=== PATIENT | female | born 1995 | race Caucasian/White ===

== ENCOUNTER 2020-02-15 21:03 | Emergency (ER) | payer SELFPAY ==
[~2020-02-15] VITALS: Ht 152.4 cm; Wt 74.8 kg
--- OUTSIDE RECORDS SUMMARY | ~2020-02-15 | XMS | Clinical Summary ---
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 again. Neck pain, R shoulder pain and | | | numbness into R fingers. Upper back | | | fatigue and muscle pain and tension daily, | | | worse dirving and working | | + + + | Denies malaise | | + + + | Denies chest pain or discomfort | | + + + | Denies shortness of breath | | + + + | Complains of muscle cramps, back pain, | | | muscle aches; Denies muscle weakness, loss | | | of strength | | + + + | Complains of numbness; Denies disturbances | | | in coordination, weakness | | + + + | Complains of muscle cramps, back pain, | | | muscle aches; Others: seeing PT reg | | + + + | Complains of headaches; Denies | | | disturbances in coordination, numbness, | | | falling down, weakness | | + + + | Complains of pelvic pain; Denies inability | | | to empty bladder, trouble starting | | | urinary stream, painful urination; Others: | | | No recent unprotected Sex (last 6 mos at | | | least). NO vaginal discomfort, denies | | | abnormal discharge. 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 | | + + + | Denies difficulty breathing at night, near | | | fainting, chest pain or discomfort, | | | racing/skipping heart beats, fatigue, | | | lightheadedness, shortness of breath with | | | exertion, palpitations, swelling of hands | | | or feet, difficulty breathing while lying | | | down, fainting, leg cramps with exertion, | | | bluish discoloration of lips or nails, | | | weight gain | | + + + | Denies sleep disturbances due to | | | breathing, cough, shortness of breath, | | | coughing up blood, chest discomfort, | | | wheezing, excessive sputum, excessive | | | snoring; Others: Asthma - Mild exercise | | | induced | | + + + | Complains of back pain, stiffness; Denies | | | muscle cramps, joint pain, joint swelling, | | | presence of joint fluid, muscle weakness, | | | arthritis, gout, loss of strength, muscle | | | aches; Others: RIght neck and shoulder | | | radiating down to land acress ower back. | | + + +"
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
== END 2020-02-15 22:14 | disposition left against medical advice (07) ==
LOC: ED 21:03
DX: Z53.21 Procedure and treatment not carried out due to patient leaving prior to being seen by health care provider (principal)

== ENCOUNTER 2020-03-10 07:48 | Emergency (ER) | payer SELFPAY ==
[~2020-03-10] VITALS: Ht 152.4 cm; Wt 74.4 kg
--- OUTSIDE RECORDS SUMMARY | ~2020-03-10 | XMS | Encounter Summary ---
Demographics + + + | Address | [address] | | | [place] [address] | + + + | Home Phone | | + + + | Preferred Language | Unknown | + + + | Marital Status | Single | + + + | Adventist Affiliation | 1013 | + + + | Race | White | + + + | Ethnic Group | Not or | + + + Author + + + | Author | [facility] | | | and [place] | + + + | Organization | [facility] | | | and [place] | + + + | Address | Unknown | + + + | Phone | Unavailable | + + + Support + + +---------+ + | Name | Relationship | Address | Phone | + + +---------+ + | Joyce Smith | ECON | Unknown | | + + +---------+ + Care Team Providers + +------+ + | Care Microbiology Lab Analyst Name | Role | Phone | + +------+ + | Jennifer Rowley | PCP | | + +------+ + Reason for Referral Evaluate & Treat (Routine) +--------+ + + + + + | Status | Reason | Specialty | Diagnoses / | Referred By | Referred To | | | | | Procedures | Contact | Contact | +--------+ + + + + + | Closed | Specialty | Obstetrics | Diagnoses | Sandie, | Federico, | | | Services | and | Abdominal | Antony | Rustam | | | Required | Gynecology | pain, | MD Dane | Patric | | | | | unspecified | [address] | MD Toni | | | | | abdominal | [address] [place] | [address] | | | | | location | [place], [place] | [place] | | | | | | [address] | [place] | | | | | | Phone: | [phone] | | | | | | [phone] | Phone: | | | | | | Fax: | [phone] | | | | | | [phone] | | +--------+ + + + + + Reason for Visit + + + | Reason | Comments | + + + | Abdominal Pain | | + + + Encounter Details +--------+ + + + + | Date | Type | Department | Care Team | Description | +--------+ + + + + | 03/21/ | Emergency | [facility] | Antony Hooper | Abdominal pain, | | 2018 | | [facility] | MD Dane [address] | unspecified | | | | CENTER [address] | [address] [place] | abdominal location | | | | [place], [place] | [place] [address] | (Primary Dx) | | | | [address] | [phone] | | | | | [phone] | | | +--------+ + + + + Social History + +-------+ +--------+------+ | Tobacco Use | Types | Packs/Day | Years | Date | | | | | Used | | + +-------+ +--------+------+ | Never Smoker | | | | | + +-------+ +--------+------+ + +---+---+---+ | Smokeless Tobacco: | | | | | Never Used | | | | + +---+---+---+ + + +---------+ + | Alcohol Use | Drinks/Week | oz/Week | Comments | + + +---------+ + | Yes | | | Rare | + + +---------+ + + + + | Sex Assigned at | Date Recorded | | | | + + + | Not on file | | + + + documented as of this encounter Last Filed Vital Signs + + + + + | Vital Sign | Reading | Time Taken | Comments | + + + + + | Blood Pressure | 109/68 | 03/21/2018 3:35 PM | | | | | PDT | | + + + + + | Pulse | 82 | 03/21/2018 3:35 PM | | | | | PDT | | + + + + + | Temperature | 37.2 C (98.9 F) | 03/21/2018 11:08 AM | | | | | PDT | | + + + + + | Respiratory Rate | 18 | 03/21/2018 11:08 AM | | | | | PDT | | + + + + + | Oxygen Saturation | 100% | 03/21/2018 3:35 PM | | | | | PDT | | + + + + + | Inhaled Oxygen | - | - | | | Concentration | | | | + + + + + | Weight | 92.5 kg (204 lb) | 03/21/2018 11:08 AM | | | | | PDT | | + + + + + | Height | - | - | | + + + + + | Body Mass Index | 39.84 | 02/19/2018 6:13 PM | | | | | PDT | | + + + + + documented in this encounter Discharge Instructions AttachmentsThe following attachments cannot be sent through Care Everywhere.Abdominal Pain, Adult (Icelandic)documented in this encounter Medications at Time of Discharge + + + +---------+ + + | Medication | Sig | Dispensed | Refills | Start | End Date | | | | | | Date | | + + + +---------+ + + | cetirizine | Take 5 mg by mouth | | 0 | | | | (ZYRTEC) 5 mg tablet | Daily. | | | | 9 | + + + +---------+ + + | methocarbamol | Take 500 mg by mouth | | 0 | | | | (ROBAXIN) 500 mg | every 8 hours as | | | | 9 | | tablet | needed. | | | | | + + + +---------+ + + | ondansetron | Take 1 tablet by | 15 | 0 | 03/21/20 | | | (ZOFRAN ODT) 4 mg | mouth every 8 hours | tablet | | 18 | 8 | | disintegrating | as needed for up to | | | | | | tablet | 5 days. | | | | | + + + +---------+ + + | oxyCODONE | Take 1 tablet by | 15 | 0 | 03/21/20 | | | (ROXICODONE) 5 mg | mouth every 8 hours | tablet | | 18 | 8 | | tablet | as needed for Pain | | | | | | | for up to 5 days. | | | | | + + + +---------+ + + documented as of this encounter ED Notes Antony Hooper MD - 03/21/2018 11:13 AM PDTFormatting of this note might be diff erent from the original. [facility] Kimmie Hawkins Emergency Department Encounter Note [address] [place] [id number] PCP:SIGRID Zavala [phone] CHIEF COMPLAINT: Chief Complaint Patient presents with Abdominal Pain ED Room: ED10 HPI Kimmie Hawkins is a 22 y.o. female who presents to the Emergency Department Reports LLQ pain localized sharp stabbing up to 5/10 intermittent starting this am after sh e twisted while getting out of bed and noted the onset of this pain. No dysuria or change in BM. No associated nausea of vomiting. Language line clerical assistant made available and used to collect historical details as needed. PAST MEDICAL & SURGICAL HISTORY Patient Active Problem List Diagnosis Date Noted Chronic tonsillitis and adenoiditis(474.02) 06/21/2013 Note Last Updated: 03/28/2015 ICD-10 Record update DYSURIA 09/14/2011 Past Surgical History: Procedure Laterality Date CHOLECYSTECTOMY, LAPAROSCOPIC 2009 TONSILLECTOMY 2013 CURRENT MEDICATIONS Discharge Medication List as of 03/21/2018 15:28 CONTINUE these medications which have NOT CHANGED Details cetirizine (ZYRTEC) 5 mg tablet Take 5 mg by mouth Daily.Historical Med methocarbamol (ROBAXIN) 500 mg tablet Take 500 mg by mouth every 8 hours as needed.Historic al Med ALLERGIES Allergies Allergen Reactions Acetaminophen Other (See Comments) Headache and upset stomach Codeine Other (See Comments) Reaction not specified in outside medical records Ibuprofen Other (See Comments) Headache and upset stomach Red Dye Rash FAMILY AND SOCIAL HISTORY Family History Problem Relation Age of Onset Cancer Mother Diabetes Mother Alcohol abuse Mother Hypertension Mother Arthritis Mother Hypertension Other Anxiety disorder Other Asthma Other Depression Other Alcohol abuse Other Stroke Other Grandma Heart disease Father Mental illness Father Diabetes Maternal Grandmother Stroke Maternal Grandmother Diabetes Maternal Grandfather Hypertension Maternal Grandfather COPD Paternal Grandmother Rheum arthritis Paternal Grandmother Mental illness Paternal Uncle Diabetes Maternal Aunt Social History Social History Marital status: Single Spouse name: N/A Number of children: 12 Years of education: N/A Social History Main Topics Smoking status: Never Smoker Smokeless tobacco: Never Used Alcohol use Yes Comment: Rare Drug use: No Sexual activity: Yes Other Topics Concern None Social History Narrative None REVIEW OF SYSTEMS As in history of present illness. A 10 system review was otherwise negative. PHYSICAL EXAM VITAL SIGNS: (first vital signs):Temp: 37.2 C (98.9 F) Pulse: 99 Resp: 18 SpO2: 99 % BP : 124/76 Body mass index is 39.84 kg/m. Constitutional: Moderately uncomfortable female patient. HEENT: Atraumatic, PERRL, Oropharynx benign. Neck: Supple with full range of motion. No JVD, no lymphadenopathy, no meningismus and no cervical spine tenderness to palpation or step-off noted. Chest: Good air movement bilaterally. No wheezes, No, rales. Cardiovascular: Normal S1 S2 Abdomen: Soft, nontender., no rebound, guarding, or masses., bowel tones normal. and no pu lsatile masses. Back: Within normal limits, no CVA tenderness and no midline thoracic or lumbar spinal tend erness Extremities: Nontender. No lower extremity edema, no calf asymmetry. Present distal pulse s. Skin: Warm, Dry, No rashes Neurologic: Alert & oriented. No focal deficits, Speech normal, gait not tested Psychiatric: Normal mood, affect and judgement. EKG 12-lead EKG shows LABS Results for orders placed or performed during the hospital encounter of 03/21/18 CBC with Differential Result Value Ref Range WBC 7.4 4.0 - 11.0 K/uL RBC 4.72 3.70 - 5.20 M/uL Hgb 13.6 11.5 - 16.0 g/dL Hct 40.1 34.0 - 47.0 % MCV 85.0 83.0 - 101.0 fL MCH 28.8 28.0 - 35.0 pg MCHC 33.9 32.0 - 36.0 g/dL RDW-CV 11.9 <15.0 % RDW-SD 36.5 35.1 - 46.3 fL Platelet Count 262 140 - 440 K/uL MPV 10.0 6.5 - 12.4 fL % Neutrophils 58.8 45.0 - 82.0 % % Lymphocytes 33.2 20.0 - 45.0 % % Monocytes 5.5 4.0 - 12.0 % % Eosinophils 2.3 0.0 - 5.0 % % Basophils 0.1 0.0 - 1.0 % % Immature granulocytes 0.1 0.0 - 0.4 % Absolute Neutrophils 4.37 1.80 - 8.50 K/uL Absolute Lymphocytes 2.47 0.60 - 3.20 K/uL Absolute Monocytes 0.41 0.00 - 1.00 K/uL Absolute Eosinophils 0.17 0.00 - 0.40 K/uL Absolute Basophils 0.01 0.00 - 0.10 K/uL Absolute Imm. Granulocytes 0.01 0.00 - 0.03 K/uL nRBC 0 0 - 2 per 100 WBC's NRBC ABS 0.00 0.00 - 0.01 K/uL Comprehensive Metabolic Panel Result Value Ref Range NA 137 136 - 149 mmol/L K 3.8 3.5 - 5.1 mmol/L CL 105 98 - 109 mmol/L CO2 25 24 - 31 mmol/L ANION GAP 7 3 - 16 mmol/L GLUCOSE 120 (H) 70 - 109 mg/dL BUN 6 (L) 7 - 18 mg/dL Creatinine, Serum/Plasma 0.69 0.60 - 1.30 mg/dL eGFR if not >60 >=60 mL/min/1.73m2 CALCIUM 9.6 8.3 - 10.5 mg/dL ALBUMIN 4.2 3.2 - 5.0 g/dL Bilirubin Total 0.4 0.1 - 1.5 mg/dL Total protein 7.4 6.0 - 7.8 g/dL AST 47 (H) 10 - 42 U/L ALT 105 (H) 6 - 45 U/L ALK PHOS 56 40 - 110 U/L GLOBULIN 3.2 2.1 - 3.8 g/dL Albumin/Globulin ratio 1.3 0.8 - 2.0 BUN/CREA 8.7 Lipase Result Value Ref Range LIPASE 20 0 - 60 U/L Urinalysis with Microscopic with Culture if Indicated Result Value Ref Range COLOR Yellow Light Yellow, Yellow, Straw CLARITY Hazy (A) Clear PH UA 5.0 5.0 - 8.0 Specific [place] 1.023 1.001 - 1.030 PROTEIN UA Negative Negative BLOOD UA Negative Negative GLUCOSE UA Negative Negative KETONES UA Negative Negative BILIRUBIN UA Negative Negative NITRITE UA Negative Negative LEUKOCYTES ESTERASE UA Trace (A) Negative UROBILINOGEN UA Negative 0.2 mg/dL, 1.0 mg/dL, Negative WBC UA 5-10 (A) 0 - 2 /HPF RBC UA 0-2 0 - 2 /HPF SQUAMOUS EPITHELIAL UA >100 (A) 0 - 2 /LPF BACTERIA UA 1+ (A) Negative /HPF MUCUS UA Present (A) Negative /LPF BUDDING YEAST UA Few (A) Negative , Serum, Qual Result Value Ref Range hCG Screen, Serum Negative Negative IMAGING STUDIES (X-Rays interpreted by ED Physician) US pelvis shows ovarian cyst CT AP does not reveal acute pathology ED COURSE & MEDICAL DECISION MAKING Pertinent Labs & Imaging studies were reviewed along with EMS notes and [facility] record s if applicable. (See chart for details) Medications and Allergy list reviewed. Nurses note and old records were reviewed The patient was seen and examined, The patient was placed on the monitor and monitored. An iv was placed. The patient was given a normal saline bolus. The patient was given iv narcotic pain medication morphine to which the patients pain responded. The patient was given zofran for their symptoms. Screening labs are ordered and are unremarkable. Pain likely secondary to ovarian cyst without other acute intra-abdominal or intrapelvic pa thology identified. The patient remained hemodynamically stable within normal limits during their ED course, and sat comfortably in their bed in no apparent distress. The patient was counseled about their results and workup including all incidental findings and the need for out patient follow up to which they verbalized their understanding and were provided. The patient was counseled about the importance of medical recommendations today and the dangers including harm, , permanen t injury, injury, morbidity, and mortality of non adherence to the plan. They verbalize thei r understanding of today's plan and agree with it. They were counseled that emergency servic es are available to them 16/01 and to return to the ED immediately if symptoms return, persis t, change or worsen. The patient was given follow up. They were given further strict, thorou gh, actionable return precautions to which they verbalized their understanding. The patient's questions were answered and the patient agreed with the plan. The patient was discharged in good stable condition. Last Set of Vital Signs: Temp: 37.2 C (98.9 F) Pulse: 82 Resp: 18 SpO2: 100 % BP: 109/6 8 FINAL IMPRESSION ICD-10-CM ICD-9-CM 1. Abdominal pain, unspecified abdominal location R10.9 789.00 Follow-up Information SIGRID Zavala. Specialty: Family Nurse Practitioner Contact information: [address] [place] [address] Rustam Caballero MD. Call today. Specialty: Obstetrics and Gynecology Contact information: [address] [place] [address] Discharge Medication List as of 03/21/2018 15:28 START taking these medications Details ondansetron (ZOFRAN ODT) 4 mg disintegrating tablet Take 1 tablet by mouth every 8 hours as needed for up to 5 days.Disp-15 tablet, R-0, Print oxyCODONE (ROXICODONE) 5 mg tablet Take 1 tablet by mouth every 8 hours as needed for Pain for up to 5 days.Disp-15 tablet, R-0, Print Administrations This Visit fentaNYL (PF) injection 50 mcg Admin Date 03/21/2018 Action Given Dose 50 mcg Route Intravenous Administered By Sharlene Cárdenas RN Admin Date 03/21/2018 Action Given Dose 50 mcg Route Intravenous Administered By Sharlene Cárdenas RN iohexol (OMNIPAQUE 350) 350 mg/mL injection 90 mL Admin Date 03/21/2018 Action Given Dose 90 mL Route Intravenous Administered By Xavi Rucker ondansetron (ZOFRAN) injection 4 mg Admin Date 03/21/2018 Action Given Dose 4 mg Route Intravenous Administered By Sharlene Cárdenas RN oxyCODONE (ROXICODONE) tablet 5 mg Admin Date 03/21/2018 Action Given Dose 5 mg Route Oral Administered By Sharlene Cárdenas RN sodium chloride 0.9% (NS) infusion Admin Date 03/21/2018 Action New Bag Dose Rate 100 mL/hr Route Intravenous Administered By Sharlene Cárdenas RN Portions of this chart were created with [employer] voice recognition software. Inadvertent so und alike substitutions may be present and are unintentional Antony Hooper MD 03/21/18 1749 AEinLiborio ugalde RN - 03/21/2018 11:07 AM PDTLower abd pain since yesterday. Has hx of ovarian cyst. C/o nausea. Denies pain with urination or diarrhea. Electronically signed by CHAYITO Donato t 03/21/2018 11:11 AM PDTdocumented in this encounter Plan of Treatment + +------+--------+ + + | Name | Type | Priori | Associated Diagnoses | Date/Time | | | | ty | | | + +------+--------+ + + | ED INFORMATION | GLENN | Routin | | 03/21/2018 11:03 AM | | EXCHANGE | | e | | PDT | + +------+--------+ + + + + +--------+ + + | Name | Type | Priori | Associated Diagnoses | Order Schedule | | | | ty | | | + + +--------+ + + | Obstetrics / | Outpatient | Routin | Abdominal pain, | Ordered: 03/21/2018 | | Gynecology, External | Referral | e | unspecified | | | - AMB Referral | | | abdominal location | | + + +--------+ + + documented as of this encounter Procedures + +--------+ + + + | Procedure Name | Priori | Date/Time | Associated Diagnosis | Comments | | | ty | | | | + +--------+ + + + | CT ABDOMEN PELVIS W | STAT | 03/21/2018 | | Results for this | | CONTRAST | | 2:16 PM | | procedure are in the | | | | PDT | | results section. | + +--------+ + + + | US PELVIS W | STAT | 03/21/2018 | | Results for this | | TRANSVAGINAL | | 12:38 PM | | procedure are in the | | | | PDT | | results section. | + +--------+ + + + | URINALYSIS WITH | STAT | 03/21/2018 | | Results for this | | MICROSCOPIC WITH | | 11:38 AM | | procedure are in the | | CULTURE IF INDICATED | | PDT | | results section. | + +--------+ + + + | CBC WITH | STAT | 03/21/2018 | | Results for this | | DIFFERENTIAL | | 11:38 AM | | procedure are in the | | | | PDT | | results section. | + +--------+ + + + | , SERUM, | STAT | 03/21/2018 | | Results for this | | QUAL | | 11:38 AM | | procedure are in the | | | | PDT | | results section. | + +--------+ + + + | LIPASE | STAT | 03/21/2018 | | Results for this | | | | 11:38 AM | | procedure are in the | | | | PDT | | results section. | + +--------+ + + + | COMPREHENSIVE | STAT | 03/21/2018 | | Results for this | | METABOLIC PANEL | | 11:38 AM | | procedure are in the | | | | PDT | | results section. | + +--------+ + + + | ED INFORMATION | Routin | 03/21/2018 | | | | EXCHANGE | e | 11:03 AM | | | | | | PDT | | | + +--------+ + + + +---+--------+ | | | | | Proced | | | ure | | | Note - | | | Amy, | | | Lab In | | | | | | Hlseve | | | n - | | | | | | 2017 | | | 11:04 | | | AM PDT | | | | | | Format | | | ting | | | of | | | this | | | note | | | might | | | be | | | differ | | | ent | | | from | | | the | | | origin | | | al.AMY | | | E?NOTI | | | FICATI | | | ON?/ | | | | | | 8 | | | 10:51? | | | HENSLE | | | Y, | | | PERCEP | | | HONI | | | J?MRN: | | | | | | [id number] | | | [id number] | | | his | | | patien | | | t has | | | regist | | | ered | | | at the | | | | | | Provid | | | ence | | | [facility] | | l | | | Center | | | | | | Emerge | | | ncy | | | Depart | | | ment | | | For | | | more | | | inform | | | ation | | | visit: | | | | | | https: | | | //secu | | | [email or web address] | | | ecarep | | | [email or web address] | | | m/denisse | | | ent/0b | | | [id number] | | | -[id number]- | | | [id number] | | | [id number] | | | [id number] | | | 668e | | | Securi | | | ty | | | Events | | | No | | | recent | | | | | | Securi | | | ty | | | Events | | | | | | curren | | | tly on | | | | | | fileED | | | Care | | | Guidel | | | inesTh | | | ere | | | are | | | curren | | | tly no | | | ED | | | Care | | | Guidel | | | doretha | | | in | | | [facility] | | | for | | | this | | | patien | | | t. | | | Please | | | check | | | your | | | facili | | | ty's | | | medica | | | l | | | record | | | s | | | system | | | .Recen | | | t | | | Emerge | | | ncy | | | Depart | | | ment | | | Visit | | | [facility] | | | yAdmit | | | Date | | | Facili | | | ty | | | City | | | State | | | Type | | | Major | | | Type | | | Diagno | | | ses or | | | Chief | | | | | | Compla | | | int | | | Sep | | | 26, | | | 2018 | | | Provid | | | ence | | | [facility] [place] | | | [place] | | | Emerge | | | ncy | | | Emerge | | | ncy | | | Lower | | | ABD | | | Pain | | | Aug | | | 27, | | | 2018 | | | Provid | | | ence | | | [facility] | | [facility] | | [place] | | | [place] | | | Emerge | | | ncy | | | Emerge | | | ncy | | | sinus | | | pain | | | | | | Otalgi | | | a, | | | left | | | ear | | | Other | | | | | | specif | | | ied | | | disord | | | ers of | | | nose | | | and | | | nasal | | | sinuse | | | s Aug | | | 23, | | | 2018 | | | [facility] | | | [place] | | | Urgent | | | Care | | | [place] | | | [place] | | | Urgent | | | Care | | | | | | Outpat | | | ient | | | | | | Pharyn | | | gitis | | | | | | Acute | | | pharyn | | | gitis, | | | | | | unspec | | | ified | | | | | | Acute | | | pansin | | | usitis | | | , | | | unspec | | | ified | | | Joe | | | 18, | | | 2018 | | | Provid | | | ence | | | [facility] | | | [facility] | | [place] | | | [place] | | | Emerge | | | ncy | | | Emerge | | | ncy | | | | | | migrai | | | ne | | | Headac | | | he | | | (Adult | | | - | | | Recurr | | | ent Or | | | Known | | | Dx | | | Migrai | | | andrei) | | | | | | Chroni | | | c | | | tensio | | | n-type | | | | | | headac | | | he, | | | intrac | | | table | | | Joe | | | 16, | | | 2018 | | | Provid | | | ence | | | [facility] | [facility] | [place] | | | [place] | | | Emerge | | | ncy | | | Emerge | | | ncy | | | | | | headac | | | he | | | Headac | | | he | | | (Adult | | | - New | | | Onset | | | Or | | | New | | | Sympto | | | ms) | | | | | | Headac | | | he | | | Joe | | | 13, | | | 2018 | | | [facility] | | | [place] | | | Urgent | | | Care | | | [place] | | [place] | | | Urgent | | | Care | | | | | | Outpat | | | ient | | | | | | Follow | | | -up | | | | | | Radicu | | | lopath | | | y, | | | lumbar | | | | | | region | | | E.D. | | | Visit | | | Count | | | (12 | | | mo.)Fa | | | cility | | | | | | Visits | | | Low | | | Acuity | | | | | | Provid | | | ence | | | St. | | | [facility] | Medica | | | l | | | Center | | | 7 0 | | | Total | | | 7 0 | | | Note: | | | Visits | | | | | | indica | | | te | | | total | | | known | | | visits | | | . | | | Medica | | | id Low | | | | | | Acuity | | | Dx | | | are | | | the | | | number | | | of | | | primar | | | y | | | diagno | | | ses on | | | the | | | Medica | | | id's | | | Low | | | Acuity | | | dx | | | list. | | | | | | Recent | | | | | | Inpati | | | ent | | | Visit | | | [facility] | | | yNo | | | record | | | ed | | | inpati | | | ent | | | visits | | | . PDMP | | | | | | Report | | | Rx | | | Detail | | | s (6 | | | Mo.)Fi | | | ll | | | Date | | | Drug | | | Descri | | | ption | | | Qty. | | | Prescr | | | iber | | | CS MED | | | | | | 2018-0 | | | 8-14 | | | ALPRAZ | | | OLAM | | | 0.5 MG | | | | | | TABLET | | | 2 | | | NILAY | | | MEDLEY | | | 4 0 | | | 2018-0 | | | 7-20 | | | LORAZE | | | LAMAR | | | 0.5 MG | | | | | | TABLET | | | 2 | | | JENNIFER | | | MEICHE | | | R 4 0 | | | 2018-0 | | | 7-18 | | | HYDROC | | | ODONE- | | | ACETAM | | | IN | | | 5-325 | | | MG 20 | | | DANE | | | WEN | | | 2 50 | | | Rx | | | [facility] | | | y (12 | | | Mo.)Me | | | tric | | | Count | | | CS | | | II-V | | | Rx 4 | | | CS-II | | | Rx 1 | | | Quanti | | | ty | | | Dispen | | | sed 34 | | | | | | Unique | | | | | | Prescr | | | ibers | | | 4 | | | Unique | | | | | | Pharma | | | cies 1 | | | | | | Benzos | | | 3 | | | Opioid | | | s 1 | | | Long | | | Acting | | | | | | Opioid | | | s 0 | | | Care | | | Provid | | | ersEDI | | | E has | | | no | | | care | | | provid | | | ers on | | | | | | record | | | at | | | this | | | time. | | | Criter | | | ia met | | | | | | PDMPKn | | | own | | | Aliase | | | sNo | | | known | | | aliase | | | s. The | | | above | | | | | | inform | | | ation | | | is | | | provid | | | ed for | | | the | | | sole | | | purpos | | | e of | | | patien | | | t | | | treatm | | | ent. | | | Use of | | | this | | | inform | | | ation | | | beyond | | | the | | | terms | | | of | | | Data | | | Sharin | | | g | | | Memora | | | ndum | | | of | | | Unders | | | tandin | | | g and | | | Licens | | | e | | | Agreem | | | ent is | | | | | | prohib | | | ited. | | | In | | | certai | | | n | | | cases | | | not | | | all | | | visits | | | may | | | be | | | repres | | | ented. | | | | | | Consul | | | t the | | | aforem | | | ention | | | ed | | | facili | | | ties | | | for | | | additi | | | onal | | | inform | | | ation. | | | ? | | | 2017 | | | Colle[employer] | | | tive | | | Medica | | | l | | | [employer] | | | logies | | | , [employer] | | | - | | | [place] | | | [place] | | | [place], | | | [place] - | | | [email or web address] | | | ollect | | | ivemed | | | icalte | | | [email or web address] | | | | +---+--------+ documented in this encounter Results CT Abdomen Pelvis w Contrast (03/21/2018 2:16 PM PDT) + + | Specimen | + + | | + + + + + | Narrative | Performed At | + + + | ENHANCED CT ABDOMEN AND PELVIS 03/21/2018 2:02 PM CLINICAL | [facility] | | HISTORY: LLQ pain COMPARISON: Preceding pelvic | | | ultrasound, lumbar MRI February 07, CT July 06 TECHNIQUE: Axial | | | images are performed through the abdomen and pelvis following the | | | uneventful intravenous administration of 90 mL Omnipaque 350 contrast. | | | Coronal and sagittal reformations are also performed. | | | ABDOMEN FINDINGS: Imaged lung bases and mediastinum are | | | unremarkable. Generalized hypoattenuation of the liver persists, | | | consistent with fatty infiltration. The gallbladder is absent, and | | | no biliary ductal dilation is apparent. The spleen, pancreas, | | | adrenal glands and left kidney are unremarkable. There is a stable | | | 10 mm rounded hypodensity inferiorly in the right kidney, favoring a | | | cyst. No nephroureterolithiasis or hydroureteronephrosis is | | | evident. The stomach, bowel and appendix are unremarkable, without | | | evidence of obstruction or visible inflammation. There are similar | | | mildly prominent lymph nodes in the root of the small bowel | | | mesentery, measuring up to 10 mm on image 64. No overtly pathologic | | | lymph node enlargement is evident. No free air, ascites or hernia | | | is evident. The abdominal vasculature is unremarkable. Bilateral | | | L5 spondylolysis is again demonstrated, along with minimal | | | anterolisthesis at L5-S1. Bones and soft tissues are otherwise | | | unremarkable. PELVIS FINDINGS: The bladder is mostly | | | decompressed and not well evaluated. The uterus and adnexa are | | | unremarkable. No free air, free fluid, pathologic lymph node | | | enlargement, or hernia is evident. Bones and soft tissues are | | | unremarkable. IMPRESSION - 1. NO EVIDENCE OF ACUTE | | | INTRA-ABDOMINAL DISEASE. 2. HYPOATTENUATION OF THE LIVER | | | CONSISTENT WITH FATTY INFILTRATION. 3. STABLE MILDLY PROMINENT | | | MESENTERIC LYMPH NODES. 4. BILATERAL L5 SPONDYLOLYSIS WITH | | | MINIMAL ANTEROLISTHESIS AT L5-S1. Images were provided for | | | interpretation on March 21, 2018 at 1425 hours. Results were | | | finalized at 1435 hours. Dictated and Signed by: Nicolás Aleman MD | | | Electronically signed: 03/21/2018 2:35 PM | | + + + + + | Procedure Note | + + | Amy, Rad Results In - 03/21/2018 2:[address] ABDOMEN AND PELVIS | | 03/21/2018 2:02 PM CLINICAL HISTORY: LLQ pain COMPARISON: Preceding pelvic | | ultrasound, lumbar MRI February 07, CT July 06 TECHNIQUE: Axial images are performed | | through the abdomen and pelvis followingthe uneventful intravenous administration of 90 | | mL Omnipaque 350 contrast. Coronal and sagittal reformations are also performed. | | ABDOMEN FINDINGS: Imaged lung bases and mediastinum are unremarkable. Generalized | | hypoattenuation of the liver persists, consistent with fattyinfiltration. The | | gallbladder is absent, and no biliary ductal dilation isapparent. The spleen, pancreas, | | adrenal glands and left kidney areunremarkable. There is a stable 10 mm rounded | | hypodensity inferiorly in theright kidney, favoring a cyst. No nephroureterolithiasis | | orhydroureteronephrosis is evident.The stomach, bowel and appendix are unremarkable, | | without evidence ofobstruction or visible inflammation. There are similar mildly | | prominent lymphnodes in the root of the small bowel mesentery, measuring up to 10 mm on | | image64. No overtly pathologic lymph node enlargement is evident. No free air,ascites | | or hernia is evident. The abdominal vasculature is unremarkable. Bilateral L5 | | spondylolysis is again demonstrated, along with minimalanterolisthesis at L5-S1. Bones | | and soft tissues are otherwise unremarkable. PELVIS FINDINGS: The bladder is mostly | | decompressed and not well evaluated. The uterus and adnexa are unremarkable. No free | | air, free fluid, pathologiclymph node enlargement, or hernia is evident. Bones and soft | | tissues areunremarkable. IMPRESSION - 1. NO EVIDENCE OF ACUTE INTRA-ABDOMINAL | | DISEASE.2. HYPOATTENUATION OF THE LIVER CONSISTENT WITH FATTY INFILTRATION.3. STABLE | | MILDLY PROMINENT MESENTERIC LYMPH NODES.4. BILATERAL L5 SPONDYLOLYSIS WITH MINIMAL | | ANTEROLISTHESIS AT L5-S1.Images were provided for interpretation on March 21, 2018 | | at 1425 hours. Results were finalized at 1435 hours.Dictated and Signed by: Nicolás Aleman, | | Electronically signed: 03/21/2018 2:35 PM | | | |PELVIS FINDINGS: The bladder is mostly decompressed and not well evaluated. | |The uterus and adnexa are unremarkable. No free air, free fluid, pathologic | |lymph node enlargement, or hernia is evident. Bones and soft tissues are | |unremarkable. | | | |IMPRESSION - | |1. NO EVIDENCE OF ACUTE INTRA-ABDOMINAL DISEASE. | | | |2. HYPOATTENUATION OF THE LIVER CONSISTENT WITH FATTY INFILTRATION. | | | |3. STABLE MILDLY PROMINENT MESENTERIC LYMPH NODES. | | | |4. BILATERAL L5 SPONDYLOLYSIS WITH MINIMAL ANTEROLISTHESIS AT L5-S1. | | | |Images were provided for interpretation on March 21, 2018 at 1425 hours. | |Results were finalized at 1435 hours. | | | |Dictated and Signed by: Nicolás Aleman MD | | Electronically signed: 03/21/2018 2:35 PM | + + + +---------+ + + | Performing | Address | City/State/Zipcode | Phone Number | | Organization | | | | + +---------+ + + | [facility] | | | | + +---------+ + + US Pelvis W Transvaginal (03/21/2018 12:38 PM PDT) + + | Specimen | + + | | + + + + + | Narrative | Performed At | + + + | EXAM:US PELVIS W TRANSVAGINAL CLINICAL HISTORY: pelvic pain | [facility] | | COMPARISON: None. FINDINGS: Transabdominal and transvaginal | | | imaging of the pelvis. Uterus: Anteflexed uterus. The | | | endometrium is unremarkable and measures about 7 mm. There are no | | | focal or diffuse myometrial abnormalities. The uterus measures 8 x | | | 4 x 4 cm. Ovaries and adnexa: The right ovary is normal appearing. | | | There are 2. Prominent follicles in the left ovary. There is a | | | hypoechoic structure in the left ovary that likely an involuting | | | follicle. Both ovaries are appropriate in size. The right | | | measures 3.7 x 1.5 x 3 cm and the left 2.7 x 3.3 x 4 cm. No adnexal | | | masses. Spectral and color Doppler flow are identified both | | | ovaries. There is no significant free fluid. IMPRESSION - No | | | sonographic evidence for ovarian torsion. No significant ovarian | | | cysts or masses. No endometrial abnormalities. The preliminary | | | findings were conveyed to the ordering provider, by the forest ranger technician, | | | immediately following the exam. Dictated and Signed by: Daniel Banegas | | MD Yvonne Electronically signed: 03/21/2018 1:37 PM | | + + + + + | Procedure Note | + + | Amy, Rad Results In - 03/21/2018 1:41 PM PDT EXAM:US PELVIS W TRANSVAGINAL | | | | CLINICAL HISTORY: pelvic pain | | | | COMPARISON: None. | | | | FINDINGS: Transabdominal and transvaginal imaging of the pelvis. | | | | Uterus: Anteflexed uterus. The endometrium is unremarkable and measures about 7 | | mm. There are no focal or diffuse myometrial abnormalities. The uterus | | measures 8 x 4 x 4 cm. | | | | Ovaries and adnexa: The right ovary is normal appearing. There are 2. | | Prominent follicles in the left ovary. There is a hypoechoic structure in the | | left ovary that likely an involuting follicle. Both ovaries are appropriate in | | size. The right measures 3.7 x 1.5 x 3 cm and the left 2.7 x 3.3 x 4 cm. No | | adnexal masses. Spectral and color Doppler flow are identified both ovaries. | | There is no significant free fluid. | | | | IMPRESSION - | | | | No sonographic evidence for ovarian torsion. | | | | No significant ovarian cysts or masses. | | | | No endometrial abnormalities. | | | | The preliminary findings were conveyed to the ordering provider, by the | | forest ranger technician, immediately following the exam. | | | | Dictated and Signed by: Daniel Russell MD | | Electronically signed: 03/21/2018 1:37 PM | + + + +---------+ + + | Performing | Address | City/State/Zipcode | Phone Number | | Organization | | | | + +---------+ + + | [facility] | | | | + +---------+ + + , Serum, Qual (03/21/2018 11:38 AM PDT) + + + + + + | Component | Value | Ref Range | Performed | Pathologist | | | | | At | Signature | + + + + + + | hCG Screen, | Negative | Negative | [facility] | | | Serum | | | [facility] | | | | | | [facility] | | | | | | [facility] - | | | | | | LABORATORY | | + + + + + + + + | Specimen | + + | Blood | + + + + + + + | Performing | Address | City/State/Zipcode | Phone Number | | Organization | | | | + + + + + | [facility] | [address] | [place] | [phone] | | [facility] | | [address] | | | - LABORATORY | | | | + + + + + Urinalysis with Microscopic with Culture if Indicated (03/21/2018 11:38 AM PDT) + + + + + + | Component | Value | Ref Range | Performed | Pathologist | | | | | At | Signature | + + + + + + | Color, | Yellow | Light Yellow, | [facility] | | | Urine | | Yellow, Straw | [facility] | | | | | | [facility] | | | | | | CENTER - | | | | | | LABORATORY | | + + + + + + | Clarity, | Hazy (A) | Clear | [facility] | | | Urine | | | [facility] | | | | | | MEDICAL | | | | | | CENTER - | | | | | | LABORATORY | | + + + + + + | pH, Urine | 5.0 | 5.0 - 8.0 | [facility] | | | | | | [facility] | | | | | | [facility]ICAL | | | | | | CENTER - | | | | | | LABORATORY | | + + + + + + | Specific | 1.023 | 1.001 - 1.030 | [facility] | | | [place], | | | [facility] | | | Urine | | | MEDICAL | | | | | | CENTER - | | | | | | LABORATORY | | + + + + + + | Protein, | Negative | Negative | [facility] | | | Urine | | | [facility] | | | | | | MEDICAL | | | | | | CENTER - | | | | | | LABORATORY | | + + + + + + | Blood, | Negative | Negative | [facility] | | | Urine | | | [facility] | | | | | | MEDICAL | | | | | | CENTER - | | | | | | LABORATORY | | + + + + + + | Glucose, | Negative | Negative | [facility] | | | Urine | | | [facility] | | | | | | MEDICAL | | | | | | CENTER - | | | | | | LABORATORY | | + + + + + + | Ketones, | Negative | Negative | [facility] | | | Urine | | | [facility] | | | | | | MEDICAL | | | | | | CENTER - | | | | | | LABORATORY | | + + + + + + | Bilirubin, | Negative | Negative | [facility] | | | Urine | | | [facility] | | | | | | MEDICAL | | | | | | CENTER - | | | | | | LABORATORY | | + + + + + + | Nitrite, | Negative | Negative | [facility] | | | Urine | | | [facility] | | | | | | MEDICAL | | | | | | CENTER - | | | | | | LABORATORY | | + + + + + + | Leukocyte | Trace (A) | Negative | [facility] | | | Esterase, | | | [facility] | | | Urine | | | MEDICAL | | | | | | CENTER - | | | | | | LABORATORY | | + + + + + + | Urobilinoge | Negative | 0.2 mg/dL, 1.0 | [facility] | | | n, Urine | | mg/dL, Negative | [facility] | | | | | | MEDICAL | | | | | | CENTER - | | | | | | LABORATORY | | + + + + + + | White Blood | 5-10 (A) | 0 - 2 /HPF | [facility] | | | Cells, | | | [facility] | | | Urine | | | MEDICAL | | | | | | CENTER - | | | | | | LABORATORY | | + + + + + + | Red Blood | 0-2 | 0 - 2 /HPF | [facility] | | | Cells, | | | [facility] | | | Urine | | | MEDICAL | | | | | | CENTER - | | | | | | LABORATORY | | + + + + + + | Squamous | >100 (A) | 0 - 2 /LPF | [facility] | | | Epithelial | | | [facility] | | | Cells, | | | MEDICAL | | | Urine | | | CENTER - | | | | | | LABORATORY | | + + + + + + | Bacteria, | 1+ (A) | Negative /HPF | [facility] | | | Urine | | | [facility] | | | | | | MEDICAL | | | | | | CENTER - | | | | | | LABORATORY | | + + + + + + | Mucus, | Present (A) | Negative /LPF | [facility] | | | Urine | | | [facility] | | | | | | MEDICAL | | | | | | CENTER - | | | | | | LABORATORY | | + + + + + + | Budding | Few (A) | Negative | [facility] | | | Yeast, | | | [facility] | | | Urine | | | MEDICAL | | | | | | CENTER - | | | | | | LABORATORY | | + + + + + + + + | Specimen | + + | Urine - Urine | | specimen obtained by | | clean catch | | procedure (specimen) | + + + + + + + | Performing | Address | City/State/Zipcode | Phone Number | | Organization | | | | + + + + + | [facility] | [address] | [place] | [phone] | | [facility] | | [address] | | | - LABORATORY | | | | + + + + + Lipase (03/21/2018 11:38 AM PDT) + +-------+ + + + | Component | Value | Ref Range | Performed | Pathologist | | | | | At | Signature | + +-------+ + + + | Lipase | 20 | 0 - 60 U/L | [facility] | | | | | | [facility] | | | | | | MEDICAL | | | | | | CENTER - | | | | | | LABORATORY | | + +-------+ + + + + + | Specimen | + + | Blood | + + + + + + + | Performing | Address | City/State/Zipcode | Phone Number | | Organization | | | | + + + + + | [facility] | [address] | [place], [place] | [phone] | | [facility] | | [address] | | | - LABORATORY | | | | + + + + + Comprehensive Metabolic Panel (03/21/2018 11:38 AM PDT) + + + + + + | Component | Value | Ref Range | Performed | Pathologist | | | | | At | Signature | + + + + + + | Na | 137 | 136 - 149 | [facility] | | | | | mmol/L | [facility] | | | | | | MEDICAL | | | | | | CENTER - | | | | | | LABORATORY | | + + + + + + | K | 3.8 | 3.5 - 5.1 | [facility] | | | | | mmol/L | [facility] | | | | | | MEDICAL | | | | | | CENTER - | | | | | | LABORATORY | | + + + + + + | Cl | 105 | 98 - 109 mmol/L | [facility] | | | | | | [facility] | | | | | | [facility]ICAL | | | | | | CENTER - | | | | | | LABORATORY | | + + + + + + | CO2 | 25 | 24 - 31 mmol/L | [facility] | | | | | | [facility] | | | | | | MEDICAL | | | | | | CENTER - | | | | | | LABORATORY | | + + + + + + | Anion Gap | 7 | 3 - 16 mmol/L | [facility] | | | | | | [facility] | | | | | | [facility] | | | | | | CENTER - | | | | | | LABORATORY | | + + + + + + | Glucose | 120 (H) | 70 - 109 mg/dL | [facility] | | | | | | [facility] | | | | | | [facility] | | | | | | CENTER - | | | | | | LABORATORY | | + + + + + + | BUN | 6 (L) | 7 - 18 mg/dL | [facility] | | | | | | [facility] | | | | | | [facility] | | | | | | CENTER - | | | | | | LABORATORY | | + + + + + + | Creatinine | 0.69 | 0.60 - 1.30 | [facility] | | | | | mg/dL | [facility] | | | | | | [facility] | | | | | | C[facility] - | | | | | | LABORATORY | | + + + + + + | eGFR, | >60Comment: GLOMERULAR | >=60 | [facility] | | | non- | FILTRATION | mL/min/1.73m2 | [facility] | | | [place] | RATE,ESTIMATED | | MEDICAL | | | | mL/min/1.53v9Mgiy than | | CENTER - | | | | 60 Chronic kidney | | LABORATORY | | | | disease,if found over a | | | | | | 3-month period.Less than | | | | | | 15 Kidney failureFor | | | | | | | | | | | | Americans,multiply the | | | | | | calculated GFR by 1.21. | | | | | | | | | | + + + + + + | Calcium | 9.6 | 8.3 - 10.5 | [facility] | | | | | mg/dL | [facility] | | | | | | [facility] | | | | | | CENTER - | | | | | | LABORATORY | | + + + + + + | Albumin | 4.2 | 3.2 - 5.0 g/dL | [facility] | | | | | | [facility] | | | | | | [facility] | | | | | | CENTER - | | | | | | LABORATORY | | + + + + + + | Bilirubin | 0.4Comment: This is an | 0.1 - 1.5 mg/dL | [facility] | | | Total | appended report. These | | [facility] | | | | results have been | | MEDICAL | | | | appended to a previously | | CENTER - | | | | preliminary verified | | LABORATORY | | | | report. | | | | + + + + + + | Total | 7.4 | 6.0 - 7.8 g/dL | [facility] | | | Protein | | | [facility] | | | | | | MEDICAL | | | | | | CENTER - | | | | | | LABORATORY | | + + + + + + | AST | 47 (H)Comment: This is | 10 - 42 U/L | [facility] | | | | an appended report. | | [facility] | | | | These results have been | | MEDICAL | | | | appended to a previously | | CENTER - | | | | preliminary verified | | LABORATORY | | | | report. | | | | + + + + + + | ALT | 105 (H)Comment: This is | 6 - 45 U/L | [facility] | | | | an appended report. | | [facility] | | | | These results have been | | MEDICAL | | | | appended to a previously | | CENTER - | | | | preliminary verified | | LABORATORY | | | | report. | | | | + + + + + + | Alkaline | 56Comment: This is an | 40 - 110 U/L | [facility] | | | Phosphatase | appended report. These | | [facility] | | | | results have been | | MEDICAL | | | | appended to a previously | | CENTER - | | | | preliminary verified | | LABORATORY | | | | report. | | | | + + + + + + | Globulin | 3.2 | 2.1 - 3.8 g/dL | [facility] | | | | | | [facility] | | | | | | [facility] | | | | | | CENTER - | | | | | | LABORATORY | | + + + + + + | Albumin/Allie | 1.3 | 0.8 - 2.0 | [facility] | | | bulin Ratio | | | [facility] | | | | | | [facility] | | | | | | CENTER - | | | | | | LABORATORY | | + + + + + + | BUN/Creatin | 8.7 | | [facility] | | | ine Ratio | | | [facility] | | | | | | [facility]ICAL | | | | | | CENTER - | | | | | | LABORATORY | | + + + + + + + + | Specimen | + + | Blood | + + + + + + + | Performing | Address | City/State/Zipcode | Phone Number | | Organization | | | | + + + + + | [facility] | [address] | [place] | [phone] | | [facility] | | [address] | | | - LABORATORY | | | | + + + + + CBC with Differential (03/21/2018 11:38 AM PDT) + +-------+ + + + | Component | Value | Ref Range | Performed | Pathologist | | | | | At | Signature | + +-------+ + + + | White Blood | 7.4 | 4.0 - 11.0 K/uL | [facility] | | | Cells | | | [facility] | | | | | | MEDICAL | | | | | | CENTER - | | | | | | LABORATORY | | + +-------+ + + + | Red Blood | 4.72 | 3.70 - 5.20 | [facility] | | | Cells | | M/uL | [facility] | | | | | | MEDICAL | | | | | | CENTER - | | | | | | LABORATORY | | + +-------+ + + + | Hemoglobin | 13.6 | 11.5 - 16.0 | [facility] | | | | | g/dL | [facility] | | | | | | MEDICAL | | | | | | CENTER - | | | | | | LABORATORY | | + +-------+ + + + | Hematocrit | 40.1 | 34.0 - 47.0 % | [facility] | | | | | | [facility] | | | | | | MEDICAL | | | | | | CENTER - | | | | | | LABORATORY | | + +-------+ + + + | MCV | 85.0 | 83.0 - 101.0 fL | [facility] | | | | | | [facility] | | | | | | [facility] | | | | | | CENTER - | | | | | | LABORATORY | | + +-------+ + + + | MCH | 28.8 | 28.0 - 35.0 pg | [facility] | | | | | | [facility] | | | | | | [facility] | | | | | | CENTER - | | | | | | LABORATORY | | + +-------+ + + + | MCHC | 33.9 | 32.0 - 36.0 | [facility] | | | | | g/dL | [facility] | | | | | | MEDICAL | | | | | | CENTER - | | | | | | LABORATORY | | + +-------+ + + + | RDW-CV | 11.9 | <15.0 % | [facility] | | | | | | [facility] | | | | | | [facility] | | | | | | CENTER - | | | | | | LABORATORY | | + +-------+ + + + | RDW-SD | 36.5 | 35.1 - 46.3 fL | [facility] | | | | | | [facility] | | | | | | [facility] | | | | | | CENTER - | | | | | | LABORATORY | | + +-------+ + + + | Platelet | 262 | 140 - 440 K/uL | [facility] | | | Count | | | [facility] | | | | | | [facility] | | | | | | CENTER - | | | | | | LABORATORY | | + +-------+ + + + | MPV | 10.0 | 6.5 - 12.4 fL | [facility] | | | | | | [facility] | | | | | | [facility] | | | | | | CENTER - | | | | | | LABORATORY | | + +-------+ + + + | % | 58.8 | 45.0 - 82.0 % | [facility] | | | Neutrophils | | | [facility] | | | | | | [facility] | | | | | | CENTER - | | | | | | LABORATORY | | + +-------+ + + + | % | 33.2 | 20.0 - 45.0 % | [facility] | | | Lymphocytes | | | [facility] | | | | | | [facility]ICAL | | | | | | CENTER - | | | | | | LABORATORY | | + +-------+ + + + | % Monocytes | 5.5 | 4.0 - 12.0 % | [facility] | | | | | | [facility] | | | | | | [facility] | | | | | | CENTER - | | | | | | LABORATORY | | + +-------+ + + + | % | 2.3 | 0.0 - 5.0 % | [facility] | | | Eosinophils | | | [facility] | | | | | | MEDICAL | | | | | | CENTER - | | | | | | LABORATORY | | + +-------+ + + + | % Basophils | 0.1 | 0.0 - 1.0 % | [facility] | | | | | | [facility] | | | | | | [facility]ICAL | | | | | | CENTER - | | | | | | LABORATORY | | + +-------+ + + + | % Immature | 0.1 | 0.0 - 0.4 % | [facility] | | | Granulocyte | | | [facility] | | | s | | | MEDICAL | | | | | | CENTER - | | | | | | LABORATORY | | + +-------+ + + + | Absolute | 4.37 | 1.80 - 8.50 | [facility] | | | Neutrophils | | K/uL | [facility] | | | | | | MEDICAL | | | | | | CENTER - | | | | | | LABORATORY | | + +-------+ + + + | Absolute | 2.47 | 0.60 - 3.20 | [facility] | | | Lymphocytes | | K/uL | [facility] | | | | | | MEDICAL | | | | | | CENTER - | | | | | | LABORATORY | | + +-------+ + + + | Absolute | 0.41 | 0.00 - 1.00 | [facility] | | | Monocytes | | K/uL | [facility] | | | | | | MEDICAL | | | | | | CENTER - | | | | | | LABORATORY | | + +-------+ + + + | Absolute | 0.17 | 0.00 - 0.40 | [facility] | | | Eosinophils | | K/uL | [facility] | | | | | | MEDICAL | | | | | | CENTER - | | | | | | LABORATORY | | + +-------+ + + + | Absolute | 0.01 | 0.00 - 0.10 | [facility] | | | Basophils | | K/uL | [facility] | | | | | | MEDICAL | | | | | | CENTER - | | | | | | LABORATORY | | + +-------+ + + + | Absolute | 0.01 | 0.00 - 0.03 | [facility] | | | Immature | | K/uL | [facility] | | | Granulocyte | | | MEDICAL | | | s | | | CENTER - | | | | | | LABORATORY | | + +-------+ + + + | % nRBC | 0 | 0 - 2 per 100 | [facility] | | | | | WBC's | [facility] | | | | | | MEDICAL | | | | | | CENTER - | | | | | | LABORATORY | | + +-------+ + + + | Absolute | 0.00 | 0.00 - 0.01 | [facility] | | | nRBC | | K/uL | [facility] | | | | | | MEDICAL | | | | | | CENTER - | | | | | | LABORATORY | | + +-------+ + + + + + | Specimen | + + | Blood | + + + + + + + | Performing | Address | City/State/Zipcode | Phone Number | | Organization | | | | + + + + + | [facility] | [address] | [place] | [phone] | | [facility] | | [address] | | | - LABORATORY | | | | + + + + + documented in this encounter Visit Diagnoses + + | Diagnosis | + + | Abdominal pain, unspecified abdominal location - Primary | + + documented in this encounter Administered Medications + +--------+ +--------+------+------+ | Medication Order | MAR | Action | Dose | Rate | Site | | | Action | Date | | | | + +--------+ +--------+------+------+ | fentaNYL (PF) injection 50 mcg | Given | 03/21/20 | 50 mcg | | | | 50 mcg, Intravenous, ONCE, Mon | | 18 12:09 | | | | | 03/21/18 at 1205, For 1 dose | | PM PDT | | | | + +--------+ +--------+------+------+ +---+---+ | | | +---+---+ + +-------+ +--------+---+---+ | fentaNYL (PF) injection 50 mcg | Given | 03/21/20 | 50 mcg | | | | 50 mcg, Intravenous, ONCE, Wed | | 18 1:32 | | | | | 03/21/18 at 1320, For 1 dose | | PM PDT | | | | + +-------+ +--------+---+---+ +---+---+ | | | +---+---+ + +-------+ +--------+---+---+ | iohexol (OMNIPAQUE 350) 350 | Given | 03/21/20 | 90 mLs | | | | mg/mL injection 90 mL 90 mL, | | 18 2:17 | | | | | Intravenous, ONCE PRN, Other, for | | PM PDT | | | | | imaging CT study, Starting Wed | | | | | | | 03/21/18 at 1417, For 1 dose, | | | | | | | Radiology | | | | | | + +-------+ +--------+---+---+ +---+---+ | | | +---+---+ + +-------+ +------+---+---+ | ondansetron (ZOFRAN) injection | Given | 03/21/20 | 4 mg | | | | 4 mg 4 mg, Intravenous, ONCE, | | 18 11:42 | | | | | 03/21/18 at 1135, For 1 dose | | AM PDT | | | | + +-------+ +------+---+---+ +---+---+ | | | +---+---+ + +-------+ +------+---+---+ | oxyCODONE (ROXICODONE) tablet 5 | Given | 03/21/20 | 5 mg | | | | mg 5 mg, Oral, ONCE, Mon | | 18 3:33 | | | | | 03/21/18 at 1445, For 1 dose | | PM PDT | | | | + +-------+ +------+---+---+ + +---+ | | | + +---+ | sodium chloride 0.9% (NS) bolus | | | 90 mL 90 mL, Intravenous, | | | Administer over 1 Minutes, ONCE | | | PRN, for imaging CT study, | | | Starting 03/21/18 at 1417, For | | | 1 dose, Radiology | | + +---+ | | | + +---+ + +---------+ +---+-------+---+ | sodium chloride 0.9% (NS) | New Bag | 03/21/20 | | 100 | | | infusion at 100 mL/hr, | | 18 11:37 | | mL/hr | | | Intravenous, CONTINUOUS, Starting | | AM PDT | | | | | 03/21/18 at 1120 | | | | | | + +---------+ +---+-------+---+ +---+---+ | | | +---+---+ documented in this encounter"
--- OUTSIDE RECORDS SUMMARY | ~2020-03-10 | XMS | Encounter Summary ---
Demographics + + + | Address | [address] | | | [place] [address] | + + + | Home Phone | | + + + | Preferred Language | Unknown | + + + | Marital Status | Single | + + + | Jainism Affiliation | [id number] | + + + | Race | White | + + + | Ethnic Group | Not or | + + + Author + + + | Author | [facility] | | | and [place] | + + + | Organization | [facility] | | [...] Team Providers + +------+ + | Care Nurse Practitioner Manager Name | Role | Phone | + +------+ + PCP | Unavailable | + +------+ + Encounter Details +--------+ + + + + | Date | Type | Department | Care Team | Description | +--------+ + + + + | 03/23/ | Hospital | [facility] | Linda Rowley, | | | 2009 | Encounter | [facility] [address] | DIRECTOR OF [employer]ING [employer]PERATIONS [address] | | | | | Miguel García | [facility], | | | | | [place] [id number] | [place] [address] | | | | | [phone] | [phone] | | | | | | | | +--------+ + + + + Social History + +-------+ +--------+------+ | Tobacco Use | Types | Packs/Day | Years | Date | | | | | Used | | + +-------+ +--------+------+ | Never Assessed | | | | | + +-------+ +--------+------+ + + + | Sex Assigned at | Date Recorded | | | | + + + | Not on file | | + + + documented as of this encounter Plan of Treatment Not on filedocumented as of this encounter Visit Diagnoses Not on filedocumented in this encounter"
--- OUTSIDE RECORDS SUMMARY | ~2020-03-10 | XMS | Encounter Summary ---
Demographics + + + | Address | [address] | | | [place] [address] | + + + | Home Phone | | + + + | Preferred Language | Unknown | + + + | Marital Status | Single | + + + | Taoism Affiliation | [id number] | + + + | Race | White | + + + | Ethnic Group | Not or | + + + Author + + + | Author | [facility] | | | and [place] | + + + | Organization | [facility] | | | and [...] Team Providers + +------+ + | Care Nursing Specialist Name | Role | Phone | + +------+ + | Linda Rowley | PCP | | + +------+ + Reason for Visit + + + | Reason | Comments | + + + | Abdominal Pain | | + + + Encounter Details +--------+ + + + + | Date | Type | Department | Care Team | Description | +--------+ + + + + | 07/06/ | Emergency | [facility] | Topher Borja, | Lower abdominal pain | | 2018 | | [facility] | MD [address] | (Primary Dx); | | | | CENTER [address] | [place], [place] | Mesenteric adenitis | | | | [place], [place] | [address] | | | | | [address] | | | | | | [phone] | | | +--------+ + + + [...] Comments | + + +---------+ + | No | | | | + + +---------+ + + + [...] + + + | Blood Pressure | 130/78 | 07/06/2017 3:22 PM | | | | | PST | | + + + + + | Pulse | 88 | 07/06/2017 3:22 PM | | | | | PST | | + + + + + | Temperature | 37.1 C (98.8 F) | 07/06/2017 3:22 PM | | | | | PST | | + + + + + | Respiratory Rate | 16 | 07/06/2017 3:22 PM | | | | | PST | | + + + + + | Oxygen Saturation | 98% | 07/06/2017 3:22 PM | | | | | PST | | + + + + + | Inhaled Oxygen | - | - | | | Concentration | | | | + + + + + | Weight | 91.9 kg (202 lb 9.6 | 07/06/2017 3:22 PM | | | | oz) | PST | | + + + + + | Height | 152.4 cm (5') | 07/06/2017 3:22 PM | | | | | PST | | + + + + + | Body Mass Index | 39.57 | 07/06/2017 3:22 PM | | | | | PST | | + + + + + documented in this encounter Discharge Instructions Dacia Taylor RN - 07/06/2017 AttachmentsThe following attachments cannot be sent through Care Everywhere.Lidia Costello (Ghanaian)documented in this encounter Medications at Time of Discharge + + + +---------+ + + | Medication | Sig | Dispensed | Refills | Start | End Date | | | | | | Date | | + + + +---------+ + + | METHOCARBAMOL PO | Take by mouth. | | 0 | | | | | | | | | 8 | + + + +---------+ + + | NAPROXEN PO | Take by mouth. | | 0 | | | | | | | | | 8 | + + + +---------+ + + | promethazine | Take 1 tablet by | 56 | 0 | 07/06/19 | | | (PHENERGAN) 25 mg | mouth every 4 hours | tablet | | 18 | 8 | | tablet | as needed. | | | | | + + + +---------+ + + documented as of this encounter ED Notes Topher Borja MD - 07/06/2017 3:37 PM PSTFormatting of this note might be different fr om the original. [facility] Emergency Department Encounter Note [address] [place] [id number] PCP:SIGRID Zavala ED17 CHIEF COMPLAINT: Chief Complaint Patient presents with Abdominal Pain HPI Kimmie Hawkins is a 22 y.o. female who presents to the Emergency Department with lower abdominal pain. Patient reports that she has had lower abdominal cramping when she b michele having her period on July 02. She reports since that time she has been having pain l ow down across the lower abdomen almost in her hips. PAST MEDICAL & SURGICAL HISTORY Past Medical History: Diagnosis Date Asthma Depression Migraine Past Surgical History: Procedure Laterality Date CHOLECYSTECTOMY, LAPAROSCOPIC 2010 TONSILLECTOMY CURRENT MEDICATIONS Previous Medications METHOCARBAMOL PO Take by mouth. NAPROXEN PO Take by mouth. ALLERGIES Allergies Allergen Reactions Acetaminophen Other (See Comments) Headache and upset stomach Codeine Ibuprofen Other (See Comments) Headache and upset stomach Red Dye Rash FAMILY AND SOCIAL HISTORY History reviewed. No pertinent family history. Social History Social History Marital status: Single Spouse name: N/A Number of children: N/A Years of education: N/A Social History Main Topics Smoking status: Never Smoker Smokeless tobacco: Never Used Alcohol use No Drug use: No Sexual activity: Not Asked Other Topics Concern None Social History Narrative None REVIEW OF SYSTEMS Review of Systems Constitutional: Negative. Negative for fever. Gastrointestinal: Positive for diarrhea and nausea. Negative for vomiting. Genitourinary: Positive for dysuria and urgency. Pain worsens with trying to have a BM As in history of present illness. A 10 system review was otherwise negative. PHYSICAL EXAM VITAL SIGNS: (first vital signs):Temp: 37.1 C (98.8 F) Pulse: 88 Resp: 16 SpO2: 98 % BP : 130/78 Body mass index is 39.57 kg/m. Constitutional: female patient, pleasant, alert and appropriate, conversant with nurse and staff. HEENT: Atraumatic, patient follows me around the room with their eyes, PERRL, Oropharynx s hows no redness, moist mucus membranes. Neck: Supple with full range of motion. No JVD, lymphadenopathy, or meningismus. Respiratory: Good air movement bilaterally. no wheezes, no rales. Patient's work of [employer] is normal. Cardiovascular: Normal S1 S2. No rubs or murmurs Abdomen: Focal severe bilateral lower tenderness to palpation left greater than right but equal in both bilateral lower quadrants. Back: No CVA tenderness. No midline thoracic or lumbar spinal tenderness. Extremities: Nontender. No edema, no calf asymmetry. Present distal pulses. Skin: Warm, Dry, No obvious rashes. Capillary refill is brisk <3 seconds and shows good p erfusion on areas of visible skin. Neurologic: Alert & oriented. Cranial nerves II-XII intact. No focal deficits. Gait is n ormal. Speech is normal. Psychiatric: Normal mood, affect and judgement. No evidence of suicidal or homicidal idea tion at this time. LABS Results for orders placed or performed during the hospital encounter of 07/06/17 CBC with Differential Result Value Ref Range WBC 8.1 4.0 - 11.0 K/uL RBC 4.88 3.70 - 5.20 M/uL Hgb 13.9 11.5 - 16.0 g/dL Hct 42.1 34.0 - 47.0 % MCV 86.2 83.0 - 101.0 fL MCH 28.5 28.0 - 35.0 pg MCHC 33.1 32.0 - 36.0 g/dL RDW-CV 12.6 <15.0 % Platelet Count 298 140 - 440 K/uL MPV 8.2 fL % Neutrophils 63.7 45.0 - 82.0 % % Lymphocytes 28.0 20.0 - 45.0 % % Monocytes 5.7 4.0 - 12.0 % % Eosinophils 1.6 0.0 - 5.0 % % Basophils 1.0 0.0 - 1.0 % Absolute Neutrophils 5.10 1.80 - 8.50 K/uL Absolute Lymphocytes 2.30 0.60 - 3.20 K/uL Absolute Monocytes 0.50 0.00 - 1.00 K/uL Absolute Eosinophils 0.10 0.00 - 0.40 K/uL Absolute Basophils 0.10 0.00 - 0.10 K/uL Comprehensive Metabolic Panel Result Value Ref Range NA 138 136 - 149 mmol/L K 3.7 3.5 - 5.1 mmol/L CL 106 98 - 109 mmol/L CO2 25 24 - 31 mmol/L ANION GAP 7 3 - 16 mmol/L GLUCOSE 93 70 - 109 mg/dL BUN 8 7 - 18 mg/dL Creatinine, Serum/Plasma 0.60 0.60 - 1.30 mg/dL eGFR if not >60 >=60 mL/min/1.73m2 CALCIUM 10.0 8.3 - 10.5 mg/dL ALBUMIN 4.2 3.2 - 5.0 g/dL BILIRUBIN TOTAL 0.5 0.1 - 1.5 mg/dL Total protein 7.3 6.0 - 7.8 g/dL AST 94 (H) 10 - 42 U/L ALT 193 (H) 6 - 45 U/L ALK PHOS 55 40 - 110 U/L GLOBULIN 3.1 2.1 - 3.8 g/dL Albumin/Globulin ratio 1.4 0.8 - 2.0 BUN/CREA 13.3 Urinalysis with Microscopic with Culture if Indicated Result Value Ref Range COLOR Yellow Light Yellow, Yellow, Straw CLARITY Clear Clear PH UA 6.0 5.0 - 8.0 Specific [place] 1.050 (H) 1.001 - 1.030 PROTEIN UA Negative Negative BLOOD UA Large (A) Negative GLUCOSE UA Negative Negative KETONES UA Negative Negative BILIRUBIN UA Negative Negative NITRITE UA Negative Negative LEUKOCYTES ESTERASE UA Negative Negative UROBILINOGEN UA Negative 0.2 mg/dL, 1.0 mg/dL, Negative WBC UA 0-2 0 - 2 /HPF RBC UA 0-2 0 - 2 /HPF SQUAMOUS EPITHELIAL UA 25-50 (A) 0 - 2 /LPF BACTERIA UA 1+ (A) Negative /HPF MUCUS UA Present (A) Negative /LPF URINE COMMENT Urine Culture Not Indicated , Urine, Qual Result Value Ref Range HCG SCREEN, URINE Negative Negative C-Reactive Protein Result Value Ref Range CRP 2.51 <8.00 mg/L IMAGING STUDIES Recent imaging: Recent Results (from the past 360 hour(s)) CT Abdomen Pelvis w Contrast Narrative CT ABDOMEN PELVIS W CONTRAST 07/06/2017 4:22 PM HISTORY: ABDOMINAL PAIN. COMPARISON: 03/15/2010 PROTOCOL: Axial images of the abdomen and pelvis were obtained after administration of 95 mL Omnipaque 350. Coronal and sagittal reformations were acquired. FINDINGS: LUNG BASE: Visualized lung bases are clear. Heart is normal in size. No evidence of pleural effusion. HEPATOBILIARY: Liver is enlarged and diffusely hypodense. No suspicious hepatic mass identified. The gallbladder is normal. No evidence of intrahepatic or extrahepatic biliary ductal dilatation. SPLEEN: Normal parenchyma. No evidence of mass or splenomegaly. PANCREASE: Normal parenchyma. No evidence of pancreatic ductal dilation. ADRENAL GLANDS: No evidence of nodule, mass or suspicious thickening. KIDNEYS: Bilateral kidneys are without evidence of suspicious mass, calculus, or hydronephrosis. Small hypodensities in both kidneys are too small to further characterize with CT criteria. Hypodensity within the inferior right kidney likely represents a small simple cyst. BOWEL: The stomach is normal. Imaged small bowel and colon demonstrate no acute findings. No evidence of dilatation to suggest obstruction or abnormal bowel wall thickening. Appendix is normal in caliber and appearance and air-filled. VASCULATURE: Aorta is nonaneurysmal and without evidence of dissection. LYMPH NODES: Multiple scattered left mesenteric lymph nodes are identified measuring up to 8 mm in short axis. A few right lower quadrant mesenteric lymph nodes are seen measuring up to 9.5 mm in short axis. PERITONEUM: There is no evidence for free fluid or free air. BLADDER: Unremarkable. REPRODUCTIVE: Uterus and adnexal structures are without evidence of gross abnormality. SOFT TISSUES: Body wall soft tissue structures are normal. BONES: There are no acute osseous abnormalities. Bilateral pars defects of L5 with only minimal grade 1 anterolisthesis of L5 over S1. IMPRESSION - 1. Multiple subthreshold, but prominent mesenteric lymph nodes are identified, nonspecific and can be seen with etiologies such as acute gastroenteritis. No other acute intra-abdominal abnormality identified. No evidence of appendicitis. 2. Hepatomegaly with hepatic steatosis. 3. Bilateral pars defects of L5 with only minimal grade 1 anterolisthesis of L5 over S1. 4. Multiple renal hypodensities are too small to further characterize by CT criteria, but statistically represent simple cyst. Dictated and Signed by: Corwin Bowers MD Electronically signed: 07/06/2017 4:47 PM ED COURSE & MEDICAL DECISION MAKING Pertinent Labs & Imaging studies were reviewed along with EMS notes and [facility] record s if applicable. Medication and Allergy lists reviewed in [facility]. Nurses note and old record s were reviewed if available within [facility] ER course 15:37 - Patient care initiated. After introducing myself to the pleasant, I performed a ca reful history and physical examination. This is a 22-year-old female presenting with increasing abdominal pain. In some ways, this pain seems to worsen with menstruation. This may indicate pain is related to an ovarian cy st. On the other hand, she is significantly tender and has nausea and some vomiting. There fore, we will check a CT scan to be sure there is no appendicitis or diverticulitis. 17:15. CT scan is normal. Patient seems to have a viral illness and the patient does have evidence of mesenteric adenititis on CT scan. Last Set of Vital Signs: Temp: 37.1 C (98.8 F) Pulse: 88 Resp: 16 SpO2: 98 % BP: 130/78 FINAL IMPRESSION 1. Lower abdominal pain 2. Mesenteric adenitis Disposition: Discharge home Condition: Stable Follow-up Information LOCATED WITHIN [facility]. Specialty: Emergency Medicine Why: If symptoms worsen Contact information: [address] [place] [address] New Prescriptions PROMETHAZINE (PHENERGAN) 25 MG TABLET Take 1 tablet by mouth every 4 hours as needed. Discontinued Medications No medications on file Discharge References/Attachments Adenitis, Mesenteric (Ghanaian) Administrations This Visit iohexol (OMNIPAQUE 350) 350 mg/mL injection 95 mL Admin Date 07/06/2017 Action Given Dose 95 mL Route Intravenous Administered By Yeyo Moreno, Technologist ondansetron (ZOFRAN) injection 8 mg Admin Date 07/06/2017 Action Given Dose 8 mg Route Intravenous Administered By Sharlene Cárdenas RN Portions of this chart may have been created with [employer] voice recognition software. Occasi onal wrong-word or sound-alike substitutions may have occurred due to the inherent mendiola itations of voice recognition software. Please read the chart carefully and recognize, using context, where these substitutions have occurred. Topher Borja MD 07/06/17 [id number] Dacia Petty RN - 07/06/2017 3:19 PM PSTPatient reports bilateral and midline lower abdominal pain wi th heavy vaginal bleeding x 5 days. Pt states she has "sprained L5 that's pinching my sciat ic nerve, so they put me on a steroid and my period stopped. When I quit the steroid, my pe riod started again." Pt also reports some nausea, diarrhea, and headache. Pt also reports pain with bowel movements x 5 days. Electronically signed by Dacia Hendrix RN at 3:21 PM PSTdocumented in this encounter Plan of Treatment Not on filedocumented as of this encounter Procedures + +--------+ + + + | Procedure Name | Priori | Date/Time | Associated Diagnosis | Comments | | | ty | | | | + +--------+ + + + | URINALYSIS WITH | STAT | 07/06/2017 | | Results for this | | MICROSCOPIC WITH | | 5:00 PM | | procedure are in the | | CULTURE IF INDICATED | | PST | | results section. | + +--------+ + + + | HCG, URINE, QUAL | STAT | 07/06/2017 | | Results for this | | | | 5:00 PM | | procedure are in the | | | | PST | | results section. | + +--------+ + + + | CT ABDOMEN PELVIS W | STAT | 07/06/2017 | | Results for this | | CONTRAST | | 4:33 PM | | procedure are in the | | | | PST | | results section. | + +--------+ + + + | C-REACTIVE PROTEIN | Routin | 07/06/2017 | | Results for this | | | e | 3:57 PM | | procedure are in the | | | | PST | | results section. | + +--------+ + + + | CBC WITH | STAT | 07/06/2017 | | Results for this | | DIFFERENTIAL | | 3:55 PM | | procedure are in the | | | | PST | | results section. | + +--------+ + + + | COMPREHENSIVE | STAT | 07/06/2017 | | Results for this | | METABOLIC PANEL | | 3:55 PM | | procedure are in the | | | | PST | | results section. | + +--------+ + + + documented in this encounter Results , Urine, Qual (07/06/2017 5:00 PM PST) + + + + + + | Component | Value | Ref Range | Performed | Pathologist | | | | | At | Signature | + + + + + + | HCG | Negative | Negative | [facility] | | | Qualitative | | | [facility] | | | , Urine | | | MEDICAL | | [...] ST. | [address] | [place] | [phone] | | [facility] | | [id number] | | | - LABORATORY | | | | + + + + + Urinalysis with Microscopic with Culture if Indicated (07/06/2017 5:00 PM PST) + + + + + + | Component | Value | Ref Range | Performed | Pathologist | | | | | At | Signature | + + + + + + | Color, | Yellow | Light Yellow, | [facility] | | | Urine | | Yellow, Straw | [facility] | | | | | | MEDICAL | | | | | | CENTER - | | | | | | LABORATORY | | + + + + + + | Clarity, | Clear | Clear | [facility] | | | Urine | | | [facility] | | | | | | MEDICAL | | | | | | CENTER - | | | | | | LABORATORY | | + + + + + + | pH, Urine | 6.0 | 5.0 - 8.0 | [facility] | | | | | | [facility] | | | | | | MEDICAL | | | | | | CENTER - | | | | | | LABORATORY | | + + + + + + | Specific | 1.050 (H) | 1.001 - 1.030 | [facility] | | | [place], | | | [facility] | | | Urine | | | MEDICAL | | | | | | CENTER - | | | | | | LABORATORY | | + + + + + + | Protein, | Negative | Negative | [facility] | | | Urine | | | [facility] | | | | | | MEDICAL | | | | | | CENTER - | | | | | | LABORATORY | | + + + + + + | Blood, | Large (A) | Negative | [facility] | | | Urine | | | [facility] | | | | | | MEDICAL | | | | | | CENTER - | | | | | | LABORATORY | | + + + + + + | Glucose, | Negative | Negative | [facility] | | | Urine | | | [facility] | | | | | | MEDICAL | | | | | | CENTER - | | | | | | LABORATORY | | + + + + + + | Ketones, | Negative | Negative | [facility] | | | Urine | | | [facility] | | | | | | MEDICAL | | | | | | CENTER - | | | | | | LABORATORY | | + + + + + + | Bilirubin, | Negative | Negative | [facility] | | | Urine | | | [facility] | | | | | | MEDICAL | | | | | | CENTER - | | | | | | LABORATORY | | + + + + + + | Nitrite, | Negative | Negative | [facility] | | | Urine | | | [facility] | | | | | | MEDICAL | | | | | | CENTER - | | | | | | LABORATORY | | + + + + + + | Leukocyte | Negative | Negative | [facility] | | | Esterase, | | | [facility] | | | Urine | | | MEDICAL | | | | | | CENTER - | | | | | | LABORATORY | | + + + + + + | Urobilinoge | Negative | 0.2 mg/dL, 1.0 | [facility] | | | n, Urine | | mg/dL, Negative | [facility] | | | | | | MEDICAL | | | | | | CENTER - | | | | | | LABORATORY | | + + + + + + | White Blood | 0-2 | 0 - 2 /HPF | [facility] | | | Cells, | | | [facility] | | | Urine | | | MEDICAL | | | | | | CENTER - | | | | | | LABORATORY | | + + + + + + | Red Blood | 0-2 | 0 - 2 /HPF | [facility] | | | Cells, | | | [facility] | | | Urine | | | MEDICAL | | | | | | CENTER - | | | | | | LABORATORY | | + + + + + + | Squamous | 25-50 (A) | 0 - 2 /LPF | [facility] | | | Epithelial | | | [facility] | | | Cells, | | | MEDICAL | | | Urine | | | CENTER - | | | | | | LABORATORY | | + + + + + + | Bacteria, | 1+ (A) | Negative /HPF | [facility] | | | Urine | | | [facility] | | | | | | MEDICAL | | | | | | CENTER - | | | | | | LABORATORY | | + + + + + + | Mucus, | Present (A) | Negative /LPF | [facility] | | | Urine | | | [facility] | | | | | | MEDICAL | | | | | | CENTER - | | | | | | LABORATORY | | + + + + + + | Urine | Urine Culture Not | | [facility] | | | Comment | Indicated | | [facility] | | | | | | MEDICAL [...] ST. | [address] | [place], [place] | [phone] | | [facility] | | [address] | | | - LABORATORY | | | | + + + + + CT Abdomen Pelvis w Contrast (07/06/2017 4:33 PM PST) + + | Specimen | + + | | + + + + + | Narrative | Performed At | + + + | CT ABDOMEN PELVIS W CONTRAST 07/06/2017 4:22 PM HISTORY: | [facility] | | ABDOMINAL PAIN. COMPARISON: 03/15/2010 PROTOCOL: Axial images | | | of the abdomen and pelvis were obtained after administration of 95 mL | | | Omnipaque 350. Coronal and sagittal reformations were acquired. | | | FINDINGS: LUNG BASE: Visualized lung bases are clear. Heart is | | | normal in size. No evidence of pleural effusion. HEPATOBILIARY: | | | Liver is enlarged and diffusely hypodense. No suspicious hepatic mass | | | identified. The gallbladder is normal. No evidence of intrahepatic | | | or extrahepatic biliary ductal dilatation. SPLEEN: Normal | | | parenchyma. No evidence of mass or splenomegaly. PANCREASE: Normal | | | parenchyma. No evidence of pancreatic ductal dilation. ADRENAL | | | GLANDS: No evidence of nodule, mass or suspicious thickening. | | | KIDNEYS: Bilateral kidneys are without evidence of suspicious mass, | | | calculus, or hydronephrosis. Small hypodensities in both kidneys are | | | too small to further characterize with CT criteria. Hypodensity | | | within the inferior right kidney likely represents a small simple | | | cyst. BOWEL: The stomach is normal. Imaged small bowel and colon | | | demonstrate no acute findings. No evidence of dilatation to suggest | | | obstruction or abnormal bowel wall thickening. Appendix is normal in | | | caliber and appearance and air-filled. VASCULATURE: Aorta is | | | nonaneurysmal and without evidence of dissection. LYMPH NODES: | | | Multiple scattered left mesenteric lymph nodes are identified | | | measuring up to 8 mm in short axis. A few right lower quadrant | | | mesenteric lymph nodes are seen measuring up to 9.5 mm in short axis. | | | PERITONEUM: There is no evidence for free fluid or free air. | | | BLADDER: Unremarkable. REPRODUCTIVE: Uterus and adnexal structures | | | are without evidence of gross abnormality. SOFT TISSUES: Body wall | | | soft tissue structures are normal. BONES: There are no acute osseous | | | abnormalities. Bilateral pars defects of L5 with only minimal grade | | | 1 anterolisthesis of L5 over S1. IMPRESSION - 1. Multiple | | | subthreshold, but prominent mesenteric lymph nodes are identified, | | | nonspecific and can be seen with etiologies such as acute | | | gastroenteritis. No other acute intra-abdominal abnormality | | | identified. No evidence of appendicitis. 2. Hepatomegaly with | | | hepatic steatosis. 3. Bilateral pars defects of L5 with only minimal | | | grade 1 anterolisthesis of L5 over S1. 4. Multiple renal | | | hypodensities are too small to further characterize by CT criteria, | | | but statistically represent simple cyst. Dictated and | | | Signed by: Corwin Bowers MD Electronically signed: 07/06/2017 4:47 | | | PM | | + + + + + | Procedure Note | + + | Tomas, Rad Results In - 07/06/2017 4:[address] ABDOMEN PELVIS W CONTRAST 07/06/2017 | | 4:22 PMHISTORY: ABDOMINAL PAIN.COMPARISON: 03/15/2010PROTOCOL: Axial images of the | | abdomen and pelvis were obtained afteradministration of 95 mL Omnipaque 350. Coronal and | | sagittal reformations wereacquired.FINDINGS:LUNG BASE: Visualized lung bases are clear. | | Heart is normal in size. No evidenceof pleural effusion. HEPATOBILIARY: Liver is | | enlarged and diffusely hypodense. No suspicious hepaticmass identified. The gallbladder | | is normal. No evidence of intrahepatic orextrahepatic biliary ductal dilatation.SPLEEN: | | Normal parenchyma. No evidence of mass or splenomegaly.PANCREASE: Normal parenchyma. No | | evidence of pancreatic ductal dilation.ADRENAL GLANDS: No evidence of nodule, mass or | | suspicious thickening.KIDNEYS: Bilateral kidneys are without evidence of suspicious | | mass, calculus, orhydronephrosis. Small hypodensities in both kidneys are too small to | | furthercharacterize with CT criteria. Hypodensity within the inferior right kidneylikely | | represents a small simple cyst.BOWEL: The stomach is normal. Imaged small bowel and | | colon demonstrate no acutefindings. No evidence of dilatation to suggest obstruction or | | abnormal bowelwall thickening. Appendix is normal in caliber and appearance and | | air-filled.VASCULATURE: Aorta is nonaneurysmal and without evidence of dissection. LYMPH | | NODES: Multiple scattered left mesenteric lymph nodes are identifiedmeasuring up to 8 | | mm in short axis. A few right lower quadrant mesenteric lymphnodes are seen measuring up | | to 9.5 mm in short axis.PERITONEUM: There is no evidence for free fluid or free | | air.BLADDER: Unremarkable.REPRODUCTIVE: Uterus and adnexal structures are without | | evidence of grossabnormality. SOFT TISSUES: Body wall soft tissue structures are normal. | | BONES: There are no acute osseous abnormalities. Bilateral pars defects of L5with only | | minimal grade 1 anterolisthesis of L5 over S1.IMPRESSION -1. Multiple subthreshold, but | | prominent mesenteric lymph nodes are identified,nonspecific and can be seen with | | etiologies such as acute gastroenteritis. Noother acute intra-abdominal abnormality | | identified. No evidence of appendicitis.2. Hepatomegaly with hepatic steatosis.3. | | Bilateral pars defects of L5 with only minimal grade 1 anterolisthesis of L5over S1.4. | | Multiple renal hypodensities are too small to further characterize by CTcriteria, but | | statistically represent simple cyst.Dictated and Signed by: Corwin Bowers MD | | Electronically signed: 07/06/2017 4:47 PM | |nodes are seen measuring up to 9.5 mm in short axis. | |PERITONEUM: There is no evidence for free fluid or free air. | |BLADDER: Unremarkable. | |REPRODUCTIVE: Uterus and adnexal structures are without evidence of gross | |abnormality. | |SOFT TISSUES: Body wall soft tissue structures are normal. | |BONES: There are no acute osseous abnormalities. Bilateral pars defects of L5 | |with only minimal grade 1 anterolisthesis of L5 over S1. | | | |IMPRESSION - | |1. Multiple subthreshold, but prominent mesenteric lymph nodes are identified, | |nonspecific and can be seen with etiologies such as acute gastroenteritis. No | |other acute intra-abdominal abnormality identified. No evidence of appendicitis. | |2. Hepatomegaly with hepatic steatosis. | |3. 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 | |4. Multiple renal hypodensities are too small to further characterize by CT | |criteria, but statistically represent simple cyst. | | | | | | | | | | | |Dictated and Signed by: Corwin Bowers MD | | Electronically signed: 07/06/2017 4:47 PM | + + + +---------+ + + | Performing | Address | City/State/Zipcode | Phone Number | | Organization | | | | + +---------+ + + | [facility] | | | | + +---------+ + + C-Reactive Protein (07/06/2017 3:57 PM PST) + +-------+ + + + | Component | Value | Ref Range | Performed | Pathologist | | | | | At | Signature | + +-------+ + + + | CRP | 2.51 | <8.00 mg/L | [facility] | | | | | | [facility] | | | | | | MEDICAL [...] | + + + + + | [facility] | [address] | [place] | [phone] | | [facility] | | [address] | | | - LABORATORY | | | | + + + + + Comprehensive Metabolic Panel (07/06/2017 3:55 PM PST) + + + + + + | Component | Value | Ref Range | Performed | Pathologist | | | | | At | Signature | + + + + + + | Na | 138 | 136 - 149 | [facility] | | | | | mmol/L | [facility] | | | | | | MEDICAL | | | | | | CENTER - | | | | | | LABORATORY | | + + + + + + | K | 3.7 | 3.5 - 5.1 | [facility] | | | | | mmol/L | [facility] | | | | | | MEDICAL | | | | | | CENTER - | | | | | | LABORATORY | | + + + + + + | Cl | 106 | 98 - 109 mmol/L | [facility] | | | | | | [facility] | | | | | | MEDICAL | | | | | | CENTER - | | | | | | LABORATORY | | + + + + + + | CO2 | 25 | 24 - 31 mmol/L | [facility] | | | | | | [facility] | | | | | | MEDICAL | | | | | | CENTER - | | | | | | LABORATORY | | + + + + + + | Anion Gap | 7 | 3 - 16 mmol/L | [facility] | | | | | | [facility] | | | | | | MEDICAL | | | | | | CENTER - | | | | | | LABORATORY | | + + + + + + | Glucose | 93 | 70 - 109 mg/dL | [facility] | | | | | | [facility] | | | | | | MEDICAL | | | | | | CENTER - | | | | | | LABORATORY | | + + + + + + | BUN | 8 | 7 - 18 mg/dL | [facility] | | | | | | [facility] | | | | | | MEDICAL | | | | | | CENTER - | | | | | | LABORATORY | | + + + + + + | Creatinine | 0.60 | 0.60 - 1.30 | [facility] | | | | | mg/dL | [facility] | | | | | | MEDICAL | | | | | | CENTER - | | | | | | LABORATORY | | + + + + + + | eGFR, | >60Comment: GLOMERULAR | >=60 | [facility] | | | non- | FILTRATION | mL/min/1.73m2 | [facility] | | | [place] | RATE,ESTIMATED | | MEDICAL | | | | mL/min/1.20p0Jzkt than | | CENTER - | | [...] + + + + | Calcium | 10.0 | 8.3 - 10.5 | [facility] | | | | | mg/dL | [facility] | | | | | | MEDICAL | | | | | | CENTER - | | | | | | LABORATORY | | + + + + + + | Albumin | 4.2 | 3.2 - 5.0 g/dL | [facility] | | | | | | [facility] | | | | | | MEDICAL | | | | | | CENTER - | | | | | | LABORATORY | | + + + + + + | Bilirubin | 0.5Comment: This is an | 0.1 - 1.5 mg/dL | [facility] | | | Total | appended report. These | | [facility] | | | | results have been | | MEDICAL | | | | appended to a previously | | CENTER - | | | | preliminary verified | | LABORATORY | | | | report. | | | | + + + + + + | Total | 7.3 | 6.0 - 7.8 g/dL | [facility] | | | Protein | | | [facility] | | | | | | MEDICAL | | | | | | CENTER - | | | | | | LABORATORY | | + + + + + + | AST | 94 (H)Comment: This is | 10 - 42 [...] + + + + | ALT | 193 (H)Comment: This is | 6 - 45 [...] + + + + | Alkaline | 55Comment: This is an | 40 - 110 [...] + + + + | Globulin | 3.1 | 2.1 - 3.8 g/dL | [facility] | | | | | | [facility] | | | | | | MEDICAL | | | | | | CENTER - | | | | | | LABORATORY | | + + + + + + | Albumin/Allie | 1.4 | 0.8 - 2.0 | [facility] | | | bulin Ratio | | | [facility] | | | | | | MEDICAL | | | | | | CENTER - | | | | | | LABORATORY | | + + + + + + | BUN/Creatin | 13.3 | | [facility] | | | ine Ratio | | | [facility] | | | | | | MEDICAL [...] | + + + + + | [facility] | [address] | [place] | [phone] | | [facility] | | [address] | | | - LABORATORY | | | | + + + + + CBC with Differential (07/06/2017 3:55 PM PST) + +-------+ + + + | Component | Value | Ref Range | Performed | Pathologist | | | | | At | Signature | + +-------+ + + + | White Blood | 8.1 | 4.0 - 11.0 K/uL | [facility] | | | Cells | | | [facility] | | | | | | MEDICAL | | | | | | CENTER - | | | | | | LABORATORY | | + +-------+ + + + | Red Blood | 4.88 | 3.70 - 5.20 | [facility] | | | Cells | | M/uL | [facility] | | | | | | MEDICAL | | | | | | CENTER - | | | | | | LABORATORY | | + +-------+ + + + | Hemoglobin | 13.9 | 11.5 - 16.0 | [facility] | | | | | g/dL | [facility] | | | | | | MEDICAL | | | | | | CENTER - | | | | | | LABORATORY | | + +-------+ + + + | Hematocrit | 42.1 | 34.0 - 47.0 % | [facility] | | | | | | [facility] | | | | | | MEDICAL | | | | | | CENTER - | | | | | | LABORATORY | | + +-------+ + + + | MCV | 86.2 | 83.0 - 101.0 fL | [facility] | | | | | | [facility] | | | | | | MEDICAL | | | | | | CENTER - | | | | | | LABORATORY | | + +-------+ + + + | MCH | 28.5 | 28.0 - 35.0 pg | [facility] | | | | | | [facility] | | | | | | MEDICAL | | | | | | CENTER - | | | | | | LABORATORY | | + +-------+ + + + | MCHC | 33.1 | 32.0 - 36.0 | [facility] | | | | | g/dL | [facility] | | | | | | MEDICAL | | | | | | CENTER - | | | | | | LABORATORY | | + +-------+ + + + | RDW-CV | 12.6 | <15.0 % | [facility] | | | | | | [facility] | | | | | | MEDICAL | | | | | | CENTER - | | | | | | LABORATORY | | + +-------+ + + + | Platelet | 298 | 140 - 440 K/uL | [facility] | | | Count | | | [facility] | | | | | | MEDICAL | | | | | | CENTER - | | | | | | LABORATORY | | + +-------+ + + + | MPV | 8.2 | fL | [facility] | | | | | | [facility] | | | | | | MEDICAL | | | | | | CENTER - | | | | | | LABORATORY | | + +-------+ + + + | % | 63.7 | 45.0 - 82.0 % | [facility] | | | Neutrophils | | | [facility] | | | | | | MEDICAL | | | | | | CENTER - | | | | | | LABORATORY | | + +-------+ + + + | % | 28.0 | 20.0 - 45.0 % | [facility] | | | Lymphocytes | | | [facility] | | | | | | MEDICAL | | | | | | CENTER - | | | | | | LABORATORY | | + +-------+ + + + | % Monocytes | 5.7 | 4.0 - 12.0 % | [facility] | | | | | | [facility] | | | | | | MEDICAL | | | | | | CENTER - | | | | | | LABORATORY | | + +-------+ + + + | % | 1.6 | 0.0 - 5.0 % | [facility] | | | Eosinophils | | | [facility] | | | | | | MEDICAL | | | | | | CENTER - | | | | | | LABORATORY | | + +-------+ + + + | % Basophils | 1.0 | 0.0 - 1.0 % | [facility] | | | | | | [facility] | | | | | | MEDICAL | | | | | | CENTER - | | | | | | LABORATORY | | + +-------+ + + + | Absolute | 5.10 | 1.80 - 8.50 | [facility] | | | Neutrophils | | K/uL | [facility] | | | | | | MEDICAL | | | | | | CENTER - | | | | | | LABORATORY | | + +-------+ + + + | Absolute | 2.30 | 0.60 - 3.20 | [facility] | | | Lymphocytes | | K/uL | [facility] | | | | | | MEDICAL | | | | | | CENTER - | | | | | | LABORATORY | | + +-------+ + + + | Absolute | 0.50 | 0.00 - 1.00 | [facility] | | | Monocytes | | K/uL | [facility] | | | | | | MEDICAL | | | | | | CENTER - | | | | | | LABORATORY | | + +-------+ + + + | Absolute | 0.10 | 0.00 - 0.40 | [facility] | | | Eosinophils | | K/uL | [facility] | | | | | | MEDICAL | | | | | | CENTER - | | | | | | LABORATORY | | + +-------+ + + + | Absolute | 0.10 | 0.00 - 0.10 | [facility] | | | Basophils | | K/uL | [facility] | | | | | | MEDICAL [...] + | [facility] | [address] | [place] | [phone] | | [facility] | | [address] | | | - LABORATORY | | | | + + + + + documented in this encounter Visit Diagnoses + + | Diagnosis | + + | Lower abdominal pain - Primary Abdominal pain, other specified site | + + | Mesenteric adenitis Nonspecific mesenteric lymphadenitis | + + documented in this encounter Administered Medications + +--------+ +--------+------+------+ | Medication Order | MAR | Action | Dose | Rate | Site | | | Action | Date | | | | + +--------+ +--------+------+------+ | iohexol (OMNIPAQUE 350) 350 | Given | 07/06/19 | 95 mLs | | | | mg/mL injection 95 mL 95 mL, | | 18 4:27 | | | | | Intravenous, ONCE PRN, Other, for | | PM PST | | | | | imaging CT study, Starting Sunitha | | | | | | | 07/06/17 at 1625, For 1 dose, | | | | | | | Radiology | | | | | | + +--------+ +--------+------+------+ +---+---+ | | | +---+---+ + +-------+ +------+---+---+ | ondansetron (ZOFRAN) injection | Given | 07/06/19 | 8 mg | | | | 8 mg 8 mg, Intravenous, ONCE, | | 18 4:01 | | | | | Sunitha 07/06/17 at 1600, For 1 dose | | PM PST | | | | + +-------+ +------+---+---+ +---+---+ | | | +---+---+ documented in this encounter
--- OUTSIDE RECORDS SUMMARY | ~2020-03-10 | XMS | Encounter Summary ---
Demographics + + + | Address | [address] | | | [place] [address] | + + + | Home Phone | | + + + | Preferred Language | Unknown | + + + | Marital Status | Single | + + + | Catholic Affiliation | 1013 | + + + | Race | White | + + + | Ethnic Group | Not or | + + + Author + + + | Author | [facility] | | | and [place] | + + + | Organization | [facility] | | | [...] Team Providers + +------+ + | Care Furnace Brazer Name | Role | Phone | + +------+ + | Linda Rowley | PCP | | + +------+ + Reason for Visit + +--------+ + | Reason | Onset | Comments | | | Date | | + +--------+ + | Results, Imaging | 02/07/ | | | | 2018 | | + +--------+ + Encounter Details +--------+ + + + + | Date | Type | Department | Care Team | Description | +--------+ + + + + | 02/07/ | Telephone | [facility] | Rene Casey, | Results, Imaging | | 2018 | | PHYSIATRY [address] | MD [address] | | | | | [address] | [place], [place] | | | | | [place], [place] | [address] | | | | | [address] | | | | | | [phone] | | | +--------+ + + + [...] + + documented as of this encounter Miscellaneous Notes Telephone Encounter - Manju Walker Tower Foreman - 02/07/2018 2:08 PM PDTCalle d to inform Kimmie Hawkins of imaging results. Results were relayed. She verbaliz ed understanding. 18 2:09 PM PDTTelephone Encounter - Manju Walker Tower Foreman - 02/07/2018 2: 07 PM PDT----- Message from Rene Casey MD sent at 02/07/2018 12:12 PDT ----- Angela, Please let Kimmie Hawkins know that I have reviewed her lumbar MRI. There are n o emergent findings. The MRI reveals pars defects at L5. There is no evidence of narrowing around the nerves. The MRI incidentally demonstrates an ovarian cyst. Recommend that she follow up with PCP to determine if further evaluation of the ovarian cyst is needed. Please send copy of report to PCP, SIGRID Zavala. Thank you, Rene Casey MD (Jr.) ----- Message ----- From: Anish Marin Results In Sent: 02/07/2018 11:34 To: Rene Casey MD do cumented in this encounter Plan of Treatment Not on filedocumented as of this encounter Visit Diagnoses Not on filedocumented in this encounter"
--- OUTSIDE RECORDS SUMMARY | ~2020-03-10 | XMS | Encounter Summary ---
Demographics + + + | Address | [address] | | | [place] [address] | + + + | Home Phone | | + + + | Preferred Language | Unknown | + + + | Marital Status | Single | + + + | Jehovah'S Witness Affiliation | 1013 | + + + | Race | White | + + + | Ethnic Group | Not or | + + + Author + + + | Author | [facility] | | | and [place] | + + + | Organization | [facility] | | | [...] Team Providers + +------+ + | Care Air Operations Manager Name | Role | Phone | + +------+ + | Linda Rowley | PCP | | + +------+ + Encounter Details +--------+ + + + + | Date | Type | Department | Care Team | Description | +--------+ + + + + | 01/16/ | [facility] | [facility] | Linda Rowley, | | | 2012 | Encounter | [facility] LAB[facility] | CABIN OUTFITTER [address] | | | | | [address] | [facility] | | | | | [place] | [place] [address] | | | | | [address] | [phone] | | | | | [phone] | | | +--------+ + + + [...] + + documented as of this encounter Medications at Time of Discharge + + + +---------+ + + | Medication | Sig | Dispensed | Refills | Start | End Date | | | | | | Date | | + + + +---------+ + + | amitriptyline | Take 3 tablets by | 30 | 0 | 10/27/19 | | | (ELAVIL) 10 mg | mouth nightly. | tablet | | 13 | 4 | | tabletIndications: | | | | | | | Chronic daily | | | | | | | headache | | | | | | + + + +---------+ + + | | Inject under the | | 0 | | | | MedroxyPROGESTERone | skin. | | | | 7 | | Acetate (DEPO-SUBQ | | | | | | | PROVERA 104 SC) | | | | | | + + + +---------+ + + | Multiple | daily | | 0 | 09/14/19 | | | Vitamins-Minerals | | | | 12 | 7 | | (ADVANCED DIABETIC | | | | | | | MULTIVITAMIN) TABS | | | | | | + + + +---------+ + + | topiramate | Take 25 mg by mouth | | 0 | 11/23/19 | | | (TOPAMAX) 25 mg | nightly. | | | 13 | 7 | | tablet | | | | | | + + + +---------+ + + documented as of this encounter Plan of Treatment Not on filedocumented as of this encounter Procedures + +--------+ + + + | Procedure Name | Priori | Date/Time | Associated Diagnosis | Comments | | | ty | | | | + +--------+ + + + | XR SHOULDER RIGHT 1 | Routin | 01/16/2013 | | Results for this | | VW | e | 3:01 PM | | procedure are in the | | | | PDT | | results section. | + +--------+ + + + | XR CERVICAL SPINE 4 | Routin | 01/16/2013 | | Results for this | | OR 5 VWS | e | 3:00 PM | | procedure are in the | | | | PDT | | results section. | + +--------+ + + + | XR KNEE BILATERAL AP | Routin | 01/16/2013 | | Results for this | | STANDING | e | 2:58 PM | | procedure are in the | | | | PDT | | results section. | + +--------+ + + + documented in this encounter Results XR Shoulder Right 1 Vw (01/16/2013 3:01 PM PDT) + + | Specimen | + + | | + + + + + | Narrative | Performed At | + + + | [facility] | [facility] | | Department [address] [place] [address] | [facility] | | [ rep [address]] [ rep [facility] | | st zip] Signed | - IMAGING | | | | | Patient Name: KIMMIE HAWKINS | | | Physician: HUGO : 1995 Age: 17 Sex: F Unit | | | #: [id number] Exam Date: 01/16/13 Location: | | | LAB Report #: [id number] Page: | | | %(RAD)RES..mtdd.print.filter("pg") of %(RAD) | | | RES..mtdd.print.filter("tpg") | | | | | | Accession Number: [id number] | | | RIGHT SHOULDER X-RAY CLINICAL HISTORY: CHRONIC PAIN. | | | COMPARISON: None. FINDINGS: Two views | | | of the right shoulder were obtained. There are no acute osseous | | | abnormalities. No significant degenerative changes are seen. | | | IMPRESSION: 1. NORMAL X-RAYS OF RIGHT SHOULDER. | | | IF SYMPTOMS PERSIST, MRI CAN BE CONSIDERED FOR FURTHER EVALUATION. | | | Dictated Date/Time: 01/16/2013 15:01 | | | Transcribed Date/Time: 01/16/2013 15:37 Composite Layup Worker: | | | <<Signature on File>> | | | Anand | | | CARMEN Roper/24/13 1711 <Electronically signed by Anand Roper MD> | | | Anand Roper MD 01/16/13 1501 Composite Layup Worker: Bere | | | Sqssxpvoipeir82/24/13 1537 Linda Rowley NP | | + + + + + + + + | Performing | Address | City/State/Zipcode | Phone Number | | Organization | | | | + + + + + | [facility] | [address] | [place] | [phone] | | [facility] | | [address] | | | - IMAGING | | | | + + + + + XR Cervical Spine 4 or 5 Vws (01/16/2013 3:00 PM PDT) + + | Specimen | + + | | + + + + + | Narrative | Performed At | + + + | [facility] | [place] | | Department [address] [facility] | [facility] | | [ rep [address]] [ rep [facility] | | [facility]] Signed | - IMAGING | | | | | Patient Name: KIMMIE HAWKINS | | | Physician: HUGO : 1995 Age: 17 Sex: F Unit | | | #: [id number] Exam Date: 01/16/13 Location: | | | LAB Report #: [id number] Page: | | | %(RAD)RES..mtdd.print.filter("pg") of %(RAD) | | | RES..mtdd.print.filter("tpg") | | | | | | Accession Number: [id number] | | | CERVICAL SPINE X-RAY, 01/16/2013 CLINICAL HISTORY: | | | CHRONIC PAIN. COMPARISON: None. | | | FINDINGS: Four views of the cervical spine were obtained including | | | flexion and extension. The visualized skull and | | | prevertebral soft tissues are normal. Vertebral body heights are | | | preserved with no evidence for compression fractures. Disk heights | | | are maintained. Facet joints are intact. There is no evidence for | | | instability. IMPRESSION: 1. NORMAL APPEARANCE OF | | | CERVICAL SPINE. IF CLINICALLY INDICATED, MRI CAN BE CONSIDERED FOR | | | FURTHER EVALUATION. Dictated Date/Time: 01/16/2013 | | | 15:00 Transcribed Date/Time: 01/16/2013 15:35 | | | Composite Layup Worker: <<Signature on File>> | | | | | | Anand Roper MD01/16/13 1711 <Electronically signed by Anand Roper | | | MD> Anand Roper MD 01/16/13 1500 Composite Layup Worker: | | | [employer] Zfrandnxvrmpj37/24/13 7545 Linda Rowley NP | | | | | + + + + + + + + | Performing | Address | City/State/Zipcode | Phone Number | | Organization | | | | + + + + + | [facility] | [address] | [place] | [phone] | | [facility] | | [address] | | | - IMAGING | | | | + + + + + XR Knee Bilateral AP Standing (01/16/2013 2:58 PM PDT) + + | Specimen | + + | | + + + + + | Narrative | Performed At | + + + | [facility] | [place] | | Department [address] [facility] [place] | [facility] | | [ rep [address]] [ rep [facility] | | st zip] Signed | - IMAGING | | | | | Patient Name: RAEKIMMIE Ruiz | | | Physician: HUGO : 1995 Age: 17 Sex: F Unit | | | #: [id number] Exam Date: 01/16/13 Location: | | | LAB Report #: [id number] Page: | | | %(RAD)RES..mtdd.print.filter("pg") of %(RAD) | | | RES..mtdd.print.filter("tpg") | | | | | | Accession Number: [id number] | | | KNEE X-RAY, 01/16/2013 CLINICAL HISTORY: CHRONIC PAIN. | | | COMPARISON: None. FINDINGS: AP view of | | | both knees was obtained. The bilateral knees demonstrate | | | a normal appearance with no acute findings and no significant | | | degenerative changes. Bone mineralization is normal. | | | IMPRESSION: 1. NORMAL APPEARANCE OF BILATERAL KNEES. | | | Dictated Date/Time: 01/16/2013 14:58 Transcribed Date/Time: | | | 01/16/2013 15:30 Composite Layup Worker: | | | <<Signature on File>> | | | Anand | | | MD Judson01/16/13 9871 <Electronically signed by Anand Roper MD> | | | Anand Roper MD 01/16/13 3378 Composite Layup Worker: Bere | | | Yjruyxmrkpsgv46/24/13 1530 Linda Rowley NP | | + + + + + + + + | Performing | Address | City/State/Zipcode | Phone Number | | Organization | | | | + + + + + | [facility] | [address] | [place] | [phone] | | [facility] | | [address] | | | - IMAGING | | | | + + + + + documented in this encounter Visit Diagnoses Not on filedocumented in this encounter
--- OUTSIDE RECORDS SUMMARY | ~2020-03-10 | XMS | Encounter Summary ---
Demographics + + + | Address | [address] | | | [place] [address] | + + + | Home Phone | | + + + | Preferred Language | Unknown | + + + | Marital Status | Single | + + + | Caodaism Affiliation | 1013 | + + + | Race | White | + + + | Ethnic Group | Not or | + + + Author + + + | Author | [facility] | | | and [place] | + + + | Organization | [facility] | | | [...] Team Providers + +------+ + | Care Hotel Night Auditor Name | Role | Phone | + +------+ + PCP | Unavailable | + +------+ + Encounter Details +--------+ + + + + | Date | Type | Department | Care Team | Description | +--------+ + + + + | 06/27/ | Hospital | [facility] | Radha Coronel | | | 2007 | Encounter | [facility] | MD Jose Alejandro [address] | | | | | [place] [address] | [facility], | | | | | [place] | [place] [address] | | | | | [address] | [phone] | | | | | [phone] | | | +--------+ + + + [...]
--- OUTSIDE RECORDS SUMMARY | ~2020-03-10 | XMS | Encounter Summary ---
Demographics + + + | Address | [address] | | | [place] [address] | + + + | Home Phone | | + + + | Preferred Language | Unknown | + + + | Marital Status | Single | + + + | Faith Affiliation | 1013 | + + + | Race | White | + + + | Ethnic Group | Not or | + + + Author + + + | Author | [facility] | | | and [place] | + + + | Organization | [facility] | | | [...] Team Providers + +------+ + | Care Levi Maker Name | Role | Phone | + +------+ + | Linda Rowley | PCP | | + +------+ + Encounter Details +--------+ + + + + | Date | Type | Department | Care Team | Description | +--------+ + + + + | 01/14/ | Abstract | [facility] | [place], | | | 2018 | | GASTROENTEROLOGY | MD [address] | | | | | [address] | [place] | | | | | [address] [place] | [place] [address] | | | | | [address] | | | | | | [phone] | | | +--------+ + + + [...]
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
--- OUTSIDE RECORDS SUMMARY | ~2020-03-10 | XMS | Encounter Summary ---
Demographics + + + | Address | [address] | | | [place] [address] | + + + | Home Phone | | + + + | Preferred Language | Unknown | + + + | Marital Status | Single | + + + | Presybeterian Affiliation | 1013 | + + + | Race | White | + + + | Ethnic Group | Not or | + + + Author + + + | Author | [facility] | | | and [place] | + + + | Organization | [facility] | | | [...] Team Providers + +------+ + | Care Glass Inspector Name | Role | Phone | + +------+ + | Linda Rowley | PCP | | + +------+ + Reason for Visit +--------+ + | Reason | Comments | +--------+ + | Cough | | +--------+ + Encounter Details +--------+ + + + + | Date | Type | Department | Care Team | Description | +--------+ + + + + | 03/29/ | Emergency | [facility] | Chong Leone | Cough (Primary Dx); | | 2014 | | [facility] | Dick Reddy MD | Allergic rhinitis, | | | | CENTER [address] | [address] | unspecified allergic | | | | [place], [place] | [place], [place] | rhinitis type | | | | [address] | [address] | | | | | [phone] | | | +--------+ + + + [...] + + + | Blood Pressure | 151/75 | 03/29/2015 10:40 AM | | | | | PDT | | + + + + + | Pulse | 107 | 03/29/2015 10:40 AM | | | | | PDT | | + + + + + | Temperature | 37.6 C (99.7 F) | 03/29/2015 10:40 AM | | | | | PDT | | + + + + + | Respiratory Rate | 16 | 03/29/2015 10:40 AM | | | | | PDT | | + + + + + | Oxygen Saturation | 97% | 03/29/2015 10:40 AM | | | | | PDT | | + + + + + | Inhaled Oxygen | - | - | | | Concentration | | | | + + + + + | Weight | 68.9 kg (152 lb) | 03/29/2015 10:40 AM | | | | | PDT | | + + + + + | Height | 152.4 cm (5') | 03/29/2015 10:40 AM | | | | | PDT | | + + + + + | Body Mass Index | 29.69 | 03/29/2015 10:40 AM | | | | | PDT | | + + + + + documented in this encounter Discharge Instructions Instructions Chong Leone MD - 03/29/2015Retalonzo for worsening cough shortne ss breath difficult to breathing or other worsening symptoms. Please follow up with her [facility] physician. documented in this encounter Medications at Time of Discharge + + + +---------+ + + | Medication | Sig | Dispensed | Refills | Start | End Date | | | | | | Date | | + + + +---------+ + + | albuterol | Inhale 2 puffs into | | 0 | | | | (VENTOLIN HFA) 90 | the lungs every 6 | | | | 7 | | mcg/puff inhaler | hours as needed. | | | | | + + + +---------+ + + | | Take 1 tablet by | | 0 | | | | butalbital-acetamino | mouth every 4 hours | | | | 7 | | phen-caffeine | as needed. | | | | | | (FIORICET) per | | | | | | | tablet | | | | | | + + + +---------+ + + | | Take 10 mLs by mouth | 240 mL | 0 | 03/29/20 | | | dextromethorphan-gua | every 4 hours as | | | 15 | 5 | | ifenesin | needed for Cough for | | | | | | (ROBITUSSIN-DM) | up to 10 days. | | | | | | 10-100 MG/5ML syrup | | | | | | + + + +---------+ + + | fluticasone | 1 spray by Nasal | 16 g | 0 | 03/29/20 | | | (FLONASE) 50 | route 2 times daily. | | | 15 | 7 | | mcg/nasal spray | | | | | | + + + +---------+ + + | | Take 1 tablet by | 60 | 0 | 03/29/20 | | | loratadine-pseudoePH | mouth Twice daily | tablet | | 15 | 7 | | EDrine (CLARITIN-D | as needed for | | | | | | 12-HOUR) 5-120 mg | Allergies. | | | | | | per tablet | | | | | | [...] + + + +---------+ + + | naproxen | Take 500 mg by mouth | | 0 | | | | (NAPROSYN) 500 mg | 2 times daily (with | | | | 7 | | tablet | breakfast & | | | | | | | dinner). | | | | | + + + +---------+ + + | promethazine | Take 25 mg by mouth | | 0 | | | | (PHENERGAN) 25 mg | every 6 hours as | | | | 7 | | tablet | needed. | | [...] documented as of this encounter ED Notes Chong Leone MD - 03/29/2015 10:56 AM PDTFormatting of this note might be d ifferent from the original. [facility] Kimmie Hawkins Emergency Department Encounter Note [address] [place] [id number] PCP:SIGRID Zavala [phone] eMERGENCY dEPARTMENT eNCOUnter CHIEF COMPLAINT Chief Complaint Patient presents with Cough TRIAGE ED Triage Notes Makayla Ford RN 03/29/2015 10:40 Cough x 3 weeks. Non-productive cough. Fevers at beginning of illness but none recently. HPI Kimmie Hawkins is a 19 y.o. female who presents status post 3 weeks of intermitt ent cough. Patient has cough with no sputum production. She is afebrile. She has no short ness of breath breath or difficulty breathing. Patient with ongoing cough and irritation to the back of the throat. Approximately 1-1/2 years ago she had her tonsils removed. Patien t's here for further evaluation due to episodic cough and throat irritation. Patient is able to tolerate oral fluids. PAST MEDICAL HISTORY Past Medical History Diagnosis Date Asthma Depression Migraine SURGICAL HISTORY Past Surgical History Procedure Laterality Date Cholecystectomy, laparoscopic 2010 Tonsillectomy CURRENT MEDICATIONS Previous Medications ALBUTEROL (VENTOLIN HFA) 90 MCG/PUFF INHALER Inhale 2 puffs into the lungs every 6 hour s as needed. [id number]-[id number]-ZNACPGSL (FIORICET) PER TABLET Take 1 tablet by mouth every 4 hours as needed. MEDROXYPROGESTERONE ACETATE (DEPO-SUBQ PROVERA 104 SC) Inject under the skin. MULTIPLE VITAMINS-MINERALS (ADVANCED DIABETIC MULTIVITAMIN) TABS daily NAPROXEN (NAPROSYN) 500 MG TABLET Take 500 mg by mouth 2 times daily (with breakfast & dinner). PROMETHAZINE (PHENERGAN) 25 MG TABLET Take 25 mg by mouth every 6 hours as needed. TOPIRAMATE (TOPAMAX) 25 MG TABLET Take 25 mg by mouth nightly. ALLERGIES Allergies Allergen Reactions Acetaminophen Other (See Comments) Headache and upset stomach Codeine Ibuprofen Other (See Comments) Headache and upset stomach Red Dye Rash FAMILY HISTORY No family history on file. SOCIAL HISTORY History Social History Marital Status: Single Spouse Name: N/A Number of Children: N/A Years of Education: N/A Social History Main Topics Smoking status: Never Smoker Smokeless tobacco: Never Used Alcohol Use: No Drug Use: No Sexual Activity: None Other Topics Concern None Social History Narrative REVIEW OF SYSTEMS Please see HPI, All systems negative except as marked. Twelve point review of system comp leted my me. PHYSICAL EXAM VITAL SIGNS: Temp: 37.6 C (99.7 F) Pulse: 107 Resp: 16 SpO2: 97 % BP: 151/75 mmHg Constitutional: Well developed, Well nourished, Non-toxic appearance. HENT: Normocephalic, Atraumatic, Bilateral external ears normal, swollen bilateral labels old turbinates. Posterior pharynx with some slight edema no erythema. No tonsillar exudate . Oropharynx moist, No oral exudates, Nose normal. Neck- Normal range of motion, No tendern ess, Supple, No stridor. Eyes: PERRL, EOMI, Conjunctiva normal, No discharge. Respiratory: Normal breath sounds, no respiratory distress no shortness of breath, No whee zing, No chest tenderness. Cardiovascular: Normal heart rate, Normal rhythm, No murmurs, No rubs, No gallops. GI: Bowel sounds normal, Soft, No tenderness, No masses, No pulsatile masses. : defered Musculoskeletal: Intact distal pulses, No edema, No tenderness, No cyanosis, No clubbing. Good range of motion in all major joints. No tenderness to palpation or major deformities no lilli. ED COURSE & MEDICAL DECISION MAKING Pertinent Labs & Imaging studies reviewed. (See chart for details) Nursing notes reviewed. Patient this point appears to be otherwise hemodynamically stable. Patient will be followe d by her primary care physician. This point patient does not appear to be in acute distress she appears to have a viral bronchitis with posterior nasal drip and allergic rhinitis. Follow-up Information Follow up with SIGRID Zavala. Specialty: Family Nurse Practitioner Contact information: [address] [place] [id number] Follow up with SIGRID Zavala. Specialty: Family Nurse Practitioner Contact information: [address] [place] [address] New Prescriptions DEXTROMETHORPHAN-GUAIFENESIN (ROBITUSSIN-DM) 10-100 MG/5ML SYRUP Take 10 mLs by mouth e very 4 hours as needed for Cough for up to 10 days. FLUTICASONE (FLONASE) 50 MCG/NASAL SPRAY 1 spray by Nasal route 2 times daily. LORATADINE-PSEUDOEPHEDRINE (CLARITIN-D 12-HOUR) 5-120 MG PER TABLET Take [address] [facility] Twice daily as needed for Allergies. Discharge Instructions Return for worsening cough shortness breath difficult to breathing or other worsening sympt oms. Please follow up with her primary care physician. FINAL IMPRESSION 1. Cough 2. Allergic rhinitis, unspecified allergic rhinitis type Portions of this chart may have been created with [employer] voice recognition software. Occasi onal wrong-word or sound-alike substitutions may have occurred due to the inherent mendiola itations of voice recognition software. Please read the chart carefully and recognize, using context, where these substitutions have occurred Chong Leone MD 03/29/15 1059 documented in this encounter Miscellaneous Notes ED Triage Notes - Makayla Ford RN - 03/29/2015 10:40 AM PDTCough x 3 weeks. Non-produc tive cough. Fevers at beginning of illness but none recently. documented in this encounter Plan of Treatment Not on filedocumented as of this encounter Visit Diagnoses + + | Diagnosis | + + | Cough - Primary | + + | Allergic rhinitis, unspecified allergic rhinitis type | + + documented in this encounter"
--- OUTSIDE RECORDS SUMMARY | ~2020-03-10 | XMS | Encounter Summary ---
Demographics + + + | Address | [address] | | | [place] [address] | + + + | Home Phone | | + + + | Preferred Language | Unknown | + + + | Marital Status | Single | + + + | Hoahaoism Affiliation | 1013 | + + + | Race | White | + + + | Ethnic Group | Not or | + + + Author + + + | Author | [facility] | | | and [place] | + + + | Organization | [facility] | | | and [...] Team Providers + +------+ + | Care Biology Internship Name | Role | Phone | + +------+ + | Linda Rowley | PCP | | + +------+ + Reason for Visit + + + | Reason | Comments | + + + | Head Injury | | + + + | Neck Injury | | + + + Encounter Details +--------+---------+ + + + | Date | Type | Department | Care Team | Description | +--------+---------+ + + + | 08/15/ | Office | [facility] | Evelyn Sweeney | Neck strain, initial | | 2016 | Visit | [facility] | MD Rubi [address] | encounter (Primary | | | | [address] [place] | Dx); Head injury, | | | | [address] [place] | [place] [address] | initial encounter; | | | | [place], [place] | [phone] | Place of occurrence, | | | | [address] | | industrial places | | | | [phone] | | and premises | +--------+---------+ + + + Social History [...] + + + | Blood Pressure | 131/61 | 08/15/2016 4:12 PM | | | | | PST | | + + + + + | Pulse | 78 | 08/15/2016 4:12 PM | | | | | PST | | + + + + + | Temperature | 36.5 C (97.7 F) | 08/15/2016 4:12 PM | | | | | PST | | + + + + + | Respiratory Rate | - | - | | + + + + + | Oxygen Saturation | - | - | | + + + + + | Inhaled Oxygen | - | - | | | Concentration | | | | + + + + + | Weight | 89.8 kg (198 lb) | 08/15/2016 4:12 PM | | | | | PST | | + + + + + | Height | 152.4 cm (5') | 08/15/2016 4:12 PM | | | | | PST | | + + + + + | Body Mass Index | 38.67 | 08/15/2016 4:12 PM | | | | | PST | | + + + + + documented in this encounter Progress Notes Eveyln Sweeney MD - 08/15/2016 5:16 PM PSTEmployer: [facility] Guarantor: [employer] Date of injury: 07/28/16 Claim number:[id number] Chief complaint: Followup head and neck injury, closing evaluation Subjective: 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 She states on the date of injury suspect on ice and fell striking her head and injuring her neck. She did not lose consciousness and was not dazed. Initially felt no pain or discomfort, however as the day progressed she developed pain in the neck and a mild headache. She had one episode of nause a but no vomiting. After approximately 3 days she had complete resolution of all symptoms. Original evaluation was in the urgent care where she was treated conservatively. She shae dixon has had any problems with headache, visual change, reading in the ears, difficulties wi th mood, memory, or thought processes. No problems with speech, no nausea or vomiting. No further discomfort or pain in the neck no radiation of pain into the arms or hands, and no n umbness, tingling, or weakness of the extremities. She did not injure herself elsewhere wit h this incident. She has been return to regular work responsibilities and has no complaints at this time. She has no prior history of injury or trauma to the neck but has had a head injury approximately 2 years ago with no difficulties with recovery. Past medical history, past surgical history, family history, social history, medications, a llergies reviewed. Review of systems: 13 point review of systems reviewed, positive for joint stiffness, muscl e pain, back pain, headache, asthma. Otherwise ROS is as per HPI Objective: Vital signs as noted, nursing notes reviewed. Vijtqeo-fffe-cpxsxpxxo well-nourished in no apparent distress, pleasant and cooperative. HEENT-normocephalic and atraumatic. PERRLA, EOMI, conjunctiva pink and moist. TMs and can als clear bilaterally. No nasal drainage. Oropharynx is pink and moist, tongue and uvula a re midline. Neck-normal to inspection. No paraspinous muscle spasticity. No vertebral point tendernes s, crepitus, or step-off. No point tenderness. Full range of motion without pain or limita tion. Negative Spurling testing bilaterally. No thyromegaly or lymphadenopathy, supple. Cardiovascular-regular rate rhythm without murmur rub or gallop. Lungs-clear to auscultation bilaterally. Extremities-no clubbing, cyanosis, or edema. No discrepancy in muscle bulk or tone. Neuro--cranial nerves II through XII grossly intact. Gait steady and symmetric and nonanta lgic. Negative Romberg. Motor strength 5/5 bilat upper extremities DTR's biceps,triceps, brachioradialis 2+/4 bilat Sensation grossly intact to light touch bilat upper extremities Skin-warm, dry, intact. No rashes or other suspicious lesions. Psych-mood, affect, speech and thought processes appropriate Imaging/diagnostics: None indicated for this visit or for this injury. Pending interventions: none Assessment: 1. Closed head injury 2. Cervical strain Plan: Injured worker has finished with approved medical treatments, returned to regular work resp onsibilities and is doing well. After addressing her questions, she is being released from care will follow-up on an as-needed basis. She voices understanding and agreement. It is my understanding that the Department of Labor and industry strongly recommend and sug gest impairment rating examinations for all spine injuries. Because of the relatively benig n nature, limited treatment and spontaneous recovery of this injured worker, and impairment rating examination was not performed upon claims closure. If this is requested or recommend ed to facilitate claims management and closure, I am happy to address this, and submit my cl osing evaluation in the proper format consistent with impairment rating examination. Injured worker is at [facility]. No further curative medical treatments are indicated. No need for work accommodations or vocational services. No permanent impairment as a consequence of this injury. This note was dictated using [employer] voice recognition software. Occasional wrong- word or sound-alike substitutions may have occurred due to the inherent limitations of voice recogni tion software. Please read the chart carefully and recognize, using context, where these oswald bstitutions have occurred. documented in t his encounter Plan of Treatment Not on filedocumented as of this encounter Visit Diagnoses + + | Diagnosis | + + | Neck strain, initial encounter - Primary | + + | Head injury, initial encounter | + + | Place of occurrence, industrial places and premises | + + documented in this encounter"
--- OUTSIDE RECORDS SUMMARY | ~2020-03-10 | XMS | Encounter Summary ---
Demographics + + + | Address | [address] | | | [place] [address] | + + + | Home Phone | | + + + | Preferred Language | Unknown | + + + | Marital Status | Single | + + + | Latter-Day Affiliation | 1013 | + + + | Race | White | + + + | Ethnic Group | Not or | + + + Author + + + | Author | [facility] | | | and [place] | + + + | Organization | [facility] | | | and [...] Team Providers + +------+ + | Care Vice President Lending Name | Role | Phone | + +------+ + | Linda Rowley | PCP | | + +------+ + Encounter Details +--------+ + + + + | Date | Type | Department | Care Team | Description | +--------+ + + + + | 06/21/ | Abstract | [facility] | Rene Casey MD | Chronic tonsillitis | | 2012 | | OTOLARYNGOLOGY [address] | [address] [place] | and adenoiditis | | | | [address] | [address] [place] | (Primary Dx) | | | | [place] | [address] | | | | | [address] | | | | | | [phone] | | | +--------+ + + + [...] + | Diagnosis | + + | Chronic tonsillitis and adenoiditis(474.02) - Primary Chronic tonsillitis and | | adenoiditis | + + documented in this encounter"
--- OUTSIDE RECORDS SUMMARY | ~2020-03-10 | XMS | Encounter Summary ---
Demographics + + + | Address | [address] | | | [place] [address] | + + + | Home Phone | | + + + | Preferred Language | Unknown | + + + | Marital Status | Single | + + + | Judaism Affiliation | 1013 | + + + | Race | White | + + + | Ethnic Group | Not or | + + + Author + + + | Author | [facility] | | | and [place] | + + + | Organization | [facility] | | [...] Team Providers + +------+ + | Care Bakery Pastry Internship Name | Role | Phone | + +------+ + | Linda Rowley | PCP | | + +------+ + Encounter Details +--------+ + + + + | Date | Type | Department | Care Team | Description | +--------+ + + + + | 09/15/ | Hospital | [facility] | Linad Rowley, | Lumbar back sprain, | | 2018 | Encounter | [facility] | [employer] [address] | subsequent encounter | | | | [address] [place] | [address] [place], | | | | | [place], [place] | [place] [address] | | | | | [address] | [phone] | | | | | [phone] | | | +--------+ + + + [...] + + + +---------+ + + | diazePAM (VALIUM) | Take 0.5 tablets by | 10 | 0 | 07/25/19 | | | 10 MG tablet | mouth every 6 hours | tablet | | 18 | 8 | | | as needed (msucle | | | | | | | spasming). | | | | | + + + +---------+ + + | METHOCARBAMOL PO | Take by mouth. | | 0 | | | | | | | | | 8 | + + + +---------+ + + | naproxen | Take 1 tablet by | 60 | 0 | 07/25/19 | | | (NAPROSYN) 500 mg | mouth 2 times daily | tablet | | 18 | 8 | | tablet | (with breakfast & | | | | | [...] + +--------+ + + + | XR LUMBAR SPINE 2 OR | Routin | 09/15/2017 | Lumbar back | Results for this | | 3 VW | e | 10:46 AM | sprain, subsequent | procedure are in the | | | | PDT | encounter | results section. | + +--------+ + + + documented in this encounter Results XR Lumbar Spine 2 or 3 Vw (09/15/2017 10:46 AM PDT) + + | Specimen | + + | | + + + + + | Narrative | Performed At | + + + | TWO VIEWS LUMBAR SPINE 09/15/2017 10:46 AM CLINICAL HISTORY: | [facility] | | Lumbar back sprain, subsequent encounter COMPARISON: CT ABDOMEN | | | JULY 06, RADIOGRAPHY APRIL 2017 FINDINGS: Five non | | | rib-bearing, lumbar type vertebrae are visible. There is subjective | | | exaggeration of the lumbar lordosis. L5 spondylolysis is again | | | apparent and mild anterolisthesis persists at L5-S1. Spina bifida | | | occulta is noted at the lumbosacral junction. Vertebral height, | | | disc spaces and alignment are otherwise maintained. The sacroiliac | | | joints and imaged sacrum, bony pelvis and lower ribs are | | | unremarkable. There is moderate stool at the level of the rectum. | | | IMPRESSION - 1. L5 SPONDYLOLYSIS AND SIMILAR MILD | | | ANTEROLISTHESIS AT L5-S1. Dictated and Signed by: Nicolás Aleman MD | | | Electronically signed: 09/15/2017 11:55 AM | | + + + + + | Procedure Note | + + | Tomas, Rad Results In - 09/15/2017 2:23 PM PDT TWO VIEWS LUMBAR SPINE 09/15/2017 10:46 | | AMCLINICAL HISTORY: Lumbar back sprain, subsequent encounterCOMPARISON: CT ABDOMEN | | JULY 06, RADIOGRAPHY APRIL 2017FINDINGS: Five non rib-bearing, lumbar type | | vertebrae are visible. There issubjective exaggeration of the lumbar lordosis. L5 | | spondylolysis is againapparent and mild anterolisthesis persists at L5-S1. Spina bifida | | occulta isnoted at the lumbosacral junction. Vertebral height, disc spaces and | | alignmentare otherwise maintained. The sacroiliac joints and imaged sacrum, bony | | pelvisand lower ribs are unremarkable. There is moderate stool at the level of | | therectum.IMPRESSION -1. L5 SPONDYLOLYSIS AND SIMILAR MILD ANTEROLISTHESIS AT | | L5-S1.Dictated and Signed by: Nicolás Aleman MD Electronically signed: 09/15/2017 11:55 AM | |are otherwise maintained. The sacroiliac joints and imaged sacrum, bony pelvis | |and lower ribs are unremarkable. There is moderate stool at the level of the | |rectum. | | | |IMPRESSION - | | | |1. L5 SPONDYLOLYSIS AND SIMILAR MILD ANTEROLISTHESIS AT L5-S1. | | | |Dictated and Signed by: Nicolás Aleman MD | | Electronically signed: 09/15/2017 11:55 AM | + + + +---------+ + + | Performing | Address | City/State/Zipcode | Phone Number | | Organization | | | | + +---------+ + + | [facility] | | | | + +---------+ + + documented in this encounter Visit Diagnoses + + | Diagnosis | + + | Lumbar back sprain, subsequent encounter | + + documented in this encounter"
--- OUTSIDE RECORDS SUMMARY | ~2020-03-10 | XMS | Encounter Summary ---
Demographics + + + | Address | [address] | | | [place] [address] | + + + | Home Phone | | + + + | Preferred Language | Unknown | + + + | Marital Status | Single | + + + | Sikhism Affiliation | 1013 | + + + | Race | White | + + + | Ethnic Group | Not or | + + + Author + + + | Author | [facility] | | | and [place] | + + + | Organization | [facility] | | | and [...] Team Providers + +------+ + | Care Securities Research Analyst Name | Role | Phone | + +------+ + | Linda Rowley | PCP | | + +------+ + Reason for Visit + + + | Reason | Comments | + + + | Headache | Pt states headaches are unchanged. Is now taking amitriptyline 30 | | | mg. nightly. | + + + | Suicidal Thoughts | States was having suicidal thoughts & saw Linda Rowley ANALYTICAL LABORATORY TECHNICIAN, who | | | felt this was side effect of the Paxil pt was taking. Was started | | | on Topamax 25 mg q hs on 11-22-12 . Was taken off Paxil; last | | | Paxil 11-24-2012. Pt states suicidal thoughts "not as bad now, but | | | had confusing day today." | + + + Encounter Details +--------+---------+ + + + | Date | Type | Department | Care Team | Description | +--------+---------+ + + + | 11/26/ | Office | [facility] | Mauricio Chavez MD [address] | Chronic daily | | 2012 | Visit | [facility] [place] | [address] | headache (Primary | | | | [address] [facility], | [address] [place], | Dx); Depression | | | | [address] [place] | [place] [address] | | | | | [place] [address] | [phone] | | | | | [phone] | | | +--------+---------+ + + + [...] + + + | Blood Pressure | 136/60 | 11/26/2012 4:16 PM | | | | | PDT | | + + + + + | Pulse | 80 | 11/26/2012 4:16 PM | | | | | PDT | | + + + + + | Temperature | - | - | | + + + + + | Respiratory Rate | 20 | 11/26/2012 4:16 PM | | | | | PDT | | + + + + + | Oxygen Saturation | 99% | 11/26/2012 4:16 PM | room air | | | | PDT | | + + + + + | Inhaled Oxygen | - | - | | | Concentration | | | | + + + + + | Weight | 70.3 kg (155 lb) | 11/26/2012 4:16 PM | | | | | PDT | | + + + + + | Height | - | - | | + + + + + | Body Mass Index | - | - | | + + + + + documented in this encounter Patient Instructions Patient Instructions Mauricio Chavez MD - 11/26/2012 4:51 PM PDT1. Please continue current manag ement 2. Please follow with your doctor for the mood swings 3. Follow in 2-3 weeks documented in this encounter Progress Notes Mauricio Chavez MD - 11/26/2012 5:06 PM PDTFormatting of this note might be different from the o joann. Neurology Clinic Follow Up Note PCP: SIGRID Zavala Date of Encounter: 11/26/2012 Subjective: Kimmie Hawkins is a pleasant 17 y.o. female who presents to the clinic tokana cutler for followup of headaches. She is accompanied by her aunt. She still has headache most of the days. It is located in the right temporal region, sharp , stabbing and pounding, radiates to the frontal, occipital, or left side. She has severe h eadache for several hours 2 to 3 times a week. The headache can be associated with photopho ramiro, and nausea. She takes amitriptyline 30 mg at bedtime, which she did not feel helpful. She reports significant moods swings in the past one to 2 months, especially in the past mo nth. She describes it as "suicidal thoughts", however could not be more specific. Per the aunt who lives with her, states it is more of a mood swing. She easily becomes hungry to oth ers, and has thought about throwing a used to needle to people so that they could get HIV. She was seen by her primary physician, who thought this might be side effect from Paxil, archie ch she started two months ago. She stopped the Paxil and was started on topiramate 25 mg 3 days ago. She feels a little bit drowsiness right now. Headache is still the same. Her mo od swing has been better. Allergies Allergies Allergen Reactions Acetaminophen Other (See Comments) Headache and upset stomach Ibuprofen Other (See Comments) Headache and upset stomach Red Dye Rash Medications Current Outpatient Prescriptions on File Prior to Visit Medication Sig Dispense Refill amitriptyline (ELAVIL) 10 mg tablet Take 3 tablets by mouth nightly. 30 tablet 0 MedroxyPROGESTERone Acetate (DEPO-SUBQ PROVERA 104 SC) Inject under the skin. Multiple Vitamins-Minerals (ADVANCED DIABETIC MULTIVITAMIN) TABS daily Family history, social history and past medical history were reviewed and updated as marga smith. Objective: BP 136/60 | Pulse 80 | Resp 20 | Wt 70.308 kg (155 lb) | SpO2 99% | ? No WDWN, NAD. Head is ataumatic, normocephalic. Awake, alert, oriented x3. Cooperative and appropirate during the encounter. Speech is cliff r, fluent and coherent. Fundus showed optic disc with sharp border. EOMI. PERRLA. Face is symmtric. Muscle strength: full in all extremities FNF intact Gait is steady Assessment/Plan: 1. Chronic daily headache 2. Depression Since she just adjusted the medications a few days ago, I would continue with same manageme nt. Topiramate is a good headache medication. She currently has mild drowsiness with topir amate. If she can tolerate this medication well, we may increase this medication to control her headache. If she cannot tolerate topiramate, may need to increase amitriptyline, michoacano stubbs amitriptyline is not worsening her depression. Will see her back in 2-3 weeks and hopef ully to make some adjustment at that time. Thank you for allowing me to take care of this patient. Please do not hesitate to contact jade celestin if you have any questions. Cc: SIGRID Zavala documented in this encounte r Plan of Treatment Not on filedocumented as of this encounter Visit Diagnoses + + | Diagnosis | + + | Chronic daily headache - Primary Headache | + + | Depression Depressive disorder, not elsewhere classified | + + documented in this encounter
--- OUTSIDE RECORDS SUMMARY | ~2020-03-10 | XMS | Encounter Summary ---
Demographics + + + | Address | [address] | | | [place] [address] | + + + | Home Phone | | + + + | Preferred Language | Unknown | + + + | Marital Status | Single | + + + | Restorationist Affiliation | 1013 | + + + | Race | White | + + + | Ethnic Group | Not or | + + + Author + + + | Author | [facility] | | | and [place] | + + + | Organization | [facility] | | | [...] Team Providers + +------+ + | Care Early Morning Babysitter Name | Role | Phone | + +------+ + | Linda Rowley | PCP | | + +------+ + Encounter Details +--------+ + + + + | Date | Type | Department | Care Team | Description | +--------+ + + + + | 01/15/ | Hospital | [facility] | Rene Casey, | Spondylolysis of | | 2018 | Encounter | [facility] | [address] | lumbar region; | | | | [address] [place] | [place], [place] | Lumbar | | | | [place], [place] | [address] | radiculopathy; | | | | [address] | | Chronic right-sided | | | | [phone] | | low back pain with | | | | | | right-sided | | | | | | sciatica; Numbness | | | | | | of right lower | | | | | | extremity | +--------+ + + + + Social [...] + + + +---------+ + + | DULoxetine | take 1 capsule by | | 1 | 12/14/19 | | | (CYMBALTA) [address] | mouth once daily for | | | 18 | 8 | | capsule | pain or MOOD | | | | | + + + +---------+ + + | DULoxetine HCl | Take by mouth. | | 0 | | | | (CYMBALTA PO) | Stopped taking for | | | | 8 | | | the past 2 days d/t | | | | | | | LUIS | | | | | + + + +---------+ + + | | Take 1-2 tablets by | 20 | 0 | 01/11/20 | | | HYDROcodone-acetamin | mouth every 6 hours | tablet | | 18 | 8 | | ophen (NORCO) 5-325 | as needed for Pain. | | | | | | mg per tablet | | | | | | + + + +---------+ + + | meloxicam (MOBIC) | One tablet twice | 21 | 2 | 01/06/20 | | | 7.5 mg | daily for 7 days, | tablet | | 18 | 8 | | tabletIndications: | then one tablet | | | | | | Lumbar radiculitis | daily; Take with | | | | | | | food. | | | | | + + [...] tablet by | 15 | 0 | 01/11/20 | | | (ZOFRAN ODT) 4 mg | mouth every 6 hours | tablet | | 18 | 8 | | disintegrating | as needed. | | | | | | tablet | | | | | | + + + +---------+ + + | promethazine | Take 1 tablet by | 20 | 0 | 01/11/20 | | | (PHENERGAN) 25 mg | mouth every 4 hours | tablet | | 18 | 8 | | tablet | as needed. | | | | | + + + +---------+ + + | raNITIdine | Take 1 tablet by | 60 | 1 | 01/06/20 | | | (ZANTAC) 150 mg | mouth 2 times daily | tablet | | 18 | 8 | | tabletIndications: | for 30 days. | | | | | | Lumbar radiculitis | | | | | | + + + +---------+ + + documented as of this encounter Plan of Treatment Not on filedocumented as of this encounter Procedures + +--------+ + + + | Procedure Name | Priori | Date/Time | Associated Diagnosis | Comments | | | ty | | | | + +--------+ + + + | XR LUMBAR SPINE 4 + | Routin | 01/15/2018 | Spondylolysis of | Results for this | | VW | e | 4:24 PM | lumbar region | procedure are in the | | | | PDT | Lumbar radiculopathy | results section. | | | | | Chronic | | | | | | right-sided low back | | | | | | pain with | | | | | | right-sided sciatica | | | | | | Numbness of right | | | | | | lower extremity | | + +--------+ + + + documented in this encounter Results XR Lumbar Spine 4 + Vw (01/15/2018 4:24 PM PDT) + + | Specimen | + + | | + + + + + | Narrative | Performed At | + + + | XR LUMBAR SPINE 4 + VW 01/15/2018 4:24 PM HISTORY: spondylolysis | [facility] | | L5. COMPARISON: 09/15/2017 FINDINGS: Bilateral pars defects | | | are seen at L5 with grade 1 anterolisthesis of L5 over S1 which is | | | similar to only minimally worsened on flexion in comparison to | | | extension. Remaining vertebral body heights and disc spaces are | | | preserved. Soft tissues are normal. IMPRESSION - Bilateral pars | | | defects are seen at L5 with grade 1 anterolisthesis of L5 over S1 | | | which is similar to only minimally worsened on flexion in comparison | | | to extension. Dictated and Signed by: Corwin Bowers MD | | | Electronically signed: 01/15/2018 11:54 PM | | + + + + + | Procedure Note | + + | Tomas, Rad Results In - 01/15/2018 11:57 PM PDT XR LUMBAR SPINE 4 + VW 01/15/2018 4:24 | | PMHISTORY: spondylolysis L5.COMPARISON: 09/15/2017FINDINGS:Bilateral pars defects are | | seen at L5 with grade 1 anterolisthesis of L5 over U1jedin is similar to only minimally | | worsened on flexion in comparison toextension. Remaining vertebral body heights and disc | | spaces are preserved. Softtissues are normal. IMPRESSION -Bilateral pars defects are | | seen at L5 with grade 1 anterolisthesis of L5 over F0ytjrv is similar to only minimally | | worsened on flexion in comparison toextension.Dictated and Signed by: Corwin Bowers MD | | Electronically signed: 01/15/2018 11:54 PM | |which is similar to only minimally worsened on flexion in comparison to | |extension. Remaining vertebral body heights and disc spaces are preserved. Soft | |tissues are normal. | | | |IMPRESSION - | |Bilateral pars defects are seen at L5 with grade 1 anterolisthesis of L5 over S1 | |which is similar to only minimally worsened on flexion in comparison to | |extension. | | | |Dictated and Signed by: Corwin Bowers MD | | Electronically signed: 01/15/2018 11:54 PM | + + + +---------+ + + | Performing | Address | City/State/Zipcode | Phone Number | | Organization | | | | + +---------+ + + | [facility] | | | | + +---------+ + + documented in this encounter Visit Diagnoses + + | Diagnosis | + + | Spondylolysis of lumbar region Acquired spondylolisthesis | + + | Lumbar radiculopathy Thoracic or lumbosacral neuritis or radiculitis, unspecified | + + | Chronic right-sided low back pain with right-sided sciatica | + + | Numbness of right lower extremity | + + documented in this encounter"
--- OUTSIDE RECORDS SUMMARY | ~2020-03-10 | XMS | Encounter Summary ---
Demographics + + + | Address | [address] | | | [place] [address] | + + + | Home Phone | | + + + | Preferred Language | Unknown | + + + | Marital Status | Single | + + + | Orthodoxy Affiliation | 1013 | + + + | Race | White | + + + | Ethnic Group | Not or | + + + Author + + + | Author | [facility] | | | and [place] | + + + | Organization | [facility] | | | [...] Team Providers + +------+ + | Care Toilet Attendant Name | Role | Phone | + +------+ + | Linda Rowley | PCP | | + +------+ + Reason for Visit + + + | Reason | Comments | + + + | Pharyngitis | RM 5, asthma flare up so she coughs and her throat hurts | + + + Encounter Details +--------+---------+ + + + | Date | Type | Department | Care Team | Description | +--------+---------+ + + + | 02/15/ | Office | [facility] | [facility], | Acute non-recurrent | | 2018 | Visit | [facility] [address] | Josué Griffith MD | pansinusitis | | | | [place] | [id number] | (Primary Dx) | | | | [address] | [place] | | | | | [phone] | [id number] | | | | | | | | +--------+---------+ + + + [...] + + + | Blood Pressure | 139/73 | 02/15/2018 9:48 AM | | | | | PDT | | + + + + + | Pulse | 88 | 02/15/2018 9:48 AM | | | | | PDT | | + + + + + | Temperature | 37.6 C (99.7 F) | 02/15/2018 9:48 AM | | | | | PDT | | + + + + + | Respiratory Rate | 18 | 02/15/2018 9:48 AM | | | | | PDT | | + + + + + | Oxygen Saturation | 98% | 02/15/2018 9:48 AM | | | | | PDT | | + + + + + | Inhaled Oxygen | - | - | | | Concentration | | | | + + + + + | Weight | 92 kg (202 lb 13.2 | 02/15/2018 9:48 AM | | | | oz) | PDT | | + + + + + | Height | 152.4 cm (5') | 02/15/2018 9:48 AM | | | | | PDT | | + + + + + | Body Mass Index | 39.61 | 02/15/2018 9:48 AM | | | | | PDT | | + + + + + documented in this encounter Patient Instructions Patient Instructions Josué Brownlee MD - 02/15/2018 9:30 AM PDT Self-Care for Sinusitis Drinking plenty of water can help sinuses drain. Sinusitis can often be managed with self-care. Self-care can keep sinuses moist and make yo u feel more comfortable. Remember to follow your doctor's instructions closely. This can mejia e a big difference in getting your sinus problem under control. Drink fluids Drinking extra fluids helps thin your mucus. This lets it drain from your sinuses more easi ly. Have aglass of water every hour or two. A humidifier helps in much the same way. Fluid s can also offset the drying effects of certain medicines. If you use a humidifier, follow t he product maker's instructions on how to use it. Clean it on a regular schedule. Use saltwater rinses Rinses help keep your sinuses and nose moist. Mix a teaspoon of salt in 8 ounces of fresh, warm water. Use a bulb syringe to gently squirt the water into your nose a few times a day. You can also buy ready-made saline nasal sprays. Apply hot or cold packs Applying heat to the area surrounding your sinuses may make you feel more comfortable. Use a hot water bottle or a hand towel dipped in hot water. Some people also find ice packs effe ctive for relieving pain. Medicines Your doctor may prescribe medications to help treat your sinusitis. If you have an infectio n, antibiotics can help clear it up. If you are prescribed antibiotics, take all pills on sc hedule until they are gone, even if you feel better. Decongestants help relieve swelling. Us e decongestant sprays for short periods only under the direction of your doctor. If you have allergies, your doctor may prescribe medications to help relieve them. Date Last Reviewed: 03/26/201619996584-3758 [employer] [address] [place] [id number]. All [facility] ts reserved. This information is not intended as a substitute for professional medical care. Always follow your healthcare professional's instructions. documented in this encounter Progress Notes Josué Brownlee MD - 02/15/2018 9:30 AM PDTFormatting of this note might be di fferent from the original. Subjective: Chief Complaint: Pharyngitis (RM 5, asthma flare up so she coughs and her throat hurts) Kimmie is a 22 y.o. female who comes in complaining of sore throat. HPI this 22-year-old woman presents with 6 days of sore throat malaise postnasal drainage a nd several days of purulent bloody green thick nasal discharge. She has some upper jaw pain chills nausea tactile fever. She has no vomiting had a little bit of diarrhea but is on he r period so thought that might be the reason for that. She originally thought perhaps this was caused by the poor air quality since she has asthma but with all of the other symptoms s he decided to get checked. Patient's medications, allergies, past medical, surgical, social and family histories were reviewed and updated as appropriate. ROS See above Objective: BP 139/73 | Pulse 88 | Temp 37.6 C (99.7 F) (Temporal) | Resp 18 | Ht 1.524 m (5') | Wt 92 kg (202 lb 13.2 oz) | LMP 02/12/2018 (Exact Date) | SpO2 98% | ? No | BMI 39.61 kg/m Physical Exam NAD VSS H EENT eyes TMs normal nose with severe congestion and purulent drainage bilateral Sinuses all tender to percussion Throat minimal redness and no lesions Neck supple no adenopathy Lungs clear Heart RRR no MRG No results found for this or any previous visit (from the past 24 hour(s)). Assessment and Plans: 1. Acute non-recurrent pansinusitis Discussed Gabriella pot lavage.. Patient has tried and has found it difficult but I stressed t he importance of doing this. Antibiotics sent with usual instructions. RTC when necessary This note was dictated using [employer] voice recognition software. Occasional wrong- word or s ound-alike substitutions may have occurred due to the inherent limitations of [employer] software. Please read the chart carefully and recognize, using context, where these subs titutions have occurred. documented in this encounter Plan of Treatment Not on filedocumented as of this encounter Visit Diagnoses + + | Diagnosis | + + | Acute non-recurrent pansinusitis - Primary | + + documented in this encounter"
--- OUTSIDE RECORDS SUMMARY | ~2020-03-10 | XMS | Encounter Summary ---
Demographics + + + | Address | [address] | | | [place] [address] | + + + | Home Phone [...] Author + + + | Author | [facility] | | | and [place] | + + + | Organization | [facility] | | | and [...] Team Providers + +------+ + | Care Paper Reeler Name | Role | Phone | + +------+ + | Linda Rowley | PCP | | + +------+ + Reason for Visit +---------+ + | Reason | Comments | +---------+ + | Post Op | tonsillectomy, patient states that she has pain and discomfort | +---------+ + Encounter Details +--------+---------+ + + + | Date | Type | Department | Care Team | Description | +--------+---------+ + + + | 07/10/ | Office | [facility] | Rene Casey MD | Chronic tonsillitis | | 2014 | Visit | [address]ARYNGOLOGY [address] | [address] [place] | (Primary Dx) | | | | [address] [facility] [address] | [address] [place] | | | | | [place], [place] | [address] | | | | | [address] | | | | | | [phone] | | | +--------+---------+ + + + [...] + + + | Blood Pressure | - | - | | + + + + + | Pulse | - | - | | + [...] + + + + | Weight | 72.6 kg (160 lb) | 07/10/2013 12:59 PM | | | | | PST | | + + + + + | Height | 152.4 cm (5') | 07/10/2013 12:59 PM | | | | | PST | | + + + + + | Body Mass Index | 31.25 | 07/10/2013 12:59 PM | | | | | PST | | + + + + + documented in this encounter Progress Notes Rene Casey MD - 07/10/2013 1:55 PM PSTPatient po tonsillectomy . No problems with allen stubbs. Eating ok with good fluid intake. Using minimal pain med now. Exam; Tonsil area healing normal with most of the scabs cleared. Minimal swelling of soft p alate. No infection. docu mented in this encounter Plan of Treatment Not on filedocumented as of this encounter Visit Diagnoses + + | Diagnosis | + + | Chronic tonsillitis - Primary | + + documented in this encounter"
--- OUTSIDE RECORDS SUMMARY | ~2020-03-10 | XMS | Encounter Summary ---
Demographics + + + | Address | [address] | | | [place] [address] | + + + | Home Phone | | + + + | Preferred Language | Unknown | + + + | Marital Status | Single | + + + | Samaritan Affiliation | 1013 | + + + | Race | White | + + + | Ethnic Group | Not or | + + + Author + + + | Author | [facility] | | | and [place] | + + + | Organization | [facility] | | | and [...] Team Providers + +------+ + | Care Sewer Connector Name | Role | Phone | + +------+ + PCP | Unavailable | + +------+ + Encounter Details +--------+ + + + + | Date | Type | Department | Care Team | Description | +--------+ + + + + | 02/25/ | Hospital | [facility] | Dick Hay | | | 2008 - | Encounter | [facility] | MD [address] | | | | [place] [address] | [place] | | | 02/26/ | | [place] | [place] [address] | | | 2008 | | [address] | [phone] | | | | | [phone] | | | +--------+ + + + [...]
--- OUTSIDE RECORDS SUMMARY | ~2020-03-10 | XMS | Encounter Summary ---
Demographics + + + | Address | [address] | | | [place] [address] | + + + | Home Phone | | + + + | Preferred Language | Unknown | + + + | Marital Status | Single | + + + | Jain Affiliation | 1013 | + + + | Race | White | + + + | Ethnic Group | Not or | + + + Author + + + | Author | [facility] | | | and [place] | + + + | Organization | [facility] | | | and [...] Team Providers + +------+ + | Care Pumper Hand Name | Role | Phone | + +------+ + | Jennifer Rowley | PCP | | + +------+ + Reason for Visit + + + | Reason | Comments | + + + | Headache (Adult - | | | New Onset Or New | | | Symptoms) | | + + + | Abdominal Pain | | + + + | Nausea | | + + + Encounter Details +--------+ + + + + | Date | Type | Department | Care Team | Description | +--------+ + + + + | 05/06/ | Emergency | [facility] | Jose A Alvarez MD | Nonintractable | | 2017 | | [facility] | [address] | headache, | | | | CENTER [address] | [place], [place] | unspecified | | | | [place], [place] | [address] | chronicity pattern, | | | | [address] | | unspecified headache | | | | [phone] | | type (Primary Dx); | | | | | | Nausea | +--------+ + + + + Social [...] + + + | Blood Pressure | 109/65 | 05/06/2018 4:05 PM | | | | | PST | | + + + + + | Pulse | 62 | 05/06/2018 4:05 PM | | | | | PST | | + + + + + | Temperature | - | - | | + + + + + | Respiratory Rate | 16 | 05/06/2018 4:05 PM | | | | | PST | | + + + + + | Oxygen Saturation | 98% | 05/06/2018 4:05 PM | | | | | PST | | + + + + + | Inhaled Oxygen | - | - | | | Concentration | | | | + + + + + | Weight | 94.3 kg (208 lb) | 05/06/2018 12:19 PM | | | | | PST | | + + + + + | Height | 154.9 cm (5' 1") | 05/06/2018 12:19 PM | | | | | PST | | + + + + + | Body Mass Index | 39.3 | 05/06/2018 12:19 PM | | | | | PST | | + + + + + documented in this encounter Discharge Instructions Instructions Jose A Alvarez MD - 05/06/2018Please return for worsening symptoms, fevers, chi lls. AttachmentsThe following attachments cannot be sent through Care Everywhere.Headache, Unspe cified ([place] African)Vomiting (Adult) (South African)documented in this encounter Medications at Time of [...] + + + +---------+ + + | LESSINA-28 0.1-20 | take 1 tablet by | | 0 | 04/24/20 | | | MG-MCG per tablet | mouth once daily | | | 18 | 9 | + + + +---------+ + + | methocarbamol | Take 500 mg by mouth | | 0 | | | | (ROBAXIN) 500 mg | every 8 hours as | | | | 9 | | tablet | needed. | | | | | + + + +---------+ + + | metroNIDAZOLE | Take 500 mg by mouth | | 0 | | | | (FLAGYL) 500 MG | 3 times daily. | | | | 8 | | tablet | | | | | | + + + +---------+ + + | promethazine | Take 1 tablet by | 12 | 0 | 05/06/20 | | | (PHENERGAN) 12.5 MG | mouth every 6 hours | tablet | | 18 | 9 | | tablet | as needed for Nausea | | | | | | | for up to 12 doses. | | | | | + + + +---------+ + + documented as of this encounter ED Notes Antony Lovell RN - 05/06/2018 12:16 PM PSTPatient began taking an antibiotic (flagyl) t hat [facility], states that since she has been taking the medication she has been lightheaded and dizzy, also states she has been hav ing UTI s/s with urgency and pain. Jose A Thomson MD - 05/06/2018 12:16 PM PSTFormatting of this note might be diff erent from the original. [facility] Kimmie Hawkins Emergency Department Encounter Note [address] [place] [address] PCP:SIGRID Zavala [phone] CHIEF COMPLAINT: No chief complaint on file. ED Room: [address] Kimmie Hawkins is a 22 y.o. female who presents to the Emergency Department with multip le complaints. Patient feels like the symptoms started shortly after starting Flagyl one we ek ago. She presents with headache is rated a 7 out of 10. Headache is not improved with o [id number] medications. She also complains of diffuse mild abdominal pain. Denies any diarrhea but does endorse some nausea. Endorses a foggy feeling. She denies any fevers or chills. Denies any dysuria hematuria. Denies any vaginal pain or discharge. PAST MEDICAL & SURGICAL HISTORY Past Medical History: Diagnosis Date Acute mesenteric adenitis Anxiety Asthma Chronic tonsillitis and adenoiditis(474.02) 06/21/2013 ICD-10 Record update Depression Dysuria 09/14/2011 Elevated liver enzymes Exercise-induced asthma Gastritis Low back pain of over 3 months duration Migraine Myalgia Obesity Pain in joint of right shoulder Pelvic pain PTSD (post-traumatic stress disorder) Rotator cuff tear, right Sprain of ligaments of lumbar spine, subsequent encounter Past Surgical History: Procedure Laterality Date CHOLECYSTECTOMY, LAPAROSCOPIC 2009 TONSILLECTOMY 2013 CURRENT MEDICATIONS Discharge Medication List as of 05/06/2018 15:55 CONTINUE these medications which have NOT CHANGED Details cetirizine (ZYRTEC) 5 mg tablet Take 5 mg by mouth Daily.Historical Med methocarbamol (ROBAXIN) 500 mg tablet Take 500 mg by mouth every 8 hours as needed.Historic al Med metroNIDAZOLE (FLAGYL) 500 MG tablet Take 500 mg by mouth 3 times daily.Historical Med ALLERGIES Allergies Allergen Reactions Acetaminophen Other [...] negative. PHYSICAL EXAM VITAL SIGNS: (first vital signs): Pulse: 98 Resp: 20 SpO2: 98 % BP: 139/90 Body mass index is 39.3 kg/m. Constitutional: female patient, sitting down in no acute distress HEENT: Atraumatic, PERRL, Oropharynx benign. Neck: Supple with full range of motion. Respiratory: Good air movement bilaterally. No wheezes, No, rales. Cardiovascular: Normal S1 S2 Abdomen: Soft, nontender, very mild tenderness in the lower quadrants, no CVA tenderness Extremities: Nontender. No lower extremity edema, no calf asymmetry. Present distal pulse s. Skin: Warm, Dry, No rashes Neurologic: Alert & oriented. Cranial nerves II-XII intact , Gait and speech are normal Psychiatric: Normal mood, affect and judgement. LABS Results for orders placed or performed during the hospital encounter of 05/06/18 Urinalysis with Microscopic with Culture if Indicated Result Value Ref Range Color Yellow Light Yellow, Yellow, Straw Clarity Hazy (A) Clear PH UA 6.0 5.0 - 8.0 Specific [place] 1.020 1.001 - 1.030 PROTEIN UA Negative Negative BLOOD UA Moderate (A) Negative GLUCOSE UA Negative Negative KETONES UA Negative Negative BILIRUBIN UA Negative Negative NITRITE UA Negative Negative LEUKOCYTES ESTERASE UA Trace (A) Negative UROBILINOGEN UA Negative 0.2 mg/dL, 1.0 mg/dL, Negative WBC UA 2-5 (A) 0 - 2 /HPF RBC UA 2-5 (A) 0 - 2 /HPF SQUAMOUS EPITHELIAL UA >100 (A) 0 - 2 /LPF RENAL EPITHELIAL UA 0-2 0 - 2 /HPF BACTERIA UA Negative Negative /HPF MUCUS UA Present (A) Negative /LPF CBC with Differential Result Value Ref Range WBC 9.3 4.0 - 11.0 K/uL RBC 4.86 3.70 - 5.20 M/uL Hgb 13.8 11.5 - 16.0 g/dL Hct 42.0 34.0 - 47.0 % MCV 86.4 83.0 - 101.0 fL MCH 28.4 28.0 - 35.0 pg MCHC 32.9 32.0 - 36.0 g/dL RDW-CV 11.7 <15.0 % RDW-SD 37.2 35.1 - 46.3 fL Platelet Count 326 140 - 440 K/uL MPV 9.5 6.5 - 12.4 fL % Neutrophils 63.9 45.0 - 82.0 % % Lymphocytes 28.2 20.0 - 45.0 % % Monocytes 6.2 4.0 - 12.0 % % Eosinophils 1.4 0.0 - 5.0 % % Basophils 0.2 0.0 - 1.0 % % Immature granulocytes 0.1 0.0 - 0.4 % Absolute Neutrophils 5.94 1.80 - 8.50 K/uL Absolute Lymphocytes 2.63 0.60 - 3.20 K/uL Absolute Monocytes 0.58 0.00 - 1.00 K/uL Absolute Eosinophils 0.13 0.00 - 0.40 K/uL Absolute Basophils 0.02 0.00 - 0.10 K/uL Absolute Imm. Granulocytes 0.01 0.00 - 0.03 K/uL nRBC 0 0 - 2 per 100 WBC's NRBC ABS 0.00 0.00 - 0.01 K/uL Comprehensive Metabolic Panel Result Value Ref Range NA 138 136 - 149 mmol/L K 4.1 3.5 - 5.1 mmol/L CL 106 98 - 109 mmol/L CO2 26 24 - 31 mmol/L ANION GAP 6 3 - 16 mmol/L GLUCOSE 101 70 - 109 mg/dL BUN 9 7 - 18 mg/dL Creatinine, Serum/Plasma 0.61 0.60 - 1.30 mg/dL eGFR if not >60 >=60 mL/min/1.73m2 CALCIUM 9.5 8.3 - 10.5 mg/dL ALBUMIN 4.1 3.2 - 5.0 g/dL Bilirubin Total 0.4 0.1 - 1.5 mg/dL Total protein 7.2 6.0 - 7.8 g/dL AST 51 (H) 10 - 42 U/L ALT 98 (H) 6 - 45 U/L ALK PHOS 57 40 - 110 U/L GLOBULIN 3.1 2.1 - 3.8 g/dL Albumin/Globulin ratio 1.3 0.8 - 2.0 BUN/CREA 14.8 Lipase Result Value Ref Range Lipase 20 0 - 60 U/L POCT Test, Urine, QUAL Result Value Ref Range Test, Urine, POC Negative Negative Internal QC Acceptable Acceptable Specific [place], POC 1.010, 1.015, 1.020, 1.025 Lot Number [id number] Expiration Date 06/04/2019 IMAGING STUDIES (X-Rays interpreted by ED Physician) ED COURSE & MEDICAL DECISION MAKING Pertinent Labs & Imaging studies were reviewed along with EMS notes and senior living record s if applicable. (See chart for details) Medications and Allergy list reviewed. Nurses note and old records were reviewed The patient was seen and examined, Patient is a 22-year-old female who presents with multiple complaints. Her primary complai nts are headache and feeling of fogginess. She is given a migraine cocktail consisting of T oradol, Benadryl, acetaminophen, Phenergan. She is also given fluids. She noted significan t improvement in her headache after the medication. She has one tablet of Flagyl left. Inf ormed her to stop taking it. Nausea resolved after migraine cocktail as well. Given signif icant improvement symptoms patient will be discharged and asked return if symptoms continue or worsen. Given unremarkable labs and unremarkable physical exam did not think she require d imaging of her abdomen. Last Set of Vital Signs: Pulse: 62 Resp: 16 SpO2: 98 % BP: 109/65 FINAL IMPRESSION ICD-10-CM ICD-9-CM 1. Nonintractable headache, unspecified chronicity pattern, unspecified headache type R51 7 84.0 2. Nausea R11.0 787.02 Follow-up Information Schedule an appointment as soon as possible for a visit with SIGRID Zavala. Specialty: Family Nurse Practitioner Contact information: [address] [place] [id number] Discharge Medication List as of 05/06/2018 15:55 START taking these medications Details promethazine (PHENERGAN) 12.5 MG tablet Take 1 tablet by mouth every 6 hours as needed for Nausea for up to 12 doses.Disp-12 tablet, R-0, Normal Jose A Alvarez MD 05/07/18 1530 documented in this encou nter Plan of Treatment + +------+--------+ + + | Name | Type | Priori | Associated Diagnoses | Date/Time | | | | ty | | | + +------+--------+ + + | ED INFORMATION | GLENN | Routin | | 05/06/2018 12:08 PM | | EXCHANGE | | e | | PST | + +------+--------+ + + documented as of this encounter Procedures + +--------+ + + + | Procedure Name | Priori | Date/Time | Associated Diagnosis | Comments | | | ty | | | | + +--------+ + + + | LIPASE | STAT | 05/06/2018 | | Results for this | | | | 1:25 PM | | procedure are in the | | | | PST | | results section. | + +--------+ + + + | COMPREHENSIVE | STAT | 05/06/2018 | | Results for this | | METABOLIC PANEL | | 1:25 PM | | procedure are in the | | | | PST | | results section. | + +--------+ + + + | CBC WITH | STAT | 05/06/2018 | | Results for this | | DIFFERENTIAL | | 1:17 PM | | procedure are in the | | | | PST | | results section. | + +--------+ + + + | URINALYSIS WITH | STAT | 05/06/2018 | | Results for this | | MICROSCOPIC WITH | | 12:34 PM | | procedure are in the | | CULTURE IF INDICATED | | PST | | results section. | + +--------+ + + + | POCT TEST, | STAT | 05/06/2018 | | Results for this | | URINE, QUAL | | 12:34 PM | | procedure are in the | | | | PST | | results section. | + +--------+ + + + | ED INFORMATION | Routin | 05/06/2018 | | | | EXCHANGE | e | 12:08 PM | | | | | | PST | | | + +--------+ + + + +---+--------+ | | | | | Proced | | | ure | | | Note - | | | Amy, | | | Lab In | | | | | | Hlseve | | | n - | | | 11/11/ | | | 2018 | | | 12:08 | | | PM PST | | | | | | Format [...] | | | FICATI | | | ON?11/ | | | 11/201 | | | 8 | | | 12:05? | | | HENSLE | | | Y, | | | PERCEP | | | HONI | | | J?MRN: | | | | | | [id number] | | | [id number] | | | his | | | [...] | | | int | | | Nov | | | 11, | | | 2018 | | | Provid | | | ence | | | [facility] | [facility] [place] | | | [place] | | | Emerge | | | ncy | | | Emerge | | | ncy | | | | | | Antibi | | | otic | | | prescr | | | iption | | | Sep | | | [...] | | | Pain | | | | | | Abdomi | | | nal | | | Pain | | | | | | Unspec | | | ified | | | abdomi | | | nal | | | pain | | | Aug | | | [...] | | | ified | | | E.D. | | | [...] | | | Center | | | 8 0 | | | Total | | | 8 0 | | | Note: | | [...] | | | 2018-0 | | | 9-26 | | | OXYCOD | | | ONE | | | HCL 5 | | | MG | | | TABLET | | | 15 | | | MICHAE | | | L | | | MINCKL | | | ER 2 | | | 22.5 | | | 2018-0 | | | [...] | | II-V | | | Rx 5 | | | CS-II | | | Rx 2 | | | Quanti | | | ty | | | Dispen | | | sed 49 | | | | | | Unique | | | | | | Prescr | | | ibers | | | 5 | | | Unique | | | | | | Pharma | | | cies 1 | | | | | | Benzos | | | 3 | | | Opioid | | | s 2 | | | Long | | | [...] | | | ? | | | 2018 | | | Collec | | | [...] | +---+--------+ documented in this encounter Results Lipase (05/06/2018 1:25 PM PST) + +-------+ + + + | Component | Value | Ref Range | Performed | Pathologist | | | | | At | Signature | + +-------+ + + + | Lipase | 20 | 0 - 60 U/L | [facility] | | | | | | [facility] [...] + | [facility] | [address] | [place] | [phone] | | [facility] | | [address] | | | - LABORATORY | | | | + + + + + Comprehensive Metabolic Panel (05/06/2018 1:25 PM PST) + + + + + [...] + + + + | K | 4.1 | 3.5 - 5.1 | [facility] | [...] + + + + | CO2 | 26 | 24 - 31 mmol/L | [facility] | | | | | | [facility] | | | | | | MEDICAL | | | | | | CENTER - | | | | | | LABORATORY | | + + + + + + | Anion Gap | 6 | 3 - 16 mmol/L | [facility] | | | | | | [facility] | | | | | | [facility] | | | | | | CENTER - | | | | | | LABORATORY | | + + + + + + | Glucose | 101 | 70 - 109 mg/dL | [facility] | | | | | | [facility] | | | | | | MEDICAL | | | | | | CENTER - | | | | | | LABORATORY | | + + + + + + | BUN | 9 | 7 - 18 mg/dL | [facility] | | | | | | [facility] | | | | | | MEDICAL | | | | | | CENTER - | | | | | | LABORATORY | | + + + + + + | Creatinine | 0.61 | 0.60 - 1.30 | [facility] | | | | | mg/dL | [facility] | | | | | | MEDICAL | | | | | | CENTER - | | | | | | LABORATORY | | + + + + + + | eGFR, | >60Comment: GLOMERULAR | >=60 | [facility] | | | non- | FILTRATION | mL/min/1.73m2 | [facility] | | | [place] | RATE,ESTIMATED | | MEDICAL | | | | mL/min/1.22c6Iycu than | | CENTER - | | [...] + + + + | Calcium | 9.5 | 8.3 - 10.5 | [facility] | | | | | mg/dL | [facility] | | | | | | MEDICAL | | | | | | CENTER - | | | | | | LABORATORY | | + + + + + + | Albumin | 4.1 | 3.2 - 5.0 g/dL | [facility] [...] + + + + | Total | 7.2 | 6.0 - 7.8 g/dL | [facility] | | | Protein | | | [facility] | | | | | | MEDICAL | | | | | | CENTER - | | | | | | LABORATORY | | + + + + + + | AST | 51 (H)Comment: This is | 10 - 42 [...] + + + + | ALT | 98 (H)Comment: This is | 6 - 45 U/L | [facility] | | | | an appended report. | | [facility] | | | | These results have been | | MEDICAL | | | | appended to a previously | | CENTER - | | | | preliminary verified | | LABORATORY | | | | report. | | | | + + + + + + | Alkaline | 57Comment: This is an | 40 - 110 [...] | | bulin Ratio | | | [facility] | | | | | | MEDICAL | | | | | | CENTER - | | | | | | LABORATORY | | + + + + + + | BUN/Creatin | 14.8 | | [facility] | | | ine Ratio | | | [facility] | | [...] [address] | [place] | [phone] | | [facility] | | [address] | | | - LABORATORY | | | | + + + + + CBC with Differential (05/06/2018 1:17 PM PST) + + + + + + | Component | Value | Ref Range | Performed | Pathologist | | | | | At | Signature | + + + + + + | White Blood | 9.3 | 4.0 - 11.0 K/uL | [facility] | | | Cells | | | [facility] | | | | | | MEDICAL | | | | | | CENTER - | | | | | | LABORATORY | | + + + + + + | Red Blood | 4.86 | 3.70 - 5.20 | [facility] | | | Cells | | M/uL | [facility] | | | | | | MEDICAL | | | | | | CENTER - | | | | | | LABORATORY | | + + + + + + | Hemoglobin | 13.8 | 11.5 - 16.0 | [facility] | | | | | g/dL | [facility] | | | | | | MEDICAL | | | | | | CENTER - | | | | | | LABORATORY | | + + + + + + | Hematocrit | 42.0 | 34.0 - 47.0 % | [facility] | | | | | | [facility] | | | | | | MEDICAL | | | | | | CENTER - | | | | | | LABORATORY | | + + + + + + | MCV | 86.4 | 83.0 - 101.0 fL | [facility] | | | | | | [facility] | | | | | | MEDICAL | | | | | | CENTER - | | | | | | LABORATORY | | + + + + + + | MCH | 28.4 | 28.0 - 35.0 pg | [facility] | | | | | | [facility] | | | | | | MEDICAL | | | | | | CENTER - | | | | | | LABORATORY | | + + + + + + | MCHC | 32.9 | 32.0 - 36.0 | [facility] | | | | | g/dL | [facility] | | | | | | MEDICAL | | | | | | CENTER - | | | | | | LABORATORY | | + + + + + + | RDW-CV | 11.7 | <15.0 % | [facility] | | | | | | [facility] | | | | | | MEDICAL | | | | | | CENTER - | | | | | | LABORATORY | | + + + + + + | RDW-SD | 37.2 | 35.1 - 46.3 fL | [facility] | | | | | | [facility] | | | | | | MEDICAL | | | | | | CENTER - | | | | | | LABORATORY | | + + + + + + | Platelet | 326 | 140 - 440 K/uL | [facility] | | | Count | | | [facility] | | | | | | MEDICAL | | | | | | CENTER - | | | | | | LABORATORY | | + + + + + + | MPV | 9.5 | 6.5 - 12.4 fL | [facility] | | | | | | [facility] | | | | | | MEDICAL | | | | | | CENTER - | | | | | | LABORATORY | | + + + + + + | % | 63.9 | 45.0 - 82.0 % | [facility] | | | Neutrophils | | | [facility] | | | | | | MEDICAL | | | | | | CENTER - | | | | | | LABORATORY | | + + + + + + | % | 28.2 | 20.0 - 45.0 % | [facility] | | | Lymphocytes | | | [facility] | | | | | | MEDICAL | | | | | | CENTER - | | | | | | LABORATORY | | + + + + + + | % Monocytes | 6.2 | 4.0 - 12.0 % | [facility] | | | | | | [facility] | | | | | | MEDICAL | | | | | | CENTER - | | | | | | LABORATORY | | + + + + + + | % | 1.4 | 0.0 - 5.0 % | [facility] | | | Eosinophils | | | [facility] | | | | | | MEDICAL | | | | | | CENTER - | | | | | | LABORATORY | | + + + + + + | % Basophils | 0.2 | 0.0 - 1.0 % | [facility] | | | | | | [facility] | | | | | | MEDICAL | | | | | | CENTER - | | | | | | LABORATORY | | + + + + + + | % Immature | 0.1Comment: For | 0.0 - 0.4 % | [facility] | | | Granulocyte | patients, use the | | [facility] | | | s | special reference ranges | | MEDICAL | | | | listed below. | | CENTER - | | | | | | LABORATORY | | + + + + + + | Absolute | 5.94 | 1.80 - 8.50 | [facility] | | | Neutrophils | | K/uL | [facility] | | | | | | MEDICAL | | | | | | CENTER - | | | | | | LABORATORY | | + + + + + + | Absolute | 2.63 | 0.60 - 3.20 | [facility] | | | Lymphocytes | | K/uL | [facility] | | | | | | MEDICAL | | | | | | CENTER - | | | | | | LABORATORY | | + + + + + + | Absolute | 0.58 | 0.00 - 1.00 | [facility] | | | Monocytes | | K/uL | [facility] | | | | | | MEDICAL | | | | | | CENTER - | | | | | | LABORATORY | | + + + + + + | Absolute | 0.13 | 0.00 - 0.40 | [facility] | | | Eosinophils | | K/uL | [facility] | | | | | | MEDICAL | | | | | | CENTER - | | | | | | LABORATORY | | + + + + + + | Absolute | 0.02 | 0.00 - 0.10 | [facility] | | | Basophils | | K/uL | [facility] | | | | | | MEDICAL | | | | | | CENTER - | | | | | | LABORATORY | | + + + + + + | Absolute | 0.01Comment: For | 0.00 - 0.03 | [facility] | | | Immature | patients, use | K/uL | [facility] | | | Granulocyte | the special reference | | MEDICAL | | | s | ranges listed below. | | CENTER - | | | | | | LABORATORY | | + + + + + + | % nRBC | 0 | 0 - 2 per 100 | [facility] | | | | | WBC's | [facility] | | | | | | MEDICAL | | | | | | CENTER - | | | | | | LABORATORY | | + + + + + + | Absolute | 0.00 | 0.00 - 0.01 | [facility] | | | nRBC | | K/uL | [facility] | | | | | | MEDICAL | | | | | | CENTER - | | | | | | LABORATORY | | + + + + + + + + | Specimen | + + | Blood | + + + + + | Narrative | Performed At | + + + | IMMATURE GRANULOCYTES - For patients, use the following | [facility] | | reference ranges: Trim. Absolute (K/uL) Percentage (%) | [facility] | | 1st 0.003-0.091 K/uL 0.0-0.9% 2nd 0.007-0.247 K/uL | [facility] | | 0.1-2.0% 3rd 0.018-0.456 K/uL 0.1-2.0% | - LABORATORY | + + + + + + + + | Performing | Address | City/State/Zipcode | Phone Number | | Organization | | | | + + + + + | [facility] | [address] | [place] | [phone] | | [facility] | | [address] | | | - LABORATORY | | | | + + + + + POCT Test, Urine, QUAL (05/06/2018 12:34 PM PST) + + + + + + | Component | Value | Ref Range | Performed | Pathologist | | | | | At | Signature | + + + + + + | | Negative | Negative | | | | Test, | | | | | | Urine, POC | | | | | + + + + + + | Internal QC | Acceptable | Acceptable | | | + + + + + + | Specific | | 1.010, 1.015, | | | | [place], | | 1.020, 1.025 | | | | POC | | | | | + + + + + + | Lot Number | [id number] | | | | + + + + + + | Expiration | 06/04/2019 | | | | | Date | | | | | + + + + + + + + | Specimen | + + | Urine | + + Urinalysis with Microscopic with Culture if Indicated (05/06/2018 12:34 PM PST) + + + + + [...] + + + + | Specific | 1.020 | 1.001 - 1.030 | [facility] | | | [place], | | | [facility] | | [...] + + + + | Blood, | Moderate (A) | Negative | [facility] | | [...] + + + | White Blood | 2-5 (A) | 0 - 2 /HPF | [facility] | | | Cells, | | | [facility] | | | Urine | | | MEDICAL | | | | | | CENTER - | | | | | | LABORATORY | | + + + + + + | Red Blood | 2-5 (A) | 0 - 2 /HPF | [...] + + + + + + | Renal | 0-2 | 0 - 2 /HPF | [facility] | | | Epithelial | | | [facility] | | | Cells, | | | MEDICAL | | | Urine | | | CENTER - | | | | | | LABORATORY | | + + + + + + | Bacteria, | Negative | Negative /HPF | [facility] | | [...] + + + + + | [facility] | [address] | [place] | [phone] | | [facility] | | [address] | | | - LABORATORY | | | | + + + + + documented in this encounter Visit Diagnoses + + | Diagnosis | + + | Nonintractable headache, unspecified chronicity pattern, unspecified headache type - | | Primary | + + | Nausea Nausea alone | + + documented in this encounter Administered Medications + +--------+ +--------+------+------+ | Medication Order | MAR | Action | Dose | Rate | Site | | | Action | Date | | | | + +--------+ +--------+------+------+ | acetaminophen (TYLENOL) tablet | Given | 05/06/20 | 650 mg | | | | 650 mg 650 mg, Oral, ONCE, Sun | | 18 1:40 | | | | | 05/06/18 at 1300, For 1 dose | | PM PST | | | | + +--------+ +--------+------+------+ +---+---+ | | | +---+---+ + +-------+ +-------+---+---+ | dicyclomine (BENTYL) tablet 20 | Given | 05/06/20 | 20 mg | | | | mg 20 mg, Oral, ONCE, Sun | | 18 2:20 | | | | | 05/06/18 at 1420, For 1 dose | | PM PST | | | | + +-------+ +-------+---+---+ +---+---+ | | | +---+---+ + +-------+ +-------+---+---+ | diphenhydrAMINE (BENADRYL) | Given | 05/06/20 | 25 mg | | | | injection 25 mg 25 mg, | | 18 2:18 | | | | | Intravenous, ONCE, 05/06/18 | | PM PST | | | | | at 1420, For 1 dose | | | | | | + +-------+ +-------+---+---+ +---+---+ | | | +---+---+ + +-------+ +-------+---+---+ | ketorolac (TORADOL) injection | Given | 05/06/20 | 15 mg | | | | 15 mg 15 mg, Intravenous, ONCE, | | 18 1:39 | | | | | 05/06/18 at 1300, For 1 dose | | PM PST | | | | + +-------+ +-------+---+---+ +---+---+ | | | +---+---+ + +-------+ +------+---+---+ | ondansetron (ZOFRAN) injection | Given | 05/06/20 | 4 mg | | | | 4 mg 4 mg, Intravenous, ONCE, | | 18 1:36 | | | | | 05/06/18 at 1300, For 1 dose | | PM PST | | | | + +-------+ +------+---+---+ +---+---+ | | | +---+---+ + +---------+ +---------+-------+---+ | promethazine (PHENERGAN) 6.25 | New Bag | 05/06/20 | 6.25 mg | 201 | | | mg in sodium chloride 0.9% 50 mL | | 18 2:57 | | mL/hr | | | IVPB 6.25 mg, Intravenous, | | PM PST | | | | | Administer over 15 Minutes, ONCE, | | | | | | | 05/06/18 at 1420, For 1 dose | | | | | | + +---------+ +---------+-------+---+ +---+---+ | | | +---+---+ + +---------+ +--------+-------+---+ | sodium chloride 0.9% (NS) bolus | New Bag | 05/06/20 | 1,000 | 500 | | | 1,000 mL 1,000 mL, Intravenous, | | 18 1:35 | mLs | mL/hr | | | Administer over 2 Hours, ONCE, | | PM PST | | | | | 05/06/18 at 1300, For 1 dose | | | | | | + +---------+ +--------+-------+---+ +---+---+ | | | +---+---+ documented in this encounter
--- OUTSIDE RECORDS SUMMARY | ~2020-03-10 | XMS | Encounter Summary ---
Demographics + + + | Address | [address] | | | [place] [address] | + + + | Home Phone | | + + + | Preferred Language | Unknown | + + + | Marital Status | Single | + + + | Scientologist Affiliation | [id number] | + + + | Race | White | + + + | Ethnic Group | Not or | + + + Author + + + | Author | [facility] | | | and [place] | + + + | Organization | [facility] | | | [...] Team Providers + +------+ + | Care Apparatus Operator Name | Role | Phone | + +------+ + | Linda Rowley | PCP | | + +------+ + Reason for Visit + + + | Reason | Comments | + + + | Nausea | exam 6/ x 5 days indigestion/ lot of stomach acid/ vomited once x | | | 2 days | + + + | Sinus Problem | lot of nasal drainage in the AM | + + + | Otalgia | left ear feels clogged/ some dental pain | + + + | Abdominal Pain | right upper/lower abd x 2 days | + + + Encounter Details +--------+---------+ + + + | Date | Type | Department | Care Team | Description | +--------+---------+ + + + | 08/15/ | Office | [facility] | Nina Mead, | Acute non-recurrent | | 2019 | Visit | [facility] [address] | Need updated | maxillary sinusitis | | | | [facility], [place] | address | (Primary Dx); Acute | | | | [phone] | | gastritis without | | | | [phone] | | hemorrhage, | | | | | | unspecified | | | | | | gastritis type | +--------+---------+ + + + Social History [...] + + + | Blood Pressure | 133/92 | 08/15/2018 10:49 AM | | | | | PST | | + + + + + | Pulse | 97 | 08/15/2018 10:49 AM | | | | | PST | | + + + + + | Temperature | 37.2 C (98.9 F) | 08/15/2018 10:49 AM | | | | | PST | | + + + + + | Respiratory Rate | 16 | 08/15/2018 10:49 AM | | | | | PST | | + + + + + | Oxygen Saturation | 98% | 08/15/2018 10:49 AM | | | | | PST | | + + + + + | Inhaled Oxygen | - | - | | | Concentration | | | | + + + + + | Weight | 98 kg (216 lb 0.8 | 08/15/2018 10:49 AM | | | | oz) | PST | | + + + + + | Height | 152.4 cm (5') | 08/15/2018 10:49 AM | | | | | PST | | + + + + + | Body Mass Index | 42.19 | 08/15/2018 10:49 AM | | | | | PST | | + + + + + documented in this encounter Patient Instructions Patient Instructions Nina Mead MD - 08/15/2018 11:14 AM PSTFormatting of this note m ight be different from the original. Gastritis (Adult) Gastritis isinflammation andirritation of the stomach lining. You can have it for a octavio rt time (acute) or be long lasting (chronic). Infection with bacteria calledH pylori most often causes gastritis.More than a third of people in the [place] have these bacteria in their bodies. In many cases,H pyloricauses no problems or symptoms. In some people, though, th e infection irritates the stomach lining and causes gastritis. H. pylori may be diagnosed th rough blood, stool, or breath tests, we well as through biopsy during an endoscopy. Other ca uses of stomach irritation include drinking alcohol, smoking or chewing tobacco, or taking p ain-relieving medicines called NSAIDs (such as aspirin or ibuprofen). Certain drugs (such as cocaine) and immune conditions can also cause gastritis. Symptoms of gastritis can include: Belly pain or bloating Feeling full quickly Loss of appetite Nausea or vomiting Vomiting blood or having black stools Feeling more tired than usual An inflamed and irritated stomach lining is more likely to develop a sore called an ulcer. To help prevent this, gastritis should be treated. Home care If needed, our healthcare provider may prescribe medicines. If you haveH pyloriinfectio n, treating it will likely relieve your symptoms. Other changes can help reduce stomach irri tation and help it heal. If you have been prescribed medicines forH pyloriinfection, take them as directed. T molly all of the medicine until it is finished or your healthcare provider tells you to stop, even if you feel better. Your healthcare provider may advise you not to take NSAIDs. If you take daily aspirin fo r your heart or other medical reasons, do not stop without talking to your healthcare provid er first. Don't drink alcohol. Stop smoking. Smoking can irritate the stomach and delay healing. As much as possible, s christian away from second hand smoke. Follow-up care Follow up with your healthcare provider, or as advised by our staff. You may need testing t o check for inflammation or an ulcer. When to seek medical advice Call your healthcare provider for any of the following: Stomach pain that gets worse or moves to the lower right belly (appendix area) Chest pain that appears or gets worse, or spreads to the back, neck, shoulder, or arm Frequent vomiting (can t keep down liquids) Blood in the stool or vomit (red or black in color) Feeling weak or dizzy Shortness of breath Unexplained weight loss Fever of 100.4F (38C) or higher, or as directed by your healthcare provider Date Last Reviewed: 08/24/201719998253-6159 [employer]. [address] [place] [address], [place] [address]. All righ ts reserved. This information is not intended as a substitute for professional medical care. Always follow your healthcare professional's instructions. Self-Care for Sinusitis Drinking plenty of water [...] to help relieve them. Date Last Reviewed: 03/26/201619995894-5254 [employer]. [address] [place] [address], [place] [address]. All righ ts reserved. This information is not intended as a substitute for professional medical care. Always follow your healthcare professional's instructions. documented in this encounter Progress Notes Nina Mead MD - 08/15/2018 10:45 AM PSTFormatting of this note might be different fro m the original. Subjective: Chief Complaint: Nausea (exam 6/ x 5 days indigestion/ lot of stomach acid/ vomited once x 2 days); Sinus Problem (lot of nasal drainage in the AM); Otalgia (left ear feels clogged/ s ome dental pain); and Abdominal Pain (right upper/lower abd x 2 days) Kimmie is a 23 y.o. female who comes in complaining of possible sinus infection. Benny workman first developed an upper respiratory infection 2 weeks ago, followed with persistent n luis fernando and sinus pain and congestion since, with purulent nasal drainage. Has a mildly produc tive cough but lungs feel clear with no shortness of breath. No fevers. Has had sinus in fections in the past. Kimmie does not smoke. She also is having epigastric pain and occasionally she has black tarry stool. She's been taking more ibuprofen since she got this upper respiratory infection. She doesn't drink alc ohol. No history of peptic ulcer. She does have some Zantac but it doesn't seem to be luz ng a difference. Patient's medications, allergies, past medical, surgical, social and family histories were reviewed and updated as appropriate. Objective: BP (!) 133/92 | Pulse 97 | Temp 37.2 C (98.9 F) (Temporal) | Resp 16 | Ht 1.524 m ( 5') | Wt 98 kg (216 lb 0.8 oz) | SpO2 98% | BMI 42.19 kg/m General Appearance: Alert, cooperative, no distress, appears stated age Head: Normocephalic, without obvious abnormality, with positive maxillary sinus tenderness to percussion Eyes: PERRL, conjunctiva/corneas clear Ears: Normal TM's and external ear canals Nose: Nares normal, septum midline, mucosa normal with mild congestion Throat: Oropharynx normal Neck: Supple, symmetrical, no adenopathy Lungs: Clear to auscultation bilaterally, respirations unlabored Abdomen positive bowel sounds soft nontender nondistended Skin: Dry, normal color Assessment and Plans: Acute sinusitis, will treat with nasal saline rinses and Augmentin. Steam inhalation in th e shower. Make sure to drink lots of liquids. Gastritis -- Stop the ibuprofen. Do not take any naproxen or Aleve either. Tylenol is okay. Her chart shows that ibuprofen is on her allergy list as upsetting her stomach. Take Prilosec 20 mg daily in the morning and a Zantac at night for a few days. Continue the Prilosec in the mor anna for a month Come in immediately if she has black tarry stool or blood in the stool Otherwise recheck after she finishes her antibiotics. I do recommend she get some probiotics to take with the Augmentin Return to clinic if symptoms persist, change or worsen over the next week. This note was dictated using [employer] voice recognition software. Occasional wrong- word or s ound-alike substitutions may have occurred due to the inherent limitations of voice recognit ion software. Please read the chart carefully and recognize, using context, where these subs titutions have occurred. documented in this en counter Plan of Treatment Not on filedocumented as of this encounter Visit Diagnoses + + | Diagnosis | + + | Acute non-recurrent maxillary sinusitis - Primary | + + | Acute gastritis without hemorrhage, unspecified gastritis type | + + documented in this encounter"
--- OUTSIDE RECORDS SUMMARY | ~2020-03-10 | XMS | Encounter Summary ---
Demographics + + + | Address | [address] | | | [place] [address] | + + + | Home Phone | | + + + | Preferred Language | Unknown | + + + | Marital Status | Single | + + + | Sikh Affiliation | 1013 | + + + | Race | White | + + + | Ethnic Group | Not or | + + + Author + + + | Author | [facility] | | | and [place] | + + + | Organization | [facility] | | [...] Team Providers + +------+ + | Care Greeter Name | Role | Phone | + [...] | +--------+ + + + + | 08/24/ | Emergency | [facility] | B[place], | Acute superficial | | 2019 | | [facility] | Dane Perdue MD [address] | gastritis without | | | | CENTER [address] | [address] [place] | hemorrhage (Primary | | | | [place], [place] | [place] [address] | Dx) | | | | [address] | [phone] | | | | | [phone] | | | +--------+ + + + [...] + + + | Blood Pressure | 115/78 | 08/24/2018 6:18 PM | | | | | PST | | + + + + + | Pulse | 85 | 08/24/2018 6:18 PM | | | | | PST | | + + + + + | Temperature | 37.1 C (98.7 F) | 08/24/2018 4:59 PM | | | | | PST | | + + + + + | Respiratory Rate | 14 | 08/24/2018 6:18 PM | | | | | PST | | + + + + + | Oxygen Saturation | 98% | 08/24/2018 6:18 PM | | | | | PST | | + + + + + | Inhaled Oxygen | - | - | | | Concentration | | | | + + + + + | Weight | - | - | | + + + + + | Height | 152.4 cm (5') | 08/24/2018 4:59 PM | | | | | PST | | + + + + + | Body Mass Index | - | - | | + + + + + documented in this encounter Discharge Instructions Instructions Dane Giron MD - 08/24/2018Take omeprazole and Carafate for the nex t 2 weeks Return if worsening, otherwise follow-up with your doctor AttachmentsThe following attachments cannot be sent through Care Everywhere.Gastritis or Ul cer (No Antibiotic Treatment) ([place])documented in this encounter Medications at Time of Discharge + + + +---------+ + + | Medication | Sig | Dispensed | Refills | Start | End Date | | | | | | Date | | + + + +---------+ + + | ibuprofen | Take 1 tablet by | 30 | 1 | 06/25/20 | | | (ADVIL,MOTRIN) 600 | mouth every 6 hours | tablet | | 18 | | | MG tablet | as needed for Pain. | | | | | + + + +---------+ + + | topiramate | take 1/2 tablet by | | 0 | 07/23/19 | | | (TOPAMAX) 50 MG | mouth at bedtime for | | | 19 | | | tablet | 1 week then 1/2 | | | | | | | tablet tw... (REFER | | | | | | | TO PRESCRIPTION | | | | | | | NOTES). | | | | | + + + +---------+ + + | | Take 1 tablet by | 20 | 0 | 02/20/20 | | | amoxicillin-clavulan | mouth 2 times daily | tablet | | 19 | 9 | | ate (AUGMENTIN) | for 10 days. | | | | | | 875-125 mg per | | | | | | | tablet | | | | | | + + + +---------+ + + | cetirizine | Take 5 mg by mouth | | 0 | | | | (ZYRTEC) 5 mg tablet | Daily. | | | | 9 | + + + +---------+ + + | omeprazole | Take 1 capsule by | 28 | 0 | 08/25/19 | | | (PRILOSEC) 20 mg | mouth 2 times daily | capsule | | 19 | 9 | | capsule | for 14 days. | | | | | + + + +---------+ + + | ondansetron | Take 1 tablet by | 24 | 0 | 06/25/20 | | | (ZOFRAN ODT) 4 mg | mouth every 8 hours | tablet | | 18 | 9 | | disintegrating | as needed for | | | | | | tablet | Nausea. | | | | | + + + +---------+ + + | sucralfate | Take 1 tablet by | 56 | 0 | 08/25/19 | | | (CARAFATE) 1 g | mouth 4 times daily | tablet | | 19 | 9 | | tablet | for 14 days. | | | | | + + + +---------+ + + documented as of this encounter ED Notes Naomie Rodarte RN - 08/24/2018 6:19 PM PSTDC home with instructions in stable condition. Dane Judd MD - 08/24/2018 5:58 PM PST [facility] Emergency Department Encounter Note [address] [place] [id number] PCP:SIGRID Zavala [phone] DIAGNOSIS: 1. Acute superficial gastritis without hemorrhage CHIEF COMPLAINT: Chief Complaint Patient presents with Abdominal Pain Mode of Arrival: walk-in ED Room: ED09 HPI Kimmie Hawkins is a 23 y.o. female who presents to the Emergency Department for evaluat ion of abdominal pain. For the last 3-4 days the patient has had some upper abdominal pain both in the right upper quadrant, left upper quadrant and also in the epigastrium. Pain is sometimes worse after eating, but sometimes worse before. It has woken her in the middle of the night as well. Sometimes it feels like sharp pain, sometimes it's more of a pressure f eeling with bloating. She occasionally has associated nausea. She has not had vomiting. B owel movements have been normal. She has not had any blood in her stools. No dysuria or vi sible hematuria. She had a cholecystectomy in 2009. PAST MEDICAL & SURGICAL HISTORY Patient Active Problem List Diagnosis Date Noted Ovarian cyst, right 06/25/2018 Priority: High Asthma, exercise induced 06/25/2018 Priority: Medium Oral contraceptive use 06/25/2018 Priority: Low Note Last Updated: 06/25/2018 LESSINA / CRYSELLE Obesity, Class III, BMI 40-49.9 (morbid obesity) ([facility]) 06/25/2018 Priority: Low Chronic tonsillitis and adenoiditis 06/21/2013 Note Last Updated: 06/25/2018 S/p Tonsillectomy DYSURIA 09/14/2011 Past Surgical History: Procedure Laterality Date CHOLECYSTECTOMY, LAPAROSCOPIC 2009 SALPINGO-OOPHORECTOMY N/A 06/25/2018 Procedure: LAPAROSCOPY DIAGNOSTIC;EXCISION OF LEFT UTEROSACRAL ENDOMETRIOSIS,AND FULGRATIO N OF ENDOMETRIAL IMPLANTS, DRAINAGE OF RIGHT OVARIAN CYST; Surgeon: Alex Tai DO; Lo cation: AMANDA MAIN OR TONSILLECTOMY 2013 CURRENT MEDICATIONS Previous Medications AMOXICILLIN-CLAVULANATE (AUGMENTIN) 875-125 MG PER TABLET Take 1 tablet by mouth 2 time s daily for 10 days. CETIRIZINE (ZYRTEC) 5 MG TABLET Take 5 mg by mouth Daily. IBUPROFEN (ADVIL,MOTRIN) 600 MG TABLET Take 1 tablet by mouth every 6 hours as needed f or Pain. ONDANSETRON (ZOFRAN ODT) 4 MG DISINTEGRATING TABLET Take 1 tablet by mouth every 8 hour s as needed for Nausea. TOPIRAMATE (TOPAMAX) 50 MG TABLET take 1/2 tablet by mouth at bedtime for 1 week then 1 /2 tablet tw... (REFER TO PRESCRIPTION NOTES). ALLERGIES Allergies Allergen Reactions Codeine Other (See Comments) Reaction not specified in outside medical records Acetaminophen Other (See Comments) Headache and upset [...] Alcohol use Yes Comment: Rare Drug use: Yes Types: Marijuana Sexual activity: Yes Partners: Male control/ protection: Condom Other Topics Concern None Social History Narrative None REVIEW OF SYSTEMS As in history of present illness. A 10 system review was otherwise negative. PHYSICAL EXAM VITAL SIGNS: (first vital signs):Temp: 37.1 C (98.7 F) Pulse: 109 Resp: 16 SpO2: 99 % B P: 133/74 Body mass index is 42.19 kg/m. Constitutional: Moderately uncomfortable female patient. HEENT: Atraumatic, PERRL, Oropharynx benign. Neck: Supple with full range of motion. Chest: Good air movement bilaterally. No wheezes, No, rales. Cardiovascular: Normal S1 S2 Abdomen: Soft, tenderness in the epigastrium as well as slightly in the right upper or lef t upper quadrants. No lower abdominal tenderness, no rebound, guarding, or masses and bowel tones normal Back: Within normal limits No CVA tenderness Extremities: Nontender. No lower extremity edema, no calf asymmetry. Present distal pulse s. Skin: Warm, Dry, No rashes Neurologic: Alert & oriented. No focal deficits, Gait and speech are normal Psychiatric: Normal mood, affect and judgement. LABS Results for orders placed or performed during the hospital encounter of 08/24/18 CBC with Differential Result Value Ref Range WBC 11.3 (H) 4.0 - 11.0 K/uL RBC 4.93 3.70 - 5.20 M/uL Hemoglobin 14.0 11.5 - 16.0 g/dL Hematocrit 42.1 34.0 - 47.0 % MCV 85.4 83.0 - 101.0 fL MCH 28.4 28.0 - 35.0 pg MCHC 33.3 32.0 - 36.0 g/dL RDW-CV 12.4 <15.0 % RDW-SD 38.5 35.1 - 46.3 fL Platelet Count 355 140 - 440 K/uL MPV 9.9 6.5 - 12.4 fL % Neutrophils 61.7 45.0 - 82.0 % % Lymphocytes 30.2 20.0 - 45.0 % % Monocytes 5.3 4.0 - 12.0 % % Eosinophils 2.2 0.0 - 5.0 % % Basophils 0.3 0.0 - 1.0 % % Immature Granulocytes 0.3 0.0 - 0.4 % Absolute Neutrophils 7.00 1.80 - 8.50 K/uL Absolute Lymphocytes 3.43 (H) 0.60 - 3.20 K/uL Absolute Monocytes 0.60 0.00 - 1.00 K/uL Absolute Eosinophils 0.25 0.00 - 0.40 K/uL Absolute Basophils 0.03 0.00 - 0.10 K/uL Absolute Immature Granulocytes 0.03 0.00 - 0.03 K/uL % nRBC 0 0 - 2 per 100 WBC's Absolute nRBC 0.00 0.00 - 0.01 K/uL Comprehensive Metabolic Panel Result Value Ref Range Na 139 136 - 149 mmol/L K 3.6 3.5 - 5.1 mmol/L Cl 104 98 - 109 mmol/L CO2 21 (L) 24 - 31 mmol/L Anion Gap 14 3 - 16 mmol/L Glucose 93 70 - 109 mg/dL BUN 8 7 - 18 mg/dL Creatinine 0.83 0.60 - 1.30 mg/dL eGFR if not >60 >=60 mL/min/1.73m2 Ca 9.6 8.3 - 10.5 mg/dL Albumin 4.1 3.2 - 5.0 g/dL Bilirubin Total 0.5 0.1 - 1.5 mg/dL Total Protein 7.5 6.0 - 7.8 g/dL AST 86 (H) 10 - 42 U/L ALT 175 (H) 6 - 45 U/L Alkaline Phosphatase 57 40 - 110 U/L Globulin 3.4 2.1 - 3.8 g/dL Albumin/Globulin Ratio 1.2 0.8 - 2.0 BUN/Creatinine Ratio 9.6 Lipase Result Value Ref Range Lipase 25 0 - 60 U/L , Urine, Qual Result Value Ref Range HCG SCREEN, URINE Negative Negative Urinalysis with Microscopic with Culture if Indicated Result Value Ref Range Color Yellow Light Yellow, Yellow, Straw Clarity Hazy (A) Clear pH, Urine 7.0 5.0 - 8.0 Specific [place] 1.019 1.001 - 1.030 Protein, Urine Negative Negative Blood, Urine Negative Negative Glucose, Urine Negative Negative Ketones, Urine Negative Negative Bilirubin, Urine Negative Negative Nitrite, Urine Negative Negative Leukocyte Esterase, Urine Negative Negative Urobilinogen, Urine Negative 0.2 mg/dL, 1.0 mg/dL, Negative WBC UA 0-2 0 - 2 /HPF RBC UA 0-2 0 - 2 /HPF SQUAMOUS EPITHELIAL UA 50-100 (A) 0 - 2 /LPF BACTERIA UA 1+ (A) Negative /HPF MUCUS UA Present (A) Negative /LPF AMORPHOUS CRYSTALS Moderate (A) None Seen /HPF HYALINE CASTS UA 0-2 0 - 2 /LPF URINE COMMENT Urine Culture Not Indicated ED COURSE & MEDICAL DECISION MAKING Pertinent Labs & Imaging studies were reviewed along with EMS notes and long-term record s if applicable. (See chart for details) Medications and Allergy list reviewed. Nurses note and old records were reviewed The patient was seen and examined, given her symptoms labs were sent and revealed a normal CBC and metabolic panel, normal liver function tests and lipase. test was negativ e and urine was negative for infection. I think it is highly unlikely that she has a retain ed common duct stone 9 years after a cholecystectomy, especially given her normal labs. At this point I think her symptoms are most consistent with gastritis. She'll be treated with a 2 week course of omeprazole and Carafate along with recommendation for primary care follow -up in the next 1-2 weeks. Follow up information and return precautions were discussed in detail at the bedside prior to discharge and all questions were answered. Last Set of Vital Signs: Temp: 37.1 C (98.7 F) Pulse: 109 Resp: 16 SpO2: 99 % BP: 133/7 4 FINAL IMPRESSION ICD-10-CM ICD-9-CM 1. Acute superficial gastritis without hemorrhage K29.00 535.40 Follow-up Information SIGRID Zavala In 1 week. Specialty: Family Nurse Practitioner Why: If not improving Contact information: [address] [place] [id number] New Prescriptions SUCRALFATE (CARAFATE) 1 G TABLET Take 1 tablet by mouth 4 times daily for 14 days. Portions of this chart were created with [employer] voice recognition software. Inadvertent so und alike substitutions may be present and are unintentional Dane Giron MD 08/[id number] iNaomie martin RN - 08/24/2018 4:57 PM PSTComplains of RUQ pain that radiates across her upper abdominal off and on for the last 3 days with pressure and bloating. Pain worse after eating. Had her gallbladder removed 10 years ago. No fever, or vomiting. Last BM today. Electronically sig leopoldo by Naomie Rodarte RN at 08/24/2018 4:59 PM PSTdocumented in this encounter Plan of Treatment + +------+--------+ + + | Name | Type | Priori | Associated Diagnoses | Date/Time | | | | ty | | | + +------+--------+ + + | ED INFORMATION | GLENN | Routin | | 08/24/2018 4:36 PM | | EXCHANGE | | e | | PST | + +------+--------+ + + documented as of this encounter Procedures + +--------+ + + + | Procedure Name | Priori | Date/Time | Associated Diagnosis | Comments | | | ty | | | | + +--------+ + + + | CBC WITH | STAT | 08/24/2018 | | Results for this | | DIFFERENTIAL | | 5:12 PM | | procedure are in the | | | | PST | | results section. | + +--------+ + + + | LIPASE | STAT | 08/24/2018 | | Results for this | | | | 5:12 PM | | procedure are in the | | | | PST | | results section. | + +--------+ + + + | COMPREHENSIVE | STAT | 08/24/2018 | | Results for this | | METABOLIC PANEL | | 5:12 PM | | procedure are in the | | | | PST | | results section. | + +--------+ + + + | URINALYSIS WITH | Routin | 08/24/2018 | | Results for this | | MICROSCOPIC WITH | e | 5:08 PM | | procedure are in the | | CULTURE IF INDICATED | | PST | | results section. | + +--------+ + + + | HCG, URINE, QUAL | STAT | 08/24/2018 | | Results for this | | | | 5:08 PM | | procedure are in the | | | | PST | | results section. | + +--------+ + + + | ED INFORMATION | Routin | 08/24/2018 | | | | EXCHANGE | e | 4:36 PM | | | | | | PST | | | + +--------+ + + + +---+--------+ | | | | | Proced | | | ure | | | Note - | | | Amy, | | | Lab In | | | | | | Hlseve | | | n - | | | 03/01/ | | | 2019 | | | 4:37 | | | PM PST | | | | | | Format | | | ting | | | of | | | this | | | note | | | might | | | be | | | differ | | | ent | | | from | | | the | | | origin | | | al.COL | | | LECTIV | | | E?NOTI | | | FICATI | | | ON?03/ | | | 01/201 | | | 9 | | | 16:33? | | | HENSLE | | | Y, | | | PERCEP | | | HONI | | | J?MRN: | | | | | | [id number] | | | [id number] | | | riteri | | | a Met | | | | | | PDMPSe | | | curity | | | and | | | Safety | | | No | | | [...] | | | doretha | | | for | | | this | | | patien | | | t. | | | Please | | | check | | | your | | | facili | | | ty's | | | medica | | | l | | | record | | | s | | | system | | | .Presc | | | riptio | | | n Drug | | | | | | Report | | | (12 | | | Mo.)Rx | | | | | | Detail | | | sFill | | | Date | | | Drug | | | Descri | | | ption | | | Qty. | | | Prescr | | | iber | | | CS MED | | | | | | 2018-1 | | | 2-31 | | | OXYCOD | | | ONE-AC | | | ETAMIN | | | OPHEN | | | 5-325 | | | 15 | | | ALEX | | | | | | TEMPLI | | | N 2 | | | 37.5 | | | 2018-1 | | | 2-01 | | | HYDROC | | | ODONE- | | | ACETAM | | | IN | | | 5-325 | | | MG 25 | | | KATHLE | | | EN | | | BURGES | | | S 2 | | | 17.857 | | | | | | 2018-1 | | | 1-16 | | | HYDROC | | | ODONE- | | | ACETAM | | | IN | | | 5-325 | | | MG 18 | | | KATHLE | | | EN | | | BURGES | | | S 2 | | | 22.5 | | [...] | | | Summar | | | yMetri | | | c | | | Count | | | CS | | | II-V | | | Rx 7 | | | CS-II | | | Rx 5 | | | Quanti | | | ty | | | Dispen | | | sed 97 | | | | | | Unique | | | | | | Prescr | | | ibers | | | 6 | | | Unique | | | | | | Pharma | | | cies 1 | | | | | | Benzos | | | 2 | | | Opioid | | | s 5 | | | Long | | | Acting | | | | | | Opioid | | | s 0 | | | E.D. | | | [...] Recent | | | | | | Emerge | | | ncy | | | Depart | | | ment | | | Visit | | | Summar | | | yShowi | | | ng 10 | | | most | | | recent | | | | | | visits | | | out | | | of 11 | | | in the | | | past | | | 12 | | | months | | | Date | | | Facili | | | ty | | | City | | | State | | | Type | | | Diagno | | | ses or | | | Chief | | | | | | Compla | | | int | | | Mar 1, | | | 2019 | | | Prov[facility] | | | ence | | | [facility] | | [place] | | | [place] | | | Emerge | | | ncy | | | R | | | Upper | | | ABD | | | Pain | | | Mar 1, | | | 2019 | | | [facility] | | | [place] | | | Urgent | | | Care | | | [place] | | | [place] | | | Urgent | | | Care | | | | | | Abdomi | | | nal | | | Pain | | | | | | Proced | | | ure | | | and | | | treatm | | | ent | | | not | | | hermelinda | | | d out | | | due to | | | | | | patien | | | t | | | leavin | | | g | | | prior | | | to | | | being | | | seen | | | by | | | health | | | care | | | provid | | | er | | | Feb | | | 20, | | | 2019 | | | [facility] | | | [place] | | | Urgent | | | Care | | | [place] | | | [place] | | | Urgent | | | Care | | | | | | Sinus | | | Proble | | | m | | | Otalgi | | | a | | | Nausea | | | | | | Abdomi | | | nal | | | Pain | | | | | | Acute | | | gastri | | | tis | | | withou | | | t | | | bleedi | | | ng | | | Acute | | | maxill | | | sarah | | | sinusi | | | tis, | | | unspec | | | ified | | | Dec | | | 3, | | | 2018 | | | Provid | | | ence | | | [facility] | [facility] | | [place] | | | [place] | | | Emerge | | | ncy | | | poss | | | yeast | | | inf | | | and | | | cyst | | | pain | | | | | | Vagina | | | l | | | Itchin | | | g | | | Abdomi | | | nal | | | Crampi | | | ng | | | Unspec | | | ified | | | ovaria | | | n | | | cyst, | | | right | | | side | | | Nov | | | [...] | | | iption | | | | | | Headac | | | he | | | Nausea | | | Sep | | | [...] Care | | | | | | Pharyn [...] | | | he | | | Recent | | | | | | Inpati | | | ent | | | Visit | | | Summar | | | yNo | | | record | | | ed | | | inpati | | | ent | | | visits | | | . Care | | | | | | Provid | | | ersThe | | | re are | | | no | | | care | | | provid | | | ers on | | | | | | record | | | at | | | this | | | time. | | | Collec | | | tive | | | Portal | | | This | | | patien | | | [...] | | | [id number] | | | The | | | above | | | inform | | | [...] | | | ? | | | 2019 | | | Collec | | | [...] +---+--------+ documented in this encounter Results Lipase (08/24/2018 5:12 PM PST) + +-------+ + + + | Component | Value | Ref Range | Performed | Pathologist | | | | | At | Signature | + +-------+ + + + | Lipase | 25 | 0 - 60 U/L | [facility] [...] + | [facility] | [address] | [place] | [phone] | | [facility] | | [address] | | | - LABORATORY | | | | + + + + + Comprehensive Metabolic Panel (08/24/2018 5:12 PM PST) + + + + + + | Component | Value | Ref Range | Performed | Pathologist | | | | | At | Signature | + + + + + + | Na | 139 | 136 - 149 | [facility] | | | | | mmol/L | [facility] | | | | | | [facility] | | | | | | [facility] - | | | | | | LABORATORY | | + + + + + + | K | 3.6 | 3.5 - 5.1 | [facility] | | | | | mmol/L | [facility] | | | | | | [facility] | | | | | | CENTER - | | | | | | LABORATORY | | + + + + + + | Cl | 104 | 98 - 109 mmol/L | [facility] | | | | | | [facility] | | | | | | [facility] | | | | | | CENTER - | | | | | | LABORATORY | | + + + + + + | CO2 | 21 (L) | 24 - 31 mmol/L | [facility] | | | | | | [facility] | | | | | | [facility] | | | | | | CENTER - | | | | | | LABORATORY | | + + + + + + | Anion Gap | 14 | 3 - 16 mmol/L | [facility] [...] 8 | 7 - 18 mg/dL | [facility] | | | | | | [facility] | | | | | | MEDICAL | | | | | | CENTER - | | | | | | LABORATORY | | + + + + + + | Creatinine | 0.83 | 0.60 - 1.30 | [facility] | | | | | mg/dL | [facility] | | | | | | MEDICAL | | | | | | CENTER - | | | | | | LABORATORY | | + + + + + + | eGFR, | >60Comment: GLOMERULAR | >=60 | [facility] | | | non- | FILTRATION | mL/min/1.73m2 | [facility] | | | Pakistani | RATE,ESTIMATED | | MEDICAL | | | | mL/min/1.83j6Xpgg than | | CENTER - | | [...] Total | appended report. These | | [facility] | | | | results have been | | MEDICAL | | | | appended to a previously | | CENTER - | | | | preliminary verified | | LABORATORY | | | | report. | | | | + + + + + + | Total | 7.5 | 6.0 - 7.8 g/dL | [facility] | | | Protein | | | [facility] | | | | | | MEDICAL | | | | | | CENTER - | | | | | | LABORATORY | | + + + + + + | AST | 86 (H)Comment: This is | 10 - 42 [...] + + + + | ALT | 175 (H)Comment: This is | 6 - 45 [...] + + + + | Globulin | 3.4 | 2.1 - 3.8 g/dL | [facility] | | | | | | [facility] | | | | | | MEDICAL | | | | | | CENTER - | | | | | | LABORATORY | | + + + + + + | Albumin/Allie | 1.2 | 0.8 - 2.0 | [facility] | | | bulin Ratio | | | [facility] | | | | | | MEDICAL | | | | | | CENTER - | | | | | | LABORATORY | | + + + + + + | BUN/Creatin | 9.6 | | [facility] | | | ine [...] [address] | [place] | [phone] | | [facility] | | [address] | | | - LABORATORY | | | | + + + + + CBC with Differential (08/24/2018 5:12 PM PST) + + + + + + | Component | Value | Ref Range | Performed | Pathologist | | | | | At | Signature | + + + + + + | White Blood | 11.3 (H) | 4.0 - 11.0 K/uL | [facility] | | | Cells | | | [facility] | | | | | | MEDICAL | | | | | | CENTER - | | | | | | LABORATORY | | + + + + + + | Red Blood | 4.93 | 3.70 - 5.20 | [facility] | | | Cells | | M/uL | [facility] | | | | | | [facility] | | | | | | CENTER - | | | | | | LABORATORY | | + + + + + + | Hemoglobin | 14.0 | 11.5 - 16.0 | [facility] | | | | | g/dL | [facility] | | | | | | [facility]ICAL | | | | | | CENTER - | | | | | | LABORATORY | | + + + + + + | Hematocrit | 42.1 | 34.0 - 47.0 % | [facility] | | | | | | [facility] | | | | | | [facility]ICAL | | | | | | CENTER - | | | | | | LABORATORY | | + + + + + + | MCV | 85.4 | 83.0 - 101.0 fL | [facility] [...] + + + + | MCHC | 33.3 | 32.0 - 36.0 | [facility] | | | | | g/dL | [facility] | | | | | | MEDICAL | | | | | | CENTER - | | | | | | LABORATORY | | + + + + + + | RDW-CV | 12.4 | <15.0 % | [facility] | | | | | | [facility] | | | | | | MEDICAL | | | | | | CENTER - | | | | | | LABORATORY | | + + + + + + | RDW-SD | 38.5 | 35.1 - 46.3 fL | [facility] | | | | | | [facility] | | | | | | MEDICAL | | | | | | CENTER - | | | | | | LABORATORY | | + + + + + + | Platelet | 355 | 140 - 440 K/uL | [facility] | | | Count | | | [facility] | | | | | | MEDICAL | | | | | | CENTER - | | | | | | LABORATORY | | + + + + + + | MPV | 9.9 | 6.5 - 12.4 fL | [facility] | | | | | | [facility] | | | | | | MEDICAL | | | | | | CENTER - | | | | | | LABORATORY | | + + + + + + | % | 61.7 | 45.0 - 82.0 % | [facility] | | | Neutrophils | | | [facility] | | | | | | MEDICAL | | | | | | CENTER - | | | | | | LABORATORY | | + + + + + + | % | 30.2 | 20.0 - 45.0 % | [facility] | | | Lymphocytes | | | [facility] | | | | | | MEDICAL | | | | | | CENTER - | | | | | | LABORATORY | | + + + + + + | % Monocytes | 5.3 | 4.0 - 12.0 % | [facility] | | | | | | [facility] | | | | | | MEDICAL | | | | | | CENTER - | | | | | | LABORATORY | | + + + + + + | % | 2.2 | 0.0 - 5.0 % | [facility] | | | Eosinophils | | | [facility] | | | | | | MEDICAL | | | | | | CENTER - | | | | | | LABORATORY | | + + + + + + | % Basophils | 0.3 | 0.0 - 1.0 % | [facility] | | | | | | [facility] | | | | | | MEDICAL | | | | | | CENTER - | | | | | | LABORATORY | | + + + + + + | % Immature | 0.3Comment: For | 0.0 - 0.4 % | [facility] | | | Granulocyte | patients, use the | | [facility] | | | s | special reference ranges | | MEDICAL | | | | listed below. | | CENTER - | | | | | | LABORATORY | | + + + + + + | Absolute | 7.00 | 1.80 - 8.50 | [facility] | | | Neutrophils | | K/uL | [facility] | | | | | | MEDICAL | | | | | | CENTER - | | | | | | LABORATORY | | + + + + + + | Absolute | 3.43 (H) | 0.60 - 3.20 | [facility] | | | Lymphocytes | | K/uL | [facility] | | | | | | MEDICAL | | | | | | CENTER - | | | | | | LABORATORY | | + + + + + + | Absolute | 0.60 | 0.00 - 1.00 | [facility] | | | Monocytes | | K/uL | [facility] | | | | | | MEDICAL | | | | | | CENTER - | | | | | | LABORATORY | | + + + + + + | Absolute | 0.25 | 0.00 - 0.40 | [facility] | | | Eosinophils | | K/uL | [facility] | | | | | | MEDICAL | | | | | | CENTER - | | | | | | LABORATORY | | + + + + + + | Absolute | 0.03 | 0.00 - 0.10 | [facility] | | | Basophils | | K/uL | [facility] | | | | | | MEDICAL | | | | | | CENTER - | | | | | | LABORATORY | | + + + + + + | Absolute | 0.03Comment: For | 0.00 - 0.03 | [facility] | | | Immature | patients, use | K/uL | [facility] | | | Granulocyte | the special reference | | MEDICAL | | | s | ranges listed below. | | CENTER - | | | | | | LABORATORY | | + + + + + + | % nRBC | 0 | 0 - 2 per 100 | [facility] | | | | | WBC's | [facility] | | | | | | MEDICAL | | | | | | CENTER - | | | | | | LABORATORY | | + + + + + + | Absolute | 0.00 | 0.00 - 0.01 | [facility] | | | nRBC | | K/uL | [facility] | [...] ranges: Trim. Absolute (K/uL) Percentage (%) | [facility] | | 1st 0.003-0.091 K/uL 0.0-0.9% 2nd 0.007-0.247 K/uL | [facility] [facility] | | 0.1-2.0% 3rd 0.018-0.456 K/uL 0.1-2.0% | - LABORATORY | + + + + + + + + | Performing | Address | City/State/Zipcode | Phone Number | | Organization | | | | + + + + + | [facility] | [address] | [place] | [phone] | | [facility] | | [address] | | | - LABORATORY | | | | + + + + + Urinalysis with Microscopic with Culture if Indicated (08/24/2018 5:08 PM PST) + + + + + + | Component | Value | Ref Range | Performed | Pathologist | | | | | At | Signature | + + + + + + | Color, | Yellow | Light Yellow, | [facility] | | | Urine | | Yellow, Straw | [facility] | | | | | | [facility] | | | | | | [facility] - | | | | | | LABORATORY | | + + + + + + | Clarity, | Hazy (A) | Clear | [facility] | | | Urine | | | [facility] | | | | | [facility] | | | | | | [facility] - | | | | | | LABORATORY | | + + + + + + | pH, Urine | 7.0 | 5.0 - 8.0 | [facility] | | | | | | [facility] | | | | | | [facility] | | | | | | [facility] - | | | | | | LABORATORY | | + + + + + + | Specific | 1.019 | 1.001 - 1.030 | [facility] | | | [place], | | | [facility] | | [...] + + + + | Squamous | 50-100 (A) | 0 - 2 /LPF | [...] + + + + + + | Amorphous | Moderate (A) | None Seen /HPF | [facility] | | | Crystals, | | | [facility] | | | Urine | | | MEDICAL | | | | | | CENTER - | | | | | | LABORATORY | | + + + + + + | Hyaline | 0-2 | 0 - 2 /LPF | [facility] | | | Casts, | | | [facility] | | | Urine | | | MEDICAL | | | | | | CENTER - | | | | | | LABORATORY | | + + + + + + | Urine | Urine Culture Not | | [facility] | | | Comment | Indicated | | [facility] | | | [...] + | [facility] | [address] | [place], [place] | [phone] | | [facility] | | [address] | | | - LABORATORY | | | | + + + + + , Urine, Qual (08/24/2018 5:08 PM PST) + + + + + + | Component | Value | Ref Range | Performed | Pathologist | | | | | At | Signature | + + + + + + | HCG | Negative | Negative | [facility] | | | Qualitative | | | [facility] | | | , Urine | | | MEDICAL | | | | | | CENTER - | | | | | | LABORATORY | | + + + + + + + + | Specimen | + + | Urine | + + + + + + + | Performing | Address | City/State/Zipcode | Phone Number | | Organization | | | | + + + + + | [facility] | [address] | [place] | [phone] | | [facility] | | [address] | | | - LABORATORY | | | | + + + + + documented in this encounter Visit Diagnoses + + | Diagnosis | + + | Acute superficial gastritis without hemorrhage - Primary | + + documented in this encounter"
--- OUTSIDE RECORDS SUMMARY | ~2020-03-10 | XMS | Encounter Summary ---
Demographics + + + | Address | [address] | | | [place] [address] | + + + | Home Phone | | + + + | Preferred Language | Unknown | + + + | Marital Status | Single | + + + | Alevism Affiliation | 1013 | + + + [...] Team Providers + +------+ + | Care Precision Agronomist Name | Role | Phone | + +------+ + PCP | Unavailable | + +------+ + Reason for Visit +--------+--------+ + | Reason | Onset | Comments | | | Date | | +--------+--------+ + | Other | 10/02/ | | | | 2012 | | +--------+--------+ + Encounter Details +--------+ + + + + | Date | Type | Department | Care Team | Description | +--------+ + + + + | 10/02/ | Telephone | [facility] [place] | Mauricio Chavez MD [address] | Other | | 2012 | | [facility] | [address] | | | | | [address] [facility], | [address] [place], | | | | | [address] [place] | [place] [address] | | | | | [place] [address] | [phone] | | | | | [phone] | | | +--------+ + + + [...] this encounter Miscellaneous Notes Telephone Encounter - Katiuska Wu - 10/02/2012 3:29 PM PDTLeft VM trying to set up an ap pt with Ms. Hawkins. Asked her to please give us a call back. First attempt to contact.Elect ronically signed by Katiuska Wu at 10/02/2012 3:31 PM PDTdocumented in this encounter Plan of Treatment Not on filedocumented as of this encounter Visit Diagnoses Not on filedocumented in this encounter"
--- OUTSIDE RECORDS SUMMARY | ~2020-03-10 | XMS | Encounter Summary ---
Demographics + + + | Address | [address] | | | [place] [address] | + + + | Home Phone | | + + + | Preferred Language | Unknown | + + + | Marital Status | Single | + + + | Rastafari Affiliation | 1013 | + + + [...] Team Providers + +------+ + | Care Medical Malpractice Paralegal Name | Role | Phone | + +------+ + | Linda Rowley | PCP | | + +------+ + Reason for Visit + +--------+ + | Reason | Onset | Comments | | | Date | | + +--------+ + | Results, Imaging | 01/16/ | | | | 2017 | | + +--------+ + Encounter Details +--------+ + + + + | Date | Type | Department | Care Team | Description | +--------+ + + + + | 01/16/ | Telephone | [facility] [place] | Rene Casey, | Results, Imaging | | 2018 | | PHYSIATRY [address] | MD [address] | | | | | [address] | [place], [place] | | | | | [place], [place] | [address] | | | | | [address] | | | | | | [phone] | | | +--------+ + + + [...] encounter Miscellaneous Notes Telephone Encounter - Manju Walker, Crepe Sole Wire Brusher - 01/16/2018 9:43 AM PDTCalle d to inform Kimmie Hawkins of imaging results. Results were relayed. Kimmie Hawkins verbalized understanding. e albertohone Encounter - Manju Walker Crepe Sole Wire Brusher - 01/16/2018 9:42 AM PDT----- Me ssage from Rene Casey MD sent at 01/16/2018 8:54 PDT ----- Angela, Please let Kimmie Hawkins know that I have reviewed her back x-rays. There are no emergent findings. 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 Thank you, Rene Casey MD (Jr.) ----- Message ----- From: Tomas, Anish Results In Sent: 01/15/2018 23:57 To: Rene Casey MD do cumented in this encounter Plan of Treatment Not on filedocumented as of this encounter Visit Diagnoses Not on filedocumented in this encounter"
--- OUTSIDE RECORDS SUMMARY | ~2020-03-10 | XMS | Encounter Summary ---
Demographics + + + | Address | [address] | | | [place] [address] | + + + | Home Phone | | + + + | Preferred Language | Unknown | + + + | Marital Status | Single | + + + | Anglican Affiliation | 1013 | + + + | Race | White | + + + | Ethnic Group | Not or | + + + Author + + + | Author | [facility] | | | and [place] | + + + | Organization | [facility] | | | [...] Team Providers + +------+ + | Care Tissue Packer Name | Role | Phone | + +------+ + | Linda Rowley | PCP | | + +------+ + Reason for Visit +--------+ + | Reason | Comments | +--------+ + | Fall | exam 5/ fell on ice/ hit head/ upper back DOI:[id number] | +--------+ + Encounter Details +--------+---------+ + + + | Date | Type | Department | Care Team | Description | +--------+---------+ + + + | 07/28/ | Office | [facility] | Nina Mead, | Head injury, initial | | 2017 | Visit | [facility] [address] | MD Need updated | encounter (Primary | | | | [place] | address | Dx); Neck strain, | | | | [address] | | initial encounter; | | | | [phone] | | Place of occurrence, | | | | | | industrial places | | | | | | and premises | +--------+---------+ + [...] + + + | Blood Pressure | 131/70 | 07/28/2016 1:24 PM | | | | | PST | | + + + + + | Pulse | 89 | 07/28/2016 1:24 PM | | | | | PST | | + + + + + | Temperature | 37.2 C (98.9 F) | 07/28/2016 1:24 PM | | | | | PST | | + + + + + | Respiratory Rate | 16 | 07/28/2016 1:24 PM | | | | | PST | | + + + + + | Oxygen Saturation | 97% | 07/28/2016 1:24 PM | | | | | PST | | + + + + + | Inhaled Oxygen | - | - | | | Concentration | | | | + + + + + | Weight | 88 kg (194 lb) | 07/28/2016 1:24 PM | | | | | PST | | + + + + + | Height | 152.4 cm (5') | 07/28/2016 1:24 PM | | | | | PST | | + + + + + | Body Mass Index | 37.89 | 07/28/2016 1:24 PM | | | | | PST | | + + + + + documented in this encounter Patient Instructions Patient Instructions Nina Mead MD - 07/28/2016 1:53 PM PST Head Injury (Adult) You have a head injury. It does not appear serious at this time. But symptoms of a more ser ious problem, such as a mild brain injury (concussion) or bruising or bleeding in the brain, may appear later. For this reason, you or someone caring for you will need to watch for the symptoms listed below. Once you re home, also be sure to follow any care instructions you re given. Home care Watchfor the following symptoms Seek emergency medical care if you have any of these symptoms over the next hours to days: Headache Nausea or vomiting Dizziness Sensitivity to light or noise Unusual sleepiness or grogginess Trouble falling asleep Personality changes Vision changes Memory loss Confusion Trouble walking or clumsiness Loss of consciousness (even for a short time) Inability to be awakened Stiff neck Weakness or numbness in any part of the body Seizures General care If you were prescribed medicines for pain, use them as directed. Note: Don t take othe r medicines for pain without talking to your provider first. To help reduce swelling and pain, apply a cold source to the injured area for up to 20 m inutes at a time. Do this as oftenas directed. Use a cold pack or bag of ice wrapped in a thin towel. Never apply a cold source directly to the skin. If you have cuts or scrapes as a result of your head injury, care for them as directed. For the next 24 hours(or longer, if instructed): Don t drink alcohol or use sedatives or other medicines that make you sleepy. Don t drive or operate machinery. Don t do anything strenuous, such as heavy lifting or straining. Limit tasks that require concentration. This includes reading, using a smartphone or gokit puter, watching TV, and playing video games. Don t return to sports or other activities that could result in another head injury. Follow-up care Follow up with your healthcare provider, or as directed.If imaging tests were done, they will be reviewed by a doctor. You will be told the results and any new findings that may aff ect your care. When to seek medical advice Call your healthcare provider right away if any of these occur: Pain doesn t get better or worsens New or increased swelling or bruising Fever of 100.4F (38C) or higher, or as directed by your provider Increased redness,warmth,drainage, or bleeding from the injured area Fluid drainage or bleeding from the nose or ears Any depression or bony abnormality in the injured area Date Last Reviewed: 03/21/201519996822-1075 [employer] [address] [place] [address]. All righ ts reserved. This information is not intended as a substitute for professional medical care. Always follow your healthcare professional's instructions. Neck Sprain or Strain A sudden force that causes turning or bending of the neck can cause sprain or strain. An ex ample would be the force from a car accident. This can stretch or tear muscles called a stra in. It can also stretch or tear ligaments called a sprain. Either of these can cause neck pa in. Sometimes neck pain occurs after a simple awkward movement. In either case, muscle spasm is commonly present and contributes to the pain. Unless you had a forceful physical injury (for example, a car accident or fall), X-rays are usually not ordered for the initial evaluation of neck pain. If pain continues and dose not respond to medical treatment, X-rays and other tests may be performed at a later time. Home care You may feel more soreness and spasm the first few days after the injury. Rest until sym ptoms begin to improve. When lying down, use a comfortable pillow or a rolled towel that supports the head and k eeps the spine in a neutral position. The position of the head should not be tilted forward or backward. Apply an ice pack over the injured area for 15 to 20 minutes every 3 to 6 hours. You octavio uld do this for the first 24 to 48 hours. You can make an ice pack by filling a plastic bag that seals at the top with ice cubes and then wrapping it with a thin towel. After 48 hours, apply heat (warm shower or warm bath) for 15 to 20 minutes several times a day, or alternat e ice and heat. You may use xpqp-nus-mcvplxo pain medicine to control pain, unless another pain medicine was prescribed. If you have chronic liver or kidney disease or ever had a stomach ulcer or GI bleeding, talk with your healthcare provider before using these medicines. If a soft cervical collar was prescribed, it should be worn only for periods of increase d pain. It should not be worn for more than 3 hours a day, or for a period longer than 1 to 2 weeks. Follow-up care Follow up with your healthcare provider as directed. Physical therapy may be needed. Sometimes fractures don t show up on the first X-ray. Bruises and sprains can sometimes h urt as much as a fracture. These injuries can take time to heal completely. If your symptoms don t improve or they get worse, talk with your healthcare provider. You may need a repea t X-ray or other tests. If X-rays were taken, you will be told of any new findings that may affect your care. Call 911 Call 911 if you have: Neck swelling, difficulty or painful swallowing Difficulty breathing Chest pain When to seek medical advice Call your healthcare provider right away if any of these occur: Pain becomes worse or spreads into your arms Weakness or numbness in one or both arms Date Last Reviewed: 05/14/201519990513-1035 [employer] [address] [place] [address]. All righ ts reserved. This information is not intended as a substitute for professional medical care. Always follow your healthcare professional's instructions. documented in this encounter Progress Notes Nina Mead MD - 07/28/2016 1:43 PM PSTFormatting of this note might be different fro m the original. Subjective: Chief Complaint: Fall [place] DOI: 07/28/16 History of Present Illness: Kimmie is a 21 y.o. female who comes in complaining of slipping and falling on the ice today. She works at [employer] and she was taking out the [place] can. The driveway was icy and the trashcan, took off down the driveway. It pulled her down and she compensated by going back wards. She had her feet slipped out in front of her and she landed kind of on her bottom. Then she fell back onto the driveway and knocked the wind out of herself and hit her head on the driveway. She felt dizzy for a while and a little nauseated. This has mostly gone gabriela y. She thinks that was related and knocking the wind out of herself but she can't say she d idn't have a concussion. She does have a headache now. Her neck is stiff. She says her lo w back and her buttocks feel fine. Her tailbone is fine. No other complaints. No previous injury to this area. Patient's medications, allergies, past medical, surgical, social and family histories were reviewed and updated as appropriate. ROS: see HPI Objective: BP 131/70 mmHg | Pulse 89 | Temp(Src) 37.2 C (98.9 F) (Temporal) | Resp 16 | Ht 1.524 m (5') | Wt 87.998 kg (194 lb) | BMI 37.89 kg/m2 | SpO2 97% General Appearance: Alert and oriented by 4, cooperative, no distress, appears stated age Pupils equal round reactive to light, extraocular movements intact Facial muscle strong and symmetric Ears nose and throat clear Spine nontender She has a slightly swollen tender area on the occiput right in the middle. There is no red ness or abrasion there She has decreased range of motion of the neck with flexion and with looking left She is tight across the top of the shoulders but no swelling or deformity Low back is nontender and there is no tenderness over the buttocks and tailbone. I don't s ee any bruising Assessment and Plans: 1. Head injury, initial encounter 2. Neck strain, initial encounter 3. Place of occurrence, industrial places and premises there is a little concern for concussion where she hit her head. I gave her the head injury handout and reviewed warning signs with her. She should alternate ice and heat on the neck and do some gentle stretching exercises after the heat. Start anti-inflammatories tomorrow for 3 or 4 days for the pain in the neck Follow-up immediately she develops any worsening sign of concussion or head injury. Put her off work till Monday and she'll follow-up here on Monday for recheck. She also has an appointment with Dr. Sweeney in the future Head Injury (Adult) You have a head injury. It does not appear serious at this time. But symptoms of a more ser ious problem, such as a mild brain injury (concussion) or bruising or bleeding in the brain, may appear later. For this reason, you or someone caring for you will need to watch for the symptoms listed below. Once you re home, also be sure to follow any care instructions you re given. Home care Watchfor the following symptoms Seek emergency medical care if you have any of these symptoms over the next hours to days: Headache Nausea or vomiting Dizziness Sensitivity to light or noise Unusual sleepiness or grogginess Trouble falling asleep Personality changes Vision changes Memory loss Confusion Trouble walking or clumsiness Loss of consciousness (even for a short time) Inability to be awakened Stiff neck Weakness or numbness in any part of the body Seizures General care If you were prescribed medicines for pain, use them as directed. Note: Don t take othe r medicines for pain without talking to your provider first. To help reduce swelling and pain, apply a cold source to the injured area for up to 20 m inutes at a time. Do this as oftenas directed. Use a cold pack or bag of ice wrapped in a thin towel. Never apply a cold source directly to the skin. If you have cuts or scrapes as a result of your head injury, care for them as directed. For the next 24 hours(or longer, if instructed): Don t drink alcohol or use sedatives or other medicines that make you sleepy. Don t drive or operate machinery. Don t do anything strenuous, such as heavy lifting or straining. Limit tasks that require concentration. This includes reading, using a smartphone or gokit puter, watching TV, and playing video games. Don t return to sports or other activities that could result in another head injury. Follow-up care Follow up with your healthcare provider, or as directed.If imaging tests were done, they will be reviewed by a doctor. You will be told the results and any new findings that may aff ect your care. When to seek medical advice Call your healthcare provider right away if any of these occur: Pain doesn t get better or worsens New or increased swelling or bruising Fever of 100.4F (38C) or higher, or as directed by your provider Increased redness,warmth,drainage, or bleeding from the injured area Fluid drainage or bleeding from the nose or ears Any depression or bony abnormality in the injured area Date Last Reviewed: 03/21/201519996437-2258 [employer] [address] [place], [place] [id number]. All righ ts reserved. This information is not intended as a substitute for professional medical care. Always follow your healthcare professional's instructions. Neck Sprain or Strain A sudden force that causes turning or bending of the neck can cause sprain or strain. An ex ample would be the force from a car accident. This can stretch or tear muscles called a stra in. It can also stretch or tear ligaments called a sprain. Either of these can cause neck pa in. Sometimes neck pain occurs after a simple awkward movement. In either case, muscle spasm is commonly present and contributes to the pain. Unless you had a forceful physical injury (for example, a car accident or fall), X-rays are usually not ordered for the initial evaluation of neck pain. If pain continues and dose not respond to medical treatment, X-rays and other tests may be performed at a later time. Home care You may feel more soreness and spasm the first few days after the injury. Rest until sym ptoms begin to improve. When lying down, use a comfortable pillow or a rolled towel that supports the head and k eeps the spine in a neutral position. The position of the head should not be tilted forward or backward. Apply an ice pack over the injured area for 15 to 20 minutes every 3 to 6 hours. You octavio uld do this for the first 24 to 48 hours. You can make an ice pack by filling a plastic bag that seals at the top with ice cubes and then wrapping it with a thin towel. After 48 hours, apply heat (warm shower or warm bath) for 15 to 20 minutes several times a day, or alternat e ice and heat. You may use gtla-ucu-yvpixmd pain medicine to control pain, unless another pain medicine was prescribed. If you have chronic liver or kidney disease or ever had a stomach ulcer or GI bleeding, talk with your healthcare provider before using these medicines. If a soft cervical collar was prescribed, it should be worn only for periods of increase d pain. It should not be worn for more than 3 hours a day, or for a period longer than 1 to 2 weeks. Follow-up care Follow up with your healthcare provider as directed. Physical therapy may be needed. Sometimes fractures don t show up on the first X-ray. Bruises and sprains can sometimes h urt as much as a fracture. These injuries can take time to heal completely. If your symptoms don t improve or they get worse, talk with your healthcare provider. You may need a repea t X-ray or other tests. If X-rays were taken, you will be told of any new findings that may affect your care. Call 911 Call 911 if you have: Neck swelling, difficulty or painful swallowing Difficulty breathing Chest pain When to seek medical advice Call your healthcare provider right away if any of these occur: Pain becomes worse or spreads into your arms Weakness or numbness in one or both arms Date Last Reviewed: 05/14/201519997431-5669 [employer] [address] [place] [address], [place] [address]. All righ ts reserved. This information is not intended as a substitute for professional medical care. Always follow your healthcare professional's instructions. This note was dictated using [employer] voice recognition software. Occasional wrong- word or s ound-alike substitutions may have occurred due to the inherent limitations of voice recognit ion software. Please read the chart carefully and recognize, using context, where these subs titutions have occurred. documented in this e ncounter Plan of Treatment Not on filedocumented as of this encounter Visit Diagnoses + + | Diagnosis | + + | Head injury, initial encounter - Primary | + + | Neck strain, initial encounter | + + | Place of occurrence, industrial places and premises | + + documented in this encounter"
--- OUTSIDE RECORDS SUMMARY | ~2020-03-10 | XMS | Encounter Summary ---
Demographics + + + | Address | [address] | | | [place] [address] | + + + | Home Phone | | + + + | Preferred Language | Unknown | + + + | Marital Status | Single | + + + | Christianity Affiliation | 1013 | + + + | Race | White | + + + | Ethnic Group | Not or | + + + Author + + + | Author | [facility] | | | and [place] | + + + | Organization | [facility] | | | [...] Team Providers + +------+ + | Care Oracle Adf Consultant Name | Role | Phone | + +------+ + | Linda Rowley | PCP | | + +------+ + Encounter Details +--------+ + + + + | Date | Type | Department | Care Team | Description | +--------+ + + + + | 01/24/ | Orders Only | [facility] [place] | Rene Casey, | | | 2017 | | PHYSIATRY [address] | MD [address] | | | | | [address] | [place] | | | | | [place] | [address] | | | | | [address] | | | | | | [phone] | | | +--------+ + + + [...] + + documented as of this encounter Progress Manju Adame, Track Grinder Operator - 01/24/2018 10:32 AM PDTCalled to inform Kimmie Hawkins that prescription is ready for vegetable picker in office. Could not leave a voicemai l message as voicemail box is full. Manju Garcia, Track Grinder Operator - 01/24/2018 10:32 AM PDTCalled to inform Kimmie Hawkins that prescription is ready for vegetable picker in off [place]. Could not leave a voicemail message as voicemail box is full. Prescription was placed i n medication lock box. Electronically signed by Gerald Velazquez at 10:24 AM Manju Gacria Track Grinder Operator - 01/24/2018 10:32 AM PDTOrder fo r Claustrophobia meds was placed. Kimmie Hawkins was informed that she should be informed by our office when prescription is ready for vegetable picker. Kimmie Hawkins was advised that she should take prescription to pharmacy of choice. She should take medication to imaging department in hand and only take medication when instructed. She was advised aaron t she would need a ready mix truck driver. Kimmie Hawkins verbalized understanding. Electronicall y signed by Manju Walker, Track Grinder Operator at 04/10/2018 10:24 AM PDTdocumented in th is encounter Plan of Treatment Not on filedocumented as of this encounter Visit Diagnoses Not on filedocumented in this encounter"
--- OUTSIDE RECORDS SUMMARY | ~2020-03-10 | XMS | Encounter Summary ---
Demographics + + + | Address | [address] | | | [place] [address] | + + + | Home Phone | | + + + | Preferred Language | Unknown | + + + | Marital Status | Single | + + + | Christian Affiliation | 1013 | + + + | Race | White | + + + | Ethnic Group | Not or | + + + Author + + + | Author | [facility] | | | and [place] | + + + | Organization | [facility] | | | and [...] Team Providers + +------+ + | Care Farm Worker Name | Role | Phone | + +------+ + | Linda Rowley | PCP | | + +------+ + Reason for Visit +---------+ + | Reason | Comments | +---------+ + | Otalgia | rm 6/ right ear pain, poss vertigo, nausea x 1wk | +---------+ + Encounter Details +--------+---------+ + + + | Date | Type | Department | Care Team | Description | +--------+---------+ + + + | 10/19/ | Office | [facility] | Nina Mead, | Acute otitis externa | | 2019 | Visit | CARE [address] | Need updated | of right ear, | | | | [place], [place] | address | unspecified type | | | | [phone] | | (Primary Dx); | | | | [phone] | | Non-recurrent acute | | | | | | serous otitis media | | | | | | of right ear | +--------+---------+ + + + Social History [...] + + + | Blood Pressure | 139/89 | 10/19/2018 12:15 PM | | | | | PDT | | + + + + + | Pulse | 77 | 10/19/2018 12:15 PM | | | | | PDT | | + + + + + | Temperature | 37 C (98.6 F) | 10/19/2018 12:15 PM | | | | | PDT | | + + + + + | Respiratory Rate | 16 | 10/19/2018 12:15 PM | | | | | PDT | | + + + + + | Oxygen Saturation | 96% | 10/19/2018 12:15 PM | | | | | PDT | | + + + + + | Inhaled Oxygen | - | - | | | Concentration | | | | + + + + + | Weight | 98.6 kg (217 lb 6 | 10/19/2018 12:15 PM | | | | oz) | PDT | | + + + + + | Height | 152.4 cm (5') | 10/19/2018 12:15 PM | | | | | PDT | | + + + + + | Body Mass Index | 42.45 | 10/19/2018 12:15 PM | | | | | PDT | | + + + + + documented in this encounter Patient Instructions Patient Instructions Nina Mead MD - 10/19/2018 12:15 PM PDT Middle Ear Infection (Otitis Media) in Adults What is a middle ear infection? A middle ear infection occurs behind the eardrum. It is most often caused by a virus or navarro teria. Most kids have at least one middle ear infection by the time they are 3 years old. Bu t adults can also get them. What causes middle ear infections? Inflammation in the middle ear most often starts after you ve had a sore throat, cold, or other upper respiratory problem. The infection spreads to the middle ear and causes fluid b uildup behind the eardrum. What are the symptoms of a middle ear infection? These are the most common symptoms of middle ear infections in adults: Ear pain Feeling of fullness in the hear Fluid draining from the ear Fever Hearing loss These symptoms may look like other conditions or health problems. Always talk with yourhe althcareproviderfor a diagnosis. How is a middle ear infection diagnosed? Your healthcare provider will review your health history and do a physical exam. He or she will check the outer ear and the eardrum using an otoscope. The otoscope is a lighted tool t hat lets the healthcareprovider see inside the ear. A pneumatic otoscope blows a puff of a ir into the ear to test eardrum movement. When there is fluid or infection in the middle ear , movement is decreased. Your provider may also do a tympanometry. This is a test that directs air and sound to the middle ear. If you have ear infections often, your healthcare provider may suggest having a hearing balbina t. How is a middle ear infection treated? Treatment will depend on your symptoms, age, and general health. It will also depend on how severe the condition is. Treatment may include: Antibiotics Pain relievers Placing small tubes in the eardrum for chronic ear infections What are possible complications of a middle ear infection? Untreated ear infections can lead to: Infection in other parts of the head Lasting (permanent) hearing loss Speech and language problems Can middle ear infections be prevented? Cold and allergy medicines don't seem to prevent ear infections. And currently there is no vaccine that can prevent the disease. But check with your healthcareprovider and make sure your vaccines are up-to-date. Living in a home where cigarettes are smoked can increase the chances of ear infections. [place] points about middle ear infections Middle ear infections can affect both children and adults. Pain and fever can be the most common symptoms. Without treatment, permanent hearing loss may happen. Take antibiotics as prescribed and finish all of the prescription. This can help prevent antibiotic-resistant infections or incomplete treatment with the infection returning. Next steps Tips to help you get the most from a visit to your healthcare provider: Know the reason for your visit and what you want to happen. Before your visit, write down questions you want answered. Bring someone with you to help you ask questions and remember what your provider tells y ou. At the visit, write down the name of a new diagnosis, and any new medicines, treatments, or tests. Also write down any new instructions your provider gives you. Know why a new medicine or treatment is prescribed, and how it will help you. Also know what the side effects are. Ask if your condition can be treated in other ways. Know why a test or procedure is recommended and what the results could mean. Know what to expect if you do not take the medicine or have the test or procedure. If you have a follow-up appointment, write down the date, time, and purpose for that vis it. Know how you can contact your provider if you have questions. [id number] [employer] [address] [place] [address]. All righ ts reserved. This information is not intended as a substitute for professional medical care. Always follow your healthcare professional's instructions. documented in this encounter Progress Notes Nina Mead MD - 10/19/2018 12:15 PM PDTFormatting of this note might be different fro m the original. Chief Complaint: Otalgia (rm 6/ right ear pain, poss vertigo, nausea x 1wk) Kimmie is a 23 y.o. female who comes in complaining of upper respiratory symptoms for 1 week, with nasal congestion, feeling tired, with mild sore throat and mild congested cough. Now she has right ear pain and dizziness. She had drainage from the ear 2 days ago. No s hortness of breath. Lungs feel clear. Kimmie has no other complaints. Patient's medications, allergies, past medical, surgical, social and family histories were reviewed and updated as appropriate. ROS: See HPI Objective: BP 139/89 | Pulse 77 | Temp 37 C (98.6 F) (Temporal) | Resp 16 | Ht 1.524 m (5') | Wt 98.6 kg (217 lb 6 oz) | LMP 09/26/2018 (Approximate) | SpO2 96% | BMI 42.45 kg/m General Appearance: Alert, cooperative, no distress, appears stated age Head: Normocephalic, without obvious abnormality, atraumatic Eyes: PERRL, conjunctiva/corneas clear Ears: The left ear has an air-fluid level. The right ear has opaque bulging eardrum with some redness extending into the ear canal. Nose: Very congested Throat: Clear Neck: Supple, symmetrical, with no anterior cervical adenopathy Lungs: Clear to auscultation bilaterally with wet cough, respirations unlabored Skin: Skin color, texture, turgor normal, no rashes or lesions Assessment and Plans: Right otitis media with some extension into the ear canal but no visible perforation-- Will treat with amoxicillin and Cortisporin otic suspension, rest, tylenol or ibuprofen as needed, increased fluids, [id number]-yns-vpqkxos cough and cold medications as needed, like decong estant. Recheck in a few days if the dizziness has not resolved. Return to clinic if symptoms persist, change or worsen over the following week despite that . This note was dictated using [employer] voice recognition software. Occasional wrong- word or [...] | Diagnosis | + + | Acute otitis externa of right ear, unspecified type - Primary | + + | Non-recurrent acute serous otitis media of right ear | + + documented in this encounter"
--- OUTSIDE RECORDS SUMMARY | ~2020-03-10 | XMS | Encounter Summary ---
Demographics + + + | Address | [address] | | | [place] [address] | + + + | Home Phone | | + + + | Preferred Language | Unknown | + + + | Marital Status | Single | + + + | Pentecostalism Affiliation | 1013 | + + + | Race | White | + + + | Ethnic Group | Not or | + + + Author + + + | Author | [facility] | | | and [place] | + + + | Organization | [facility] | | [...] Team Providers + +------+ + | Care Line Assembler Aircraft Name | Role | Phone | + [...] + + | Closed | Specialty | Otolaryngolog | Diagnoses | [place], | Rene Casey | | | Services | y | Chronic | Rene Gonzalez MD | MD [address] | | | Required | | tonsillitis | [address] | | | | | Procedures | [address] | [address] [place] | | | | | [place] | [place], | [place] | | | | | [place] | [place] [address] | [address] Phone: | | | | | TONSILS,12+ | Phone: | [phone] | | | | | Y/O | [phone] | Fax: | | | | | | Fax: | [phone] | | | | | | [phone] | | +--------+ + + + + + + + | Scheduling Instructions | + + | Dr. Casey - NIKOLE Tonsillectomy 07/09/2012 Outpatient DX: Tonsillitis CPT: 23233 | + + Encounter Details +--------+ + + + + | Date | Type | Department | Care Team | Description | +--------+ + + + + | 06/24/ | Orders Only | [facility] | Rene Casey MD | Chronic tonsillitis | | 2012 | | OTOLARYNGOLOGY [address] | [address] | (Primary Dx) | | | | [facility] | [address] [place] | | | | | [place] | [address] | | | | | [address] | | | | | | [phone] | | | +--------+ + + + [...] as of this encounter Plan of Treatment + + +--------+ + + | Name | Type | Priori | Associated Diagnoses | Order Schedule | | | | ty | | | + + +--------+ + + | * [facility] [place] | Outpatient | Routin | Chronic | Ordered: 06/24/2013 | | Otolaryngology - AMB | Referral | e | tonsillitis | | | Referral | | | | | + + +--------+ + + documented as of this encounter Visit Diagnoses + + | Diagnosis | + + | Chronic tonsillitis - Primary | + + documented in this encounter"
--- OUTSIDE RECORDS SUMMARY | ~2020-03-10 | XMS | Encounter Summary ---
Demographics + + + | Address | [address] | | | [place] [address] | + + + | Home Phone | | + + + | Preferred Language | Unknown | + + + | Marital Status | Single | + + + | Buddhism Affiliation | 1013 | + + + | Race | White | + + + | Ethnic Group | Not or | + + + Author + + + | Author | [facility] | | | and [place] | + + + | Organization | [facility] | | | [...] Team Providers + +------+ + | Care Assistant News Director Name | Role | Phone | + +------+ + | Linda Rowley | PCP | | + +------+ + Reason for Referral Diagnostic/Screening (Routine) +--------+--------+ + + + + | Status | Reason | Specialty | Diagnoses / | Referred By | Referred To | | | | | Procedures | Contact | Contact | +--------+--------+ + + + + | Closed | | Radiology | Diagnoses | Casey, | [facility] | | | | | Sprain of | Rene Perdue MD | [address] | | | | | ligaments of | [address] | [place], | | | | | lumbar | [address] | [place] | | | | | spine, | [place], | [address] | | | | | initial | [place] [address] | Phone: | | | | | encounter | Phone: | [phone] | | | | | Lumbar | [phone] | Fax: | | | | | radiculopath | Fax: | [phone] | | | | | y Chronic | [phone] | | | | | | right-sided | | | | | | | low back | | | | | | | pain with | | | | | | | right-sided | | | | | | | sciatica | | | | | | | Numbness of | | | | | | | right lower | | | | | | | extremity | | | | | | | Procedures | | | | | | | MRI Lumbar | | | | | | | Spine wo | | | | | | | Contrast | | | +--------+--------+ + + + + Reason for Visit Diagnostic/Screening (Routine) +--------+--------+ + + + + | Status | Reason | Specialty | Diagnoses / | Referred By | Referred To | | | | | Procedures | Contact | Contact | +--------+--------+ + + + + | Closed | | Radiology | Diagnoses | Casey, | [facility] | | | | | Sprain of | Rene Perdue MD | [address] | | | | | ligaments of | [address] | [place], | | | | | lumbar | [address] | [place] | | | | | spine, | [place], | [address] | | | | | initial | [place] [address] | Phone: | | | | | encounter | Phone: | [phone] | | | | | Lumbar | [phone] | Fax: | | | | | radiculopath | Fax: | [phone] | | | | | y Chronic | [phone] | | | | | | right-sided | | | | | | | low back | | | | | | | pain with | | | | | | | right-sided | | | | | | | sciatica | | | | | | | Numbness of | | | | | | | right lower | | | | | | | extremity | | | | | | | Procedures | | | | | | | MRI Lumbar | | | | | | | Spine wo | | | | | | | Contrast | | | +--------+--------+ + + + + Encounter Details +--------+ + + + + | Date | Type | Department | Care Team | Description | +--------+ + + + + | 02/07/ | Hospital | [facility] | Rene Casey, | Spondylolysis of | | 2018 | Encounter | [facility] MRI [address] | MD [address] | lumbar region; | | | | [place], | [place], [place] | Lumbar | | | | [place] [address] | [address] | radiculopathy; | | | | [phone] | | Chronic right-sided | | | | | | low back pain with | [...] + + + +---------+ + + | ALPRAZolam (XANAX) | One tab by mouth 60 | 2 | 0 | 01/30/20 | | | 0.5 mg tablet | minutes prior to | tablet | | 18 | 8 | | | MRI. May repeat x1. | | | | | | | Do not drive after | | | | | | | taking medication. | | | | | + + [...] | + +--------+ + + + | MRI LUMBAR SPINE WO | Routin | 02/07/2018 | Spondylolysis of | Results for this | | CONTRAST | e | 10:32 AM | lumbar region | procedure are in [...] + + documented in this encounter Results MRI Lumbar Spine wo Contrast (02/07/2018 10:32 AM PDT) + + | Specimen | + + | | + + + + + | Narrative | Performed At | + + + | MRI LUMBAR SPINE WO CONTRAST 02/07/2018 10:32 AM HISTORY: L5 | [facility] | | spondylolysis. COMPARISON: 01/14/2018 and 09/15/2017 PROTOCOL: | | | Sagittal T2, sagittal T1, axial T2, axial T1, sagittal STIR, coronal | | | T2. FINDINGS: Vertebral body heights are preserved. Bilateral | | | pars defects are reidentified at L5. Only minimal grade 1 | | | anterolisthesis is seen on these Nondynamic views. Disc heights | | | are maintained. Tiny Schmorl's node is identified along the superior | | | endplate of T12 Imaged spinal cord and cauda equina demonstrate | | | normal signal with no evidence for myelomalacia or mass lesions. The | | | conus medullaris terminates at level L1, which is normal. No | | | central canal or neural foramina canal stenosis. Imaged abdomen | | | and pelvis demonstrate no acute findings. Larger 4.1 cm complicated | | | or minimally complex cystic lesion is identified in the left ovary, | | | new/increased since 07/06/2017. Correlation with pelvic ultrasound is | | | offered. IMPRESSION - Bilateral pars defects are reidentified at | | | L5. Only minimal grade 1 anterolisthesis is seen on these Nondynamic | | | images. No evidence of neuroforaminal narrowing, degenerative disc | | | disease, or central spinal stenosis. 4.1 cm complicated or | | | minimally complex cystic lesion is identified in the left ovary, | | | new/increased since CT dated 07/06/2017. Correlation with pelvic | | | ultrasound is offered in 12 weeks to confirm resolution of this likely | | | simple cyst with minimal internal hemorrhage. Dictated and | | | Signed by: Corwin Bowers MD Electronically signed: 02/07/2018 | | | 11:31 AM | | + + + + + | Procedure Note | + + | Tomas, Rad Results In - 02/07/2018 11:34 AM PDT MRI LUMBAR SPINE WO CONTRAST 02/07/2018 | | 10:32 AM HISTORY: L5 spondylolysis.COMPARISON: 01/14/2018 and 09/15/2017PROTOCOL: Sagittal | | T2, sagittal T1, axial T2, axial T1, sagittal STIR, coronalT2.FINDINGS:Vertebral body | | heights are preserved. Bilateral pars defects are reidentified atL5. Only minimal grade | | 1 anterolisthesis is seen on these Nondynamic views.Disc heights are maintained. Tiny | | Schmorl's node is identified along thesuperior endplate of [id number] spinal cord and | | cauda equina demonstrate normal signal with no evidencefor myelomalacia or mass lesions. | | The conus medullaris terminates at level L1,which is normal.No central canal or neural | | foramina canal stenosis.Imaged abdomen and pelvis demonstrate no acute findings. Larger | | 4.1 cmcomplicated or minimally complex cystic lesion is identified in the left | | ovary,new/increased since 07/06/2017. Correlation with pelvic ultrasound is | | offered.IMPRESSION -Bilateral pars defects are reidentified at L5. Only minimal grade | | 1anterolisthesis is seen on these Nondynamic images.No evidence of neuroforaminal | | narrowing, degenerative disc disease, or centralspinal stenosis.4.1 cm complicated or | | minimally complex cystic lesion is identified in the leftovary, new/increased since CT | | dated 07/06/2017. Correlation with pelvicultrasound is offered in 12 weeks to confirm | | resolution of this likely simplecyst with minimal internal hemorrhage.Dictated and | | Signed by: Corwin Bowers MD Electronically signed: 02/07/2018 11:31 AM | |which is normal. | | | |No central canal or neural foramina canal stenosis. | | | |Imaged abdomen and pelvis demonstrate no acute findings. Larger 4.1 cm | |complicated or minimally complex cystic lesion is identified in the left ovary, | |new/increased since 07/06/2017. Correlation with pelvic ultrasound is offered. | | | |IMPRESSION - | |Bilateral pars defects are reidentified at L5. Only minimal grade 1 | |anterolisthesis is seen on these Nondynamic images. | | | |No evidence of neuroforaminal narrowing, degenerative disc disease, or central | |spinal stenosis. | | | |4.1 cm complicated or minimally complex cystic lesion is identified in the left | |ovary, new/increased since CT dated 07/06/2017. Correlation with pelvic | |ultrasound is offered in 12 weeks to confirm resolution of this likely simple | |cyst with minimal internal hemorrhage. | | | |Dictated and Signed by: Corwin Bowers MD | | Electronically signed: 02/07/2018 11:31 AM | + + + +---------+ + [...]
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
--- OUTSIDE RECORDS SUMMARY | ~2020-03-10 | XMS | Encounter Summary ---
Demographics + + + | Address | [address] | | | [place] [address] | + + + | Home Phone | | + + + | Preferred Language | Unknown | + + + | Marital Status | Single | + + + | Yazidism Affiliation | 1013 | + + + | Race | White | + + + | Ethnic Group | Not or | + + + Author + + + | Author | [facility] | | | and [place] | + + + | Organization | [facility] | | [...] Team Providers + +------+ + | Care Bus Girl Name | Role | Phone | + +------+ + | Jennifer Rowley | PCP | | + +------+ + Reason for Visit + + + | Reason | Comments | + + + | Sinus Pain | | + + + Encounter Details +--------+ + + + + | Date | Type | Department | Care Team | Description | +--------+ + + + + | 02/19/ | Emergency | [facility] | Naveed Lovelace | Sinus pressure | | 2018 | | [facility] | DO [address] | (Primary Dx); | | | | CENTER [address] | [address] [place] | Otalgia, left | | | | [place], [place] | [place] [address] | | | | | [address] | [phone] | | | | | [phone] | | | +--------+ + + + [...] + + + | Blood Pressure | 136/86 | 02/19/2018 6:13 PM | | | | | PDT | | + + + + + | Pulse | 89 | 02/19/2018 6:13 PM | | | | | PDT | | + + + + + | Temperature | 36.6 C (97.8 F) | 02/19/2018 6:13 PM | | | | | PDT | | + + + + + | Respiratory Rate | 20 | 02/19/2018 6:13 PM | | | | | PDT | | + + + + + | Oxygen Saturation | 100% | 02/19/2018 6:13 PM | | | | | PDT | | + + + + + | Inhaled Oxygen | - | - | | | Concentration | | | | + + + + + | Weight | 91.6 kg (202 lb) | 02/19/2018 6:13 PM | | | | | PDT | | + + + + + | Height | 152.4 cm (5') | 02/19/2018 6:13 PM | | | | | PDT | | + + + + + | Body Mass Index | 39.45 | 02/19/2018 6:13 PM | | | | | PDT | | + + + + + documented in this encounter Discharge Instructions AttachmentsThe following attachments cannot be sent through Care Everywhere.Sinus Problems, Understanding (Icelandic)Earache Without Infection (Adult) (Icelandic)documented in this encoun ter Medications at Time of Discharge + + [...] + + + +---------+ + + | cephalexin | Take 1 capsule by | 42 | 0 | 02/16/20 | | | (KEFLEX) 500 mg | mouth 3 times daily | capsule | | 18 | 8 | | capsule | for 14 days. [...] documented as of this encounter ED Notes Naveed Lovelace DO - 03/01/2018 2:00 PM PDTFormatting of this note might be differ ent from the original. Emergency Provider Note 03/01/2018 History CC: Sinus Pain HPI: Percephoni Liane Hawknis is a 22 y.o. female who presents to the ED for evaluation of left ear pain. Patient reports that she is currently taking antibiotics for sinus infectio n. She felt her left ear pop earlier and has had pain ever since. She denies any difficult y hearing or breathing. She denies any fevers or chills. PMH: Past Medical History: Diagnosis Date Acute mesenteric adenitis Anxiety Asthma Chronic tonsillitis and adenoiditis(474.02) 06/21/2013 ICD-10 Record update Depression Dysuria 09/14/2011 Elevated liver enzymes Exercise-induced asthma Gastritis Low back pain of over 3 months duration Migraine Myalgia Obesity Pain in joint of right shoulder Pelvic pain PTSD (post-traumatic stress disorder) Rotator cuff tear, right Sprain of ligaments of lumbar spine, subsequent encounter PSH: Past Surgical History: Procedure Laterality Date CHOLECYSTECTOMY, LAPAROSCOPIC 2009 TONSILLECTOMY 2013 Medications: Discharge Medication List as of 02/19/2018 18:53 CONTINUE these medications which have NOT CHANGED Details ALPRAZolam (XANAX) 0.5 mg tablet One tab by mouth 60 minutes prior to MRI. May repeat x1. D o not drive after taking medication.Disp-2 tablet, R-0, Print cephalexin (KEFLEX) 500 mg capsule Take 1 capsule by mouth 3 times daily for 14 days.Disp-4 2 capsule, R-0, Normal cetirizine (ZYRTEC) 5 mg tablet Take 5 mg by mouth Daily.Historical Med meloxicam (MOBIC) 7.5 mg tablet One tablet twice daily for 7 days, then one tablet daily; Take with food.Disp-21 tablet, R-2, Normal methocarbamol (ROBAXIN) 500 mg tablet Take 500 mg by mouth every 8 hours as needed.Historic al Med Allergies: She is allergic to acetaminophen; codeine; ibuprofen; and red dye.. Social History: She reports that she has never smoked. She has never used smokeless tobacc o. She reports that she drinks alcohol. She reports that she does not use drugs.. Review of Systems Constitutional: Negative for chills and fever. HENT: Positive for ear pain. Negative for congestion. Eyes: Negative for visual disturbance. Respiratory: Negative for shortness of breath. Cardiovascular: Negative for chest pain and leg swelling. Gastrointestinal: Negative for abdominal pain, diarrhea, nausea and vomiting. Genitourinary: Negative for dysuria and hematuria. Musculoskeletal: Negative for arthralgias and myalgias. Skin: Negative for rash. Neurological: Negative for weakness. Psychiatric/Behavioral: Negative for behavioral problems. Physical Exam Vital Signs: Temp: 36.6 C (97.8 F) Pulse: 89 Resp: 20 BP: 136/86 SpO2: 100 % Physical Exam Constitutional: She is oriented to person, place, and time. She appears well-developed and well-nourished. No distress. HENT: Head: Normocephalic and atraumatic. Right Ear: Tympanic membrane normal. Left Ear: Tympanic membrane normal. Nose: Nose normal. Eyes: Pupils are equal, round, and reactive to light. EOM are normal. Neck: Normal range of motion. Neck supple. Cardiovascular: Normal rate, regular rhythm and intact distal pulses. No murmur heard. Pulmonary/Chest: Effort normal and breath sounds normal. No respiratory distress. Abdominal: Soft. She exhibits no distension. There is no tenderness. There is no rebound an d no guarding. Musculoskeletal: Normal range of motion. She exhibits no edema or deformity. Neurological: She is alert and oriented to person, place, and time. No cranial nerve defici t. Skin: Skin is warm and dry. No rash noted. Psychiatric: She has a normal mood and affect. Her behavior is normal. Nursing note and vitals reviewed. ED Course and Medical Decision Making Kimmie Hawkins presented to the Emergency Department for evaluation, and she was triaged to room ED03. I reviewed the nursing notes, and she was evaluated by me. IMPRESSION 1. Sinus pressure 2. Otalgia, left Medical Decision Making as of Mar 01 1401 Sunitha Mar 01, 2018 1359 Patient afebrile, nontoxic, and in no acute distress. She is currently on antibiotics . Her eardrum is intact. She was encouraged to use [id number] analgesics for discomf ort. She was discharged in stable condition. Naveed Lovelace DO 03/01/18 1402 AScottNany RN - 02/19/2018 6:12 PM PDTPatient currently taking antibiotics for a sinus infection. Patient sneezed and her L ear popped but since then she has had pain in her ear, pressure b ehind her L eye and L sinus more plugged.Electronically signed by Nany Mackay RN at 6:13 PM PDTdocumented in this encounter Plan of Treatment + +------+--------+ + + | Name | Type | Priori | Associated Diagnoses | Date/Time | | | | ty | | | + +------+--------+ + + | ED INFORMATION | GLENN | Routin | | 02/19/2018 5:21 PM | | EXCHANGE | | e | | PDT | + +------+--------+ + + documented as of this encounter Procedures + +--------+ + + + | Procedure Name | Priori | Date/Time | Associated Diagnosis | Comments | | | ty | | | | + +--------+ + + + | ED INFORMATION | Routin | 02/19/2018 | | | | EXCHANGE | e | 5:21 PM | | | | | | PDT | | | + +--------+ + + + +---+--------+ | | | | | Proced | | | ure | | | Note - | | | Amy, | | | Lab In | | | | | | Hlseve | | | n - | | | 02/19/ | | | 2017 | | | 5:22 | | | PM PDT | | | | | | [...] | | | FICATI | | | ON?08/ | | | / | | | 8 | | | 17:19? | | | HENSLE | | | Y, | | | PERCEP | | | HONI | | | J?MRN: | | | | | | [id number] | | | [id number] | | | his | | | [...] | | | int | | | Aug | | | [...] | | | Aug | | | 23, | | [...] | | | Center | | | 6 0 | | | Total | | | 6 0 | | | Note: | | [...] | | +---+--------+ documented in this encounter Visit Diagnoses + + | Diagnosis | + + | Sinus pressure - Primary Other diseases of nasal cavity and sinuses | + + | Otalgia, left | + + documented in this encounter"
--- OUTSIDE RECORDS SUMMARY | ~2020-03-10 | XMS | Encounter Summary ---
Demographics + + + | Address | [address] | | | [place] [address] | + + + | Home Phone [...] + + + | Author | [facility] | | | and [place] | + + + | Organization | [facility] | | | [...] Team Providers + +------+ + | Care Cement Mixer Name | Role | Phone | + +------+ + | Linda Rowley | PCP | | + +------+ + Encounter Details +--------+ + + + + | Date | Type | Department | Care Team | Description | +--------+ + + + + | 11/28/ | Abstract | [facility] | Rene Casey, | | | 2018 | | PHYSIATRY [address] | [address] | | | | | [address] | [place] | | | | | [place] | [address] | | | | | [address] | | | | | | [phone] | | | +--------+ + + + [...]
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
--- OUTSIDE RECORDS SUMMARY | ~2020-03-10 | XMS | Encounter Summary ---
Demographics + + + | Address | [address] | | | [place] [address] | + + + | Home Phone [...] Author + + + | Author | [facility] | | | and [place] | + + + | Organization | [facility] | | [...] Team Providers + +------+ + | Care Development Chemist Name | Role | Phone | + +------+ + | Linda Rowley | PCP | | + +------+ + Reason for Visit Auth/Cert +--------+--------+ + + + + | Status | Reason | Specialty | Diagnoses / | Referred By | Referred To | | | | | Procedures | Contact | Contact | +--------+--------+ + + + + | | | | Diagnoses | | | | | | | Pelvic and | | | | | | | perineal | | | | | | | pain Cyst | | | | | | | of right | | | | | | | ovary | | | | | | | Pelvic and | | | | | | | perineal | | | | | | | pain [R10.2] | | | | | | | Cyst of | | | | | | | right ovary | | | | | | | [N83.201] | | | | | | | Procedures | | | | | | | [place] | | | | | | | LAP,DIAGNOST | | | | | | | IC ABDOMEN | | | | | | | [place] | | | | | | | LAP,FULGURAT | | | | | | | E/EXCISE | | | | | | | LESIONS | | | | | | | LAPAROSCOPY | | | | | | | DIAGNOSTIC; | | | | | | | LAPAROSCOPY | | | | | | | FULG/EXC | | | | | | | OVARY | | | | | | | VISCERA/DIEGO | | | | | | | TONEAL | | | +--------+--------+ + + + + Encounter Details +--------+---------+ + + + | Date | Type | Department | Care Team | Description | +--------+---------+ + + + | 06/25/ | Surgery | [facility] | Almaz Tai, | LAPAROSCOPY | | 2018 | | [facility] | DO [address] | DIAGNOSTIC;EXCISION | | | | [address] | [place], [place] | OF LEFT UTEROSACRAL | | | | [place], [place] | [address] | ENDOMETRIOSIS,AND | | | | [address] | [phone] | FULGRATION OF | | | | [phone] | | ENDOMETRIAL | | | | | | IMPLANTS, DRAINAGE | | | | | | OF RIGHT OVARIAN | | | | | | CYST | +--------+---------+ + + + Social History [...] + + + | Blood Pressure | 137/82 | 06/25/2018 2:10 PM | | | | | PST | | + + + + + | Pulse | 112 | 06/25/2018 2:10 PM | | | | | PST | | + + + + + | Temperature | 36.2 C (97.2 F) | 06/25/2018 1:41 PM | | | | | PST | | + + + + + | Respiratory Rate | 18 | 06/25/2018 2:10 PM | | | | | PST | | + + + + + | Oxygen Saturation | 100% | 06/25/2018 2:10 PM | | | | | PST | | + + + + + | Inhaled Oxygen | - | - | | | Concentration | | | | + + + + + | Weight | 98.1 kg (216 lb 4.3 | 06/25/2018 10:06 AM | | | | oz) | PST | | + + + + + | Height | 152.4 cm (5') | 06/25/2018 10:06 AM | | | | | PST | | + + + + + | Body Mass Index | 42.24 | 06/25/2018 10:06 AM | | | | | PST | | + + + + + documented in this encounter Discharge Summaries ZaireAlmaz lan - 06/25/2018 1:50 PM PSTFormatting of this note might be different fro m the original. GYNECOLOGY DISCHARGE SUMMARY ID: Kimmie Hawkins is a 22 y.o. No obstetric history on file. Date of Admission: 06/25/2018 Date of Discharge: 06/25/2018 Disposition: home Reason for Admission: Patient discharged to home Primary/Secondary Diagnosis: Principal Problem: Ovarian cyst, right Diagnosis: Principal Problem: Ovarian cyst, right Procedures: Procedure(s): LAPAROSCOPY DIAGNOSTIC;EXCISION OF LEFT UTEROSACRAL ENDOMETRIOSIS,AND FULGRATION OF ENDOMET RIAL IMPLANTS, DRAINAGE OF RIGHT OVARIAN CYST Complications: none Condition of wound: healing well Condition on discharge: stable Summary: patient was admitted and taken to the operating room where the above procedure was performed without complications. She was subsequently discharged home in stable condition per out-patient protocol Discharge Instructions: Medications: Discharge Medications New Medications Details docusate sodium 100 mg capsule Take 1-2 capsules by mouth Twice daily as needed for Constipation. aka: COLACE ibuprofen 600 MG tablet Take 1 tablet by mouth every 6 hours as needed for Pain. aka: ADVILMOTRIN ondansetron 4 mg disintegrating tablet Take 1 tablet by mouth every 8 hours as needed for Nausea. aka: ZOFRAN ODT oxyCODONE-acetaminophen 5-325 mg per tablet Take 1 tablet by mouth every 6 hours as needed for Pain. aka: PERCOCET Unchanged Medications Details cetirizine 5 mg tablet Take 5 mg by mouth Daily. aka: zyrTEC clindamycin 2% vaginal cream insert 1 applicatorful vaginally at bedtime nightly aka: CLEOCIN clindamycin 300 MG capsule take 1 capsule by mouth twice a day aka: CLEOCIN CRYSELLE-28 0.3-30 MG-MCG per tablet Generic drug: norgestrel-ethinyl estradiol take 1 tablet by mouth once daily LESSINA-28 0.1-20 MG-MCG per tablet Generic drug: levonorgestrel-ethinyl estradiol take 1 tablet by mouth once daily methocarbamol 500 mg tablet Take 500 mg by mouth every 8 hours as needed. aka: ROBAXIN promethazine 12.5 MG tablet Take 1 tablet by mouth every 6 hours as needed for Nausea for up to 12 doses. aka: PHENERGAN Discontinued Medications HYDROcodone-acetaminophen 5-325 mg per tablet aka: PELON Follow-up appointment: As scheduled with Dr. Tai Activity: Pelvic rest until cleared by DO. No driving while on narcotic medications Diet: Regular as tolerated Instructions: Return to hospital for fevers, chills, severe abdominal pain not relieved b y pain medication, inability to tolerate any po, heavy vaginal bleeding or a foul smelling d ischarge, or any other concerns. Electronically Signed by: Almaz Tai DO 06/25/2018 13:50 documented in this encounter Discharge Instructions Instructions Almaz Tai DO - 06/25/2018 Ovarian Cysts A cyst is usually a fluid-filled sac, like a small water balloon. Cysts are almost always h armless, and many go away on their own. Usually they grow slowly. They can vary in size from as small as a pea to larger than a grapefruit. Many cause no symptoms at all. Often they ar e felt only during a pelvic exam. Ovarian cysts are usually not cancer. Functional cyst A functional cyst is the most common kind of cyst. It forms when a follicle does not releas e a mature egg or continues to grow after releasing the egg. Functional cysts usually occur on nivia ovary at a time. They usually shrink on their own in 1 to 3 months. In rare remberto es, a cyst will burst (rupture), causing pain. Pain might also be caused by the twisting of an ovary that is enlarged because of the cyst growing on it. Dermoid cyst Sometimescells that are present from birthwill start to grow into different kinds of ti ssue such as skin, fat, hair, and teeth. This kind of cyst is called a dermoid cyst. Dermoid cysts can grow onone or both ovaries. Usually they cause no symptoms. But if they leak or the ovary becomestwisted, they can cause severe pain. Endometrioma Sometimes tissue similar to the lining of the uterus (endometrium) grows and becomes part of the ovary. This kind of cyst is often called a chocolate cyst because of its dark-brown c olor. These cysts can grow onone or both ovaries. They often cause pain, especially around menstruation or during sex. Benign cystadenoma If the capsule that surrounds the ovary grows, it can form a cystadenoma.These cysts can grow on one or both ovaries. Usually they cause no symptoms if they are small. But if they b ecome large, they can press on organs near the ovaries, causing pain. They can also cause pa in by stretching the ovarian capsule. A cyst that pushes on the bladder can cause frequent u rination. Sometimes these cysts rupture and bleed. Malignant cysts These cysts can invade other tissues or spread to other parts of the body. Date Last Reviewed: 11/24/[id number] [employer] [place] [address], [place] [address]. All righ ts reserved. This information is not intended as a substitute for professional medical care. Always follow your healthcare professional's instructions. AttachmentsThe following attachments cannot be sent through Care Everywhere.Endometriosis, Laparoscopic Treatment of, Discharge Instructions (Belgian)documented in this encounter Medications at Time of [...] + + + +---------+ + + | clindamycin | insert 1 | | 0 | 05/30/20 | | | (CLEOCIN) 2% vaginal | applicatorful | | | 18 | 9 | | cream | vaginally at bedtime | | | | | | | nightly | | | | | + + + +---------+ + + | clindamycin | take 1 capsule by | | 0 | 06/01/20 | | | (CLEOCIN) 300 MG | mouth twice a day | | | 18 | 9 | | capsule | | | | | | + + + +---------+ + + | CRYSELLE-28 0.3-30 | take 1 tablet by | | 0 | 05/11/20 | | | MG-MCG per tablet | mouth once daily | | | 18 | 9 | + + + +---------+ + + | docusate sodium | Take 1-2 capsules by | 30 | 1 | 06/25/20 | | | (COLACE) 100 mg | mouth Twice daily | capsule | | 18 | 9 | | capsule | as needed for | | | | | | | Constipation. | | | | | + + [...] | | Take 1 tablet by | 15 | 0 | 06/25/20 | | | oxyCODONE-acetaminop | mouth every 6 hours | tablet | | 18 | 9 | | hen (PERCOCET) 5-325 | as needed for Pain. | [...] + + documented as of this encounter H&P Notes Almaz Tai DO - 06/25/2018 10:44 AM PSTI have reviewed the History & Physical and the re are no changes I have done an appropriate pre-operative exam and there are no interval changes of signific ance to the History & Physical The surgical and postoperative plan was reviewed with the patient and all final questions w ere answered Electronically Signed by: Almaz Tai DO 06/25/2018 10:44 Almaz Beatty DO - 06/18/2018 9:32 AM Cece Kwok [facility] Consult History of Present Illness YING is a 22 yo G0 female who presents today with long standing history of dysmenorrhea and r ecent onset of severe pelvic pain for which she has been in and out of the ER frequently to assess. Previously in 2012 she was seeing Neetu Jung and her pelvic pain and heavy menese s were being well controlled with Depo-provera injections. She says her pain was very manag eable while on this and her periods were very light almost so light that there were some mon ths she did not have bleeding. However, she stopped the Depo-provera because she felt like it was giving her frequent headaches. Since that time she has tried a variety of combined o ral contraceptive pills and been offered other options like progesterone only pills, Mirena of Nexplanon but has not wanted those other options. She feels at time on the OCP's she has some headaches as well. More recently, she was assessed in the ED on 03/21 for pelvic pain and at that time she underwent imaging which did not show any gynecologic etiology for her p ain. That episode she says was related to a viral gastritis infection that has since resol ed. She was then followed up by Neetu and an ultrasound was done on 05/11 which showed two s imple ovarian cysts on the right ovary, the largest 2.5cm. She has been to the office frequ ently complaining of continued pelvic and vaginal pain and cramping. She says the pain is v aginal, suprapubic and somewhat in the right lower quadrant. Nothing including [place], metho carbamol, Naproxen has been improving the pain. She says no position is comfortable other t parks the position. She is also complaining of associated nausea but never vomiting and denies decreased appetite. She denies any pain with intercourse and says it has been so loc g since she has had intercourse, denies any history of pain with intercourse. She denies an y urinary frequency, hesitancy but some dysuria, no hematuria. She feels like she has chron ic constipation but thinks that may be related to her narcotic use now. No increased rectal or bladder pain during menses. Pain is just stabbing and constant, sometimes radiates to h er back bilaterally and she is so frustrated and sick of dealing with the pain and missing w ork. She restarted on OCP on 05/11/18 but is having some breath through bleeding on her per iod with spotting. She does not want to change one more thing and wants to stay on this rima h control. Discussed the option of stopping the pill as she is not currently sexually activ e and she does not want to do that either. She was treated in the ED about 3 weeks ago for bacterial vaginosis and given Flagyl, this caused her to "hallucinate and she was unable to remember her birthday" she stopped treatment but still feels like she has the vaginal pain a nd discharge she noted at the time and is annoyed by the ED that she was never treated prope rly for that infection. She again was seen in the ED on 05/28 at midnight after noting 10/10 pain and underwent re imaging with ultrasound and CT which showed a 2.3cm right ovarian cys t suggestive of hemorrhagic cyst. No other pathology noted and patient has history of candy cystectomy done at the age of 14. OBGYN History Gynecologic history: LMP: 04/27/18 STD history: Patient denies Previous abdominal or pelvic surgery: Cholecystectomy, laparoscopic Last PAP: Mar 2018. 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 Head and Face: no facial pain. Eyes: no eye pain, eyes not red, no watery discharge from the eyes, no purulent discharge f rom the eyes, no itching of the eyes and no blurred vision. ENT: no earache, no hearing loss, no nasal congestion, no nasal discharge, no sneezing, no sore throat, no scratchy throat and no hoarseness. Cardiovascular: no chest pain, no palpitations, the heart is not racing, no lightheadedness and no lower extremity edema. Respiratory: no shortness of breath, no wheezing, not sleeping upright or with extra pillow s, no cough, no dry cough, no productive cough, no clear sputum, no colored sputum and not v omiting blood. Gastrointestinal: abdominal pain, abdominal bloating, abdominal cramps, menstrual pain, akash sea and constipation, but no vomiting, no diarrhea, able to pass flatus, no bright red blood per rectum and no melena. Genitourinary: suprapubic pain, pelvic pain and foul-smelling vaginal discharge, but no dys uria, no urinary frequency, no urinary urgency, no flank pain, no dark urine, no hematuria, no missed menstrual period, not suspected and no confirmed . Musculoskeletal: diffuse joint pain, generalized muscle aches and back pain, but no joint s welling, no joint stiffness, no back muscle spasm, no pain in other joints and no limping. Integumentary and Breasts: no rashes, no skin lesions, no skin wound, no itching, no painfu l skin area with a rash or sore, no mouth sores, no erythema, no edema, no skin scaling, not blister, no skin ulcer, no patch, no nodule, no plaque, no papule, no pustule, no breast pa in and no breast lump. Neurological: headache and dizziness, but no confusion, no fainting, no paresthesias, no sa ddle paresthesia, no leg numbness, no leg weakness, no tingling and no difficulty walking. Psychiatric: irritability, anxiety, depression and suicidal, but no insomnia. Endocrine: no hot flashes, no night sweats, no muscle weakness and no generalized weakness. Hematologic and Lymphatic: no swollen glands, no swollen glands in the neck, no tendency fo r easy bleeding, no tendency for easy bruising and no jaundice. Active Problems Dysmenorrhea (N94.6) Encounter for routine gynecological examination (Z01.419) Female pelvic pain (R10.2) Hirsutism (L68.0) Menorrhagia (N92.0) Ovarian cyst (N83.209) Visit for oral contraceptive prescription (Z30.011) Past Medical History History of acute pharyngitis (Z87.09) History of anxiety (Z86.59) History of asthma (Z87.09) History of hypertension (Z86.79) Lightheadedness (R42) History of Migraines (G43.909) Surgical History History of Cholecystectomy History of Tonsillectomy Current Meds Hydrocodone-Acetaminophen 5-325 MG Oral Tablet; TAKE 1 TABLET Every 6 hours; Therapy: 11May2018 to (Evaluate:[id number]); Last Rx:25May2018 Ordered Low-Ogestrel 0.3-30 MG-MCG Oral Tablet; Take 1 tablet daily; Therapy: 11May2018 to (Evaluate:12Apr2019) Requested for: 11May2018; Last Rx:11May2018 Ordered Methocarbamol 500 MG Oral Tablet; Therapy: (Recorded:24Apr2018) to Recorded Naproxen 500 MG Oral Tablet; Therapy: 02Jun2014 to Recorded Ondansetron 8 MG Oral Tablet Disintegrating; Therapy: 08Sep2014 to Recorded ProAir HFA 108 (90 Base) MCG/ACT Inhalation Aerosol Solution; Therapy: 02Jun2014 to Recorded Tylenol CAPS; Therapy: (Recorded:24Apr2018) to Recorded Allergies Codeine-Guaifenesin SYRP MetroNIDAZOLE CAPS morphine Social History Denied: History of Drug use Never a smoker Occasional alcohol use Family History Mother Family history of depression (Z81.8) Family history of diabetes mellitus (Z83.3) Family history of high cholesterol (Z83.42) Maternal Grandmother Family history of Diabetes Mellitus Family history of Heart Disease Maternal Grandfather Family history of Diabetes Mellitus 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 Oriented x3. HEENT: . External auditory canals clear. Nasal mucosa pink and moist with no discharge. Ora l mucose pink and moist with no ulcerations or discharge. Dentition good. PERRLA, EOMFI. Contreras r and scalp normal. NECK: Neck supple with no lymphadenopathy. Thyroid normal. CV: Regular rate and rhythm. No murmur noted. RESP: Clear to auscultation bilaterally. No rhonchi or wheezing noted. Good inspiratory and expiratory effort. ABDOMEN: Diffuse tenderness in her suprapubic region, nondistended. Soft. Positive bowel so unds. No hepatosplenomegaly. No mass. No inguinal adenopathy or hernia. No CVA tenderness. EXT: No edema, cyanosis or clubbing. Evy's negative. NEURO: Cranial nerves II-XII grossly intact. PELVIC: Normal external female genitalia. Cervix nulliparous without lesions. Vaginal vault appears erythematous, with some minimal amount of whitish discharge noted. Patient had extr consuelo pain with insertion of the speculum. Bimanual: Notable cervical motion tenderness apprec iated. Only mild palpation performed in her suprapubic region and right lower quadrants whic h were tender. No guarding or rebound tenderness noted. Uterus nonenlarged . Mobile. antever lilli, No adnexal masses palpable. Assessment Female pelvic pain (R10.2) Dysmenorrhea (N94.6) Ovarian cyst (N83.209) Chronic pelvic pain in female (R10.2,G89.29) Plan Chlamydia/N.gonorrhoeae by PCR; Status:Active; Requested for:[id number]; Culture, Wound (specify if anaerobes needed); Status:Active; Requested for:[id number]; Culture, Wound (specify if anaerobes needed); Status:Active; Requested for:[id number]; Start: Clindamycin Phosphate 2 % Vaginal Cream; INSERT 1 APPLICATORFUL INTRAVAGINALLY AT BEDTIME NIGHTLY Start: Orilissa 200 MG Oral Tablet; Take 1 tablet twice daily 1. Chronic pelvic pain with exacerbation of dysmenorrhea and incidental finding of right ov ferdinand cyst: Ordered aerobic, anaerobic, gonorrhea and chlamydia screening and wet mount performed. Patient is miserable despite around the clock treatments with analgesics including norm cotics. I doubt that from the size of the cyst on the right side and her global pain that t he source of the pain is related to the cysts alone. Suspected underlying endometriosis and dysmenorrhea. She did respond well in the past to Depo-Provera and given recent literature in benefits of progesterone only therapy for endometriosis and dysmenorrhea feel this would be a great option for her, however, she noted headaches when on this medication and does no t want to try it again. Also discussed option of Mirena IUD or progesterone only pills. Luzmaria celestin does not want to try anything else right now. She became very angry when I tried to recom mend other things and she said she just want some thing to stop the pain. Prescription for Orilissa sent to her pharmacy. Will start her on the maximum dose given the severity of her pain. GIven that she is on a combined OCP there may be some decreased efficacy of this but will provide her some relief. Explained to patient this will be a 6 month maximum treatmen t given the risk of decreased bone density when taking this medication. Discussed catain terrance with diagnostic laparoscopy. I was able to find her a surgery date as soon as possible. She is scheduled for 06/25 with possible cautery of endometriosis, possible right ovarian cy stectomy and possible right oophorectomy. Discussed today the risks and benefits of the pro cedure. In discussing options for treatment of her chronic pelvic pain we discussed options such as , observation, medical suppressive therapy, sequential OCP's vs. Laparoscopy. The advantages and disadvantages of each were discussed as pertaining to her case. Printed information was given regarding these options and the pt would like to pursue Laparoscopy. Risks for the procedure include, but are not limited to, hemorrhage, infection, injury to b owel or bladder or ureter and the surrounding structures. The possibility of having to have another surgery to repair any complications if they should occur with an incision that could be transverse or vertical. These were stated to occur between 1 in 600 to 1 in 1000 times. Uterine perforation was also discussed. The risk of anesthesia was also detailed. All questions were answered regarding the risks discussed on this, which are more extensive than those listed above. She has chosen to pursue this and was information detailing the pr ocedure. Post operative recovery, follow up, and symptom management were also discussed and all of her questions were answered. Pre and post surgical wound care briefly discussed, info rmation given with surgical packet. She would like to move forward with the operative proced ure. 2. Bacterial vaginosis: Patient states she did not do well with Metronidazole treatment. Prescription for Cli ndamycin 2% vaginal cream sent to pharmacy for patient to use for 7 days. Instructed to use at night and wear a panty liner when using it. Patient verbalized understanding and was to ld to call if her symptoms worsen or do not improve Signatures Electronically signed by : Almaz Tai DO; May 30 2018 11:50AM PST (Author) documented in this en counter Miscellaneous Notes Op Note - Almaz Tai DO - 06/25/2018 1:51 PM PSTFormatting of this note might be dif ferent from the original. Laparoscopy with ovarian cyst drainage Pre-Op Diagnosis:Pelvic and perineal pain [R10.2] Cyst of right ovary [N83.201] Post-Op Diagnosis: Same Procedure: Procedure(s): LAPAROSCOPY DIAGNOSTIC;EXCISION OF LEFT UTEROSACRAL ENDOMETRIOSIS,AND FULGRATION OF ENDOMET RIAL IMPLANTS, DRAINAGE OF RIGHT OVARIAN CYST Surgeon: Surgeon(s): DO Rustam Marc MD Anesthesia: General Procedure Date: 06/25/2018 Fluids: 1200mL Urine Output: 75mL of clear urine Estimated Blood Loss: 10mL Specimens: ID Type Source Tests Collected by Time Destination A : Endometriosis of left uterosacral ligament Tissue Endometrium SPECIMEN TO PATHOLOGY Chinmay Tai DO 06/25/2018 1326 Pathology Complications: None Disposition: transferred to PACU in stable condition., Once immediate surgical recovery com plete patient to be- discharged. Findings: The uterus was found to be retroverted and retroflexed. Overall it appeared to h ave an adenomyosis look. Left fallopian tube and ovary were noted to be normal without path ology. The right fallopian tube was normal and the right ovary was noted to have three 2cm clear, fluid filled simple cysts. Apart from this, the surface of the ovary was smooth and glistening white and otherwise was within normal size limits. The posterior cul-de-sac was noted to have numerous implants of dark endometriosis and the left uterosacral ligament was noted to have one implant of dark endometriosis. Liver, and bowel was all noted to be qian l without pathology. The appendix was not visualized. The bladder reflection was then surv eyed and appeared to be free of any evidence of pathology. DESCRIPTION OF OPERATIVE PROCEDURE: After ensuring informed consent, the patient was taken to the Operating Room and placed under a general anesthesia in the dorsal supine position. T he patient was then transferred to the dorsal lithotomy position and the perineum and abdome n were prepped and draped in a sterile fashion. A sponge stick was inserted gently into the vagina and used for uterine manipulation. The bladder was drained for 75mL of yellowish/clear urine. Attention was then turned to the abd omen where a small intraumbilical incision was made with a scalpel and carried through to th e layer of the fascia. A 5 millimeter trocar and sleeve were advanced into the intraabdomina l cavity without complication. The laparoscope was then inserted to ensure proper placement. The pelvis and abdomen were then surveyed with the above noted findings and pictures were t aken to document the findings. At this time the decision was made to insert an additional ac cess ports. A small incision was made lateral to the right inferior epigastric artery and a 5 millimeter trocar and sleeve were introduced into the abdominal cavity without complicatio n under direct laparoscopic visualization. The same thing was done on the left side. Lapar oscopic graspers were then inserted through the 5 millimeter port and used to inspect the ad nexa and further lift the uterus. The atraumatic grasper was used to gently grasp the impla nt of endometriosis noted on the left uterosacral ligament. This as removed with the monopo lar scissors and made hemostatic with cautery. The implants noted in the posterior cul-de-s ac were cauterized with the monopolar scissors and excellent hemostasis was noted at the sit e. Attention was then turned to the right ovary. The two cysts were opened using electroca utery through the monopolar scissors. Clear strawcolored fluid was noted from both of the cy sts. The aspirator with attached syringe was then used to remove the clear fluid. Excellent hemostasis was observed at this time and pictures were again taken to document the procedur e. All instruments were then removed from the vagina and abdomen and the CO2 gas was allowed t o escape. The skin incisions were repaired with 4-0 Monocryl using a running subcuticular st itches and skin glue was then placed over the incision. The skin was anesthetized with 0.25% Sensorcaine. The patient tolerated the procedure well. Needle, sponge and instrument counts were correct times two. The patient was taken to the Post Anesthesia Care Unit awake and in stable condi tion for recovery. Almaz Tai DO 06/25/18 ' document ed in this encounter Plan of Treatment Not on filedocumented as of this encounter Procedures + +--------+ + + + | Procedure Name | Priori | Date/Time | Associated Diagnosis | Comments | | | ty | | | | + +--------+ + + + | LAPAROSCOPIC | | 06/25/2018 | Pelvic and | | | SALPINGO-OOPHORECTOM | | 12:34 PM | perineal pain Cyst | | | Y | | PST | of right ovary | | + +--------+ + + + | POCT TEST, | Routin | 06/25/2018 | | Results for this | | URINE, QUAL | e | 10:34 AM | | procedure are in the | | | | PST | | results section. | + +--------+ + + + | CBC NO DIFFERENTIAL | Routin | 06/25/2018 | | Results for this | | | e | 10:16 AM | | procedure are in the | | | | PST | | results section. | + +--------+ + + + | SURGICAL PATHOLOGY | Routin | 06/25/2018 | | Results for this | | EXAM | e | 12:00 AM | | procedure are in the | | | | PST | | results section. | + +--------+ + + + documented in this encounter Results POCT Test, Urine, QUAL (06/25/2018 10:34 AM PST) + + + + + + [...] + | Internal QC | Acceptable | Acceptable, Not | | | | | | Performed | | | + + + + + + | Specific | | 1.010, 1.015, | | | | [place], | | 1.020, 1.025 | | | | POC | | | | | + + + + + + | Lot Number | [id number] | | | | + + + + + + | Expiration | | | | | | Date | | | | | + + + + + + + + | Specimen | + + | Urine | + + CBC no Differential (06/25/2018 10:16 AM PST) + +-------+ + + + | Component | Value | Ref Range | Performed | Pathologist | | | | | At | Signature | + +-------+ + + + | White Blood | 9.8 | 4.0 - 11.0 K/uL | [facility] | | | Cells | | | [facility] | | | | | | [facility] | | | | | | [facility] - | | | | | | LABORATORY | | + +-------+ + + + | Red Blood | 4.57 | 3.70 - 5.20 | [facility] | | | Cells | | M/uL | [facility] | | | | | | MEDICAL | | | | | | CENTER - | | | | | | LABORATORY | | + +-------+ + + + | Hemoglobin | 12.9 | 11.5 - 16.0 | [facility] | | | | | g/dL | [facility] | | | | | | MEDICAL | | | | | | CENTER - | | | | | | LABORATORY | | + +-------+ + + + | Hematocrit | 38.9 | 34.0 - 47.0 % | [facility] | | | | | | [facility] | | | | | | MEDICAL | | | | | | CENTER - | | | | | | LABORATORY | | + +-------+ + + + | MCV | 85.1 | 83.0 - 101.0 fL | [facility] | | | | | | [facility] | | | | | | MEDICAL | | | | | | CENTER - | | | | | | LABORATORY | | + +-------+ + + + | MCH | 28.2 | 28.0 - 35.0 pg | [facility] | | | | | | [facility] | | | | | | MEDICAL | | | | | | CENTER - | | | | | | LABORATORY | | + +-------+ + + + | MCHC | 33.2 | 32.0 - 36.0 | [facility] | | | | | g/dL | [facility] | | | | | | MEDICAL | | | | | | CENTER - | | | | | | LABORATORY | | + +-------+ + + + | RDW-CV | 12.2 | <15.0 % | [facility] | | | | | | [facility] | | | | | | MEDICAL | | | | | | CENTER - | | | | | | LABORATORY | | + +-------+ + + + | RDW-SD | 37.4 | 35.1 - 46.3 fL | [facility] | | | | | | [facility] | | | | | | MEDICAL | | | | | | CENTER - | | | | | | LABORATORY | | + +-------+ + + + | Platelet | 316 | 140 - 440 K/uL | [facility] | | | Count | | | [facility] | | | | | | MEDICAL | | | | | | CENTER - | | | | | | LABORATORY | | + +-------+ + + + | MPV | 9.7 | 6.5 - 12.4 fL | [facility] [...] | | | | WBC's | [facility] | | | | | | MEDICAL | | | | | | CENTER - | | | | | | LABORATORY | | + +-------+ + + + | Absolute | 0.00 | 0.00 - 0.01 | [facility] | | | nRBC | | K/uL | [facility] | [...] ST. | [address] | [place], [place] | [phone] | | [facility] | | [id number] | | | - LABORATORY | | | | + + + + + Surgical Pathology Exam (06/25/2018 12:00 AM PST) + + | Specimen | + + | | + + + + + | Narrative | Performed At | + + + | SPECIMEN(S): A ENDOMETRIOSIS OF LEFT UTEROSACRAL SPECIMEN | [facility] | | SOURCE: A. ENDOMETRIOSIS OF LEFT UTEROSACRAL CLINICAL HISTORY: | [facility] | | R10.2 (pelvic and perineal pain), N83.201 (cyst of right ovary) | | | FINAL PATHOLOGIC DIAGNOSIS: Endometriosis of left uterosacral, | | | biopsy: - Soft tissue fragments containing bland glandular | | | inclusions and inflammation consistent with clinical endometriosis. | | | JVR:[facility]:C2NR MICROSCOPIC EXAMINATION: Histologic sections of | | | all submitted blocks are examined by light microscopy. These | | | findings, together with the gross examination, support the pathologic | | | diagnosis. GROSS DESCRIPTION: The specimen, labeled "PH, | | | endometriosis of left uterosacral ligament," is received in formalin | | | and consists of 0.7 x 0.7 x 0.2 cm white membranous tissue fragment. | | | The specimen is trisected and entirely submitted in cassette (A1). | | | FB (under the direct supervision of a pathologist) The Gross | | | Description was prepared using a voice recognition system. The | | | report was reviewed for accuracy; however, sound-alike word errors, | | | addition and/or deletions may occur. If there is any question about | | | this report, please contact Client Services. PERFORMING | | | LABORATORY: The technical component was performed by [facility] | | | [facility], [address] [place] [id number] (Neurology Professor: | | | Alesia Cuellar MD; IA# [id number]). Professional interpretation was | | | performed by [facility], [facility] | | | [place], [address] [place] [id number] (Medical | | | Director: Evaristo Cardoso M.D.). Diagnostician: Evaristo Ashley | | | Janae AVELAR Pathologist Electronically Signed 06/28/2018 | | + + + + +---------+ + + | Performing | Address | City/State/Zipcode | Phone Number | | Organization | | | | + +---------+ + + | [facility] | | | | | [facility] | | | | + +---------+ + + documented in this encounter Visit Diagnoses + + | Diagnosis | + + | Pelvic and perineal pain | + + | Cyst of right ovary Other and unspecified ovarian cyst | + + documented in this encounter Administered Medications + +--------+---------+------+------+------+ | Medication Order | MAR | Action | Dose | Rate | Site | | | Action | Date | | | | + +--------+---------+------+------+------+ + +---+ | acetaminophen (TYLENOL) tablet | | | 1,000 mg 1,000 mg, Oral, EVERY 8 | | | HOURS (3 times per day), First | | | dose on Mon06/25/18 at 1500, For | | | 3 days, Start 8 hours after | | | pre-op dose., Post-op/Phase II | | + +---+ | | | + +---+ | albuterol 2.5 mg/3 mL nebulizer | | | solution 2.5 mg 2.5 mg, | | | Nebulization, ONCE PRN, Wheezing, | | | Starting Mon06/25/18 at 1011, | | | For 1 dose, RT will administer., | | | Pre-op | | + +---+ | | | + +---+ | albuterol 2.5 mg/3 mL nebulizer | | | solution 2.5 mg 2.5 mg, | | | Nebulization, ONCE PRN, Wheezing, | | | Starting Mon06/25/18 at 1331, | | | For 1 dose, Notify anesthesia if | | | patient is wheezing and does not | | | have a history of asthma or COPD | | | or current smoking., | | | Recovery/Phase I | | + +---+ | | | + +---+ + +-------+ +--------+---+ + | bupivacaine 0.25%-EPINEPHrine | Given | 06/25/20 | 30 mLs | | Surgical | | 1:200,000 injection PRN, | | 18 1:00 | | | Site | | Starting Mon06/25/18 at 1300, | | PM PST | | | | | Intra-op | | | | | | + +-------+ +--------+---+ + + +---+ | | | + +---+ | dextrose 50% injection 12.5-25 | | | g 12.5-25 g, Intravenous, EVERY | | | 15 MIN PRN, Low Blood Sugar, Give | | | 12.5g (25 mL) IV if blood | | | glucose 50-69 mg/dL. Give 25g | | | (50 mL) IV if blood glucose < 50, | | | Starting 06/25/18 at 1011, | | | Repeat in 15 min if blood glucose | | | remains < 70 mg/dL. Repeat | | | blood glucose in 30 min once | | | blood glucose > 70., Pre-op | | + +---+ | | | + +---+ | dextrose 50% injection 12.5-25 | | | g 12.5-25 g, Intravenous, EVERY | | | 15 MIN PRN, Low Blood Sugar, For | | | hypoglycemia. Give 12.5g (25ml) | | | IV if blood glucose 50-69 | | | mg/dL. Give 25g (50ml) IV if | | | blood glucose < 50, Starting Mon | | | 06/25/18 at 1331, Give over 2 | | | min. Repeat in 15 min if blood | | | glucose remains < 70 mg/dL. | | | Repeat blood glucose in 30 min | | | once blood glucose > 70., | | | Recovery/Phase I | | + +---+ | | | + +---+ | ePHEDrine 50 mg/mL injection 5 | | | mg 5 mg, Intravenous, EVERY 5 | | | MIN PRN, if SBP <90., Starting | | | 06/25/18 at 1331, Hold if HR | | | > 100. Maximum total dose 20mg., | | | Recovery/Phase I | | + +---+ | | | + +---+ + +-------+ +--------+---+---+ | fentaNYL (PF) injection 25-50 | Given | 06/25/20 | 25 mcg | | | | mcg 25-50 mcg, Intravenous, | | 18 3:00 | | | | | EVERY 15 MIN PRN, Pain, Give on | | PM PST | | | | | direction of physician, Starting | | | | | | | 06/25/18 at 1011, For 4 | | | | | | | doses, Max total dose 100 mcg., | | | | | | | Pre-op | | | | | | + +-------+ +--------+---+---+ +---+---+ | | | +---+---+ + +-------+ +--------+---+---+ | fentaNYL (PF) injection 25-50 | Given | 06/25/20 | 25 mcg | | | | mcg 25-50 mcg, Intravenous, | | 18 2:23 | | | | | EVERY 5 MIN PRN, Pain, Starting | | PM PST | | | | | 06/25/18 at 1331, Maximum | | | | | | | total dose 250 mcg. PACU IV | | | | | | | Narcotic Priority: Only use | | | | | | | fentanyl for immediate post-op | | | | | | | pain (one dose) or breakthrough | | | | | | | pain when any other IV narcotics | | | | | | | ordered have been ineffective (if | | | | | | | ordered). If both morphine and | | | | | | | hydromorphone are ordered, use | | | | | | | morphine first, and use | | | | | | | hydromorphone if morphine | | | | | | | ineffective., Recovery/Phase I | | | | | | + +-------+ +--------+---+---+ +-------+ +--------+---+---+ | Given | 06/25/20 | 25 mcg | | | | | 18 2:13 | | | | | | PM PST | | | | +-------+ +--------+---+---+ | Given | 06/25/20 | 25 mcg | | | | | 18 1:58 | | | | | | PM PST | | | | +-------+ +--------+---+---+ + +---+ | | | + +---+ | hydrALAZINE (APRESOLINE) | | | injection 5 mg 5 mg, | | | Intravenous, EVERY 20 MINUTES | | | PRN, For SBP > 180, DBP > 100, | | | Starting Mon06/25/18 at 1331, | | | Hold if HR > 100. Maximum total | | | dose 40 mg. Use labetalol first | | | if available., Recovery/Phase I | | + +---+ | | | + +---+ + +-------+ +-------+---+---+ | ketorolac (TORADOL) injection | Given | 06/25/20 | 30 mg | | | | 30 mg 30 mg, Intravenous, EVERY | | 18 2:07 | | | | | 6 HOURS (4 times per day), First | | PM PST | | | | | dose on Mon06/25/18 at 1415, For | | | | | | | 4 doses, If urine output is less | | | | | | | than 240ml/8 hours (30ml/hr) or | | | | | | | if signs of bleeding, contact MD | | | | | | | and hold., Post-op/Phase II | | | | | | + +-------+ +-------+---+---+ + +---+ | | | + +---+ | labetalol (TRANDATE) 5 mg/mL | | | injection 5 mg 5 mg, | | | Intravenous, EVERY 5 MIN PRN, For | | | SBP > 180, DBP > 100, Starting | | | 06/25/18 at 1331, Hold if HR | | | < 60. Maximum total dose 300mg. | | | Notify anesthesia if patient | | | requires more than 50mg., | | | Recovery/Phase I | | + +---+ | | | + +---+ + +---------+ +---+---+---+ | lactated ringers (LR) infusion | New Bag | 06/25/20 | | | | | at 10-100 mL/hr, Intravenous, | | 18 1:18 | | | | | CONTINUOUS, Starting Mon06/25/18 | | PM PST | | | | | at 1030, TKO., Pre-op | | | | | | + +---------+ +---+---+---+ +---------+ +---+-------+---+ | New Bag | 06/25/20 | | 100 | | | | 18 11:07 | | mL/hr | | | | AM PST | | | | +---------+ +---+-------+---+ + +---+ | | | + +---+ | meperidine (DEMEROL) injection | | | 12.5-25 mg 12.5-25 mg, | | | Intravenous, PRN, Shivering, | | | Starting 06/25/18 at 1331, | | | For 2 doses, May Repeat once in 5 | | | min., Recovery/Phase I | | + +---+ | | | + +---+ | midazolam (VERSED) 1 mg/mL | | | injection 0.5-2 mg 0.5-2 mg, | | | Intravenous, EVERY 5 MIN PRN, | | | Anxiety, or agitation, Starting | | | 06/25/18 at 1331, Maximum | | | total dose 2 mg., Recovery/Phase | | | I | | + +---+ | | | + +---+ | midazolam (VERSED) 1 mg/mL | | | injection 1 mg 1 mg, | | | Intravenous, PRN, Anxiety, May | | | repeat Q 5 minutes prn, Starting | | | 06/25/18 at 1011, For 2 | | | doses, May repeat once in 5min. | | | Hold anxiolytic until after | | | anesthesia and surgical consent | | | is obtained, Pre-op | | + +---+ | | | + +---+ | morphine injection 2-8 mg 2-8 | | | mg, Intravenous, EVERY 2 HOURS | | | PRN, Pain, Starting Mon06/25/18 | | | at 1431, If oral route not an | | | option. Slow IV push, not faster | | | than 2mg/minute. First dose must | | | be lowest dose, titrate to | | | effective dose by repeat of | | | lowest dose every 30 minutes prn | | | pain, may not exceed maximum dose | | | ordered per interval. Use Pasero | | | Sedation Scale., Post-op/Phase | | | II | | + +---+ | | | + +---+ | naproxen (NAPROSYN) tablet 500 | | | mg 500 mg, Oral, 2 TIMES DAILY | | | WITH BREAKFAST & DINNER, First | | | dose on Mon06/26/18 at 1700, For 6 | | | doses, If urine output is less | | | than 240ml/8 hours (30ml/hr) or | | | if signs of bleeding, contact MD | | | and hold., Post-op/Phase II | | + +---+ | | | + +---+ | ondansetron (ZOFRAN ODT) | | | disintegrating tablet 4 mg 4 mg, | | | Oral, EVERY 6 HOURS PRN, Nausea, | | | Vomiting, Starting Mon06/25/18 | | | at 1431, First line agent, | | | Post-op/Phase II | | + +---+ | | | + +---+ + +-------+ +------+---+---+ | ondansetron (ZOFRAN ODT) | Given | 06/25/20 | 8 mg | | | | disintegrating tablet 8 mg 8 mg, | | 18 10:25 | | | | | Oral, ONCE, Mon06/25/18 at | | AM PST | | | | | 1030, For 1 dose, Pre-op | | | | | | + +-------+ +------+---+---+ + +---+ | | | + +---+ | ondansetron (ZOFRAN) injection | | | 4 mg 4 mg, Intravenous, ONCE | | | PRN, Nausea, Starting Mon | | | 06/25/18 at 1331, For 1 dose, | | | Recovery/Phase I | | + +---+ | | | + +---+ | ondansetron (ZOFRAN) injection | | | 4 mg 4 mg, Intravenous, EVERY 6 | | | HOURS PRN, Nausea, Vomiting, | | | Starting 06/25/18 at 1431, | | | First line agent Use PO option | | | unless NPO status or unable to | | | tolerate., Post-op/Phase II | | + +---+ | | | + +---+ + +-------+ +------+---+---+ | oxyCODONE (ROXICODONE) tablet | Given | 06/25/20 | 5 mg | | | | 5-20 mg 5-20 mg, Oral, EVERY 3 | | 18 3:04 | | | | | HOURS PRN, Pain, Starting Mon | | PM PST | | | | | 06/25/18 at 1431, First dose must | | | | | | | be the lowest dose, can titrate | | | | | | | to effective dose by repeat of | | | | | | | lowest dose every 60 minutes prn | | | | | | | pain, may not exceed maximum dose | | | | | | | ordered per interval. Use Pasero | | | | | | | Sedation Scale., Post-op/Phase | | | | | | | II | | | | | | + +-------+ +------+---+---+ + +---+ | | | + +---+ | promethazine (PHENERGAN) (IV | | | ONLY) injection 6.25 mg 6.25 mg, | | | Intravenous, EVERY 15 MIN PRN, | | | Nausea, Vomiting, Starting Mon | | | 06/25/18 at 1331, For 4 doses, | | | TAKE PRECAUTIONS WHEN | | | ADMINISTERING Dilute to 10-20mL | | | with NS. Give over 2-3 minutes | | | into large vein. Use ondansetron | | | first if both are ordered., | | | Recovery/Phase I | | + +---+ | | | + +---+ + +---------+ +---------+---+ + | scopolamine (TRANSDERM-SCOP) 1 | Patch | 06/25/20 | 1 patch | | Ear-Behi | | mg/3 days 1 patch 1 patch, | Applied | 18 10:55 | | | nd Left | | Transdermal, ONCE, 06/25/18 | | AM PST | | | | | at 1115, For 1 dose, If | | | | | | | prophylaxis fails, do not repeat | | | | | | | dose. Use drug from a different | | | | | | | class. Each patch is designed to | | | | | | | deliver 1 mg over 3 days. DO NOT | | | | | | | CUT patch., Pre-op | | | | | | + +---------+ +---------+---+ + +---+---+ | | | +---+---+ documented in this encounter
--- OUTSIDE RECORDS SUMMARY | ~2020-03-10 | XMS | Encounter Summary ---
Demographics + + + | Address | [address] | | | [place] [address] | + + + | Home Phone | | + + + | Preferred Language | Unknown | + + + | Marital Status | Single | + + + | Mormonism Affiliation | 1013 | + + + | Race | White | + + + | Ethnic Group | Not or | + + + Author + + + | Author | [facility] | | | and [place] | + + + | Organization | [facility] | | [...] Team Providers + +------+ + | Care Electrolysis Needle Operator Name | Role | Phone | + +------+ + | Linda Rowley | PCP | | + +------+ + Reason for Visit + + + | Reason | Comments | + + + | New Patient | chronic tonsilitis and adenoiditis | + + + | Ear Infection | Chronic | + + + Evaluate & Treat (Routine) +--------+--------+ + + + + | Status | Reason | Specialty | Diagnoses / | Referred By | Referred To | | | | | Procedures | Contact | Contact | +--------+--------+ + + + + | Closed | | Otolaryngolog | Diagnoses | Frederic, | Rene Casey | | | | y | Chronic | SIGRID Zimmer | [address] | | | | | tonsillitis | [address] | | | | | and | Street | [place] [address] [facility] | | | | | adenoiditis( | [place], | [place], [place] | | | | | [phone]) | [place] [address] | [address] Phone: | | | | | chronic | Phone: | [phone] | | | | | tonsilitis | [phone] | Fax: | | | | | and | Fax: | [phone] | | | | | adenoiditis/ | [phone] | | | | | | pcp | | | | | | | frederic/mom/ | | | | | | | montiel | | | | | | | Procedures | | | | | | | NEW PATIENT | | | +--------+--------+ + + + + Encounter Details +--------+---------+ + + + | Date | Type | Department | Care Team | Description | +--------+---------+ + + + | 06/24/ | Office | [facility] | Rene Casey MD | Chronic tonsillitis | | 2012 | Visit | OTOLARYNGOLOGY [address] | [address] [place] | (Primary Dx) | | | | [address] [facility] [address] | [address] [place] | | | | | [place] | [address] | | | | | [address] | | | | | | [phone] | | | +--------+---------+ + + + [...] + + + + | Weight | 71.2 kg (157 lb) | 06/24/2013 9:42 AM | | | | | PST | | + + + + + | Height | 152.4 cm (5') | 06/24/2013 9:42 AM | | | | | PST | | + + + + + | Body Mass Index | 30.66 | 06/24/2013 9:42 AM | | | | | PST | | + + + + + documented in this encounter Progress Notes Rene Casey MD - 06/24/2013 9:56 AM JOSE MARIASee dictation #[id number] signed by Panfilo Casey MD at 06/24/2013 10:00 AM Rene Figueroa MD - 06/24/2013 12:00 AM [facility] [address] [place] [address] FAX: [phone] OFFICE VISIT HISTORY: The patient was sent for evaluation because of chronic tonsillar infections. She h as had at least 10 antibiotics in the last 2 years. They continue to reoccur. Her last infe ction was about 2 weeks ago. She is sent for consideration of having her tonsils removed. N o other complaints at the current time. She has lost a fair amount of time from school jack use of these recurrent infections. PHYSICAL EXAMINATION GENERAL: Examination shows an alert 17-year-old female patient. She is communicating well. Her voice quality is good. HEENT: Skin of the face, nose, and ears all appear to be healthy. Parotid and submandibular gland areas were smooth. Facial movement was symmetrical without any weakness noted. Ear c anals are open, they are clear. Drums were healthy-appearing. No middle ear fluid or diseas e noted. Nasal passages have good space to breathe through both sides. No mass or lesion no lilli and she feels she breathes well through her nose. Floor of the mouth, buccal mucosa, lee rd palate, teeth, lips and gums all appear to be healthy. Tonsils are about a +2-1/2 and lee ve a lot of scar tissue noted. They appear quite endophytic. No mass seen in the posterior pharyngeal wall. Tongue and soft palate are smooth and move symmetrically. NECK: There wer e no masses or lymphadenopathy. Thyroid gland area was smooth. Trachea is midline. Good ran ge of motion of the neck without any pain or discomfort noted. IMPRESSION: CHRONIC TONSILLITIS. PLAN: The patient is scheduled for a tonsillectomy, possible adenoidectomy. The procedure w as described at length along with risks of bleeding, anesthesia, and infection. The patient and mother desire to move forward and have them removed and this is scheduled accordingly. Rene Casey MD GM / SB JOB #: [id number] signed by Rene Casey MD at 06/24/2013 10:48 AM Mahin rivera in this encounter Plan of Treatment Not on filedocumented as of this encounter Visit Diagnoses + + | Diagnosis | + + | Chronic tonsillitis - Primary | + + documented in this encounter"
--- OUTSIDE RECORDS SUMMARY | ~2020-03-10 | XMS | Encounter Summary ---
Demographics + + + | Address | [address] | | | [place] [address] | + + + | Home Phone [...] Author + + + | Author | [facility] | | | and [place] | + + + | Organization | [facility] | | | [...] Team Providers + +------+ + | Care Hay Baler Name | Role | Phone | + [...] | | | | | | | AL | | | | | | | LAP,DIAGNOST | | | | | | | IC ABDOMEN | | | | | | | [place] | | | | | | | [...] | +--------+ + + + + | 06/25/ | Hospital | [facility] | Almaz Tai, | | | 2018 | Encounter | MED CTR OR INTRA OP | DO [address] | | | | | [address] | [place] | | | | | [place] | [address] | | | | | [address] | [phone] | | | | | [phone] | | | +--------+ + + + [...] + + + | Blood Pressure | 130/66 | 06/25/2018 3:15 PM | | | | | PST | | + + + + + | Pulse | 101 | 06/25/2018 3:20 PM | | | | | PST | | + + + + + | Temperature | 36.2 C (97.2 F) | 06/25/2018 1:41 PM | | | | | PST | | + + + + + | Respiratory Rate | 20 | 06/25/2018 2:30 PM | | | | | PST | | + + + + + | Oxygen Saturation | 97% | 06/25/2018 3:20 PM | | | | | PST [...] + documented in this encounter Discharge Summaries Almaz Tai DO - 06/25/2018 1:50 PM PSTFormatting of this [...] 6 hours as needed for Pain. aka: ADVIL,MOTRIN ondansetron 4 mg disintegrating tablet Take 1 [...] Discontinued Medications HYDROcodone-acetaminophen 5-325 mg per tablet deng: PELON Follow-up appointment: As scheduled with Dr. [...] parts of the body. Date Last Reviewed: 11/24/201619996436-9778 [employer]. [address] [place] [address], [place] [address]. All righ ts reserved. This information is not intended as a substitute for professional medical care. Always follow your healthcare professional's instructions. AttachmentsThe following attachments cannot be sent through Care Everywhere.Endometriosis, Laparoscopic Treatment of, Discharge Instructions (Latvian)documented in this encounter Medications at Time of [...] + documented as of this encounter H&P Almaz Liang DO - 06/25/2018 10:44 AM PSTI have [...] DO - 06/18/2018 9:32 AM Cece Kwok omplaint Surgical Consult History of Present Illness YING is a 22 yo G0 female who presents today with long standing history of dysmenorrhea and r ecent onset of severe pelvic pain for which she has been in and out of the ER frequently to assess. Previously in 2012 she was seeing Neetu uJng and her pelvic pain and heavy menese [...] in the right lower quadrant. Nothing including Rutledge, metho carbamol, Naproxen has been improving the [...] PAP smears: Sexual history: Marital status: In senior care relationship Sexually active: No for a number [...] TABLET Every 6 hours; Therapy: 11May2018 to (Evaluate:[id number]); Last Rx:25May2018 Ordered Low-Ogestrel 0.3-30 MG-MCG Oral [...] Grandfather Family history of Diabetes Mellitus Vitals SUBSTATION INSPECTOR Vital Signs Recorded: [id number] 08:27AM Weight: 209 lb Blood Pressure: 137 / 95, LUE, Sitting Heart Rate: 88, R Radial LMP: [id number] Physical Exam GENERAL: Patient is alert, cooperative, [...] (R10.2,G89.29) Plan Chlamydia/N.gonorrhoeae by PCR; Status:Active; Requested for:[id number]; Culture, Wound (specify if anaerobes needed); Status:Active; Requested for:[id number]; Culture, Wound (specify if anaerobes needed); Status:Active; Requested for:[id number]; Start: Clindamycin Phosphate 2 % Vaginal Cream; [...] en counter Miscellaneous Notes Op Note - Zaire DO Almaz - 06/25/2018 1:51 PM PSTFormatting of this [...] | 1.010, 1.015, | | | | [place], | | 1.020, 1.025 | | | | POC | | | | | + + + + + + | Lot Number | [id number] | | | | + + + [...] | | Cells | | M/uL | [facility] | | | | | | MEDICAL | | | | | | CENTER - | | | | | | LABORATORY | | + +-------+ + + + | Hemoglobin | 12.9 | 11.5 - 16.0 | [facility] | | | | | g/dL | [facility] | | | | | [...] ST. | [address] | [place] | [phone] | | [facility] | | [address] | | | - LABORATORY | | | | + + + + + Surgical Pathology Exam (06/25/2018 12:00 AM PST) + + | Specimen | + + | | + + + + + | Narrative | Performed At | + + + | SPECIMEN(S): A ENDOMETRIOSIS OF LEFT UTEROSACRAL SPECIMEN | [facility] | | SOURCE: A. ENDOMETRIOSIS OF LEFT UTEROSACRAL CLINICAL HISTORY: | INCYTE | | R10.2 (pelvic and perineal pain), N83.201 (cyst of right ovary) | | | FINAL PATHOLOGIC DIAGNOSIS: Endometriosis of left uterosacral, | | | biopsy: - Soft tissue fragments containing bland glandular | | | inclusions and inflammation consistent with clinical endometriosis. | | | JVR:[facility]:C2NR MICROSCOPIC EXAMINATION: Histologic sections of | | [...] LABORATORY: The technical component was performed by [facility] | | | [place] [address] (Wire Strander: | | | Alesia Cuellar MD; CLIA# [id number]). Professional interpretation was | | | performed by [facility], [facility] | | | [place] [address] (Medical | | | Director: Evaristo Cardoso [...] + | Diagnosis | + + | Ovarian cyst, right - Primary Other and unspecified ovarian cyst | + [...] if SBP <90., Starting | | | Mon06/25/18 at 1331, Hold if HR | | [...] | | | | | | | Mon06/25/18 at 1011, For 4 | | | [...] DBP > 100, Starting | | | Mon06/25/18 at 1331, Hold if HR | | [...] | | | | | CONTINUOUS, Starting 06/25/18 | | PM PST | | | [...] 5 minutes prn, Starting | | | Mon06/25/18 at 1011, For 2 | | | [...]
--- OUTSIDE RECORDS SUMMARY | ~2020-03-10 | XMS | Encounter Summary ---
Demographics + + + | Address | [address] | | | [place] [address] | + + + | Home Phone [...] Author + + + | Author | [facility] | | | and [place] | + + + | Organization | [facility] | | | [...] Team Providers + +------+ + | Care Parking Lot Manager Name | Role | Phone | + +------+ + | Linda Rowley | PCP | | + +------+ + Reason for Visit +--------+--------+ + | Reason | Onset | Comments | | | Date | | +--------+--------+ + | Other | 07/05/ | pain medication | | | 2013 | | +--------+--------+ + Encounter Details +--------+ + + + + | Date | Type | Department | Care Team | Description | +--------+ + + + + | 07/05/ | Telephone | [facility] | Rene Casey MD | Other (pain | | 2014 | | OTOLARYNGOLOGY [address] | [address] [place] | medication) | | | | [address] [place] | [address] [place], [place] | | | | | [place], [place] | [address] | | | | | [address] | | | | | | [phone] | | | +--------+ + + + [...] this encounter Miscellaneous Notes Telephone Encounter - Angeline Ruggiero, Master of Arts - 07/05/2013 2:52 PM PSTPatient mot her called in and spoke to estephania told her that the pharmacy would not give her another pain medication without an order. So estephania told the mother that was already gone and so was his nurse. Estephania came in to tell me so I went ahead and called a new one it to [facility] . So I called [facility] in [place] twice but there was no answer so I left a message for them about the lortabs solution without red dye. Will call patient mother to let her know on what it going on.Electronically signed by Angeline Ruggiero, Master of Arts at 2:57 PM PSTTelephone Encounter - Angeline Ruggiero, Master of Arts - 07/05/2013 11: 38 AM PSTPatient mother called back and spoke to estephania told her that their pharmacy is going to give them a new hydrocodone liquid with out the max flavor. Patient mother will call if they have any more uqestions. elephone Encounter - Rene Casey MD - 07/05/2013 11:36 AM PSTChec k with pharmacy and ok equlivent to lortabs solution without red dye elephone Encounter - Augustine Andrews - 07/05 10:01 AM PSTPatient's mom called stating that patient is allergic to the red dye that was in the hydrocodone liquid (max flavor). Can she get another prescription written and can they use a different flavoring that does not have red dye? Patient uses [facility] in [place]. docume nted in this encounter Plan of Treatment Not on filedocumented as of this encounter Visit Diagnoses Not on filedocumented in this encounter"
--- OUTSIDE RECORDS SUMMARY | ~2020-03-10 | XMS | Encounter Summary ---
Demographics + + + | Address | [address] | | | [place] [address] | + + + | Home Phone | | + + + | Preferred Language | Unknown | + + + | Marital Status | Single | + + + | Amish Affiliation | 1013 | + + + | Race | White | + + + | Ethnic Group | Not or | + + + Author + + + | Author | [facility] | | | and [place] | + + + | Organization | [facility] | | [...] Team Providers + +------+ + | Care Lens Gauger Name | Role | Phone | + +------+ + | Linda Rowley | PCP | | + +------+ + Encounter Details +--------+ + + + + | Date | Type | Department | Care Team | Description | +--------+ + + + + | 07/02/ | [facility] | [facility] | Rene Casey MD | | | 2013 - | Encounter | MED CTR MP INTRA OP | [address] [place] | | | | | [address] | [address] [place] | | | 07/03/ | | [place] | [address] | | | 2013 | | [address] | | | | | | [phone] | | | +--------+ + + + [...] puffs into | | 0 | | 05/25/201 | | (VENTOLIN HFA) 90 | the [...] + + + +---------+ + + | amoxicillin | Take 500 mg by mouth | | 0 | | | | (AMOXIL) 500 MG | 3 times daily. | | | | 5 | | capsule | | | | [...] documented as of this encounter Miscellaneous Notes Op Note - Rene Casey MD - 07/02/2013 2:25 [place] [address] Patient Name: AMELIE HAWKINSJOSE E Joseph Provider: Rene Casey MD Unit #: [id number] Location: [facility] : 1995 DATE: 07/02/2013 PREOPERATIVE DIAGNOSIS Chronic tonsillitis. POSTOPERATIVE DIAGNOSIS CHRONIC TONSILLITIS. OPERATION PERFORMED: Tonsillectomy. FINDINGS: The patient had large endophytic tonsils with particularly a lot of purulent mat erial in the left tonsil. PROCEDURE: After the patient was placed under general anesthetic, the McIvor mouth gag was placed. Peritonsillar area was injected with 1% Xylocaine with epinephrine. Left tonsil wa s removed by incising its mucous membrane superior and anterior. It was dissected down to i ts base and removed with a tonsillar snare. Bismuth pack was placed. Right tonsil was remov ed by incising its mucous membrane superior and anterior. It was dissected down to its base and removed with a tonsillar snare, and a Bismuth pack was placed. Packs were removed and electrocautery was used on both sides to obtain good hemostasis. Nasopharynx was examined. There were no significant adenoids noted. The oral cavity was washed well with saline. When good hemostasis was present, the tonsillar fossae were painted with viscous Xylocaine. The patient was then awakened from her anesthetic and returned to the recovery room in stable condition. PROGNOSIS: Immediate and remote is good. ESTIMATED BLOOD LOSS: 25 mL. DICTATED BY: Rene Casey MD Otolaryngology JOB #: [id number] EXT JOB #:[id number] <<Signature on File>> Rene Casey MD02/06 1607 < documented in this en counter Plan of Treatment Not on filedocumented as of this encounter Procedures + +--------+ + + + | Procedure Name | Priori | Date/Time | Associated Diagnosis | Comments | | | ty | | | | + +--------+ + + + | POCT TEST, | Routin | 07/02/2013 | | Results for this | | URINE, QUAL | e | 12:56 PM | | procedure are in the | | | | PST | | results section. | + +--------+ + + + | POCT TEST, | Routin | 07/02/2013 | | Results for this | | URINE, QUAL | e | 12:56 PM | | procedure are in the | | | | PST | | results section. | + +--------+ + + + documented in this encounter Results POCT Test, Urine, Qual (07/02/2013 12:56 PM PST) + + + + + + | Component | Value | Ref Range | Performed | Pathologist | | | | | At | Signature | + + + + + + | | NegativeComment: | | [facility] | | | Test, | @INTERNAL CONTROL OK?: | | [facility] | | | Urine, POC | RED CONTROL LINE | | MEDICAL | | | | APPEARS? y | | CENTER - | | | | | | LABORATORY | | + + + + + + + + | Specimen | + + | | + + + + + + + | Performing | Address | City/State/Zipcode | Phone Number | | Organization | | | | + + + + + | [facility] | [address] | [place] | [phone] | | [facility] | | [address] | | | - LABORATORY | | | | + + + + + | [facility] | [address] | [place] | | | [facility] | | [address], [facility] | | | - LABORATORY | | | | + + + + + POCT Test, Urine, Qual (07/02/2013 12:56 PM PST) + + + + + + | Component | Value | Ref Range | Performed | Pathologist | | | | | At | Signature | + + + + + + | | Negative | | [facility] | | | Test, | | | [facility] | | | Urine, POC | | | MEDICAL | | | [...] + | [facility] | [address] | [place], [place] | [phone] | | [facility] | | [address] | | | - LABORATORY | | | | + + + + + | [facility] | [address] | [place], [place] | | | [facility] | | [address], [facility] | | | - LABORATORY | | | | + + + + + documented in this encounter Visit Diagnoses Not on filedocumented in this encounter"
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
--- OUTSIDE RECORDS SUMMARY | ~2020-03-10 | XMS | Encounter Summary ---
Demographics + + + | Address | [address] | | | [place] [address] | + + + | Home Phone [...] Author + + + | Author | [facility] | | | and [place] | + + + | Organization | [facility] | [...] Team Providers + +------+ + | Care Ecommerce Merchandising Manager Name | Role | Phone | + +------+ + PCP | Unavailable | + +------+ + Encounter Details +--------+ + + + + | Date | Type | Department | Care Team | Description | +--------+ + + + + | 07/30/ | Hospital | [facility] | | | | 2009 | Encounter | MED CTR MP INTRA OP | | | | | | [address] | | | | | | [place] | | | | | | [address] | | | | | | [phone] | | | +--------+ + + + [...]
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
--- OUTSIDE RECORDS SUMMARY | ~2020-03-10 | XMS | Encounter Summary ---
Demographics + + + | Address | [address] | | | [place] [address] | + + + | Home Phone | | + + + | Preferred Language | Unknown | + + + | Marital Status | Single | + + + | Hinduism Affiliation | 1013 | + + + | Race | White | + + + | Ethnic Group | Not or | + + + Author + + + | Author | [facility] | | | and [place] | + + + | Organization | [facility] | | | [...] Team Providers + +------+ + | Care Stockroom Associate Name | Role | Phone | + +------+ + PCP | Unavailable | + +------+ + Encounter Details +--------+ + + + + | Date | Type | Department | Care Team | Description | +--------+ + + + + | 07/01/ | Hospital | [facility] | | | | 1996 - | Encounter | MED CTR NURSERY | | | | | | [address] | | | | 07/02/ | | [place] [address] | | | | 1995 | | [phone] | | | +--------+ + + + [...]
--- OUTSIDE RECORDS SUMMARY | ~2020-03-10 | XMS | Encounter Summary ---
Demographics + + + | Address | [address] | | | [place] [address] | + + + | Home Phone | | + + + | Preferred Language | Unknown | + + + | Marital Status | Single | + + + | Shinto Affiliation | 1013 | + + + | Race | White | + + + | Ethnic Group | Not or | + + + Author + + + | Author | [facility] | | | and [place] | + + + | Organization | [facility] | | [...] Team Providers + +------+ + | Care Tobacco Grower Name | Role | Phone | + +------+ + PCP | Unavailable | + +------+ + Encounter Details +--------+ + + + + | Date | Type | Department | Care Team | Description | +--------+ + + + + | 07/28/ | Hospital | [facility] | [place], | | | 2009 | Encounter | MED CTR EMERGENCY | Chong Perdue MD [address] | | | | | CENTER [address] | [place] [facility] | | | | | [place] | [place] [address] | | | | | [address] | [phone] | | | | | [phone] | | | +--------+ + + + [...]
--- OUTSIDE RECORDS SUMMARY | ~2020-03-10 | XMS | Encounter Summary ---
Demographics + + + | Address | [address] | | | [place] [address] | + + + | Home Phone | | + + + | Preferred Language | Unknown | + + + | Marital Status | Single | + + + | Oriental Orthodox Affiliation | 1013 | + + + | Race | White | + + + | Ethnic Group | Not or | + + + Author + + + | Author | [facility] | | | and [place] | + + + | Organization | [facility] | | | [...] Team Providers + +------+ + | Care Family Literacy Coordinator Name | Role | Phone | [...] Closed | | Radiology | Diagnoses | Amrik, | [facility] | | | | | Cervical | SIGRID Zimmer | [facility] | | | | | paraspinal | [address] | [facility] | | | | | muscle spasm | Street | MEDICAL | | | | | Procedures | [place], | CENTER [address] | | | | | MRI | [place] [address] | [place] | | | | | Cervical | Phone: | [place], | | | | | Spine wo | [phone] | [place] [address] | | | | | Contrast | Fax: | Phone: | | | | | | [phone] | [phone] | | | | | | | Fax: | | | | | | | [phone] | +--------+--------+ + + + + Reason for Visit Auth/Cert +--------+--------+ + [...] + + + + | 01/16/ | Hospital | [facility] | Linda Rowley, | Cervical paraspinal | | 2018 | Encounter | MED CTR MRI [address] | CLAIM ADMINISTRATOR [address] | muscle spasm | | | | [place], | [facility], | | | | | [place] [address] | [place] [address] | | | | | [phone] | | | | | | | [...] + +--------+ + + + | MRI CERVICAL SPINE | Routin | 01/16/2018 | Cervical | Results for this | | WO CONTRAST | e | 12:40 PM | paraspinal muscle | procedure are in the | | | | PDT | spasm | results section. | + +--------+ + + + documented in this encounter Results MRI Cervical Spine wo Contrast (01/16/2018 12:40 PM PDT) + + | Specimen | + + | | + + + + + | Narrative | Performed At | + + + | UNENHANCED MRI CERVICAL SPINE 01/16/2018 12:32 PM CLINICAL | [facility] | | HISTORY: Cervical paraspinal muscle spasm COMPARISON: | | | Radiographs April 2017 TECHNIQUE: The following 1.5T MR | | | sequences of the cervical spine were obtained: 1. Sagittal and | | | coronal T1. 2. Axial and sagittal T2. 3. Axial GRE. 4. | | | Sagittal STIR. FINDINGS: There is straightening and minimal | | | reversal of the cervical lordosis. Vertebral height and alignment | | | are otherwise maintained without evident fracture or subluxation. | | | Marrow signal is normal. Imaged contents of the posterior fossa | | | and foramen magnum are unremarkable. The cervical and imaged | | | thoracic spinal cord demonstrates normal signal intensity and | | | caliber. The imaged cervical and upper thoracic soft tissues are | | | unremarkable. The craniocervical junction and C1-2 level are | | | unremarkable on provided sagittal and coronal images through the | | | region. The C2-3, C3-4, C4-5, C6-7 and C7-T1 levels demonstrate no | | | disc pathology or stenosis. Mild central to left foraminal disc | | | bulge is present at C5-6, minimally narrowing the central canal and | | | mildly narrowing the left foramen. The imaged upper thoracic spine | | | demonstrates no visible disc pathology or stenosis on provided | | | sagittal images through the region. IMPRESSION - 1. | | | STRAIGHTENING AND MINIMAL REVERSAL OF THE CERVICAL LORDOSIS WITH | | | EARLY DEGENERATIVE DISC DISEASE AND MILD LEFT FORAMINAL STENOSIS AT | | | C5-6. Dictated and Signed by: Nicolás Aleman MD Electronically | | | signed: 01/16/2018 2:31 PM | | + + + + + | Procedure Note | + + | Tomas, Rad Results In - 01/16/2018 2:34 PM PDT UNENHANCED MRI CERVICAL SPINE 01/16/2018 | | 12:32 PMCLINICAL HISTORY: Cervical paraspinal muscle spasm COMPARISON: Radiographs | | April 2017TECHNIQUE: The following 1.5T MR sequences of the cervical spine were | | obtained:1. Sagittal and coronal T1.2. Axial and sagittal T2.3. Axial GRE.4. | | Sagittal STIR.FINDINGS: There is straightening and minimal reversal of the cervical | | lordosis. Vertebral height and alignment are otherwise maintained without evident | | fractureor subluxation. Marrow signal is normal. Imaged contents of the posteriorfossa | | and foramen magnum are unremarkable. The cervical and imaged thoracicspinal cord | | demonstrates normal signal intensity and caliber. The imagedcervical and upper thoracic | | soft tissues are unremarkable.The craniocervical junction and C1-2 level are | | unremarkable on provided sagittaland coronal images through the region.The C2-3, C3-4, | | C4-5, C6-7 and C7-T1 levels demonstrate no disc pathology orstenosis.Mild central to | | left foraminal disc bulge is present at C5-6, minimallynarrowing the central canal and | | mildly narrowing the left foramen.The imaged upper thoracic spine demonstrates no | | visible disc pathology orstenosis on provided sagittal images through the | | region.IMPRESSION -1. STRAIGHTENING AND MINIMAL REVERSAL OF THE CERVICAL LORDOSIS WITH | | EARLYDEGENERATIVE DISC DISEASE AND MILD LEFT FORAMINAL STENOSIS AT C5-6.Dictated and | | Signed by: Nicolás Aleman MD Electronically signed: 01/16/2018 2:31 PM | | | |The craniocervical junction and C1-2 level are unremarkable on provided sagittal | |and coronal images through the region. | | | |The C2-3, C3-4, C4-5, C6-7 and C7-T1 levels demonstrate no disc pathology or | |stenosis. | | | |Mild central to left foraminal disc bulge is present at C5-6, minimally | |narrowing the central canal and mildly narrowing the left foramen. | | | |The imaged upper thoracic spine demonstrates no visible disc pathology or | |stenosis on provided sagittal images through the region. | | | |IMPRESSION - | |1. STRAIGHTENING AND MINIMAL REVERSAL OF THE CERVICAL LORDOSIS WITH EARLY | |DEGENERATIVE DISC DISEASE AND MILD LEFT FORAMINAL STENOSIS AT C5-6. | | | |Dictated and Signed by: Nicolás Aleman MD | | Electronically signed: 01/16/2018 2:31 PM | + + + +---------+ + + | Performing | Address | City/State/Zipcode | Phone Number | | Organization | | | | + +---------+ + + | [facility] | | | | + +---------+ + + documented in this encounter Visit Diagnoses + + | Diagnosis | + + | Cervical paraspinal muscle spasm Spasm of muscle | + + documented in this encounter"
--- OUTSIDE RECORDS SUMMARY | ~2020-03-10 | XMS | Clinical Summary ---
Demographics + + + | Address | [address] | | | [place] [address] | + + + | Home Phone | | + + + | Preferred Language | Unknown | + + + | Marital Status | Single | + + + | Sabianist Affiliation | 1013 | + + + | Race | White | + + + | Ethnic Group | Not or | + + + Author + + + | Author | [facility] | | | and [place] | + + + | Organization | [facility] | | [...] Team Providers + +------+ + | Care Relay Adjuster Name | Role | Phone | + +------+ + | Linda Rowley | PCP | | + +------+ + Allergies + + + + + + | Active Allergy | Reactions | Severity | Noted | Comments | | | | | Date | | + + + + + + | Acetaminophen | Other (See Comments) | Low | 08/25/19 | Headache and upset | | | | | 13 | stomach | + + + + + + | Codeine | Other (See Comments) | | 06/21/20 | Reaction not | | | | | 13 | specified in outside | | | | | | medical records | + + + + + + | Metronidazole | Other (See Comments) | Medium | 01/15/20 | Reaction: Unknown | | | | | 19 | | + + + + + + | Ibuprofen | Other (See Comments) | Low | 08/25/19 | Headache and upset | | | | | 13 | stomach | + + + + + + | Red Dye | Rash | Low | | | + + + + + + Medications + + + +---------+------+------+-------+ | Medication | Sig | Dispensed | Refills | Star | End | Statu | | | | | | t | Date | s | | | | | | Date | | | + + + +---------+------+------+-------+ | ibuprofen | Take 1 tablet by | 30 | 1 | 12/3 | | Activ | | (ADVIL,MOTRIN) 600 | mouth every 6 hours | tablet | | 1/20 | | e | | MG tablet | as needed for Pain. | | | 18 | | | + + + +---------+------+------+-------+ | topiramate | take 1/2 tablet by | | 0 | 01/2 | | Activ | | (TOPAMAX) 50 MG | mouth at bedtime for | | | 8/20 | | e | | tablet | 1 week then 1/2 | | | 19 | | | | | tablet tw... (REFER | | | | | | | | TO PRESCRIPTION | | | | | | | | NOTES). | | | | | | + + + +---------+------+------+-------+ | omeprazole | Take 20 mg by mouth | | 0 | | | Activ | | (PRILOSEC) 20 mg | every morning | | | | | e | | capsule | (before breakfast). | | | | | | + + + +---------+------+------+-------+ | Elastic Bandages & | by Does not apply | | 0 | | | Activ | | Supports (LUMBAR | route. | | | | | e | | BACK BRACE/SUPPORT | | | | | | | | PAD) MISC | | | | | | | + + + +---------+------+------+-------+ | methocarbamol | Take 500 mg by mouth | | 0 | | | Activ | | (ROBAXIN) 500 mg | 4 times daily. | | | | | e | | tablet | | | | | | | + + + +---------+------+------+-------+ | promethazine | Take 25 mg by mouth | | 0 | | | Activ | | (PHENERGAN) 25 mg | every 6 hours as | | | | | e | | tablet | needed. | | | | | | + + + +---------+------+------+-------+ | docusate sodium | Take 100 mg by mouth | | 0 | | | Activ | | (COLACE) 100 mg | 2 times daily. | | | | | e | | capsule | | | | | | | + + + +---------+------+------+-------+ | ondansetron | Take 4 mg by mouth | | 0 | | | Activ | | (ZOFRAN ODT) 4 mg | every 8 hours as | | | | | e | | disintegrating | needed for Nausea. | | | | | | | tablet | | | | | | | + + + +---------+------+------+-------+ | SUMAtriptan | Take 50 mg by mouth | | 0 | | | Activ | | (IMITREX) 50 mg | as needed for | | | | | e | | tablet | Migraine. | | | | | | + + + +---------+------+------+-------+ | sucralfate | Take 1 g by mouth 4 | | 0 | | | Activ | | (CARAFATE) 1 g/10 mL | times daily. | | | | | e | | suspension | | | | | | | + + + +---------+------+------+-------+ | pantoprazole | Take 40 mg by mouth | | 0 | | | Activ | | (PROTONIX) 40 mg | every morning | | | | | e | | tablet | (before breakfast). | | | | | | + + + +---------+------+------+-------+ | lamoTRIgine | Take 25 mg by mouth | | 0 | | | Activ | | (LAMICTAL) 25 mg | Daily. | | | | | e | | tablet | | | | | | | + + + +---------+------+------+-------+ | lamoTRIgine | Take 100 mg by mouth | | 0 | | | Activ | | (LAMICTAL) 100 mg | Daily. | | | | | e | | tablet | | | | | | | + + + +---------+------+------+-------+ | cetirizine | Take 5 mg by mouth | | 0 | | | Activ | | (ZYRTEC) 5 mg tablet | Daily. | | | | | e | + + + +---------+------+------+-------+ | | Take 1 tablet by | | 0 | | | Activ | | HYDROcodone-acetamin | mouth every 6 hours | | | | | e | | ophen (NORCO) 5-325 | as needed for Pain. | | | | | | | mg per tablet | | | | | | | + + + +---------+------+------+-------+ Active Problems + + + | Problem | Noted Date | + + + | Oral contraceptive use | 06/25/2018 | + + + + + | Overview: LESSINA / CRYSELLE | + + + + + | Obesity, Class III, BMI 40-49.9 (morbid obesity) | 06/25/2018 | + + + | Asthma, exercise induced | 06/25/2018 | + + + | Ovarian cyst, right | 06/25/2018 | + + + | Chronic tonsillitis and adenoiditis | 06/21/2013 | + + + + + | Overview: S/p Tonsillectomy | + + +---------+ + | DYSURIA | 09/14/2011 | +---------+ + Family History + + +------+ + | Medical History | Relation | Name | Comments | + + +------+ + | Heart disease | Father | | | + + +------+ + | Mental illness | Father | | | + + +------+ + | Diabetes | Maternal | | | | | Aunt | | | + + +------+ + | Diabetes | Maternal | | | | | Grandfath | | | | | er | | | + + +------+ + | Hypertension | Maternal | | | | | Grandfath | | | | | er | | | + + +------+ + | Diabetes | Maternal | | | | | Grandmoth | | | | | er | | | + + +------+ + | Stroke | Maternal | | | | | Grandmoth | | | | | er | | | + + +------+ + | Alcohol abuse | Mother | | | + + +------+ + | Arthritis | Mother | | | + + +------+ + | Cancer | Mother | | | + + +------+ + | Diabetes | Mother | | | + + +------+ + | Hypertension | Mother | | | + + +------+ + | Alcohol abuse | Other | | | + + +------+ + | Anxiety disorder | Other | | | + + +------+ + | Asthma | Other | | | + + +------+ + | Depression | Other | | | + + +------+ + | Hypertension | Other | | | + + +------+ + | Stroke | Other | | Grandma | + + +------+ + | COPD | Paternal | | | | | Grandmoth | | | | | er | | | + + +------+ + | Rheum arthritis | Paternal | | | | | Grandmoth | | | | | er | | | + + +------+ + | Mental illness | Paternal | | | | | Uncle | | | + + +------+ + + +------+ + + | Relation | Name | Status | Comments | + +------+ + + | Father | | | | + +------+ + + | Maternal Aunt | | | | + +------+ + + | Maternal Grandfather | | | | + +------+ + + | Maternal Grandmother | | | | + +------+ + + | Mother | | | | + +------+ + + | Other | | | | + +------+ + + | Paternal Grandmother | | | | + +------+ + + | Paternal Uncle | | | | + +------+ + + Social History + +-------+ +--------+------+ [...] on file | | + + + Last Filed Vital Signs + + + [...] | | + + + + + Plan of Treatment + + + + + | Health Maintenance | Due Date | Last | Comments | | | | Done | | + + + + + | Medication | | | | | Management | 7 | | | + + + + + | Vaccine: | | | | | Pneumococcal 19-64 | 3 | | | | (1 of 1 - PPSV23) | | | | + + + + + | Cervical Cancer | | | | | Screening (Pap) | 8 | | | + + + + + | Med Mgmt: BUN | | 08/25/19 | | | | 0 | 19, | | | | | 05/28/20 | | | | | 18, | | | | | 05/06/20 | | | | | 18, | | | | | Addition | | | | | al | | | | | history | | | | | exists | | + + + + + | Med Mgmt: Cr | | 08/25/19 | | | | 0 | 19, | | | | | 05/28/20 | | | | | 18, | | | | | 05/06/20 | | | | | 18, | | | | | Addition | | | | | al | | | | | history | | | | | exists | | + + + + + | Med Mgmt: eGFR | | 08/25/19 | | | | 0 | 19, | | | | | 05/28/20 | | | | | 18, | | | | | 05/06/20 | | | | | 18, | | | | | Addition | | | | | al | | | | | history | | | | | exists | | + + + + + | Vaccine: Influenza | | | | | (#1) | 0 | | | + + + + + | Vaccine: | | 11/15/19 | | | Dtap/Tdap/Td (4 - | 3 | 13, | | | Td) | | 04/22/20 | | | | | 11, | | | | | 04/03/20 | | | | | 02 | | + + + + + | Vaccine: HPV | Completed | 04/28/20 | | | | | 14, | | | | | 03/14/20 | | | | | 13, | | | | | 01/15/20 | | | | | 13 | | + + + + + | Hepatitis C | Completed | 07/21/19 | | | Screening | | 18 | | + + + + + Results Not on filefrom Last 3 Months Insurance + +--------+ +--------+ +---------+--------+ | Payer | Benefi | Subscriber | Effect | Phone | Address | Type | | | t Plan | ID | natasha | | | | | | / | | Dates | | | | | | Group | | | | | | + +--------+ +--------+ +---------+--------+ | [employer] | [place]OR | [id number] | 05/25/ | [phone] | | Indemn | | | AND | | 2016-P | 0 | | ity | | | INDUST | | resent | | | | | | [place] | | | | | | | | [place] | | | | | | + +--------+ +--------+ +---------+--------+ | PREMERA | PREMER | [id number] | 06/26/19 | [phone] | | PPO | | | A | 1 | 19-Pre | 0 | | | | | PREFER | | sent | | | | | | RED | | | | | | + +--------+ +--------+ +---------+--------+ + +--------+ +--------+ + + | Guarantor Name | Accoun | Relation to | Date | Phone | Billing Address | | | t Type | Patient | of | | | | | | | | | | + +--------+ +--------+ + + | Kimmie Hawkins | Person | Self | [birth year] | [address] | | [place] | al/Fam | | 1995 | [phone] | [place] [address] | | | leanna | | | 4 (Home) | | + +--------+ +--------+ + + | Kimmie Hawkins | Worker | Self | [birth year] | | [address] | | [place] | s Comp | | 1995 | [phone] | [place] [address] | | | | | | 9 (Home) | | + +--------+ +--------+ + + | Kimmie Hawkins | Worker | Self | [birth year] | | [address] | | [place] | [employer]win [employer] | | 1995 | [phone] | [place] | | | | | | 9 (Home) | [id number] | + +--------+ +--------+ + + | Kimmie Hawkins | Person | Self | [birth year] | | [address] | | [place] | al/Fam | | 1995 | [phone] | [place] [address] | | | leanna | | | 4 (Home) | | + +--------+ +--------+ + + Advance Directives + + + + + | Type | Date Recorded | Patient | Explanation | | | | Physician/Allergy/Immunology | | + + + + + | Power of | | | | | Wooden Fence Erector | | | | + + + + + | Advance | 03/29/2015 11:00 | | | | Directive | AM | | | + + + + + + + + + + | Code Status | Date | Date | Comments | | | Activated | Inactivated | | + + + + + | Full Code | 06/25/2018 | 06/25/2018 | | | | 2:32 PM | 6:38 PM | | + + + + +"
--- OUTSIDE RECORDS SUMMARY | ~2020-03-10 | XMS | Encounter Summary ---
Demographics + + + | Address | [address] | | | [place] [address] | + + + | Home Phone | | + + + | Preferred Language | Unknown | + + + | Marital Status | Single | + + + | Yarsani Affiliation | 1013 | + + + [...] Team Providers + +------+ + | Care Professional Services Specialist Name | Role | Phone | + +------+ + | Linda Rowley | PCP | | + +------+ + Reason for Visit + + + | Reason | Comments | + + + | Headache (Adult - | | | Recurrent Or Known | | | Dx Migraines) | | + + + Encounter Details +--------+ + + + + | Date | Type | Department | Care Team | Description | +--------+ + + + + | 01/10/ | Emergency | [facility] | Chong Leone | Chronic tension-type | | 2018 | [facility] | Dick Reddy MD | headache, | | | | CENTER [address] | [address] | intractable (Primary | | | | [place], [place] | [place], [place] | Dx) | | | | [address] | [address] | | | | | [phone] | | | +--------+ + + + [...] + + + | Blood Pressure | 135/86 | 01/10/2018 6:35 PM | | | | | PDT | | + + + + + | Pulse | 70 | 01/10/2018 6:35 PM | | | | | PDT | | + + + + + | Temperature | 37.1 C (98.7 F) | 01/10/2018 6:35 PM | | | | | PDT | | + + + + + | Respiratory Rate | 16 | 01/10/2018 6:35 PM | | | | | PDT | | + + + + + | Oxygen Saturation | 99% | 01/10/2018 6:35 PM | | | | | PDT | | + + + + + | Inhaled Oxygen | - | - | | | Concentration | | | | + + + + + | Weight | 90.2 kg (198 lb 13.7 | 01/10/2018 3:26 PM | | | | oz) | PDT | | + + + + + | Height | 152.4 cm (5') | 01/10/2018 3:26 PM | | | | | PDT | | + + + + + | Body Mass Index | 38.84 | 01/10/2018 3:26 PM | | | | | PDT | | + + + + + documented in this encounter Discharge Instructions Instructions Chong Leone MD - 01/10/2018Return for severe worsening sympto ms. Please follow-up with your primary care physician. Take pain medication as needed. documented in this encounter Medications at Time [...] | 20 | 0 | 01/11/20 | 08/23/201 | | (PHENERGAN) 25 mg | mouth [...] encounter ED Notes Chong Leone MD - 01/10/2018 6:01 PM PDTFormatting of this note might be d ifferent from the original. [facility] Percejacinta Leticiataz [facility] Emergency Department Encounter Note [address] [place] [id number] PCP:SIGRID Zavala [phone] eMERGENCY dEPARTMENT eNCOUnter CHIEF COMPLAINT Chief Complaint Patient presents with Headache (Adult - Recurrent Or Known Dx Migraines) TRIAGE ED Triage Notes, ED Triage Notes Sherry Pete RN 01/10/2018 15:27 Migraine since 99 morning, was seen in ED Monday for migraine and got treated and felt better but after she went home it came back about 3 hours later, pt states that she luis s not taken her Cymbalta since Monday since she read a side effect of this med is LUIS Original note by Sherry Pete RN at 01/10/2018 15:26 Sherry Pete RN 01/10/2018 15:26 Migraine since 99 morning, was seen in ED Monday for migraine and got treated and felt better but after she went home it came back about 3 hours later Addendum to note by Sherry Pete RN at 01/10/2018 15:27 HPI Percephoni [place] is a 22 y.o. female who presents patient with severe migraine. S he seen Monday and she states that migraine headache went away for a few hours and then now it's gotten worse. She is not taking her Cymbalta since Monday. She has severe right-sided headache with some photophobia. She has pain to the right side of the neck. She is here f or further evaluation. has ongoing head and neck pain. PAST MEDICAL HISTORY Past Medical History: Diagnosis Date Acute mesenteric adenitis Anxiety Asthma Chronic tonsillitis and adenoiditis(474.02) 06/21/2013 ICD-10 Record update Depression Dysuria 09/14/2011 Elevated liver enzymes Exercise-induced asthma Gastritis Low back pain of over 3 months duration Migraine Myalgia Obesity Pain in joint of right shoulder Pelvic pain PTSD (post-traumatic stress disorder) Rotator cuff tear, right Sprain of ligaments of lumbar spine, subsequent encounter SURGICAL HISTORY Past Surgical History: Procedure Laterality Date CHOLECYSTECTOMY, LAPAROSCOPIC 2010 TONSILLECTOMY 2013 CURRENT MEDICATIONS Previous Medications CETIRIZINE (ZYRTEC) 5 MG TABLET Take 5 mg by mouth Daily. DULOXETINE HCL (CYMBALTA PO) Take by mouth. Stopped taking for the past 2 days d/t LUIS MELOXICAM (MOBIC) 7.5 MG TABLET One tablet twice daily for 7 days, then one tablet conchita y; Take with food. METHOCARBAMOL (ROBAXIN) 500 MG TABLET Take 500 mg by mouth every 8 hours as needed. NAPROXEN (NAPROSYN) 500 MG TABLET Take 1 tablet by mouth 2 times daily (with breakfast & dinner). RANITIDINE (ZANTAC) 150 MG TABLET Take 1 tablet by mouth 2 times daily for 30 days. ALLERGIES Allergies Allergen Reactions Acetaminophen Other (See Comments) Headache and upset stomach Codeine Other (See Comments) Reaction not specified in outside medical records Ibuprofen Other (See Comments) Headache and upset stomach Red Dye Rash FAMILY HISTORY Family History Problem Relation Age of [...] Mental illness Paternal Uncle Diabetes Maternal Aunt SOCIAL HISTORY Social History Social History Marital status: Single Spouse name: N/A Number of children: 12 Years of education: N/A Social History Main Topics Smoking status: Never Smoker Smokeless tobacco: Never Used Alcohol use Yes Comment: Rare Drug use: No Sexual activity: Yes Other Topics Concern None Social History Narrative None REVIEW OF SYSTEMS Please see HPI, All systems negative except as marked. Twelve point review of system comp leted my me. PHYSICAL EXAM VITAL SIGNS: Temp: 37.3 C (99.1 F) Pulse: 78 Resp: 16 SpO2: 98 % BP: (!) 140/94 Constitutional: Well developed, Well nourished, Non-toxic appearance. Patient with agitat ion and pain HENT: Normocephalic, Atraumatic, Bilateral external ears normal, Oropharynx moist, No oral exudates, Nose normal. Neck- Normal range of motion, No tenderness, Supple, No stridor. Eyes: PERRL, EOMI, Conjunctiva normal, No discharge. Noted photophobia. Respiratory: Normal breath sounds, No respiratory distress, No wheezing, No chest tenderne ss. Cardiovascular: Normal heart rate, Normal rhythm, No murmurs, No rubs, No gallops. GI: Bowel sounds normal, Soft, No tenderness, No masses, No pulsatile masses. : defered Musculoskeletal: Intact distal pulses, No edema, No tenderness, No cyanosis, No clubbing. Good range of motion in all major joints. No tenderness to palpation or major deformities no lilli. Back:-Noted right cervical pain. Neurologic: Alert & oriented x 3, Normal motor function, Normal sensory function, No focal deficits noted, no facial assymetry noted. 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 ED COURSE & MEDICAL DECISION MAKING Pertinent Labs & Imaging studies reviewed. (See chart for details) Nursing notes reviewed. Patient with right-sided head pain and neck pain. She is having some slight photophobia. He is very sensitive to medications. Currently patient with ongoing headache. She is encouraged to follow up with her primary c are physician. Patient is being prescribed Phenergan and [place] patient's encouraged to follow-up with her primary care physician. She is to return for severe worsening symptoms. New Prescriptions HYDROCODONE-ACETAMINOPHEN (NORCO) 5-325 MG PER TABLET Take 1-2 tablets by mouth every 6 hours as needed for Pain. ONDANSETRON (ZOFRAN ODT) 4 MG DISINTEGRATING TABLET Take 1 tablet by mouth every 6 hour s as needed. PROMETHAZINE (PHENERGAN) 25 MG TABLET Take 1 tablet by mouth every 4 hours as needed. Discharge Instructions Return for severe worsening symptoms. Please follow-up with your primary care physician. Take pain medication as needed. FINAL IMPRESSION 1. Chronic tension-type headache, intractable Acute Portions of this chart may have been created with [employer] voice recognition software. Occasi onal wrong-word or sound-alike substitutions may have occurred due to the inherent mendiola itations of voice recognition software. Please read the chart carefully and recognize, using context, where these substitutions have occurred Chong Leone MD 01/10/18 1823 Sherry Salmon RN - 01/10/2018 3:25 PM PDTMigraine since 99, was seen in ED for migraine and got treated and felt better but after she went home it came back about 3 hours later, pt states that she has not taken her Cymbalta since Monday since she read a si de effect of this med is HA P M PDTdocumented in this encounter Plan of Treatment Not on filedocumented as of this encounter Visit Diagnoses + + | Diagnosis | + + | Chronic tension-type headache, intractable - Primary Chronic tension type headache | + + documented in this encounter Administered Medications + +--------+ +------+------+------+ | Medication Order | MAR | Action | Dose | Rate | Site | | | Action | Date | | | | + +--------+ +------+------+------+ | diazePAM (VALIUM) injection 5 | Given | 01/11/20 | 5 mg | | | | mg 5 mg, Intravenous, ONCE, Mon | | 18 5:45 | | | | | 01/10/18 at 1730, For 1 dose | | PM PDT | | | | + +--------+ +------+------+------+ +---+---+ | | | +---+---+ + +-------+ +-------+---+---+ | diphenhydrAMINE (BENADRYL) | Given | 01/11/20 | 25 mg | | | | tablet 25 mg 25 mg, Oral, ONCE, | | 18 5:01 | | | | | Mon01/10/18 at 1640, For 1 dose | | PM PDT | | | | + +-------+ +-------+---+---+ +---+---+ | | | +---+---+ + +-------+ +-------+---+ + | ketorolac (TORADOL) injection | Given | 01/11/20 | 30 mg | | Deltoid- | | 30 mg 30 mg, Intramuscular, | | 18 5:01 | | | Left | | ONCE, Mon01/10/18 at 1640, For 1 | | PM PDT | | | | | dose | | | | | | + +-------+ +-------+---+ + +---+---+ | | | +---+---+ + +-------+ +------+---+---+ | ondansetron (ZOFRAN ODT) | Given | 01/11/20 | 8 mg | | | | disintegrating tablet 8 mg 8 mg, | | 18 5:01 | | | | | Oral, ONCE, Mon01/10/18 at 1640, | | PM PDT | | | | | For 1 dose | | | | | | + +-------+ +------+---+---+ + +---+ | | | + +---+ | promethazine (PHENERGAN) (IM | | | ONLY) injection 12.5 mg 12.5 mg, | | | Intramuscular, EVERY 6 HOURS | | | PRN, Nausea, Vomiting, Starting | | | Mon01/10/18 at 1636, Vesicant. | | | Give by deep IM injection into a | | | large muscle., | | + +---+ | | | + +---+ + +-------+ +---------+---+---+ | promethazine (PHENERGAN) (IV | Given | 01/11/20 | 12.5 mg | | | | ONLY) injection 12.5 mg 12.5 mg, | | 18 5:36 | | | | | Intravenous, ONCE, Mon01/10/18 | | PM PDT | | | | | at 1730, For 1 dose, Vesicant. | | | | | | | When ordered IV push: Dilute to | | | | | | | 10-20mL with NS. Give over 2-3 | | | | | | | minutes into large vein. Do not | | | | | | | give in hand/wrist or foot/ankle | | | | | | | vein. Max dose 12.5mg if giving | | | | | | | peripherally., | | | | | | + +-------+ +---------+---+---+ +---+---+ | | | +---+---+ + +---------+ +--------+-------+---+ | sodium chloride 0.9% (NS) bolus | New Bag | 01/11/20 | 1,000 | 2000 | | | 1,000 mL 1,000 mL, Intravenous, | | 18 5:45 | mLs | mL/hr | | | Administer over 0.5 Hours, ONCE, | | PM PDT | | | | | 01/10/18 at 1730, For 1 dose | | | | | | + +---------+ +--------+-------+---+ +---+---+ | | | +---+---+ documented in this encounter"
--- OUTSIDE RECORDS SUMMARY | ~2020-03-10 | XMS | Encounter Summary ---
Demographics + + + | Address | [address] | | | [place] [address] | + + + | Home Phone | | + + + | Preferred Language | Unknown | + + + | Marital Status | Single | + + + | Jewish Affiliation | 1013 | + + + [...] Team Providers + +------+ + | Care Circular Saw Edge Fuser Name | Role | Phone | + +------+ + | Linda Rowley | PCP | | + +------+ + Reason for Visit + +--------+ + | Reason | Onset | Comments | | | Date | | + +--------+ + | Procedure | 06/28/ | surgery date moved | | | 2013 | | + +--------+ + Encounter Details +--------+ + + + + | Date | Type | Department | Care Team | Description | +--------+ + + + + | 06/28/ | [facility] | [facility] Rene [facility] | Procedure (surgery | | 2014 | | OTOLARYNGOLOGY [address] | [address] [place] | date moved) | | | | [address] [facility] [address] | [address] [place] | | | | | [place] | [address] | | | | | [address] | | | | | | [phone] | | | +--------+ + + + [...] encounter Miscellaneous Notes Telephone Encounter - Angeline Ruggiero Master of Market Force Information - 06/28/2013 1:18 PM PSTCalled and spoke to patient mother to see if she would like to move her daughter surgery date to July 02 at 11:45 am instead of July 09 and the mother would like to do this. So I have her down for next Monday and post op has been changed. documented in this encounter Plan of Treatment Not on filedocumented as of this encounter Visit Diagnoses Not on filedocumented in this encounter"
--- OUTSIDE RECORDS SUMMARY | ~2020-03-10 | XMS | Encounter Summary ---
Demographics + + + | Address | [address] | | | [place] [address] | + + + | Home Phone | | + + + | Preferred Language | Unknown | + + + | Marital Status | Single | + + + | Methodist Affiliation | 1013 | + + + [...] Team Providers + +------+ + | Care Head Loft Worker Name | Role | Phone | + +------+ + PCP | Unavailable | + +------+ + Encounter Details +--------+ + + + + | Date | Type | Department | Care Team | Description | +--------+ + + + + | 09/13/ | Hospital | [facility] | Ava Pena | | | 2011 | Encounter | [facility] | DO Daryl Gloria | | | | | [address] | [place] | | | | | [place] | [address] | | | | | [address] | | | | | | [phone] | | | +--------+ + + + [...] encounter Medications at Time of Discharge + +-------+ +---------+ + + | Medication | Sig | Dispensed | Refills | Start | End Date | | | | | | Date | | + +-------+ +---------+ + + | Multiple | daily | | 0 | 09/14/19 | | | Vitamins-Minerals | | | | 12 | 7 | | (ADVANCED DIABETIC | | | | | | | MULTIVITAMIN) TABS | | | | | | + +-------+ +---------+ + + documented as of this encounter Plan of Treatment Not on filedocumented as of this encounter Visit Diagnoses Not on filedocumented in this encounter"
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
--- OUTSIDE RECORDS SUMMARY | ~2020-03-10 | XMS | Encounter Summary ---
Demographics + + + | Address | [address] | | | [place] [address] | + + + | Home Phone [...] Author + + + | Author | [facility] | | | and [place] | + + + | Organization | [facility] | | [...] Team Providers + +------+ + | Care Business Development Executive Name | Role | Phone | + +------+ + | Linda Rowley | PCP | | + +------+ + Encounter Details +--------+ + + + + | Date | Type | Department | Care Team | Description | +--------+ + + + + | 08/07/ | [facility] | [facility] | Linda Rowley, | Pain, joint, | | 2018 | Encounter | [facility] | 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 | + +--------+ + + + documented in this encounter Results XR Shoulder Right 2 + Vw (08/07/2017 9:40 AM PST) + + | Specimen | + + | | + + + + + | Narrative | Performed At | + + + | XR SHOULDER RIGHT 2 + VW 08/07/2017 9:40 AM HISTORY: Shoulder | [facility] | | Joint Pain, Right. COMPARISON: 01/16/2013 FINDINGS: There are | | | no acute osseous findings. The AC joint is normal. The glenohumeral | | | joint is intact. Bone mineralization is normal. Visualized chest shows | | | no acute findings. Soft tissue structures are unremarkable. | | | IMPRESSION - No acute osseous findings. Dictated and Signed by: | | | Corwin Bowers MD Electronically signed: 08/07/2017 10:20 AM | | + + + + + | Procedure Note | + + | Tomas, Rad Results In - 08/07/2017 10:23 AM PST XR SHOULDER RIGHT 2 + VW 08/07/2017 9:40 | | AMHISTORY: Shoulder Joint Pain, Right.COMPARISON: 01/16/2013FINDINGS:There are no acute | | osseous findings. The AC joint is normal. The glenohumeraljoint is intact. Bone | | mineralization is normal. Visualized chest shows no acutefindings. Soft tissue | | structures are unremarkable. IMPRESSION -No acute osseous findings.Dictated and Signed | | by: Corwin Bowers MD Electronically signed: 08/07/2017 10:20 AM | |FINDINGS: | |There are no acute osseous findings. The AC joint is normal. The glenohumeral | |joint is intact. Bone mineralization is normal. Visualized chest shows no acute | |findings. Soft tissue structures are unremarkable. | | | |IMPRESSION - | |No acute osseous findings. | | | |Dictated and Signed by: Corwin Bowers MD | | Electronically signed: 08/07/2017 10:20 AM | + + + +---------+ + + | Performing | Address | City/State/Zipcode | Phone Number | | Organization | | | | + +---------+ + + | [facility] | | | | + +---------+ + + documented in this encounter Visit Diagnoses + + | Diagnosis | + + | Pain, joint, shoulder, right Pain in joint, shoulder region | + + documented in this encounter"
--- OUTSIDE RECORDS SUMMARY | ~2020-03-10 | XMS | Encounter Summary ---
Demographics + + + | Address | [address] | | | [place] [address] | + + + | Home Phone [...] | [facility] | | | and [place] | + [...] Team Providers + +------+ + | Care Shuttle Bus Driver Name | Role | Phone | + +------+ + PCP | Unavailable | + +------+ + Encounter Details +--------+ + + + + | Date | Type | Department | Care Team | Description | +--------+ + + + + | 03/08/ | Abstract | [place] [facility] | [facility] | | | 2011 | | Conversion Location | SR | | | | | [place] [facility] | | | | | | [place], [place] | | | | | | [address] | | | | | | [phone] | | | +--------+ + + + [...] + + + | Blood Pressure | 118/80 | 09/14/2011 12:00 AM | | | | | PDT [...] + + + + | Weight | 75.3 kg (166 lb) | 09/14/2011 12:00 AM | | | | | PDT | | + + + + + | Height | 154.9 cm (5' 1") | 09/14/2011 12:00 AM | | | | | PDT | | + + + + + | Body Mass Index | 31.37 | 09/14/2011 12:00 AM | | | | | PDT | | + + + + + documented in this encounter Plan of Treatment Not on filedocumented as of this encounter Visit Diagnoses Not on filedocumented in this encounter
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
--- OUTSIDE RECORDS SUMMARY | ~2020-03-10 | XMS | Encounter Summary ---
Demographics + + + | Address | [address] | | | [place] [address] | + + + | Home Phone | | + + + | Preferred Language | Unknown | + + + | Marital Status | Single | + + + | Yazidi Affiliation | 1013 | + + + [...] Team Providers + +------+ + | Care Lining Presser Name | Role | Phone | + [...] | | | | | | | [place] | | | | | | | LAP,DIAGNOST | | | | | | | [place] | | | | | | | [place] | | | | | | | [...] + + + + | 06/25/ | Anesthesia | [facility] MACKENZIE | Jamie Roper | | | 2018 | Event | [facility] | [facility] [address] | | | | | [address] | [address] [place] | | | | | [place], [place] | [address] | | | | | [id number] | | | | | | [phone] | | | +--------+ + + + + Anesthesia Record + + + + + | Procedure Name | Responsible | Anesthesia Start | Anesthesia Stop Time | | | Anesthesiologist | Time | | + + + + + | LAPAROSCOPY | Jamie Roper, | 06/25/18 1232 | 06/25/18 1345 | | DIAGNOSTIC;EXCISION | MD | | | | OF LEFT UTEROSACRAL | | | | | ENDOMETRIOSIS,AND | | | | | FULGRATION OF | | | | | ENDOMETRIAL | | | | | IMPLANTS, DRAINAGE | | | | | OF RIGHT OVARIAN | | | | | CYST (N/A ) | | | | + + + + + +----+---+ + + | Da | T | Event | Comment | | te | i | | | | | m | | | | | e | | | +----+---+ + + | 12 | 1 | | | | /3 | 2 | | | | 1/ | 2 | | | | 20 | 2 | | | | 18 | | | | +----+---+ + + | | 1 | An Checkout | Pre-use anesthesia machine/equipment checkout. | | | 2 | | | | | 3 | | | | | 0 | | | +----+---+ + + | | 1 | An Start | Versed 2mg IV in SDS 7, then to OR 4 with sedated patient. | | | 2 | | Reassessment prior to anesthesia induction/procedure. | | | 3 | | | | | 2 | | | +----+---+ + + | | 1 | Antibiotic | | | | 2 | Given | | | | 3 | | | | | 4 | | | +----+---+ + + | | 1 | Preoxygenat | | | | 2 | ed | | | | 3 | | | | | 5 | | | +----+---+ + + | | 1 | An | | | | 2 | Induction | | | | 3 | | | | | 8 | | | +----+---+ + + | | 1 | An | | | | 2 | Intubation | | | | 3 | | | | | 9 | | | +----+---+ + + | | 1 | AN Bite | | | | 2 | Block | | | | 4 | | | | | 0 | | | +----+---+ + + | | 1 | Pre-Procedu | | | | 2 | ral Timeout | | | | 4 | Completed | | | | 6 | | | +----+---+ + + | | 1 | First | | | | 2 | Inc/Proc St | | | | 5 | | | | | 3 | | | +----+---+ + + | | 1 | [place] | | | | 2 | 43-degrees | | | | 5 | | | | | 8 | | | +----+---+ + + | | 1 | Moving | | | | 3 | Purposefull | | | | 4 | y | | | | 0 | | | +----+---+ + + | | 1 | Extubated | | | | 3 | Awake | | | | 4 | | | | | 0 | | | +----+---+ + + | | 1 | An Stop | Patient handed off to recovery nurse. | | | 4 | | | | | 5 | | | +----+---+ + + +------+ | Meds | +------+ + + + | Name | Total | + + + | midazolam | 2 mg | + + + | lidocaine 2% (PF) | 60 mg | + + + | propofol | 200 mg | + + + | propofol | 196.2 mg | + + + | vecuronium | 3 mg | + + + | dexamethasone | 8 mg | + + + | ketamine | 75 mg | + + + | lactated ringers (LR) infusion | 1,300 mL | + + + + + | Name | + + | N2O Flow Rate (L/Min) | + + | O2 Flow Rate (L/Min) | + + | Insp O2 | + + | Exp SEV | + + | Air Flow Rate (L/Min) | + + + + | No blood administrations on file. | + + +--------+ + + + | Type | Details | Placement | Removal | +--------+ + + + | Periph | 06/25/18; 1105; Left; Posterior | 06/25/18 1105 by | 06/25/18 1623 by | | eral | (dorsal); Hand; [id number] | Callie Montalvo RN | Edvin Paredes, | | IV | catheter system; 18 gauge, 1 06/29 | | RN | | | in length; Hematology; | | | | | distraction, intradermal | | | | | injection, tolerated well; no | | | | | longer indicated; 06/25/18; 1623 | | | +--------+ + + + | Airway | Placement Date: 06/25/18; | 06/25/18 1239 by | 06/25/18 1340 by | | | Placement Time: 1239 (created via | Jamie Roper, | Jamie Roper, | | | procedure documentation); Mask | MD | MD | | | Ventilation: EZ; Airway Grade: | | | | | 2b; External Maneuvers: CP; | | | | | Successful Technique: Mac; | | | | | Laryngoscope Blade Size: 3; | | | | | Attempts: 1; Airway Type: | | | | | endotracheal; Size: 6.5; Airway | | | | | Tube Secured At: 22; Trauma: | | | | | none; Other Equipment: stylette; | | | | | Placement Check: exhaled CO2 | | | | | detection device, bilateral chest | | | | | rise, breath sounds equal | | | | | bilaterally; Removal Date: | | | | | 06/25/18; Removal Time: 1340; | | | | | Additional Comments: Head | | | | | initially in neurtral Position. | | | | | Smooth IV induction, mask airway | | | | | established. Direct | | | | | Laryngoscopy, ETT placed under | | | | | direct vision. BSEB/ETCO2 | | | | | (auscultation and capnography) to | | | | | confirm placement. Depth noted. | | | | | Ventilator on. | | | +--------+ + + + | Read | 06/25/18; 1303; perineum; healing | 06/25/18 1303 by | 06/25/18 1623 by | | only - | within expectations; 06/25/18; | Lelo Argueta RN | Edvin Paredes, | | | 1623 | | RN | | Incisi | | | | | on | | | | +--------+ + + + | Read | 06/25/18; 1303; abdomen; healing | 06/25/18 1303 by | 06/25/18 1623 by | | only - | within expectations; 06/25/18; | Lelo Argueta RN | Edvin Paredes, | | | 1623 | | RN | | Incisi | | | | | on | | | | +--------+ + + + documented in this encounter Social History + +-------+ +--------+------+ | Tobacco [...] + + documented as of this encounter OR Notes Anesthesia Postprocedure Evaluation - Jamie Roper MD - 06/25/2018 1:51 PM PSTForma tting of this note might be different from the original. ANESTHESIA POSTANESTHESIA EVALUATION Percephoni Laine Hawkins 22 y.o. female 1995 [id number] Procedure(s) LAPAROSCOPY DIAGNOSTIC;EXCISION OF LEFT UTEROSACRAL ENDOMETRIOSIS,AND FULGRAT ION OF ENDOMETRIAL IMPLANTS, DRAINAGE OF RIGHT OVARIAN CYST (N/A ) Cooperates? Yes Mental Status Performs simple tasks. Respiratory Satisfactory - Airway patent (self maintained). Cardiovascular Satisfactory - Blood pressure and heart rate acceptable Temperature Satisfactory Pain Satisfactory N/V Control Satisfactory Hydration Satisfactory - No signs of dehydration Complications None apparent Vitals: 06/25/18 1340 06/25/18 1341 06/25/18 1345 BP: 129/75 129/75 Pulse: 113 114 107 Temp: 36.2 C (97.2 F) Resp: 29 14 24 SpO2: 98% 99% 99% Electronically signed by Jamie Roper MD 06/25/2018 13:51 [facility] Jamie Roper MD at 1 1:51 PM PSTAnesthesia Procedure Notes - Jamie Roper MD - 06/25/2018 12:49 PM PSTAssociated Order(s): ANE AIRWAY NOTEAnesthesia Airway Placement 06/25/2018 12:39 Preprocedure check: patient identified, oxygen, airway assessed, patient reassessment prior to induction, airway equipment checked and suction Mask ventilation: easy External maneuver: cricoid pressure Successful technique: Mac Laryngoscope blade size: 3 Airway grade: 2b (Only posterior extremity of glottis seen or only arytenoid cartilages) Other equipment: stylette Attempts: 1 Airway type: endotracheal Size: 6.5 Cuffed: cuffed Route, reference point: right side of mouth Tube depth: 22 cm Tube secured with: adhesive tape Trauma: none Tube placement verification: carbon dioxide detection, equal bilateral breath sounds and bi lateral chest rise Performing provider: JAMIE ROPER Comments: Head initially in neurtral Position. Smooth IV induction, mask airway established. Direct Laryngoscopy, ETT placed under direct vision. BSEB/ETCO2 (auscultation and capnogra phy) to confirm placement. Depth noted. Ventilator on. Electronically Signed by: Jamie Roper MD ESig date/time: 06/25/2018 12:49 nesthesia Preproc edure Evaluation - Jamie Roper MD - 06/24/2018 2:32 PM PSTFormatting of this note m ight be different from the original. ANESTHESIA PREANESTHESIA EVALUATION Bennyjacinta Laine Hawkins 22 y.o. female 1995 [id number] Procedure(s): LAPAROSCOPY DIAGNOSTIC; LAPAROSCOPY FULG/EXC OVARY VISCERA/PERITONEAL (N/A ) Medical history, anesthesia, medications, allergy, NPO status verified histories reviewed. Review of Systems / Med History Anesthesia History No anesthesia complications. (-) PONV, malignant hyperthermia Cardiovascular (-) congenital heart disease (-) dysrhythmias , Exercise tolerance >4 METS Pulmonary (+) asthma(-) smoking history Neurology (+) headaches, back pain Psychology (+) anxiety, depression, post-traumatic stress disorder Renal Negative except where noted below. Gastrointestinal/Hepatic Negative except where noted below. Endocrine Negative except where noted below. (+) obesity: morbid BMI 40+ Cancer Negative except where noted below. Physical Exam Airway MP III, TM >3 FB, Mouth opening >2 FB. Neck: full ROM, extends >30 degrees. Jaw protru ann marie normal. Dental Grossly normal except where noted below.; (+) Age appropriate dentition. CV Rhythm regular. Rate Normal. (-) murmur, carotid bruit, peripheral edema, JVD and weak pulses. Pulm Clear to auscultation bilaterally. (-) wheezing, rhonchi, decreased breath sounds, rales and stridor. Neuro Grossly normal. Anesthesia Plan ASA 3 (Morbid Obesity) Type: General. Induction: Intravenous. Potential problems: None anticipated. Monitors: Standard ASA monitors. Consent statement:Anesthetic plan, alternatives, risks and benefits discussed with patient and family. Risks discussed included (but were not limited to): dental injury, pain, sore throat, infec tion, voice injury, muscle aches, nausea, respiratory events, . Consenting person understands and agrees to proceed. PARQ. Risks and benefits of general anesthetic discussed with patient and available family member s. They agree to proceed, answered all questions. Past Medical History: No date: Acute mesenteric adenitis No date: Anxiety No date: Asthma 06/21/2013: Chronic tonsillitis and adenoiditis(474.02) Comment: ICD-10 Record update No date: Depression 09/14/2011: Dysuria No date: Elevated liver enzymes No date: Exercise-induced asthma No date: Gastritis No date: Low back pain of over 3 months duration No date: Migraine No date: Myalgia No date: Obesity No date: Pain in joint of right shoulder No date: Pelvic pain No date: PTSD (post-traumatic stress disorder) No date: Rotator cuff tear, right No date: Sprain of ligaments of lumbar spine, subsequent encounter. documented in this encounter Plan of Treatment Not on filedocumented as of this encounter Procedures + +--------+ + + + | Procedure Name | Priori | Date/Time | Associated Diagnosis | Comments | | | ty | | | | + +--------+ + + + | ANE AIRWAY NOTE | Routin | 06/25/2018 | | Results for this | | | e | 12:49 PM | | procedure are in the | | | | PST | | results section. | + +--------+ + + + documented in this encounter Results Anesthesia Airway Note (06/25/2018 12:49 PM PST) + + + | Narrative | Performed At | + + + | Jamie Roper MD 06/25/2018 12:50 Anesthesia Airway | | | Placement 06/25/2018 12:39 Preprocedure check: patient | | | identified, oxygen, airway assessed, patient reassessment prior to | | | induction, airway equipment checked and suction Mask ventilation: | | | easy External maneuver: cricoid pressure Successful technique: Mac | | | Laryngoscope blade size: 3 Airway grade: 2b (Only posterior | | | extremity of glottis seen or only arytenoid cartilages) Other | | | equipment: stylette Attempts: 1 Airway type: endotracheal Size: 6.5 | | | Cuffed: cuffed Route, reference point: right side of mouth Tube | | | depth: 22 cm Tube secured with: adhesive tape Trauma: none Tube | | | placement verification: carbon dioxide detection, equal bilateral | | | breath sounds and bilateral chest rise Performing provider: JACQUELIN | | | JAMIE Mooney Comments: Head initially in neurtral Position. | | | Smooth IV induction, mask airway established. Direct Laryngoscopy, | | | ETT placed under direct vision. BSEB/ETCO2 (auscultation and | | | capnography) to confirm placement. Depth noted. Ventilator on. | | | Electronically Signed by: Jamie Roper MD | | | ESig date/time: 06/25/2018 12:49 | | | | | + + + + + | Procedure Note | + + | Jamie Roper MD - 06/25/2018 12:49 PM PST Anesthesia Airway | | [id number]/31/2018 12:39Preprocedure check: patient identified, oxygen, airway | | assessed, patient reassessment prior to induction, airway equipment checked and | | suctionMask ventilation: easyExternal maneuver: cricoid pressureSuccessful technique: | | MacLaryngoscope blade size: 3 Airway grade: 2b (Only posterior extremity of glottis | | seen or only arytenoid cartilages)Other equipment: styletteAttempts: 1Airway type: | | endotrachealSize: 6.5Cuffed: cuffedRoute, reference point: right side of mouthTube | | depth: 22 cmTube secured with: adhesive tapeTrauma: noneTube placement verification: | | carbon dioxide detection, equal bilateral breath sounds and bilateral chest | | risePerforming provider: JAMIE ROPER GComments: Head initially in neurtral | | Position.Smooth IV induction, mask airway established.Direct Laryngoscopy, ETT placed | | under direct vision. BSEB/ETCO2 (auscultation and capnography) to confirm placement. | | Depth noted. Ventilator on.Electronically Signed by: Jamie Roper MD | | ESig date/time: 06/25/2018 12:49 | |Route, reference point: right side of mouth | |Tube depth: 22 cm | |Tube secured with: adhesive tape | |Trauma: none | |Tube placement verification: carbon dioxide detection, equal bilateral breath sounds and bi lateral chest rise | |Performing provider: JAMIE ROPER | | | |Comments: Head initially in neurtral Position. | | | |Smooth IV induction, mask airway established. | | | |Direct Laryngoscopy, ETT placed under direct vision. BSEB/ETCO2 (auscultation and capnogra phy) to confirm placement. Depth noted. Ventilator on. | | | | | |Electronically Signed by: Jamie Roper MD ESig date/time: 06/25/2018 12:49 | | | + + documented in this encounter Visit Diagnoses Not on filedocumented in this encounter Administered Medications + +--------+ +------+------+------+ | Medication Order | MAR | Action | Dose | Rate | Site | | | Action | Date | | | | + +--------+ +------+------+------+ | dexamethasone (PF) 10 mg/mL | Given | 06/25/20 | 8 mg | | | | injection Intravenous, PRN, | | 18 12:42 | | | | | Starting 06/25/18 at 1242, | | PM PST | | | | | Anesthesia Intra-op | | | | | | + +--------+ +------+------+------+ +---+---+ | | | +---+---+ + +-------+ +-------+---+---+ | ketamine 50 mg/mL injection | Given | 06/25/20 | 75 mg | | | | PRN, Starting 06/25/18 at | | 18 12:42 | | | | | 1242, Anesthesia Intra-op | | PM PST | | | | + +-------+ +-------+---+---+ +---+---+ | | | +---+---+ + +---------+ +---+---+---+ | lactated ringers (LR) [...] PST | | | | +---------+ +---+-------+---+ +---+---+ | | | +---+---+ + +-------+ +-------+---+---+ | lidocaine (PF) 2% injection | Given | 06/25/20 | 60 mg | | | | PRN, Starting Mon06/25/18 at | | 18 12:38 | | | | | 1238, Anesthesia Intra-op | | PM PST | | | | + +-------+ +-------+---+---+ +---+---+ | | | +---+---+ + +-------+ +------+---+---+ | midazolam (VERSED) 1 mg/mL | Given | 06/25/20 | 2 mg | | | | injection Intravenous, PRN, | | 18 12:32 | | | | | Anxiety, Starting Mon06/25/18 at | | PM PST | | | | | 1232, Anesthesia Intra-op | | | | | | + +-------+ +------+---+---+ +---+---+ | | | +---+---+ + +-------+ +--------+---+---+ | propofol (DIPRIVAN) injection | Given | 06/25/20 | 200 mg | | | | Intravenous, PRN, Starting Mon | | 18 12:38 | | | | | 06/25/18 at 1238, Anesthesia | | PM PST | | | | | Intra-op | | | | | | + +-------+ +--------+---+---+ +---+---+ | | | +---+---+ + +---------+ + +-------+---+ | propofol (DIPRIVAN) injection | New Bag | 06/25/20 | 50 | 29.4 | | | Intravenous, CONTINUOUS PRN, | | 18 12:42 | mcg/kg/m | mL/hr | | | Starting Mon06/25/18 at 1242, | | PM PST | in | | | | Anesthesia Intra-op | | | | | | + +---------+ + +-------+---+ +---+---+ | | | +---+---+ + +-------+ +------+---+---+ | vecuronium (NORCURON) injection | Given | 06/25/20 | 3 mg | | | | Intravenous, PRN, Ventilator | | 18 12:38 | | | | | Dyssynchrony, Starting Mon | | PM PST | | | | | 06/25/18 at 1238, Anesthesia | | | | | | | Intra-op | | | | | | + +-------+ +------+---+---+ +---+---+ | | | +---+---+ documented in this encounter"
--- OUTSIDE RECORDS SUMMARY | ~2020-03-10 | XMS | Encounter Summary ---
Demographics + + + | Address | [address] | | | [place] [address] | + + + | Home Phone | | + + + | Preferred Language | Unknown | + + + | Marital Status | Single | + + + | Muslim Affiliation | 1013 | + + + [...] Team Providers + +------+ + | Care Encyclopedia Research Worker Name | Role | Phone | + +------+ + | Linda Rowley | PCP | | + +------+ + Reason for Visit + + + | Reason | Comments | + + + | Headache (Adult - | | | New Onset Or New | | | Symptoms) | | + + + Encounter Details +--------+ + + + + | Date | Type | Department | Care Team | Description | +--------+ + + + + | 01/08/ | Emergency | [facility] | William Roland MD | Nonintractable | | 2018 | | [facility] | [address] | headache, | | | | CENTER [address] | [place], [place] | unspecified | | | | [place], [place] | [address] | chronicity pattern, | | | | [address] | | unspecified headache | | | | [phone] | | type (Primary Dx) | +--------+ + + + + Social [...] + + + | Blood Pressure | 138/97 | 01/08/2018 6:39 PM | | | | | PDT | | + + + + + | Pulse | 79 | 01/08/2018 6:39 PM | | | | | PDT | | + + + + + | Temperature | 37 C (98.6 F) | 01/08/2018 2:00 PM | | | | | PDT | | + + + + + | Respiratory Rate | 12 | 01/08/2018 4:45 PM | | | | | PDT | | + + + + + | Oxygen Saturation | 100% | 01/08/2018 6:39 PM | | | | | PDT | | + + + + + | Inhaled Oxygen | - | - | | | Concentration | | | | + + + + + | Weight | 90.2 kg (198 lb 13.7 | 01/08/2018 1:59 PM | | | | oz) | PDT | | + + + + + | Height | 152.4 cm (5') | 01/08/2018 2:00 PM | | | | | PDT | | + + + + + | Body Mass Index | 38.84 | 01/08/2018 1:59 PM | | | | | PDT | | + + + + + documented in this encounter Discharge Instructions Instructions William Roland MD - 01/08/2018Rest and a darkened room Plenty of fluids Return for worsening symptoms, other new complaints documented in this encounter Medications at Time [...] encounter ED Notes William Roland MD - 01/08/2018 4:52 PM PDT Emergency Department Encounter NotE CHIEF COMPLAINT Headache HPI Percephoni Laine Hawkins is a 22 y.o. female who presents to the Emergency Department with headache for approximately a week. It's predominantly unilateral and is throbbing. No fev er. She's had nausea without active vomiting. She's been taking dfzs-vvu-vauvvhl medicatio ns without relief. She's not a change in mental status. No trauma. No fever. She has a h istory of frequent headaches but has not been having any headaches recently. She's not had syncope. PAST MEDICAL & SURGICAL HISTORY Past Medical [...] Laterality Date CHOLECYSTECTOMY, LAPAROSCOPIC 2010 TONSILLECTOMY 2013 SOCIAL HISTORY Social History Social History Marital status: Single Spouse name: N/A Number of children: 12 Years of education: N/A Social History Main Topics Smoking status: Never Smoker Smokeless tobacco: Never Used Alcohol use Yes Comment: Rare Drug use: No Sexual activity: Yes Other Topics Concern None Social History Narrative None CURRENT MEDICATIONS Previous Medications CETIRIZINE (ZYRTEC) 5 MG TABLET Take 5 mg by mouth Daily. DULOXETINE HCL (CYMBALTA PO) Take by mouth. MELOXICAM (MOBIC) 7.5 MG TABLET One tablet [...] Headache and upset stomach Red Dye Rash REVIEW OF SYSTEMS As in history of present illness. A 10 system of review was otherwise negative PHYSICAL EXAM VITAL SIGNS: (first vital signs):Temp: 37 C (98.6 F) Pulse: 90 Resp: 12 SpO2: 97 % BP: 172/82 General: Alert, appears uncomfortable, non toxic HEENT: Normocephalic, atraumatic, OP clear, EOMI Neck: supple, full range of motion, no tracheal deviation Cardiovascular: Normal rate and rhythm, no murmurs, rubs or gallops Pulmonary: CTA bilateral, no wheeze/rhonci or resp distress Abdominal: Soft, non tender, no rebound or guarding Musculoskeletal: normal ROM, no edema Neurologic: Alert, no cranial nerve deficits, no focal deficits Skin: warm and dry ASSESSMENT & ED COURSE Patient here with headache most consistent with benign recurrent headache. She is treated with fluids, Compazine, Benadryl and Toradol. She otherwise appears nontoxic here. Do not think she has meningitis. Does not appear to be subarachnoid hemorrhage. I think this is u nlikely to be tumor. Do not think she needs further advanced imaging at this time. We'll p ada on discharge with return precautions and follow-up with primary care. DISPOSITION Discharge FINAL IMPRESSION Headache William Roland MD 01/08/18 [id number] Dorita Oviedo, RN - 0 01/08/2018 2:00 PM PDTC/o headache, photosensitivity, Rt side shooting pain from eye to neck , nausea x 1 week, epistaxis episodes. Hx of migraines but not for a long time. Electronical ly signed by Dorita Gonzalez RN at 01/08/2018 2:00 PM PDTdocumented in this encounter Plan of Treatment Not on filedocumented as of this encounter Procedures + +--------+ + + + | Procedure Name | Priori | Date/Time | Associated Diagnosis | Comments | | | ty | | | | + +--------+ + + + | POCT TEST, | STAT | 01/08/2018 | | Results for this | | URINE, QUAL | | 2:58 PM | | procedure are in the | | | | PDT | | results section. | + +--------+ + + + | POCT URINALYSIS, | STAT | 01/08/2018 | | Results for this | | AUTO WITH CONF | | 2:57 PM | | procedure are in the | | | | PDT | | results section. | + +--------+ + + + documented in this encounter Results POCT Test, Urine, QUAL (01/08/2018 2:58 PM PDT) + + + + + + | Component | Value | Ref Range | Performed | Pathologist | | | | | At | Signature | + + + + + + | | Negative | Negative | [facility] | | | Test, | | | [facility] | | | Urine, POC | | | MEDICAL | | | | | | CENTER - | | | | | | LABORATORY | | + + + + + + | Internal QC | Acceptable | Acceptable | [facility] | | | | | | [facility] | | | | | | MEDICAL | | | | | | CENTER - | | | | | | LABORATORY | | + + + + + + | Specific | | 1.010, 1.015, | [facility] | | | [place], | | 1.020, 1.025 | [facility] | | | POC | | | MEDICAL | | | | | | CENTER - | | | | | | LABORATORY | | + + + + + + | Lot Number | [id number] | | [facility] | | | | | | [facility] | | | | | | MEDICAL | | | | | | CENTER - | | | | | | LABORATORY | | + + + + + + | Expiration | 2019-04-04 | | [facility] | | | Date | | | [facility] | | [...] + | [facility] | [address] | [place], [place] | [phone] | | [facility] | | [id number] | | | - LABORATORY | | | | + + + + + POCT Urinalysis Dipstick Automated (01/08/2018 2:57 PM PDT) + + + + + + | Component | Value | Ref Range | Performed | Pathologist | | | | | At | Signature | + + + + + + | Color, UA, | Yellow | Yellow, Light | [facility] | | | POC | | Yellow | [facility] | | | | | | MEDICAL | | | | | | CENTER - | | | | | | LABORATORY | | + + + + + + | Clarity, | Clear | | [facility] | | | UA, POC | | | [facility] | | | | | | MEDICAL | | | | | | CENTER - | | | | | | LABORATORY | | + + + + + + | Glucose, | Negative | Negative | [facility] | | | UA, POC | | | [facility] | | | | | | MEDICAL | | | | | | CENTER - | | | | | | LABORATORY | | + + + + + + | Bilirubin, | Negative | Negative | [facility] | | | UA, POC | | | [facility] | | | | | | MEDICAL | | | | | | CENTER - | | | | | | LABORATORY | | + + + + + + | Ketones, | Negative | Negative, 100 | [facility] | | | UA, POC | | mg/dL | [facility] | | | | | | MEDICAL | | | | | | CENTER - | | | | | | LABORATORY | | + + + + + + | Specific | 1.030 | 1.001 - 1.030 | [facility] | | | [place], | | | [facility] | | | UA, POC | | | MEDICAL | | | | | | CENTER - | | | | | | LABORATORY | | + + + + + + | Blood, UA, | Negative | Negative | [facility] | | | POC | | | [facility] | | | | | | MEDICAL | | | | | | CENTER - | | | | | | LABORATORY | | + + + + + + | pH, UA, POC | 6.0 | 5.0, 6.0, 7.0, | [facility] | | | | | 8.0, 5.5, 6.5, | [facility] | | | | | 7.5 | MEDICAL | | | | | | CENTER - | | | | | | LABORATORY | | + + + + + + | Protein, | Negative | Negative | [facility] | | | UA, POC | | | [facility] | | | | | | MEDICAL | | | | | | CENTER - | | | | | | LABORATORY | | + + + + + + | Urobilinoge | < 0.2 E.U./dl | 0.2, Negative, | [facility] | | | n, UA, POC | | Normal, < 0.2 | [facility] | | | | | mg/dL, 1 mg/dL, | MEDICAL | | | | | < 0.2 E.U./dl, | CENTER - | | | | | 1.0 E.U./dL, | LABORATORY | | | | | 0.2 mg/dL | | | + + + + + + | Nitrite, | Positive (A) | Negative | [facility] | | | UA, POC | | | [facility] | | | | | | MEDICAL | | | | | | CENTER - | | | | | | LABORATORY | | + + + + + + | Leukocyte | Negative | Negative | [facility] | | | Esterase, | | | [facility] | | | UA, POC | | | MEDICAL | | | | | | CENTER - | | | | | | LABORATORY | | + + + + + + | Reducing | | | [facility] | | | Substances, | | | [facility] | | | Urine | | | MEDICAL | | | | | | CENTER - | | | | | | LABORATORY | | + + + + + + | Bilirubin | | Negative | [facility] | | | Confirmatio | | | [facility] | | | n by | | | MEDICAL | | | Ictotest, | | | CENTER - | | | Urine | | | LABORATORY | | + + + + + + | Remark | | | [facility] | | | | | [...] ST. | [address] | [place] | [phone] | | [facility] | | [id number] | | | - LABORATORY | | | | + + + + + documented in this encounter Visit Diagnoses + + | Diagnosis | + + | Nonintractable headache, unspecified chronicity pattern, unspecified headache type - | | Primary | + + documented in this encounter Administered Medications + +--------+ +-------+------+------+ | Medication Order | MAR | Action | Dose | Rate | Site | | | Action | Date | | | | + +--------+ +-------+------+------+ | diphenhydrAMINE (BENADRYL) | Given | 01/09/20 | 25 mg | | | | injection 25 mg 25 mg, | | 18 5:15 | | | | | Intravenous, ONCE, 01/08/18 at | | PM PDT | | | | | 1655, For 1 dose | | | | | | + +--------+ +-------+------+------+ +---+---+ | | | +---+---+ + +-------+ +-------+---+---+ | prochlorperazine (COMPAZINE) | Given | 01/09/20 | 10 mg | | | | injection 10 mg 10 mg, | | 18 5:19 | | | | | Intravenous, ONCE, Mon01/08/18 at | | PM PDT | | | | | 1655, For 1 dose | | | | | | + +-------+ +-------+---+---+ +---+---+ | | | +---+---+ + +---------+ +--------+-------+---+ | sodium chloride 0.9% (NS) bolus | New Bag | 01/09/20 | 1,000 | 1000 | | | 1,000 mL 1,000 mL, Intravenous, | | 18 5:15 | mLs | mL/hr | | | Administer over 1 Hours, ONCE, | | PM PDT | | | | | 01/08/18 at 1655, For 1 dose | | | | | | + +---------+ +--------+-------+---+ +---+---+ | | | +---+---+ documented in this encounter"
--- OUTSIDE RECORDS SUMMARY | ~2020-03-10 | XMS | Encounter Summary ---
Demographics + + + | Address | [address] | | | [place] [address] | + + + | Home Phone [...] + + + | Author | [facility] | | | and [place] | + + + | Organization | [facility] | | | and [...] Team Providers + +------+ + | Care Linotyper Name | Role | Phone | + +------+ + | Jennifer Rowley | PCP | | + +------+ + Reason for Visit + + + | Reason | Comments | + + + | Vaginal Itching | | + + + | Abdominal Cramping | | + + + Encounter Details +--------+ + + + + | Date | Type | Department | Care Team | Description | +--------+ + + + + | 05/28/ | Emergency | [facility] | Antony Hooper | Cyst of right ovary | | 2018 | | [facility] | MD Dane [address] | (Primary Dx) | | | | CENTER [address] | [facility] | | | | | [place] | [place] [address] | | | | | [address] | [phone] | | | | | [phone] | | | +--------+ + + + [...] + + + | Blood Pressure | 125/75 | 05/28/2018 4:26 AM | | | | | PST | | + + + + + | Pulse | 86 | 05/28/2018 4:26 AM | | | | | PST | | + + + + + | Temperature | 37.4 C (99.3 F) | 05/28/2018 12:41 AM | | | | | PST | | + + + + + | Respiratory Rate | 16 | 05/28/2018 4:26 AM | | | | | PST | | + + + + + | Oxygen Saturation | 98% | 05/28/2018 4:26 AM | | | | | PST | | + + + + + | Inhaled Oxygen | - | - | | | Concentration | | | | + + + + + | Weight | 95.3 kg (210 lb) | 05/28/2018 12:41 AM | | | | | PST | | + + + + + | Height | 154.9 cm (5' 1") | 05/28/2018 12:41 AM | | | | | PST | | + + + + + | Body Mass Index | 39.68 | 05/28/2018 12:41 AM | | | | | PST | | + + + + + documented in this encounter Discharge Instructions AttachmentsThe following attachments cannot be sent through Care Everywhere.Cysts, Ovarian (Syriac)Ovarian Cyst (Syriac)documented in this encounter Medications at Time of [...] + + + +---------+ + + | TEODORA-Katherin 0.3-30 | take 1 tablet by | | 0 | 05/11/20 | | | MG-MCG per tablet | mouth once daily | | | 18 | 9 | + + + +---------+ + + | | Take 2 tablets by | | 0 | | | | HYDROcodone-acetamin | mouth every 6 hours | | | | 8 | | ophen (NORCO) 5-325 [...] encounter ED Notes Antony Hooper MD - 05/28/2018 12:57 AM PSTFormatting of this note might be diff erent from the original. [facility] Kimmie Hawkins Emergency Department Encounter Note [address] [place] [id number] PCP:SIGRID Zavala [phone] CHIEF COMPLAINT: Chief Complaint Patient presents with Vaginal Itching Abdominal Cramping ED Room: ED12 HPI Kimmie Hawkins is a 22 y.o. female who presents to the Emergency Department Pt c/o lower abdominal cramping x 3 weeks and vaginal itching x 4 days. Hx of ovarian cysts and has been on pain management by Dr Villanueva and is supposed to have a repeat US on the 14t h. Presents for evaluation of right lower quadrant pain localized aching intermittent over the last 3 weeks has had this pain before per recommendations at [facility] she has been to ld to come in any time her pain changes and over the last week it felt a little worse rating up to 5 out of 10. Denies vaginal discharge bleeding or fluid appetite has been good no as sociated nausea vomiting or diarrhea. 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 PAST MEDICAL & SURGICAL HISTORY Patient Active Problem List Diagnosis Date Noted Chronic tonsillitis and adenoiditis(474.02) 06/21/2013 Note Last Updated: 03/28/2015 ICD-10 Record update DYSURIA 09/14/2011 Past Surgical History: Procedure Laterality Date CHOLECYSTECTOMY, LAPAROSCOPIC 2009 TONSILLECTOMY 2013 CURRENT MEDICATIONS Discharge Medication List as of 05/28/2018 4:20 CONTINUE these medications which have NOT CHANGED Details cetirizine (ZYRTEC) 5 mg tablet Take 5 mg by mouth Daily.Historical Med HYDROcodone-acetaminophen (NORCO) 5-325 mg per tablet Take 2 tablets by mouth every 6 hours as needed for Pain.Historical Med methocarbamol (ROBAXIN) 500 mg tablet Take 500 mg by mouth every 8 hours as needed.Historic al Med promethazine (PHENERGAN) 12.5 MG tablet Take 1 tablet by mouth every 6 hours as needed for Nausea for up to 12 doses.Disp-12 tablet, R-0, Normal ALLERGIES Allergies Allergen Reactions Acetaminophen Other (See [...] PHYSICAL EXAM VITAL SIGNS: (first vital signs):Temp: 37.4 C (99.3 F) Pulse: 96 Resp: 16 SpO2: 98 % BP : (!) 156/98 Body mass index is 39.68 kg/m. Constitutional: Well-appearing female patient. HEENT: Atraumatic, PERRL, Oropharynx benign. [...] or performed during the hospital encounter of 05/28/18 Urinalysis with Microscopic with Culture if Indicated Result Value Ref Range Color Yellow Light Yellow, Yellow, Straw Clarity Hazy (A) Clear pH, Urine 7.0 5.0 - 8.0 Specific Lando 1.020 1.001 - 1.030 Protein, Urine Negative Negative Blood, Urine Negative Negative Glucose, Urine Negative Negative Ketones, Urine Negative Negative Bilirubin, Urine Negative Negative Nitrite, Urine Negative Negative Leukocyte Esterase, Urine Trace (A) Negative Urobilinogen, Urine Negative 0.2 mg/dL, 1.0 mg/dL, Negative WBC UA 5-10 (A) 0 - 2 /HPF RBC UA 2-5 (A) 0 - 2 /HPF SQUAMOUS EPITHELIAL UA >100 (A) 0 - 2 /LPF BACTERIA UA 1+ (A) Negative /HPF MUCUS UA Present (A) Negative /LPF AMORPHOUS CRYSTALS Few (A) None Seen /HPF URINE COMMENT Urine Culture Not Indicated CBC with Differential Result Value Ref Range WBC 8.3 4.0 - 11.0 K/uL RBC 4.52 3.70 - 5.20 M/uL Hgb 12.9 11.5 - 16.0 g/dL Hct 39.0 34.0 - 47.0 % MCV 86.3 83.0 - 101.0 fL MCH 28.5 28.0 - 35.0 pg MCHC 33.1 32.0 - 36.0 g/dL RDW-CV 11.9 <15.0 % RDW-SD 38.0 35.1 - 46.3 fL Platelet Count 316 140 - 440 K/uL MPV 9.9 6.5 - 12.4 fL % Neutrophils 57.1 45.0 - 82.0 % % Lymphocytes 34.9 20.0 - 45.0 % % Monocytes 6.1 4.0 - 12.0 % % Eosinophils 1.4 0.0 - 5.0 % % Basophils 0.1 0.0 - 1.0 % % Immature granulocytes 0.4 0.0 - 0.4 % Absolute Neutrophils 4.73 1.80 - 8.50 K/uL Absolute Lymphocytes 2.90 0.60 - 3.20 K/uL Absolute Monocytes 0.51 0.00 - 1.00 K/uL Absolute Eosinophils 0.12 0.00 - 0.40 K/uL Absolute Basophils 0.01 0.00 - 0.10 K/uL Absolute Imm. Granulocytes 0.03 0.00 - 0.03 K/uL nRBC 0 0 - 2 per 100 WBC's NRBC ABS 0.00 0.00 - 0.01 K/uL Comprehensive Metabolic Panel Result Value Ref Range Na 138 136 - 149 mmol/L K 3.7 3.5 - 5.1 mmol/L Cl 107 98 - 109 mmol/L CO2 25 24 - 31 mmol/L Anion Gap 6 3 - 16 mmol/L Glucose 132 (H) 70 - 109 mg/dL BUN 9 7 - 18 mg/dL Creatinine 0.61 0.60 - 1.30 mg/dL eGFR if not >60 >=60 mL/min/1.73m2 Ca 9.5 8.3 - 10.5 mg/dL Albumin 3.7 3.2 - 5.0 g/dL Bilirubin Total 0.4 0.1 - 1.5 mg/dL Total Protein 6.7 6.0 - 7.8 g/dL AST 27 10 - 42 U/L ALT 45 6 - 45 U/L Alkaline Phosphatase 47 40 - 110 U/L Globulin 3.0 2.1 - 3.8 g/dL Albumin/Globulin Ratio 1.2 0.8 - 2.0 BUN/Creatinine Ratio 14.8 POCT Test, Urine, QUAL Result Value Ref Range Test, Urine, POC Negative Negative Internal QC Acceptable Acceptable, Not Performed Specific Lando, POC 1.010, 1.015, 1.020, 1.025 Lot Number [id number] Expiration Date 2019-09-04 IMAGING STUDIES (X-Rays interpreted by ED Physician) CT AP US pelvis ED COURSE & MEDICAL DECISION MAKING Pertinent Labs & Imaging studies were reviewed along with EMS notes and correction record s if applicable. (See chart for [...] Screening labs are ordered and are unremarkable. Ovarian cyst on R on CT, US pelvis ordered shows cyst without other acute pathology. Recomm ended she follow up with OBGYN service for further outpt management. The patient remained hemodynamically stable within normal [...] condition. Last Set of Vital Signs: Temp: 37.4 C (99.3 F) Pulse: 86 Resp: 16 SpO2: 98 % BP: 125/75 FINAL IMPRESSION ICD-10-CM ICD-9-CM 1. Cyst of right ovary N83.201 620.2 Follow-up Information SIGRID Zavala. Specialty: Family Nurse Practitioner Contact information: [address] [place] [id number] Discharge Medication List as of 05/28/2018 4:20 Administrations This Visit iohexol (OMNIPAQUE 350) 350 mg/mL injection 85 mL Admin Date 05/28/2018 Action Given Dose 85 mL Route Intravenous Administered By Philip Peace, Technologist ondansetron (ZOFRAN) injection 4 mg Admin Date 05/28/2018 Action Given Dose 4 mg Route Intravenous Administered By Betina Ruggiero RN Portions of this chart were created with [employer] voice recognition software. Inadvertent so und alike substitutions may be present and are unintentional Antony Hooper MD 05/28/18 0550 Na Ford RN - 05/28/2018 12:39 AM PSTPt c/o lower abdominal cramping x 3 weeks and vaginal itc makeda x 4 days. Hx of ovarian cysts and has been on pain management by Dr Villanueva and is suppo sed to have a repeat US on the . Electronically signed by Betina Ruggiero RN at 2017 12:41 AM PSTdocumented in this encounter Plan of Treatment + +------+--------+ + + | Name | Type | Priori | Associated Diagnoses | Date/Time | | | | ty | | | + +------+--------+ + + | ED INFORMATION | GLENN | Routin | | 05/28/2018 12:25 AM | | EXCHANGE | | e | | PST | + +------+--------+ + + documented as of this encounter Procedures + +--------+ + + + | Procedure Name | Priori | Date/Time | Associated Diagnosis | Comments | | | ty | | | | + +--------+ + + + | US PELVIS W | STAT | 05/28/2018 | | Results for this | | TRANSVAGINAL | | 4:24 AM | | procedure are in the | | | | PST | | results section. | + +--------+ + + + | CT ABDOMEN PELVIS W | STAT | 05/28/2018 | | Results for this | | CONTRAST | | 2:19 AM | | procedure are in the | | | | PST | | results section. | + +--------+ + + + | CBC WITH | STAT | 05/28/2018 | | Results for this | | DIFFERENTIAL | | 2:04 AM | | procedure are in the | | | | PST | | results section. | + +--------+ + + + | COMPREHENSIVE | STAT | 05/28/2018 | | Results for this | | METABOLIC PANEL | | 2:04 AM | | procedure are in the | | | | PST | | results section. | + +--------+ + + + | POCT TEST, | STAT | 05/28/2018 | | Results for this | | URINE, QUAL | | 12:46 AM | | procedure are in the | | | | PST | | results section. | + +--------+ + + + | URINALYSIS WITH | STAT | 05/28/2018 | | Results for this | | MICROSCOPIC WITH | | 12:45 AM | | procedure are in the | | CULTURE IF INDICATED | | PST | | results section. | + +--------+ + + + | ED INFORMATION | Routin | 05/28/2018 | | | | EXCHANGE | e | 12:25 AM | | | | | | PST | | | + +--------+ + + + +---+--------+ | | | | | Proced | | | ure | | | Note - | | | Amy, | | | Lab In | | | | | | Hlseve | | | n - | | | 05/28/ | | | 2018 | | | 12:26 | | | AM PST | | | | | | [...] | | | FICATI | | | ON?12/ | | | | | | 8 | | | 00:22? | | | HENSLE | | | Y, | | | PERCEP | | | HONI | | | J?MRN: | | | | | | [id number] | | | [id number] | | | his | | | [...] | | | int | | | Dec 3, | | | 2018 | | [...] | | | pain | | | Nov | | | [...] | | | pain | | | E.D. | | | [...] | | CS-II | | | Rx 4 | | | Quanti | | | ty | | | Dispen | | | sed 92 | | | | | | Unique | | | | | | Prescr | | | ibers | | | 6 | | | Unique | | | | | | Pharma | | | cies 1 | | | | | | Benzos | | | 3 | | | Opioid | | | s 4 | | | Long | | | [...] | +---+--------+ documented in this encounter Results US Crescencio Wright Transvaginal (05/28/2018 4:24 AM PST) + + | Specimen | + + | | + + + + + | Narrative | Performed At | + + + | TECHNIQUE: Transabdominal and endovaginal B-mode ultrasound with | [facility] | | color and duplex doppler CLINICAL INFORMATION: pelvic pain | | | ABDOMINAL CRAMPING. COMPARISON: CT and ultrasound 03/21/[address] | | | 05/28/2018. FINDINGS: UTERUS: Size: 8.2 x 5.3 x 4.4 cm. | | | Orientation: Anteverted. Echotexture: Normal. Masses: None. | | | Cervix: Normal. Endometrium: Normal. Endometrial thickness: 9 | | | mm RIGHT ADNEXA: Ovary size: 4.1 x 4.3 x 3.3 cm Echotexture | | | and cysts: Hypoechoic cyst measuring up to 2.3 cm with internal | | | echogenic debris suggesting hemorrhagic cyst. Color Doppler: Arterial | | | flow is present. Mass: None. LEFT ADNEXA: Ovary size: 3.6 x | | | 2.4 x 1.8 cm Echotexture and cysts: Normal. Color Doppler: Arterial | | | flow is present. Mass: None. FREE FLUID: Trace free fluid, | | | likely physiologic. IMPRESSION - Right ovarian 2.3 cm cyst with | | | possible internal debris versus artifact, may represent a small | | | hemorrhagic cyst. Notification: A preliminary report was | | | relayed to the ordering provider by the cardiopulmonary technologist chief | | | immediately following the exam. Dictated and Signed by: Darinel | | | MD Ata Electronically signed: 05/28/2018 11:20 AM | | + + + + + | Procedure Note | + + | Amy, Rad Results In - 05/28/2018 11:23 AM PST | | TECHNIQUE: Transabdominal and endovaginal B-mode ultrasound with color and | | duplex doppler | | | | CLINICAL INFORMATION: pelvic pain | | ABDOMINAL CRAMPING. | | | | COMPARISON: CT and ultrasound 03/21/[address] 05/28/2018. | | | | FINDINGS: | | | | UTERUS: | | Size: 8.2 x 5.3 x 4.4 cm. | | Orientation: Anteverted. | | Echotexture: Normal. | | Masses: None. | | Cervix: Normal. | | | | Endometrium: Normal. | | Endometrial thickness: 9 mm | | | | | | RIGHT ADNEXA: | | Ovary size: 4.1 x 4.3 x 3.3 cm | | Echotexture and cysts: Hypoechoic cyst measuring up to 2.3 cm with internal | | echogenic debris suggesting hemorrhagic cyst. | | Color Doppler: Arterial flow is present. | | Mass: None. | | | | LEFT ADNEXA: | | Ovary size: 3.6 x 2.4 x 1.8 cm | | Echotexture and cysts: Normal. | | Color Doppler: Arterial flow is present. | | Mass: None. | | | | | | FREE FLUID: Trace free fluid, likely physiologic. | | | | | | IMPRESSION - Right ovarian 2.3 cm cyst with possible internal debris versus | | artifact, may represent a small hemorrhagic cyst. | | | | | | Notification: A preliminary report was relayed to the ordering provider by the | | cardiopulmonary technologist chief immediately following the exam. | | | | Dictated and Signed by: Darinel Berumen MD | | Electronically signed: 05/28/2018 11:20 AM | + + + +---------+ + + | Performing | Address | City/State/Zipcode | Phone Number | | Organization | | | | + +---------+ + + | [facility] | | | | + +---------+ + + CT Abdomen Pelvis w Contrast (05/28/2018 2:19 AM PST) + + | Specimen | + + | | + + + + + | Narrative | Performed At | + + + | CT ABDOMEN AND PELVIS WITH CONTRAST CLINICAL INFORMATION: | [facility] | | Right lower quadrant pain and cramping. COMPARISON: CT ABDOMEN | | | PELVIS W CONTRAST (03/21/2018); US PELVIS W TRANSVAGINAL (03/21/2018); | | | PROCEDURE: Axial images through the abdomen and pelvis after the | | | administration of 85 ml Omnipaque 350 intravenous contrast. | | | Multiplanar reconstructions. At least one of the following CT dose | | | optimization techniques were used: Automated exposure control; | | | Adjustment of mA and/or kV according to patient size; Use of | | | iterative reconstruction technique. FINDINGS: LUNG BASES: No | | | significant pulmonary abnormality. No pleural effusion or | | | pneumothorax. ABDOMEN Liver and Biliary: Gallbladder absent. No | | | biliary abnormality. No significant liver abnormality. Mild | | | hepatomegaly. Pancreas, Spleen and Adrenals: No splenomegaly or | | | splenic mass. No significant adrenal abnormality. No pancreatic | | | mass, ductal dilatation or necrosis. No peripancreatic inflammation. | | | Kidneys: No hydronephrosis, calculus or solid renal mass. ABDOMEN | | | AND PELVIS Bowel: No small bowel or colonic dilation or adjacent | | | inflammation. No appendiceal dilation or inflammation. Vessels: No | | | significant abnormality in the aorta, its proximal branches or the | | | iliac arteries. No significant abnormality in the portal veins, | | | mesenteric veins or systemic veins. Lymph Nodes: No adenopathy. | | | Peritoneum and Retroperitoneum: No ascites or free air. No significant | | | retroperitoneal abnormality. PELVIS Genitourinary: Distal | | | ureters and bladder appear normal. No pelvic masses. New 2.8 cm | | | water-density right ovarian cyst. BODY WALL Soft Tissues: No | | | bowel or inflamed fat containing hernia, mass or hemorrhage. Bones: | | | No acute fracture or vertebral end plate destruction. No lytic or | | | blastic lesion. Bilateral pars defects of L5. No evidence of | | | anterolisthesis. IMPRESSION- 1. No acute findings of the abdomen | | | or pelvis. 2. New 2.8 cm water-density right ovarian cyst. Since | | | this is the area of patient's pain, consider further characterization | | | with pelvic ultrasound. 3. Bilateral pars defects of L5. No | | | evidence of anterolisthesis. 4. Mild hepatomegaly. A | | | preliminary report was sent without significant discrepancy. | | | Dictated and Signed by: Corwin Bowers MD Electronically signed: | | | 05/28/2018 10:14 AM | | + + + + + | Procedure Note | + + | Amy, Rad Results In - 05/28/2018 10:17 AM PST | | CT ABDOMEN AND PELVIS WITH CONTRAST | | | | CLINICAL INFORMATION: | | Right lower quadrant pain and cramping. | | | | COMPARISON: | | CT ABDOMEN PELVIS W CONTRAST (03/21/2018); US PELVIS W TRANSVAGINAL | | (03/21/2018); | | | | PROCEDURE: | | Axial images through the abdomen and pelvis after the administration of | | 85 ml Omnipaque 350 intravenous contrast. Multiplanar reconstructions. | | | | At least one of the following CT dose optimization techniques were | | used: Automated exposure control; Adjustment of mA and/or kV according | | to patient size; Use of iterative reconstruction technique. | | | | FINDINGS: | | LUNG BASES: No significant pulmonary abnormality. No pleural effusion | | or pneumothorax. | | | | ABDOMEN | | Liver and Biliary: Gallbladder absent. No biliary abnormality. No | | significant liver abnormality. Mild hepatomegaly. | | Pancreas, Spleen and Adrenals: No splenomegaly or splenic mass. No | | significant adrenal abnormality. No pancreatic mass, ductal dilatation | | or necrosis. No peripancreatic inflammation. | | Kidneys: No hydronephrosis, calculus or solid renal mass. | | | | ABDOMEN AND PELVIS | | Bowel: No small bowel or colonic dilation or adjacent inflammation. No | | appendiceal dilation or inflammation. | | Vessels: No significant abnormality in the aorta, its proximal branches | | or the iliac arteries. No significant abnormality in the portal veins, | | mesenteric veins or systemic veins. | | Lymph Nodes: No adenopathy. | | Peritoneum and Retroperitoneum: No ascites or free air. No significant | | retroperitoneal abnormality. | | | | PELVIS | | Genitourinary: Distal ureters and bladder appear normal. No pelvic | | masses. New 2.8 cm water-density right ovarian cyst. | | | | BODY WALL | | Soft Tissues: No bowel or inflamed fat containing hernia, mass or | | hemorrhage. | | Bones: No acute fracture or vertebral end plate destruction. No lytic | | or blastic lesion. Bilateral pars defects of L5. No evidence of anterolisthesis. | | | | IMPRESSION- | | 1. No acute findings of the abdomen or pelvis. | | 2. New 2.8 cm water-density right ovarian cyst. Since this is the area | | of patient's pain, consider further characterization with pelvic | | ultrasound. | | 3. Bilateral pars defects of L5. No evidence of anterolisthesis. | | 4. Mild hepatomegaly. | | | | | | A preliminary report was sent without significant discrepancy. | | | | Dictated and Signed by: Corwin Bowers MD | | Electronically signed: 05/28/2018 10:14 AM | + + + +---------+ + + | Performing | Address | City/State/Zipcode | Phone Number | | Organization | | | | + +---------+ + + | [facility] | | | | + +---------+ + + Comprehensive Metabolic Panel (05/28/2018 2:04 AM PST) + + + + + [...] + + + + | Cl | 107 | 98 - 109 mmol/L | [facility] [...] + + + + | Glucose | 132 (H) | 70 - 109 mg/dL | [facility] | | | | | | [facility] | | | | | | [facility] | | | | | | [facility] - | | | | | | LABORATORY | | + + + + + + | BUN | 9 | 7 - 18 mg/dL | [facility] | | | | | | [facility] | | [facility] | [facility] | | | | | | [facility] - | | | | | | LAB[facility]ATORY | | + + + + + + | Creatinine | 0.61 | 0.60 - 1.30 | [facility] | | | | | mg/dL | [facility] | | | | | | MEDICAL | | | | | | CENTER - | | | | | | LABORATORY | | + + + + + + | eGFR, | >60Comment: GLOMERULAR | >=60 | [facility] | | | non- | FILTRATION | mL/min/1.73m2 | [facility] | | | [place] | RATE,ESTIMATED | | MEDICAL | | | | mL/min/1.20v5Xlbr than | | CENTER - | | [...] | 9.5 | 8.3 - 10.5 | [facility] | | | | | mg/dL | [facility] | | | | | | MEDICAL | | | | | | CENTER - | | | | | | LABORATORY | | + + + + + + | Albumin | 3.7 | 3.2 - 5.0 g/dL | [facility] | | | | | | [facility] | | | | | | [facility] | | | | | | [facility] - | | | | | | LABORATORY | | + + + + + + | Bilirubin | 0.4 | 0.1 - 1.5 mg/dL | [facility] | | | Total | | | [facility] | | | | | | [facility] | | | | | | CENTER - | | | | | | LABORATORY | | + + + + + + | Total | 6.7 | 6.0 - 7.8 g/dL | [facility] | | | Protein | | | [facility] | | | | | | MEDICAL | | | | | | CENTER - | | | | | | LABORATORY | | + + + + + + | AST | 27 | 10 - 42 U/L | [facility] | | | | | | [facility] | | | | | | [facility] | | | | | | C[facility] - | | | | | | LABORATORY | | + + + + + + | ALT | 45 | 6 - 45 U/L | [facility] | | | | | | [facility] | | | | | | [facility] | | | | | | C[facility] - | | | | | | LABORATORY | | + + + + + + | Alkaline | 47 | 40 - 110 U/L | [facility] | | | Phosphatase | | | [facility] | | | | | | MEDICAL | | | | | | CENTER - | | | | | | LABORATORY | | + + + + + + | Globulin | 3.0 | 2.1 - 3.8 g/dL | [facility] [...] [address] | [place] | [phone] | | [facility] | | [id number] | | | - LABORATORY | | | | + + + + + CBC with Differential (05/28/2018 2:04 AM PST) + + + + + + | Component | Value | Ref Range | Performed | Pathologist | | | | | At | Signature | + + + + + + | White Blood | 8.3 | 4.0 - 11.0 K/uL | [facility] | | | Cells | | | [facility] | | | | | | MEDICAL | | | | | | CENTER - | | | | | | LABORATORY | | + + + + + + | Red Blood | 4.52 | 3.70 - 5.20 | [facility] | | | Cells | | M/uL | [facility] | | | | | | MEDICAL | | | | | | CENTER - | | | | | | LABORATORY | | + + + + + + | Hemoglobin | 12.9 | 11.5 - 16.0 | [facility] | | | | | g/dL | [facility] | | | | | | MEDICAL | | | | | | CENTER - | | | | | | LABORATORY | | + + + + + + | Hematocrit | 39.0 | 34.0 - 47.0 % | [facility] | | | | | [facility] | | | | | | [facility] | | | | | | C[facility] - | | | | | | LABORATORY | | + + + + + + | MCV | 86.3 | 83.0 - 101.0 fL | [facility] | | | | | | [facility] | | | | | | [facility]ICAL | | | | | | CENTER - | | | | | | LABORATORY | | + + + + + + | MCH | 28.5 | 28.0 - 35.0 pg | [facility] | | | | | | [facility] | | | | | | [facility] | | | | | | CENTER - | | | | | | LABORATORY | | + + + + + + | MCHC | 33.1 | 32.0 - 36.0 | [facility] | | | | | g/dL | [facility] | | | | | | MEDICAL | | | | | | CENTER - | | | | | | LABORATORY | | + + + + + + | RDW-CV | 11.9 | <15.0 % | [facility] | | | | | | [facility] | | | | | | MEDICAL | | | | | | CENTER - | | | | | | LABORATORY | | + + + + + + | RDW-SD | 38.0 | 35.1 - 46.3 fL | [facility] | | | | | | [facility] | | | | | | MEDICAL | | | | | | CENTER - | | | | | | LABORATORY | | + + + + + + | Platelet | 316 [...] + + + + | % | 57.1 | 45.0 - 82.0 % | [facility] | | | Neutrophils | | | [facility] | | | | | | MEDICAL | | | | | | CENTER - | | | | | | LABORATORY | | + + + + + + | % | 34.9 | 20.0 - 45.0 % | [facility] | | | Lymphocytes | | | [facility] | | | | | | MEDICAL | | | | | | CENTER - | | | | | | LABORATORY | | + + + + + + | % Monocytes | 6.1 | 4.0 - 12.0 % | [facility] [...] + + + | % Immature | 0.4Comment: For | 0.0 - 0.4 % | [facility] | | | Granulocyte | patients, use the | | [facility] | | | s | special reference ranges | | MEDICAL | | | | listed below. | | CENTER - | | | | | | LABORATORY | | + + + + + + | Absolute | 4.73 | 1.80 - 8.50 | [facility] | | | Neutrophils | | K/uL | [facility] | | | | | | MEDICAL | | | | | | CENTER - | | | | | | LABORATORY | | + + + + + + | Absolute | 2.90 | 0.60 - 3.20 | [facility] | | | Lymphocytes | | K/uL | [facility] | | | | | | MEDICAL | | | | | | CENTER - | | | | | | LABORATORY | | + + + + + + | Absolute | 0.51 | 0.00 - 1.00 | [facility] | | | Monocytes | | K/uL | [facility] | | | | | | MEDICAL | | | | | | CENTER - | | | | | | LABORATORY | | + + + + + + | Absolute | 0.12 | 0.00 - 0.40 | [facility] | | | Eosinophils | | K/uL | [facility] | | | | | | MED[facility] | | | | | | CENTER - | | | | | | LABORATORY | | + + + + + + | Absolute | 0.01 | 0.00 - 0.10 | [facility] | | | Basophils | | K/uL | [facility] | [...] ranges: Trim. Absolute (K/uL) Percentage (%) | [facility] | | 1st 0.003-0.091 K/uL 0.0-0.9% 2nd 0.007-0.247 K/uL | [facility] | | 0.1-2.0% 3rd 0.018-0.456 K/uL 0.1-2.0% | - LABORATORY | + + + + + + + + | Performing | Address | City/State/Zipcode | Phone Number | | Organization | | | | + + + + + | [facility] | [address] | [place] | [phone] | | [facility] | | [id number] | | | - LABORATORY | | | | + + + + + POCT Test, Urine, QUAL (05/28/2018 12:46 AM PST) + + + + + [...] | 1.010, 1.015, | | | | [place], | | 1.020, 1.025 | | | | POC | | | | | + + + + + + | Lot Number | [id number] | | | | + + + + + + | Expiration | 2019-09-04 | | | | | Date | | | | | + + + + + + + + | Specimen | + + | Urine | + + Urinalysis with Microscopic with Culture if Indicated (05/28/2018 12:45 AM PST) + + + + + [...] - 1.030 | [facility] | | | [place], | | | [facility] | | [...] + + + + | Amorphous | Few (A) | None Seen /HPF | [facility] | | | Crystals, | | | [facility] | | | Urine | | | MEDICAL | | | | | | CENTER - | | | | | | LABORATORY | | + + + + + + | Urine | Urine Culture Not | | [facility] | | | Comment | Indicated | | [facility] | | | [...] + + | [facility] | [address] | [place] | [phone] | | [facility] | | [address] | | | - LABORATORY | | | | + + + + + documented in this encounter Visit Diagnoses + + | Diagnosis | + + | Cyst of right ovary - Primary Other and unspecified ovarian cyst | + + documented in this encounter Administered Medications + +--------+ +--------+------+------+ | Medication Order | MAR | Action | Dose | Rate | Site | | | Action | Date | | | | + +--------+ +--------+------+------+ | iohexol (OMNIPAQUE 350) 350 | Given | 05/28/20 | 85 mLs | | | | mg/mL injection 85 mL 85 mL, | | 18 2:19 | | | | | Intravenous, ONCE PRN, Other, | | AM PST | | | | | Starting 05/28/18 at 0219, For | | | | | | | 1 dose, [facility] | | | | | | + +--------+ +--------+------+------+ +---+---+ | | | +---+---+ + +-------+ +------+---+---+ | ondansetron (ZOFRAN) injection | Given | 05/28/20 | 4 mg | | | | 4 mg 4 mg, Intravenous, ONCE, | | 18 2:25 | | | | | 05/28/18 at 0205, For 1 dose | | AM PST | | | | + +-------+ +------+---+---+ +---+---+ | | | +---+---+ documented in this encounter
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
== END 2020-03-10 08:04 | disposition left against medical advice (07) ==
LOC: ED 07:48
DX: Z53.21 Procedure and treatment not carried out due to patient leaving prior to being seen by health care provider (principal)